=== PATIENT | male | born 1945 | race Caucasian/White ===

== ENCOUNTER 2022-06-22 22:44 | Emergency (ER) | payer OTHER, MEDICARE, SELFPAY ==
[2022-06-22 22:55] VITALS: BP 143/87; PULSE 93; RESP 18; TEMP 36.6; O2SAT 94; BMI 26.0
--- NOTE | 2022-06-22 23:07 | ED.SOB ---
HPI - SOB/Dyspnea General Chief Complaint: Shortness of Breath/Dyspnea Stated Complaint: Trouble Breathing, Ill Time Seen by Provider: 06/22/22 23:01 Source: patient, family and RN notes reviewed Mode of arrival: wheelchair Limitations: no limitations History of Present Illness HPI Narrative: 77-year-old man presenting to the emergency department with complaint of shortness of breath. Apparently this woke him from sleep. Initially says he was feeling fine prior to this but with further recollection has been having intermittent chest pains over the last few days. Can't be specific if this is really occurring at rest or with exertion. He has been fatigued lately is affirmed by his . Doing a lot of this interview he looks to his for answers to these questions. He also when pressed admits to having a little bit of chest pain this evening as well. He has not any fever. No cough or cold symptoms. He admits to just a little bit of nausea as well; this seems to have faded. notes how he was shaking and seemed cold when he came upstairs this evening. No abdominal pain. No diarrhea. No dysuria noted. Denies orthopnea. Was vaccinated for COVID; sounds like boosted as well. Last seen in this department with apparent ACS. This was in August of 2020. [facility] does have a history of triple-vessel bypass and apparently to 2 years ago angiogram confirmed these vessels to be open but there was apparently 1 small vessel that cannot be stented and narrowed enough to be causing recurrent chest pain. Review of records shows a monoclonal gammopathy as well. Inquiry is to reasons for certain medications; he is unsure. We asked about nitroglycerin; he says he threw all away; he thought it might be . Has not taken anything today. [place] that they have lost a little bit due to road construction. Later reveals that he actually did take nitroglycerin earlier this afternoon. This information obtained more from spouse. Then he laid down. Whatever chest discomfort there had been apparently resolved. Related Data Home Medications Medication Instructions Recorded Confirmed alirocumab subcut 06/22/22 aspirin 81 mg tablet,delayed 81 mg PO DAILY 06/22/22 06/22/22 release (Adult Aspirin Regimen) carvedilol 6.25 mg tablet 6.25 mg PO BID 06/22/22 06/22/22 clobetasol 0.05 % topical ointment 1 applic topical DAILY 06/22/22 06/22/22 clopidogrel 75 mg tablet 75 mg PO DAILY 06/22/22 06/22/22 ezetimibe 10 mg tablet 10 mg PO DAILY 06/22/22 06/22/22 isosorbide mononitrate .ROUTE 06/22/22 lisinopril 10 mg tablet 5 mg PO DAILY 06/22/22 06/22/22 omeprazole 20 mg capsule,delayed 20 mg PO BID 06/22/22 06/22/22 release Previous Rx's Medication Instructions Recorded amoxicillin 875 mg-potassium 1 tab PO BID #20 tabs 06/23/22 clavulanate 125 mg tablet Allergies Allergy/AdvReac Type Severity Reaction Status Date / Time No Known Drug Allergies Allergy Verified 06/23/22 16:42 Review of Systems Status of ROS: Reports: 10 or more systems reviewed and unremarkable except as noted in History and below [facility] Medical History Patricio esophagus Bradycardia Coronary atherosclerosis Dementia Hyperlipidemia Hypertension Mitral regurgitation Monoclonal gammopathy PVD (peripheral vascular disease) Social History Smoking Status: Former smoker Do you use any of these nicotine containing products: None How often do you have a drink containing alcohol: 4 or more times a week How many standard drinks containing alcohol do you have on a typical day: 1 or 2 How often do you have six or more drinks on one occasion: Never AUDIT-C Alcohol total score: 4 Non-prescribed substance use: denies use service: Yes Exam Narrative: Exam Narrative: Calm. Pleasant. NAD. Resting comfortably semi recumbent. Initial oxygen saturation 92-93%. And during interview varies between this and 95%. Cranial nerves 2-12 intact. Moving all extremities without difficulty. He is well perfused peripherally. There is no extremity edema. Is maybe mildly hard of hearing but I believe even when he hears my question he looks to spouse for answers who acknowledges that she does not really know what he might be feeling. Initially I hear some congestion in his throat. That seems to clear. Lungs appear to be clear. Equal expansion excursion. Cardiovascular elevated rate regular rhythm I thought maybe I was hearing some split S2- subtle. No JVD. No pain to palpation across the chest. Abdomen is protuberant soft and nontender. Skin is warm and dry Const: Vital Signs, click to edit/add: Vital Signs - 24 hr 06/22/22 22:55 06/22/22 23:27 06/23/22 00:03 Temperature 97.8 F Pulse Rate [Left P ulse Oximeter] 93 Respiratory Rate 18 Blood Pressure [Le ft Upper Arm] 143/87 H 142/71 H 93/63 Pulse Oximetry 94 Oxygen Delivery Me thod Room Air 06/23/22 00:18 06/22/22 23:27 06/23/22 02:00 Temperature Pulse Rate [Left P ulse Oximeter] 84 84 Respiratory Rate 18 Blood Pressure [Le ft Upper Arm] 103/69 110/89 118/64 Pulse Oximetry Oxygen Delivery Me thod Room Air Documenting provider has reviewed patient's vital signs: yes Course Reevaluation(s) Reevaluation #1: Did receive nitroglycerin once. Pressure to 93 systolic. Is not reporting lightheadedness. Symptom free in general. Reevaluation #2: Discussed concerning labs with Mr. Wren particularly elevated bilirubin but especially the D-dimer and CRP. And in the setting of monoclonal gammopathy. He maintains he is symptom-free now and definitely without any pleuritic discomfort. Is no longer short of breath. He then says that he often gets these episodes of what I understand to be shortness of breath; this is not a new thing. Wants to leave. Vital Signs Vital signs: Initial Vital Signs Temperature 97.8 F 06/22/22 22:55 Temperature Source Temporal Artery Scan 06/22/22 22:55 Pulse Rate 93 06/22/22 22:55 Pulse Rhythm 06/22/22 22:55 Respiratory Rate 18 06/22/22 22:55 Blood Pressure 143/87 H 06/22/22 22:55 Blood Pressure Mean 105 06/22/22 22:55 Blood Pressure Position Sitting 06/22/22 22:55 Pulse Oximetry 94 06/22/22 22:55 Oxygen Delivery Method 06/22/22 22:55 Vital Signs Temperature 97.8 F 06/22/22 22:55 Pulse Rate 93 06/22/22 22:55 Respiratory Rate 18 06/22/22 22:55 Blood Pressure 143/87 H 06/22/22 22:55 Pulse Oximetry 94 06/22/22 22:55 Oxygen Delivery Method 06/22/22 22:55 Temperature 97.8 F 06/22/22 22:55 Pulse Rate 84 06/23/22 02:00 Respiratory Rate 18 06/23/22 02:00 Blood Pressure 118/64 06/23/22 02:00 Pulse Oximetry 94 06/22/22 22:55 Oxygen Delivery Method 06/22/22 23:27 MDM - SOB/Dyspnea MDM Narrative Medical decision making narrative: Initial EKG reviewed by me shows normal sinus. I do not see ischemic changes. Looks to have similar axis/orientation to August of 2020. There was maybe some evidence of lateral ischemia at that time but I do not see that present here now. These biphasic T-waves though now are in leads V1 and V2. Rate of 85, again normal sinus Repeat EKG is unchanged. Also reviewed by me I wonder if some of these episodes represent anxiety. Though there is this chilled component that was also described. Elevated bilirubin and CRP. Stable vitals. Blood cultures collected. Medical Records Attestation: I reviewed the patient's medical records. Lab Data Attestation: I reviewed the patient's lab results. Labs: Lab Results 06/22/22 06/22/22 06/22/22 Range/Units 23:35 23:40 23:40 WBC 9.24 (4.50-11.00) K/uL RBC 4.86 (4.30-5.90) m/uL Hgb 15.2 (13.5-17.5) gm/dL Hct 44.5 (37.0-53.0) % MCV 92 (80-100) fL MCH 31 (26-34) pg MCHC 34 (32-36) gm/dL RDW Coeff of Lilibeth 13.3 (11.5-15.5) % Plt Count 129 L (140-440) K/uL Neut % (Auto) 93.9 H (42.0-72.0) % Lymph % (Auto) 3.1 L (20-44) % Meriwether % (Auto) 2.6 (0.0-11.0) % Eos % (Auto) 0.1 (0.0-7.0) % Baso % (Auto) 0.1 (0.0-3.0) % Neut # (Auto) 8.70 H (1.7-7.0) K/uL Lymph # (Auto) 0.30 L (0.90-2.90) K/uL Meriwether # (Auto) 0.20 (0.00-0.90) K/UL Eos # (Auto) 0.01 (0.00-0.50) K/uL Baso # (Auto) 0.01 (0.00-0.30) K/uL Abs Immat Gran (auto) 0.02 (0.00-0.30) K/uL D-Dimer Quant (PE/DVT) 2.32 H (0.00-0.50) ug/ml VBG pH (7.32-7.43) VBG pCO2 (40-50) mmHG VBG pO2 (25-47) mmHG VBG HCO3 (21-28) mmol/L Sodium (135-149) mmol/L Potassium (3.6-5.1) mmol/L Chloride (96-114) mmol/L Carbon Dioxide (20-32) mmol/L BUN (7-30) mg/dL Creatinine (0.5-1.5) mg/dL Estimated Creat Clear Estimated GFR ml/min Glucose (60-115) mg/dL Lactate (0.5-1.9) mmol/L Venous Lactic Acid (Serial Order) Calcium (8.4-10.6) mg/dL Total Bilirubin (0.1-1.5) mg/dL Direct Bilirubin (0.0-0.5) mg/dL AST (12-35) U/L ALT (4-50) U/L Alkaline Phosphatase (40-150) U/L Troponin I (0.01-0.04) ng/mL C-Reactive Protein (0.5-1.0) mg/dL NT-Pro-B Natriuret Pep (0-450) PG/mL Total Protein (6.0-8.3) g/dL Albumin (3.3-5.0) g/dL SARS-CoV-2 (PCR) Negative SARS-CoV-2 (Negative) POC Troponin I (0.01-0.04) ng/ml 06/22/22 06/22/22 06/22/22 Range/Units 23:40 23:40 23:46 WBC (4.50-11.00) K/uL RBC (4.30-5.90) m/uL Hgb (13.5-17.5) gm/dL Hct (37.0-53.0) % MCV (80-100) fL MCH (26-34) pg MCHC (32-36) gm/dL RDW Coeff of Lilibeth (11.5-15.5) % Plt Count (140-440) K/uL Neut % (Auto) (42.0-72.0) % Lymph % (Auto) (20-44) % Meriwether % (Auto) (0.0-11.0) % Eos % (Auto) (0.0-7.0) % Baso % (Auto) (0.0-3.0) % Neut # (Auto) (1.7-7.0) K/uL Lymph # (Auto) (0.90-2.90) K/uL Meriwether # (Auto) (0.00-0.90) K/UL Eos # (Auto) (0.00-0.50) K/uL Baso # (Auto) (0.00-0.30) K/uL Abs Immat Gran (auto) (0.00-0.30) K/uL D-Dimer Quant (PE/DVT) (0.00-0.50) ug/ml VBG pH (7.32-7.43) VBG pCO2 (40-50) mmHG VBG pO2 (25-47) mmHG VBG HCO3 (21-28) mmol/L Sodium 131 L (135-149) mmol/L Potassium 4.0 (3.6-5.1) mmol/L Chloride 100 (96-114) mmol/L Carbon Dioxide 22 (20-32) mmol/L BUN 14 (7-30) mg/dL Creatinine 0.8 (0.5-1.5) mg/dL Estimated Creat Clear 61.86 Estimated GFR 91 ml/min Glucose 155 H (60-115) mg/dL Lactate (0.5-1.9) mmol/L Venous Lactic Acid (Serial Order) Calcium 8.6 (8.4-10.6) mg/dL Total Bilirubin 3.5 H (0.1-1.5) mg/dL Direct Bilirubin 0.2 (0.0-0.5) mg/dL AST 23 (12-35) U/L ALT 16 (4-50) U/L Alkaline Phosphatase 62 (40-150) U/L Troponin I 0.02 (0.01-0.04) ng/mL C-Reactive Protein 6.0 H (0.5-1.0) mg/dL NT-Pro-B Natriuret Pep 483 H (0-450) PG/mL Total Protein 6.6 (6.0-8.3) g/dL Albumin 3.9 (3.3-5.0) g/dL SARS-CoV-2 (PCR) (Negative) POC Troponin I 0.01 (0.01-0.04) ng/ml 06/22/22 06/22/22 06/22/22 Range/Units 23:50 23:50 23:50 WBC (4.50-11.00) K/uL RBC (4.30-5.90) m/uL Hgb (13.5-17.5) gm/dL Hct (37.0-53.0) % MCV (80-100) fL MCH (26-34) pg MCHC (32-36) gm/dL RDW Coeff of Lilibeth (11.5-15.5) % Plt Count (140-440) K/uL Neut % (Auto) (42.0-72.0) % Lymph % (Auto) (20-44) % Meriwether % (Auto) (0.0-11.0) % Eos % (Auto) (0.0-7.0) % Baso % (Auto) (0.0-3.0) % Neut # (Auto) (1.7-7.0) K/uL Lymph # (Auto) (0.90-2.90) K/uL Meriwether # (Auto) (0.00-0.90) K/UL Eos # (Auto) (0.00-0.50) K/uL Baso # (Auto) (0.00-0.30) K/uL Abs Immat Gran (auto) (0.00-0.30) K/uL D-Dimer Quant (PE/DVT) (0.00-0.50) ug/ml VBG pH 7.491 H (7.32-7.43) VBG pCO2 30 L (40-50) mmHG VBG pO2 67.5 H (25-47) mmHG VBG HCO3 23 (21-28) mmol/L Sodium (135-149) mmol/L Potassium (3.6-5.1) mmol/L Chloride (96-114) mmol/L Carbon Dioxide (20-32) mmol/L BUN (7-30) mg/dL Creatinine (0.5-1.5) mg/dL Estimated Creat Clear Estimated GFR ml/min Glucose (60-115) mg/dL Lactate 0.9 (0.5-1.9) mmol/L Venous Lactic Acid (Serial Order) Cancelled Calcium (8.4-10.6) mg/dL Total Bilirubin (0.1-1.5) mg/dL Direct Bilirubin (0.0-0.5) mg/dL AST (12-35) U/L ALT (4-50) U/L Alkaline Phosphatase (40-150) U/L Troponin I (0.01-0.04) ng/mL C-Reactive Protein (0.5-1.0) mg/dL NT-Pro-B Natriuret Pep (0-450) PG/mL Total Protein (6.0-8.3) g/dL Albumin (3.3-5.0) g/dL SARS-CoV-2 (PCR) (Negative) POC Troponin I (0.01-0.04) ng/ml 06/23/22 Range/Units 01:05 WBC (4.50-11.00) K/uL RBC (4.30-5.90) m/uL Hgb (13.5-17.5) gm/dL Hct (37.0-53.0) % MCV (80-100) fL MCH (26-34) pg MCHC (32-36) gm/dL RDW Coeff of Lilibeth (11.5-15.5) % Plt Count (140-440) K/uL Neut % (Auto) (42.0-72.0) % Lymph % (Auto) (20-44) % Meriwether % (Auto) (0.0-11.0) % Eos % (Auto) (0.0-7.0) % Baso % (Auto) (0.0-3.0) % Neut # (Auto) (1.7-7.0) K/uL Lymph # (Auto) (0.90-2.90) K/uL Meriwether # (Auto) (0.00-0.90) K/UL Eos # (Auto) (0.00-0.50) K/uL Baso # (Auto) (0.00-0.30) K/uL Abs Immat Gran (auto) (0.00-0.30) K/uL D-Dimer Quant (PE/DVT) (0.00-0.50) ug/ml VBG pH (7.32-7.43) VBG pCO2 (40-50) mmHG VBG pO2 (25-47) mmHG VBG HCO3 (21-28) mmol/L Sodium (135-149) mmol/L Potassium (3.6-5.1) mmol/L Chloride (96-114) mmol/L Carbon Dioxide (20-32) mmol/L BUN (7-30) mg/dL Creatinine (0.5-1.5) mg/dL Estimated Creat Clear Estimated GFR ml/min Glucose (60-115) mg/dL Lactate (0.5-1.9) mmol/L Venous Lactic Acid (Serial Order) Calcium (8.4-10.6) mg/dL Total Bilirubin (0.1-1.5) mg/dL Direct Bilirubin (0.0-0.5) mg/dL AST (12-35) U/L ALT (4-50) U/L Alkaline Phosphatase (40-150) U/L Troponin I (0.01-0.04) ng/mL C-Reactive Protein (0.5-1.0) mg/dL NT-Pro-B Natriuret Pep (0-450) PG/mL Total Protein (6.0-8.3) g/dL Albumin (3.3-5.0) g/dL SARS-CoV-2 (PCR) (Negative) POC Troponin I 0.02 (0.01-0.04) ng/ml Discharge Plan Discharge Clinical Impression: Dyspnea, Hyponatremia Patient Disposition: Home w/ Parent or Adult Condition: Improved Additional Instructions: Please return for persistent recurrence of symptoms, increasing shortness of breath, chest pain not relieved by 2 doses of your nitroglycerin, return for any associated lightheadedness, weakness. I would check recent labs for comparison to labs from today and repeat these labs in a week or 2. You do have some abnormalities though they might be explained by underlying diagnoses. I understand you do not want further workup today. It does not appear that there has been any damage to your heart at least. Please take copies of your labs with you. Prescriptions: No Action alirocumab subcut carvedilol 6.25 mg tablet 6.25 mg PO BID Rx Instructions: 1/2 tab po daily. must administer with a meal/food clobetasol 0.05 % ointment 1 applic topical DAILY clopidogrel 75 mg tablet 75 mg PO DAILY ezetimibe 10 mg tablet 10 mg PO DAILY isosorbide mononitrate .ROUTE lisinopril 10 mg tablet 5 mg PO DAILY omeprazole 20 mg capsule,delayed release(DR/EC) 20 mg PO BID aspirin [Adult Aspirin Regimen] 81 mg tablet,delayed release (DR/EC) 81 mg PO DAILY amoxicillin-pot clavulanate 875-125 mg tablet 1 tab PO BID Qty: 20 0RF Follow Up/Referrals: Provider,Not a Local [Primary Care Provider] - Stand Alone Forms: Player Xth Info Instructions
[2022-06-22 23:27] VITALS: BP 110/89; BP 142/71; PULSE 84
--- NOTE | 2022-06-22 23:28 | CRLHL7_ITS ---
For Patients: As a result of the Cures Act, medical imaging exams and procedure reports are released immediately into your electronic medical record. You may view this report before your referring provider. If you have questions, please contact your health care provider. INDICATION: Shortness of breath TECHNIQUE: Chest radiograph 2 views COMPARISON: None FINDINGS: Mediastinum: The mediastinum is normal in appearance. The heart silhouette is normal in size and morphology. The patient is status post coronary artery bypass surgery. Lung: Both lungs are unremarkable in appearance. No sign of pleural effusion seen. No pneumothorax is identified. Bone and Soft tissue: Unremarkable for age. IMPRESSION: 1. No acute cardiopulmonary disease is seen. Dictated by: Javid Sawant MD @ 06/23/2022 00:08:27 (Electronically Signed)
[2022-06-22] MEDS: NITROGLYCERIN 0.4 MG TAB.SUBL SUBLINGUAL (23:34)
[2022-06-22 23:52] LABS: HCO3 VBG 23 mmol/L (21-28); PCO2 VBG 30 mmHG (40-50); PO2 VBG 67.5 mmHG (25-47); pH VBG 7.491 (7.32-7.43)
[2022-06-22 23:55] LABS: Basophils Absolute Auto 0.01 K/uL (0.00-0.30); Basophils Percent Auto 0.1 % (0.0-3.0); Eosinophils Absolute Auto 0.01 K/uL (0.00-0.50); Eosinophils Percent Auto 0.1 % (0.0-7.0); Hematocrit 44.5 % (37.0-53.0); Hemoglobin* 15.2 gm/dL (13.5-17.5); Immature Granulocytes Abs Auto 0.02 K/uL (0.00-0.30); Lymphocytes Percent Auto 3.1 % (20-44); Mean Corpuscular HGB Conc 34 gm/dL (32-36); Mean Corpuscular Hemoglobin 31 pg (26-34); Mean Corpuscular Volume 92 fL (80-100); Monocytes Percent Auto 2.6 % (0.0-11.0); Neutrophils Percent Auto 93.9 % (42.0-72.0); Platelet Count* 129 K/uL (140-440); RDW Coefficient of Variation % 13.3 % (11.5-15.5); Red Blood Count 4.86 m/uL (4.30-5.90); White Blood Count* 9.24 K/uL (4.50-11.00)
[2022-06-22 23:55] LABS: Troponin, Point-of-Care* 0.01 ng/ml (0.01-0.04)
[2022-06-23 00:03] VITALS: BP 93/63
[2022-06-23 00:03] LABS: Slide Review Reflex No
--- NOTE | 2022-06-23 00:04 | PC.NURSE ---
Bp decrease after SL NTG. aware.
[2022-06-23 00:09] LABS: Albumin* 3.9 g/dL (3.3-5.0); Chloride* 100 mmol/L (96-114)
[2022-06-23 00:10] LABS: Sodium* 131 mmol/L (135-149)
[2022-06-23 00:10] LABS: Lactate* 0.9 mmol/L (0.5-1.9)
[2022-06-23 00:12] LABS: Alkaline Phosphatase* 62 U/L (40-150); Aspartate Amino Transferase* 23 U/L (12-35); Bilirubin Direct* 0.2 mg/dL (0.0-0.5); Bilirubin Total* 3.5 mg/dL (0.1-1.5); Total Protein* 6.6 g/dL (6.0-8.3)
[2022-06-23 00:14] LABS: D Dimer Quantitative* 2.32 ug/ml (0.00-0.50)
[2022-06-23 00:16] LABS: Blood Urea Nitrogen* 14 mg/dL (7-30); Calcium* 8.6 mg/dL (8.4-10.6); Carbon Dioxide* 22 mmol/L (20-32); Glucose* 155 mg/dL (60-115)
[2022-06-23 00:18] VITALS: BP 103/69
[2022-06-23 00:18] LABS: Creatinine* 0.8 mg/dL (0.5-1.5); Est. Creatinine Clearance* 61.86; Estimated Glomerular Filt Rate 91 ml/min
[2022-06-23 00:21] LABS: NT Pro B Type NatriureticPept* 483 PG/mL (0-450)
[2022-06-23 00:24] LABS: Troponin I* 0.02 ng/mL (0.01-0.04)
[2022-06-23 00:29] LABS: Alanine Aminotransferase* 16 U/L (4-50)
--- OUTSIDE RECORDS SUMMARY | 2022-06-23 00:31 | XMS_ITS | Encounter Summary ---
:1945 Author Organization [facility] Address [address] [place] [id number] Support Name Relationship Address Phone BELA HIDALGO Unavailable [phone] [facility] [place] [address] BELA HIDALGO Unavailable [phone] [facility] [phone] [place] [address] Insurance Providers: All historical and current Section Date Range: From patient's date of to the date document was created.This section includes the names of all active insurance providers for the patient. Insurance Type of Plan Start of End of Group Member Insurance Policy P atient's Provider Coverage Name Policy Policy Number ID Provider's Wahl's Relationship Coverage Coverage Telephone Name to Policy Number Wahl RACHEL MCR MEDICARE MCR Nov 06, [id number] [phone] LUCRETIA CAST,R PATIENT (WNR) ADVANTAGE (WNR) 2019 1 42 [phone] CAITLYN RAMOS MCR MEDICARE MCR Nov 06, [id number] LUCRETIA CASTR PATIENT (WNR) ADVANTAGE (WNR) 2019 1 42 [phone] CAITLYN MEDICARE MEDICARE PART Dec 07, PART A [id number] P ATIENT (WNR) (M) A 2004 [id number] [phone] JENNIFER Kennedy MEDICARE MEDICARE PART Dec 07, PART B [id number] [place] HIDALGO P ATIENT (WNR) (M) B 2004 [id number] [phone] CAITLYN -CARE OF MEDICARE MCR Nov 06, RICT [id number] [phone] JERI RS,R PATIENT [facility] ADVANTAGE (WNR) [id number] STANISLAWPAUL (WNR) Selected Encounter This section includes the information on record at MA for the Encounter. Date/Time Encounter Type Encounter Reason Provider Source Description Oct 14, 2021 08:07 Outpatient AMBULATORY EDILMA CASTILLO AM Encounter EHSAN LEIVA Encounter Template Text not used by MA Plan of Treatment: Future Appointments (+ 6 months) and Future Tests (+/- 45 days) The Plan of Treatment section includes future care activities for the patient from all [place] treatmentfacilities. This section includes future appointments and future orders which are active, pending orscheduled.Future Appointments This section includes appointments that were scheduled to occur 6 months from the date of the Encounter, up to a maximum of 20 appointments. The data comes from all [place] treatment facilities. Appointment Date/Time Appointment Type Appointment Facili ty Name Oct 18, 2021 03:30 PM AMBULATORY - MEDICINE [facility] Oct 19, 2021 09:45 AM AMBULATORY - NONE [facility] Oct 19, 2021 10:00 AM AMBULATORY NONE [facility] Oct 19, 2021 10:45 AM AMBULATORY - MEDICINE [facility] Nov 16, 2021 11:30 AM AMBULATORY - MEDICINE [facility] Nov 18, 2021 05:30 PM AMBULATORY - MEDICINE [facility] Dec 14, 2021 09:00 AM AMBULATORY - PSYCHIATRY [facility] Dec 21, 2021 07:30 AM AMBULATORY - NONE [facility] Dec 23, 2021 11:45 AM AMBULATORY - MEDICINE [facility] Dec 23, 2021 12:00 PM AMBULATORY - MEDICINE [facility] Dec 31, 2021 09:00 AM AMBULATORY - PSYCHIATRY [facility] Lab Results: +/- 30 days of the encounter This section includes the Chemistry and Hematology Lab Results on record with MA for the patient. Radiology Reports and Pathology Reports are provided separately, in subsequent sections.Lab Results This section contains the Chemistry/Hematology Results that were resulted 30 days before or 30 daysafter the date of the Encounter. Date/Time Source Result Type Result - Unit Interpretation Reference Range Comment Nov 02, 2021 05:25 [facility] OCCULT BLOOD FIT X1 Speci men Type: FECES PM SCREEN No comment enter ed. Ordering Provid er: KOSTA WALKER Report Released Date/Time: Oct 23, 2021 07:11 AM Reporting Lab: [facility] [address] [facility] [address] Performing Lab: [facility] [address] [facility] [address] [facility] [address] OCCULT BLOOD (FIT) #1 OF 1 Negative Neg ative Oct 19, 2021 09:36 [facility] LIPID PANEL,FASTING Speci men Type: PLASMA AM No comment enter ed. Ordering Provid er: SANAM QUEVEDO Report Released Date/Time: May 13, 2021 08:38 AM Reporting Lab: [facility] [address] [facility] [address] Performing Lab: [facility] [address] [facility] [address] CHOLESTEROL 101 <199 TRIGLYCERIDE 102 <149 .HDL 46 >40 LDL CALCULATION 35 <99 VLDL CALCULATION 20 <29 NON HDL CHOLESTEROL 55 <129 Oct 19, 2021 [facility] CREATININE(INCLUDES EGFR) Sp ecimen Type: PLASMA 09:36 AM No comment enter ed. Ordering Provid er: KOSTA WALKER Report Released Date/Time: Oct 18, 2021 03:48 PM Reporting Lab: [facility] [address] [facility] [address] Performing Lab: [facility] [address] [facility] [address] CREATININE 0.9 0.7-1.2 ESTIMATED GFR(eGFR) 82 >60 Oct 19, 2021 09:36 AM [facility] CBC Specim en Type: BLOOD No comment enter ed. Ordering Provid er: KOSTA WALKER Report Released Date/Time: Oct 18, 2021 03:48 PM Reporting Lab: [facility] [address] [facility] [address] Performing Lab: [facility] [address] [facility] [address] WBC 6.43 4.0-11.0 RBC 5.32 4.6-6.2 HGB 16.9 13.5-17.9 HCT 48.9 41-54 MCV 91.9 80-100 MCH 31.8 27-33 MCHC 34.6 32.0-37.5 PLT 208 150-400 MPV 10.8 H 7.4-10.4 RDW 13.2 11.5-14.5 Oct 19, 2021 09:36 [facility] ELECTROLYTES/ANION GAP Sp ecimen Type: PLASMA AM No comment enter ed. Ordering Provid er: KOSTA WALKER Report Released Date/Time: Oct 18, 2021 03:48 PM Reporting Lab: [facility] [address] [facility] [address] Performing Lab: [facility] [address] [facility] [address] SODIUM 138 136-145 POTASSIUM 3.9 3.5-5.1 CHLORIDE 103 98-107 CO2 29 22-29 ANION GAP 6 5-15 Oct 19, 2021 09:36 AM [facility] HEMOGLOBIN A1C Specim en Type: BLOOD No comment enter ed. Ordering Provid er: KOSTA WALKER Report Released Date/Time: Oct 18, 2021 03:48 PM Reporting Lab: [facility] [address] [facility] [address] Performing Lab: [facility] [address] [facility] [address] HEMOGLOBIN A1C 5.8 4.0-6.0 Oct 19, 2021 09:36 AM [facility] GLUCOSE Specim en Type: PLASMA No comment enter ed. Ordering Provid er: KOSTA WALKER Report Released Date/Time: Oct 18, 2021 03:48 PM Reporting Lab: [facility] [address] [facility] [address] Performing Lab: [facility] [address] [facility] [address] GLUCOSE 105 H 74-100 Oct 19, 2021 09:36 AM [facility] ALT/SGPT Specim en Type: PLASMA No comment enter ed. Ordering Provid er: KOSTA WALKER Report Released Date/Time: Oct 18, 2021 03:48 PM Reporting Lab: [facility] [address] [facility] [address] Performing Lab: [facility] [address] [facility] [address] ALT/SGPT 15 <55 Oct 19, 2021 09:36 AM [facility] AST/SGOT Specim en Type: PLASMA No comment enter ed. Ordering Provid er: KOSTA WALKER Report Released Date/Time: Oct 18, 2021 03:48 PM Reporting Lab: [facility] [address] [facility] [address] Performing Lab: [facility] [address] [facility] [address] AST/SGOT 17 <34 Oct 19, 2021 09:36 [facility] TSH W/REFLEX TO FREE Spec imen Type: PLASMA AM T4 No comment enter ed. Ordering Provid er: KSOTA WALKER Report Released Date/Time: Oct 18, 2021 03:48 PM Reporting Lab: [facility] [address] [facility] [address] Performing Lab: [facility] [address] [facility] [address] TSH 1.02 0.35-4.94 Oct 19, 2021 [facility] LIPID PANEL,NON-FASTING Spec imen Type: PLASMA 09:36 AM No comment enter ed. Ordering Provid er: OKSTA WALKER Report Released Date/Time: Oct 18, 2021 03:48 PM Reporting Lab: [facility] [address] [facility] [address] Performing Lab: [facility] [address] [facility] [address] CHOLESTEROL 102 <199 .HDL 48 >40 LDL CALCULATION 22 <99 VLDL CALCULATION 32 H <29 NON HDL CHOLESTEROL 54 <129 TRIG(NON FASTING) 160 H <149 Social History: Smoking Status (Most current) and Tobacco Use (All prior to encounter date) This section includes the most current, and the historical, smoking and tobacco-related health factors from the [place] facility where the Encounter took place.Current Smoking Status This section includes the most current smoking, or tobacco-related health factor, from the [place] facility where the Encounter took place. Date/Time Current Smoking Status Comment Facility 2019 01:06 PM VA-TOBACCO QUIT 5 TO < 15 YRS [facility] Tobacco Use History This section includes a history of the smoking, or tobacco- related health factors, that were collected on or before the date of the Encounter. The data comes from the [place] facility where the Encounter took place. Date/Time Smoking Status/Tobacco Use Comment Facil it 2019 01:06 PM VA-TOBACCO QUIT 5 TO < 15 YRS [facility] Aug 09, 2018 01:15 PM VA-TOBACCO FORMER USER [facility] Aug 09, 2018 01:15 PM VA-TOBACCO QUIT 5 TO < 15 YRS [facility] Jun 26, 2018 08:02 PM INPT NO TOBACCO USE IN LAST 30 DAYS [facility] Feb 08, 2017 08:22 AM FORMER TOBACCO USER 7Y OR GREATER [facility] Apr 08, 2016 07:59 AM FORMER TOBACCO USER 7Y OR GREATER [facility] Dec 02, 2014 10:48 AM FORMER TOBACCO USER 7Y OR GREATER [facility] Feb 17, 2014 10:22 AM FORMER TOBACCO USER 7Y OR GREATER [facility] Dec 19, 2012 07:42 AM FORMER TOBACCO USE >1Y <7Y [facility] Jan 02, 2012 09:35 AM FORMER TOBACCO USE >1Y <7Y [facility] Dec 13, 2010 08:57 AM FORMER TOBACCO USE >1Y <7Y [facility] Sep 03, 2009 01:16 PM FORMER TOBACCO USE >1Y <7Y [facility] Sep 25, 2008 11:20 AM CURRENT TOBACCO USER [facility] Advance Directives: All historical and current Section Date Range: From patient's date of to the date document was created. This section includes ALL of a patient's completed or amended [place] Advance and Rescinded Directives. The entries below indicate that a directive exists for the patient, but an actual copy is not included with this document. The data comes from all [place] facilities. Date Advance Directives Provider Source Oct 02, 2017 CLINICAL WARNING EDJAXON Valencia Patricia [facility] Pathology Reports: +/- 30 days of the encounter Pathology Reports For cases when an order for pathology services may have been completed prior to the date of the Encounter, the report list includes the Pathology Reports that were completed up to 30 days before date of the Encounter. For cases when an order for pathology services may have been completed after the date of the Encounter, the report list also includes the Pathology Reports that were completed up to 30days after date of the Encounter. The data comes from all [place] treatment facilities. Date/Time Pathology Report Provider Source Oct 15, 2021 05:11 PM LR SURGICAL PATHOLOGY REPORT: TASHI MÁRQUEZ [facility] LOCAL TITLE: LR SURGICAL PATHOLOGY REPORT STANDARD TITLE: PATHOLOGY REPORT DATE OF NOTE: OCT 15, 2021@17:11:59 ENTRY DATE: OCT 15, 2021@17:11:59 AUTHOR: TASHI MÁRQUEZ EXP COSIGNER: URGENCY: STATUS: COMPLETED $APHDR Reporting Lab: [facility] [CLIA# [id number]] [place] [address] - - - - - - - - - - - - - - - - - - - - - - - - - - - - - - - - - - - - - - - - MEDICAL RECORD SURGICAL PATHOLOGY - - - - - - - - - - - - - - - - - - - - - - - - - - - - - - - - - - - - - - - - PATHOLOGY REPORT Accession No. [id number] [id number] - - - - - - - - - - - - - - - - - - - - - - - - - - - - - - - - - - - - - - - - $TEXT Submitted by: EDILMA ORTIZ Date obtained: Oct - - - - - - - - - - - - - - - - - - - - - - - - - - - - - - - - - - - - - - - - Specimen (Received Oct 14, 2021 15:00): 1. BX.PYLORIC CHANNEL 2. BX.ESOPHAGUS GE JUNCTION - - - - - - - - - - - - - - - - - - - - - - - - - - - - - - - - - - - - - - - - BRIEF CLINICAL HISTORY: 1. R/O H.pylori 2. R/O Patricio's Procedure: Upper GI endoscopy - - - - - - - - - - - - - - - - - - - - - - - - - - - - - - - - - - - - - - - - PREOPERATIVE DIAGNOSIS: - - - - - - - - - - - - - - - - - - - - - - - - - - - - - - - - - - - - - - - - OPERATIVE FINDINGS: - - - - - - - - - - - - - - - - - - - - - - - - - - - - - - - - - - - - - - - - POSTOPERATIVE DIAGNOSIS: Surgeon/physician: EDILMA ORTIZ MD =-=-=-=-=-=-=-=-=-=-=-=-=-=- =-=-=-=-=-=-=-=-=-=-=-=-=-=-=-=-=-=-=-=-=-=-=-=-=-= - - - - - - - - - - - - - - - - - - - - - - - - - - - - - - - - - - - - - - - - PATHOLOGY REPORT Accession No. SP-[place] [id number] - - - - - - - - - - - - - - - - - - - - - - - - - - - - - - - - - - - - - - - - GROSS DESCRIPTION: The requisition form and specimen(s) identifica tion is confirmed. SPEC. 1 is labeled pyloric channel and consists of four escobedo tissue fragments measuring 0.1 - 0.7 cm in greatest di mension. An H.pylori stain is ordered. CE. SPEC. 2 is labeled esophagus - GE junction and consists of four escobedo tissue fragments measuring 0.2 - 0.7 cm in grea test dimension. CE. (D) [facility]/ MICROSCOPIC DESCRIPTION: Microscopic examination is performed. DIAGNOSIS Spec. 1 Pyloric channel, biopsy -- - gastric mucosa with marked inflammation, rosario ed regenerative change, and intestinal metaplasia - H pylori stain: negative Spec. 2 Esophagus, GE junction, biopsy -- - fragments of benign squamocolumnar mucosa - no evidence of intestinal metaplasia, dysplas ia, or malignancy /reuben/ TASHI MÁRQUEZ MD STAFF PATHOLOGIST, PATHOLOGY & LABORATORY MED C Signed Oct 15, 2021@17:11 Performing Laboratory: Surgical Pathology Report Performed By: [facility] [CLIA# [id number]] [place] [address] $FTR - - - - - - - - - - - - - - - - - - - - - - - - - - - - - - - - - - - - - - - - (End of report) TASHI MÁRQUEZ MD [facility] [place] Date Oct 15, 2021 - - - - - - - - - - - - - - - - - - - - - - - - - - - - - - - - - - - - - - - - JENNIFER HIDALGO STANDARD FORM 515 ID:[id number] SEX:M :1945 AGE: 76 LOC: 1153 PCP: Kosta Walker MD /reuben/ TASHI MÁRQUEZ MD STAFF PATHOLOGIST, PATHOLOGY & LABORATORY MED SV C Signed: 10/15/2021 17:11
--- OUTSIDE RECORDS SUMMARY | 2022-06-23 00:31 | XMS_ITS | Encounter Summary ---
:1945 Author Organization [facility] Address [address] [place] [address] Support Name Relationship Address Phone BELA HIDALGO Unavailable [address] [place] [address] BELA HIDALGO Unavailable [address] [place] [address] Insurance Providers: All historical and current Section [...] Wahl RACHEL MCR MEDICARE MCR Nov 06, [id number] [phone] Colten MCNAMARA PATIENT (WNR) ADVANTAGE (WNR) 2019 1 [id number] [phone] [facility] ELMERMarcia MCR MEDICARE MCR Nov 06, [id number] Colten MCNAMARA PATIENT (WNR) ADVANTAGE (WNR) 2019 1 [id number] 0 [place] MEDICARE MEDICARE PART Dec 07, PART A [id number] P ATIENT (WNR) (M) A 2004 CY07 [phone] JENNIFER Kennedy MEDICARE MEDICARE PART Dec 07, PART B [id number] Colten HIDALGO P ATIENT (WNR) (M) B 2004 CY07 [phone] [place] -CARE OF MEDICARE MCR Nov 06, [facility] [id number] [phone] Colten ALEJANDRO PATIENT [facility] ADVANTAGE (WNR) [id number] [place] (WNR) Selected Encounter This section includes the information on record at [place] for the Encounter. Date/Time Encounter Type Encounter Description Reason Provider Source Oct 14, 2021 08:00 Outpatient Encounter GI ENDOSCOPY AM [facility] Encounter Template Text not used by [facility] Plan of Treatment: Future Appointments (+ 6 months) and Future Tests (+/- 45 days) The Plan of Treatment section includes future care activities for the [facility] [place] [facility]. This section includes future appointments and future orders which are active, pending orscheduled.Future Appointments This section includes appointments that were scheduled to occur 6 months from the date of the Encounter, up to a maximum of 20 appointments. The data comes from all [place] treatment facilities. Appointment Date/Time Appointment Type Appointment Facili ty Name Oct 18, 2021 03:30 PM AMBULATORY - MEDICINE [facility] Oct 19, 2021 09:45 AM AMBULATORY - NONE [facility] Oct 19, 2021 10:00 AM AMBULATORY NONE [facility] Oct 19, 2021 10:45 AM AMBULATORY - MEDICINE [facility] Nov 16, 2021 11:30 AM AMBULATORY - MEDICINE [facility] Nov 18, 2021 05:30 PM AMBULATORY - MEDICINE [facility] Dec 14, 2021 09:00 AM AMBULATORY - PSYCHIATRY [facility] Dec 21, 2021 07:30 AM AMBULATORY [facility] Dec 23, 2021 11:45 AM AMBULATORY - MEDICINE [facility] Dec 23, 2021 12:00 PM AMBULATORY - MEDICINE [facility] Dec 31, 2021 09:00 AM AMBULATORY - PSYCHIATRY [facility] Lab Results: +/- 30 days of the encounter This section includes the Chemistry and Hematology Lab Results on record with [place] for the patient. Radiology Reports and Pathology Reports are provided separately, in subsequent sections.Lab Results This section contains the Chemistry/Hematology Results that were resulted 30 days before or 30 daysafter the date of the Encounter. Date/Time Source Result Type Result - Unit Interpretation Reference Range Comment Nov 02, 2021 05:25 [facility] OCCULT BLOOD FIT X1 Speci men Type: FECES PM SCREEN No comment enter ed. Ordering Provid er: KOSTA WALKER Report Released Date/Time: Oct 23, 2021 07:11 AM Reporting Lab: [facility] [address] [facility] [address] [address] Performing [facility]: [facility] [address] OCCULT BLOOD (FIT) #1 OF 1 Negative Neg ative Oct 19, 2021 09:36 [facility] LIPID PANEL,FASTING Speci men Type: PLASMA AM No comment enter ed. Ordering Provid er: SANAM QUEVEDO Report Released Date/Time: May 13, 2021 08:38 AM Reporting Lab: [facility] [address] [facility] [address] Performing Lab: [facility] [address] [facility] [address] CHOLESTEROL 101 <199 TRIGLYCERIDE 102 <149 .HDL 46 >40 LDL CALCULATION 35 <99 VLDL CALCULATION 20 <29 NON HDL CHOLESTEROL 55 <129 Oct 19, 2021 [facility] CREATININE(INCLUDES EGFR) Sp ecimen Type: PLASMA 09:36 AM No comment enter ed. Ordering Provid er: KOSTA WALKER Report Released Date/Time: Oct 18, 2021 03:48 PM Reporting Lab: [facility] [address] [facility] [address] Performing Lab: [facility] [address] [facility] [address] CREATININE 0.9 0.7-1.2 ESTIMATED GFR(eGFR) 82 >60 Oct 19, 2021 09:36 AM [facility] CBC Specim en Type: BLOOD No comment enter ed. Ordering Provid er: KOSTA WALKER Report Released Date/Time: Oct 18, 2021 03:48 PM Reporting Lab: [facility] [address] [facility] [address] Performing Lab: [facility] [address] [facility] [address] WBC 6.43 4.0-11.0 RBC 5.32 4.6-6.2 HGB 16.9 13.5-17.9 HCT 48.9 41-54 MCV 91.9 80-100 MCH 31.8 27-33 MCHC 34.6 32.0-37.5 PLT 208 150-400 MPV 10.8 H 7.4-10.4 RDW 13.2 11.5-14.5 Oct 19, 2021 09:36 AM [facility] GLUCOSE Specim en Type: PLASMA No comment enter ed. Ordering Provid er: KOSTA WALKER Report Released Date/Time: Oct 18, 2021 03:48 PM Reporting Lab: [facility] [address] [facility] [address] Performing Lab: [facility] [address] [facility] [address] GLUCOSE 105 H 74-100 Oct 19, 2021 09:36 [facility] ELECTROLYTES/ANION GAP Sp ecimen Type: PLASMA AM No comment enter ed. Ordering Provid er: KOSTA WALKER Report Released Date/Time: Oct 18, 2021 03:48 PM Reporting Lab: [facility] [address] [facility] [address] Performing Lab: [facility] [address] [facility] [address] SODIUM 138 136-145 POTASSIUM 3.9 3.5-5.1 CHLORIDE 103 98-107 CO2 29 22-29 ANION GAP 6 5-15 Oct 19, 2021 09:36 AM [facility] AST/SGOT Specim en Type: PLASMA No comment enter ed. Ordering Provid er: KOSTA WALKER Report Released Date/Time: Oct 18, 2021 03:48 PM Reporting Lab: [facility] [address] [facility] [address] Performing Lab: [facility] [address] [facility] [address] AST/SGOT 17 <34 Oct 19, 2021 09:36 AM [facility] HEMOGLOBIN A1C Specim en Type: BLOOD No comment enter ed. Ordering Provid er: KOSTA WALKER Report Released Date/Time: Oct 18, 2021 03:48 PM Reporting Lab: [facility] [address] [facility] [address] Performing Lab: [facility] [address] [facility] [address] HEMOGLOBIN A1C 5.8 4.0-6.0 Oct 19, 2021 09:36 AM [facility] ALT/SGPT Specim en Type: PLASMA No comment enter ed. Ordering Provid er: KOSTA WALKER Report Released Date/Time: Oct 18, 2021 03:48 PM Reporting Lab: [facility] [address] [facility] [address] Performing Lab: [facility] [address] [facility] [address] ALT/SGPT 15 <55 Oct 19, 2021 09:36 [facility] TSH W/REFLEX TO FREE Spec imen Type: PLASMA AM T4 No comment enter ed. Ordering Provid er: KOSTA WALKER Report Released Date/Time: Oct 18, 2021 03:48 PM Reporting Lab: [facility] [address] [facility] [address] Performing Lab: [facility] [address] [facility] [address] TSH 1.02 0.35-4.94 Oct 19, 2021 [facility] LIPID PANEL,NON-FASTING Spec imen Type: PLASMA 09:36 AM No comment enter ed. Ordering Provid er: KOSTA WALKER Report Released Date/Time: Oct 18, 2021 03:48 PM Reporting Lab: [facility] [address] [facility] [address] Performing Lab: [facility] [address] [facility] [address] CHOLESTEROL 102 <199 .HDL 48 >40 LDL CALCULATION 22 <99 VLDL CALCULATION 32 H <29 NON HDL CHOLESTEROL 54 <129 TRIG(NON FASTING) 160 H <149 Social History: Smoking Status (Most current) and Tobacco Use (All prior to encounter date) This section includes the most current, and the historical, smoking and tobacco-related health factors from the [place] facility where the Encounter took place.Current Smoking Status This section includes the most current smoking, or tobacco-related health factor, from the [place] facility where the Encounter took place. Date/Time Current Smoking Status Comment Facility 2019 01:06 PM VA-TOBACCO FORMER USER [facility] Tobacco Use History This section includes a history of the smoking, or tobacco- related health factors, that were collected on or before the date of the Encounter. The data comes from the [place] facility where the Encounter took place. Date/Time Smoking Status/Tobacco Use Comment Facil it 2019 01:06 PM VA-TOBACCO QUIT 5 TO < 15 YRS [facility] Aug 09, 2018 01:15 PM VA-TOBACCO FORMER USER [facility] Aug 09, 2018 01:15 PM VA-TOBACCO QUIT 5 TO < 15 YRS [facility] Jun 26, 2018 08:02 PM INPT NO TOBACCO USE IN LAST 30 DAYS [facility] Feb 08, 2017 08:22 AM FORMER TOBACCO USER 7Y OR GREATER [facility] Apr 08, 2016 07:59 AM FORMER TOBACCO USER 7Y OR GREATER [facility] Dec 02, 2014 10:48 AM FORMER TOBACCO USER 7Y OR GREATER [facility] Feb 17, 2014 10:22 AM FORMER TOBACCO USER 7Y OR GREATER [facility] Dec 19, 2012 07:42 AM FORMER TOBACCO USE >1Y <7Y [facility] Jan 02, 2012 09:35 AM FORMER TOBACCO USE >1Y <7Y [facility] Dec 13, 2010 08:57 AM FORMER TOBACCO USE >1Y <7Y [facility] Sep 03, 2009 01:16 PM FORMER TOBACCO USE >1Y <7Y [facility] Sep 25, 2008 11:20 AM CURRENT TOBACCO USER [facility] Advance Directives: All historical and current Section Date Range: From patient's date of to the date document was created. This section includes ALL of a patient's completed or amended [place] Advance and Rescinded Directives. The entries below indicate that a directive exists for the patient, but an actual copy is not included with this document. The data comes from all [place] facilities. Date Advance Directives Provider Source Oct 02, 2017 CLINICAL WARNING JAXON LONG [facility] Pathology Reports: +/- 30 days of the [...] the Encounter. The data comes from all [facility] facilities. Date/Time Pathology Report Provider Source Oct 15, 2021 05:11 PM LR SURGICAL PATHOLOGY REPORT: TASHI MÁRQUEZ [facility] LOCAL TITLE: LR SURGICAL PATHOLOGY REPORT STANDARD TITLE: PATHOLOGY REPORT DATE OF NOTE: OCT 15, 2021@17:11:59 ENTRY DATE: OCT 15, 2021@17:11:59 AUTHOR: TASHI MÁRQUEZ EXP COSIGNER: URGENCY: STATUS: COMPLETED $APHDR Reporting Lab: [facility] [CLIA# [id number]] [place] [address] - - - - - - - [...] - PATHOLOGY REPORT Accession No. [id number] - - - - - - - - - - - - - - - - - - - - - - - - - - - - - - - - - - - - - - - - $TEXT Submitted by: EDILMA DAVIS Date obtained: Oct - - - - [...] - - - POSTOPERATIVE DIAGNOSIS: Surgeon/physician: EDILMA DAVIS MD =-=-=-=-=-=-=-=-=-=-=-=-=-=- =-=-=-=-=-=-=-=-=-=-=-=-=-=-=-=-=-=-=-=-=-=-=-=-=-= - - - - - - - - - - - - - - - - - - - - - - - - - - - - - - - - - - - - - - - - PATHOLOGY REPORT Accession No. [id number] - - - - - - - [...] cm in grea test dimension. CE. (D) [facility] [place]/ MICROSCOPIC DESCRIPTION: Microscopic examination is performed. DIAGNOSIS [...] PATHOLOGIST, PATHOLOGY & LABORATORY MED SV C Signed Oct 15, 2021@17:11 Performing Laboratory: Surgical Pathology Report Performed By: [facility] [CLIA# [id number]] [place] [address] $FTR - - - - - - - - - - - - - - - - - - - - - - - - - - - - - - - - - - - - - - - - (End of report) TASHI MÁRQUEZ MD [facility] [place] Oct 15, 2021 - - - - - - - - - - - - - - - - - - - - - - - - - - - - - - - - - - - - - - - - JENNIFER HIDALGO BRAD STANDARD FORM 515 ID:[id number] SEX:M :1945 AGE: 76 LOC: 1153 PCP: Kosta Walker MD /reuben/ TASHI MÁRQUEZ MD STAFF PATHOLOGIST, PATHOLOGY & LABORATORY MED SV C Signed: 10/15/2021 17:11 Encounter Notes: All associated encounter notes This section contains the clinical notes associated to the Encounter. Date/Time Encounter Note(s) Provider Source Oct 07, 2021 01:56 PM GASTROENTEROLOGY NURSING OUTPATIENT NOTE: LYNDON MARTÍNEZ [facility] LOCAL TITLE: GI CLINIC NURSING NOTE STANDARD TITLE: GASTROENTEROLOGY NURSING OUTPATI ENT NOTE DATE OF NOTE: OCT 07, 2021@13:56 ENTRY DATE: OCT 07, 2021@13:56:42 AUTHOR: LYNDON MARTÍNEZ EXP COSIGNER: URGENCY: STATUS: COMPLETED Patient came into clinic today with questions re garding his Plavix and Lisinopril prior to his EGD on 10/14/21. Recreation Worker s aw order for EGD from GI MD Davis that said Plavix did not need to be held, and that the EGD would not require anesthesia, so Lisinopril does not need to be held either. Patient verbalized an understanding of this, and was told we would be calling him in a few days to review prep questions again and answer any additional questions he may have. /reuben/ LYNDON MARTÍNEZ STAFF NURSE Signed: 10/07/2021 13:59
--- OUTSIDE RECORDS SUMMARY | 2022-06-23 00:31 | XMS_ITS | Continuity of Care Document ---
:1945 Author Organization [facility] Address [address] [address] [place] [address] Phone Care Team Providers Name Role Phone Dev Alicea MD Unavailable Unavailable Allergies, Adverse Reactions, Alerts Substance Reaction Status Criticality No Known allergies Medications Medication Instructions Dosage Effective Dates Status Comment s (start - stop) omeprazole 20 mg Tab, take by Oral route 0.00 - Act fred[place]ick Delayed Release twice daily before a meal amlodipine 10 mg Tab take 1 tablet (10MG) 10 MG - Ac tive by ORAL route every day atenolol 50 mg Tab take 1 tablet (50MG) 50 MG - Acti ve by ORAL route every day Plavix 75 mg Tab take 1 tablet (75MG) 75 MG - Active by ORAL route every day isosorbide mononitrate take 1 tablet (30MG) 30 MG - Active ER 30 mg 24 hr Tab by ORAL route every day in the morning lisinopril 40 mg Tab take 1 tablet (40MG) 40 MG - Ac tive by ORAL route every day Baby Aspirin 81 mg chew 1 tablet (81MG) - Acti ve Chewable Tab by ORAL route every day Crestor 20 mg Tab take 1 tablet (20MG) 20 MG - Activ e by ORAL route every day nitroglycerin 0.[address] 1 tablet 0.4 MG - Active Sublingual Tab (0.4MG) by Sublingual route at the 1st sign of attack; may repeat every 5 min until relief; if pain persists after 3 tablets in 15 min, prompt medical attention is recommended pantoprazole 40 mg Tab, take 1 tablet (40MG) 40 MG - Active Delayed Release by ORAL route 2 times every day Procedures Procedure Date Ugi Endo; W/ablat Les Not Snar Offic/outpt E&m [facility] [id number] Advance Directives Directive Yes / No Effective Date File Name No Information Encounters Encounter Practice Location Reason(s) Diagnoses Date Provider Provide rs Description For Visit Copied on Encounter [facility] [place] No Information Deanne GARCIA [facility], [address] [address], [address] [facility] [place], [place], [place], [address], [id number], [facility] is, [place], tel: [phone] , [place]. tel: [phone] [facility] No Information Deanne GARCIA [facility], [address] [place] [address], [address] [facility] [place], [place], [place], [address], [id number], [facility] is, [place], tel: [phone] , [place]. tel: [phone] [facility] [place] Deanne GARCIA Referring Digestive [facility] EsophagusMiatal Dev. [facility] er: [facility], Endoscopy [facility] [address] [facility] [address] [place] Esophagus[place]atal [place] [address] [facility] [place], [place], [place], [address], [address], [id number], [facility] [place], [place], , [place], tel: [phone] , [place]. tel: tel: [phone] Offic/outpt [facility] dorado's [facility] Deanne GARCIA Refe rring E&m [facility] (chief Esophagus Dev. Provider: [facility], complaint) [address] [facility] [address] [place] Ambar GARCIA [address], [address] J, [address] [facility] (chief [place], [place], [place], complaint) [address], [address], [id number], [facility] [place], [place], , [place], tel:[phone] , [place]. tel:[phone] tel:[phone] Family History Family Member Type Diagnosis Age At Onset First degree family Problem (finding) No history of Cancer, colo n history First degree family Problem (finding) Cholelithasis history First degree family Problem (finding) No history of Crohn's history First degree family Problem (finding) cancer of the esophagus history First degree family Problem (finding) GERD history First degree family Problem (finding) alcoholism history First degree family Problem (finding) celiac disease history First degree family Problem (finding) No history of Ulcerative history Colitis First degree family Problem (finding) No Family history of No history history of Colon Polyps Payers Payer name Insurance type Covered libertarian ID Authorization(s ) [employer] [id number] Social History Type Description Quantity Date Captured Comments Sex Male Smoking Status No Information Chief Complaint And Reason For Visit No Information Reason For Referral Reason For Referral No Information Plan Of Treatment Date Type Action Status No Information History Of Present Illness Encounter Date Complaint History Of Present I llness No Information Functional Status Date Functional Assessment No Information Instructions Date Instruction Additional Informati on No Information Assessments Type Assessment Date No Information Patient Care Teams Name Effective Dates (start - stop) Status M alonzo No Information
--- OUTSIDE RECORDS SUMMARY | 2022-06-23 00:31 | XMS_ITS | Continuity of Care Document ---
:1945 Author Organization [facility] Care Team Providers Name Role Phone [facility] Unavailable Unavailable Problems Combined list of problems from Department of Defense and Veterans Affairs facilities. It does not include entries that were removed or entered in error. 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 Dec 15, 2014 Entered By: SHRUTHI ORTIZ Comment: S/P stents to OM1 and D1 in 2006. Dementia Active Condition [place] [facility] Dual Care Active Condition Sep 25, 2008 [place] [facility]tered [facility] Comment: Dr. Zhao, PCP [facility] Sep 25, 2008 Entered By: SERGIO BENITES Comment: [facility] Elevated PSA [facility] [place] [facility] Hyperlipidemia Active Condition [place] (SNOMED CT [facility] [id number]) Hypertension Active Condition [place] [facility] Lower urinary Active Condition [place] tract symptoms [facility] Migraine Active Condition [place] [facility] Mitral Valve Active Condition Oct 10, 2021 [place] Disorder (SCT Entered By: [facility] [id number]) NEHEMIAH STEIN Comment: -Mild mitral regurgitation per 05/2021 echo. Recommend repeat in 2-3 years, sooner if symptomatic. Monoclonal Active Condition [place] gammopathy [facility] Neoplasm of Active Condition [place] uncertain behavior V A HCS of vertebral column Peripheral Active Condition [place] vascular disease [facility] (SNOMED CT [id number]) Sleep apnea Active Condition Oct 09, 2019 [place] Entered By: [facility] KOSTA WALKER Comment: severe per sleep study done 2019 Tobacco Use Active Condition [place] [facility] Diagnosis: active Diagnosis [place] ICD-10-CM D47.2 [facility] Monoclonal gammopathywith Provider Comments: Monoclonal gammopathy ([facility] [id number]) Diagnosis: active Diagnosis [place] ICD-10-CM F03.90 [facility] Unspecified dementia without behavioral disturbancewith Provider Comments: Dementia (SNOMED CT [id number]) Diagnosis: active Diagnosis [place] ICD-10-CM I25.10 [facility] Athscl heart disease of [place] coronary artery w/o ang pctrswith Provider Comments: Coronary artery disease ([facility] [id number]) Diagnosis: active Diagnosis [place] ICD-10-CM Z13.6 [facility] Encounter for screening for cardiovascular disorderswith Provider Comments: Encounter for Screening for Cardiovascular Disorders Diagnosis: active Diagnosis [place] ICD-10-CM G31.84 [facility] Mild cognitive impairment, so statedwith Provider Comments: Mild Cognitive Impairment, so stated Diagnosis: active Diagnosis [place] ICD-10-CM R21 Rash V A HCS and other nonspecific skin eruptionwith Provider Comments: Rash and other Nonspecific Skin Eruption Diagnosis: active Diagnosis [place] ICD-10-CM L30.0 [facility] Nummular dermatitiswith Provider Comments: Nummular dermatitis Diagnosis: active Diagnosis [place] ICD-10-CM E78.5 [facility] Hyperlipidemia, unspecifiedwith Provider Comments: Hyperlipidemia, unspecified Diagnosis: active Diagnosis [place] ICD-10-CM K22.70 [facility] 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 Provider Comments: Patricio's esophagus ([facility] [id number]) Diagnosis: active Diagnosis [place] ICD-10-CM E78.5 [facility] Hyperlipidemia, unspecifiedwith Provider Comments: Hyperlipidemia ([facility] [id number]) Diagnosis: active Diagnosis [place] ICD-10-CM K22.719 [facility] Patricio's esophagus with dysplasia, unspecifiedwith Provider Comments: Patricio's Esophagus with Dysplasia, unspecified Diagnosis: active Diagnosis [place] ICD-10-CM Z71.89 [facility] Other specified counselingwith Provider Comments: Other specified Counseling Diagnosis: active Diagnosis [place] ICD-10-CM H25.13 [facility] Age-related nuclear cataract, bilateralwith Provider Comments: Age-related nuclear cataract, bilateral Diagnosis: active Diagnosis [place] ICD-10-CM R06.02 [facility] Shortness of breathwith Provider Comments: Shortness of Breath Medications Combined list of outpatient medications from Department of Defense and [facility] Affairs facilities. Medications provided include 1) outpatient medications from the last 15 months, and 2) patient-reported medications. Medication Details Route Status Patient Prescription Prescription Last Ordering Order Source Instructions Expires Number Dispense Provider Date Date ALIROCUMAB INJECT SUBCUT ACTIVE 12/22/2022 [id number] FB-VOT EL, 12/21/ [place] 75MG/ML 75MG ANEOUS 2 2021 [place] INJ,PEN,1ML (1ML) HCS UNDER THE SKIN EVERY 2 WEEKS FOR HYPERLIP IDEMIA AND CORONARY ARTERY DISEASE ALIROCUMAB INJECT SUBCUT DISCONT 12/03/2022 [id number] LE E,MARION L 12/20/ [place] 75MG/ML 75MG ANEOUS INUE 2 2021 [place] INJ,PEN,1ML (1ML) HCS UNDER THE SKIN EVERY 2 WEEKS FOR HYPERLIP IDEMIA AND CORONARY ARTERY DISEASE (CAD) ALIROCUMAB INJECT SUBCUT DISCONT 05/14/2022 [id number] LE E,MARION L 05/30/ [place] 75MG/ML 75MG ANEOUS INUE 1 2020 [place] INJ,PEN,1ML (1ML) HCS UNDER THE SKIN EVERY 2 WEEKS FOR HYPERLIP IDEMIA AND CORONARY ARTERY DISEASE (CAD) ASPIRIN TAKE ONE ORALLY ACTIVE TEAM,CARD [place] 81MG TAB,EC TABLET II 2019 [place] BY MOUTH HCS EVERY MORNING CARVEDILOL TAKE ORALLY ACTIVE 12/22/2022 [id number] FB-VOTE L, 12/21/ [place] 6.25MG TAB ONE-HALF 2 2021 [place] TABLET HCS BY MOUTH TWICE A DAY CARVEDILOL TAKE ORALLY DISCONT 06/23/2022 [id number] ERICS ON,L 07/01/ [place] 6.25MG TAB ONE-HALF INUE 1 2020 [place] TABLET HCS BY MOUTH TWICE A DAY CARVEDILOL TAKE ORALLY DISCONT 07/16/2021 [id number] ERICS ON,L 07/16/ [place] 6.25MG TAB ONE-HALF INUE 1 2019 [place] [facility] TABLET HCS BY MOUTH TWICE A DAY CLOBETASOL APPLY A TOPICA ACTIVE 11/23/2022 [id number] RODDY CSON,L 11/24/ [place] PROPIONATE THIN LLY 2 TONY E 2021 [place] 0.05% LAYER HCS OINT,TOP TWICE A DAY FOR RASH -USE FOR 4 WEEKS, THEN TAKE 1 WEEK OFF -AVOID FACE, GROIN AND ARMPITS -USE LONGER THAN 6 WEEKS MAY CAUSE THINNING OF SKIN CLOPIDOGREL TAKE ONE ORALLY ACTIVE 12/24/2022 [id number] F B-VOTEL, 12/24/ [place] BISULFATE TABLET 2 BIPIN R 2021 [place] 75MG TAB BY MOUTH HCS EVERY MORNING CLOPIDOGREL TAKE ONE ORALLY DISCONT 09/30/2022 [id number] DAVIS,SABA 10/01/ [place] BISULFATE TABLET INUE 1 АЛЕКСАНДР P 2020 [place] 75MG TAB BY MOUTH HCS EVERY DAY TO PREVENT BLOOD CLOTS (APPROVE D FOR LONG-TER M USE) CLOPIDOGREL TAKE ONE ORALLY DISCONT 09/12/2021 [id number] RYAN,SABA 10/03/ [place] BISULFATE TABLET INUE 1 АЛЕКСАНДР P 2019 [place] [facility] 75MG TAB BY MOUTH HCS EVERY DAY TO PREVENT BLOOD CLOTS (APPROVE D FOR LONG-TER M USE) EZETIMIBE TAKE ONE ORALLY ACTIVE 12/22/2022 [id number] FB- VOTEL, 12/21/ [place] 10MG TAB TABLET 2 BIPIN R 2021 [place] A BY MOUTH HCS EVERY DAY EZETIMIBE TAKE ONE ORALLY 12/18/2021 [id number] A LAMEDDIN 01/01/ [place] 10MG TAB TABLET 1 E,HIND 2020 [place] [facility] BY MOUTH HCS EVERY DAY -APPROVE D- ISOSORBIDE TAKE ONE ORALLY ACTIVE 12/22/2022 [id number] FB -VOTEL, 12/21/ [place] MONONITRATE TABLET 2 BIPIN R 2021 TIM S VA 30MG TAB,SA BY MOUTH HCS EVERY MORNING --TAKE WITH A 60MG TABLET FOR A TOTAL DAILY DOSE OF 90MG PER DAY ISOSORBIDE TAKE ONE ORALLY DISCONT 10/08/2022 [id number] S JORGITOL 10/07/ [place] MONONITRATE TABLET INUE 1 AURIE A 2020 [place] 30MG TAB,SA BY MOUTH HCS EVERY MORNING TAKE 30 MG WITH 60 MG TABLET FOR TOTAL OF 90 MG PER DAY ISOSORBIDE TAKE ONE ORALLY ACTIVE 12/22/2022 [id number] FB -VOTEL, 12/21/ [place] MONONITRATE TABLET 2 2021 TIM S [facility] 60MG TAB,SA BY MOUTH HCS ONCE EVERY DAY IN THE MORNING ISOSORBIDE TAKE ONE ORALLY DISCONT 06/23/2022 [id number] DENISE,L 07/01/ [place] MONONITRATE TABLET INUE 1 TONY2020 [place] A 60MG TAB,SA BY MOUTH HCS EVERY DAY FOR THE HEART ISOSORBIDE TAKE ONE ORALLY DISCONT 07/16/2021 [id number] DENISE,L 07/16/ [place] MONONITRATE TABLET INUE 1 TONY2019 [place] A 60MG TAB,SA BY MOUTH HCS EVERY DAY FOR THE HEART LISINOPRIL TAKE ORALLY ACTIVE 12/22/2022 [id number] FB-VOTE L, 12/21/ [place] 10MG TAB ONE-HALF 2 2021 [place] TABLET HCS BY MOUTH EVERY DAY FOR HIGH BLOOD PRESSURE LISINOPRIL TAKE ORALLY 12/10/2021 [id number] ERICS ON,L 12/30/ [place] 10MG TAB ONE-HALF 1 2020 [place] TABLET HCS BY MOUTH EVERY DAY FOR HIGH BLOOD PRESSURE MAGNESIUM TAKE ONE ORALLY ACTIVE 03/08/2023 [id number] ER ICSON,L 03/08/ [place] OXIDE 420MG TABLET 2 2021 [place] A TAB BY MOUTH HCS EVERY DAY FOR HEADACHE PREVENTI ON MAGNESIUM TAKE ONE ORALLY DISCONT 12/10/2021 [id number] E RICSON,L 12/13/ [place] OXIDE 420MG TABLET INUED 1 2020 [place] A TAB BY MOUTH HCS EVERY DAY FOR HEADACHE PREVENTI ON NITROGLYCER DISSOLVE SUBLIN ACTIVE 12/22/2022 [id number] F B-VOTEL, 12/21/ [place] IN 0.4MG ONE GUAL 2 2021 [place] TAB,SUBLING TABLET HCS UAL UNDER THE TONGUE EVERY 5 MINUTES FOR UP TO 3 DOSES IF NEEDED FOR CHEST PAIN NITROGLYCER DISSOLVE SUBLIN DISCONT 09/30/2022 [id number] DENISE,L 10/01/ [place] IN 0.4MG ONE GUAL INUE 1 TONY E 2020 [place] TAB,SUBLING TABLET HCS UAL UNDER THE TONGUE NEEDED FOR CHEST PAIN*MAY REPEAT EVERY 5 MINUTES- NO MORE THAN 3 TOTAL OMEPRAZOLE TAKE TWO ORALLY ACTIVE 12/22/2022 [id number] FB -VOTEL, 12/21/ [place] 20MG CAP,EC CAPSULES 2 BIPIN R 2021 O [place] [facility] BY MOUTH HCS TWICE A DAY ON AN EMPTY STOMACH, AT LEAST 30 MINUTES PRIOR TO A MEAL OMEPRAZOLE TAKE TWO ORALLY DISCONT 09/30/2022 [id number] MARLON,ZHUO 10/01/ [place] 20MG CAP,EC CAPSULES INUE 1 Z 2020 [place] [facility] BY MOUTH HCS TWICE A DAY TO DECREASE STOMACH ACID -TAKE ON AN EMPTY STOMACH, AT LEAST 30 MINUTES BEFORE EATING OMEPRAZOLE TAKE TWO ORALLY DISCONT 03/23/2022 [id number] MARLON,ZHUO 03/22/ [place] 20MG CAP,EC CAPSULES INUE 1 Z 2020 [place] [facility] BY MOUTH [facility]CS TWICE A DAY TO DECREASE STOMACH ACID -TAKE ON AN EMPTY STOMACH, AT LEAST 30 MINUTES BEFORE EATING VANICREAM APPLY TOPICA 05/12/2022 [id number] SORENSO N, 05/12/ [place] THIN LLY 1 HUDSON B 2020 [place] LAYER HCS TOPICALL Y TWICE A DAY FOR DRY SKIN Allergies, Adverse Reactions, Alerts Combined list of allergies from Department of Defense and Veterans Affairs facilities. It does not include entries that were removed or entered in error. Substance Category Reaction Severity Reaction Status Date Comments S ource type Reported LIPITOR Propensity Memory Propensity active [place] to adverse impairment to adverse 3 [place] reactions reactions HCS to drug to drug (finding) (finding) PRAVASTATIN Propensity Memory Propensity active [place] to adverse impairment to adverse 3 [place] reactions reactions HCS to drug to drug (finding) (finding) ROSUVASTATIN Propensity Memory Propensity active [place] to adverse impairment to adverse 2 [place] reactions reactions HCS to drug to drug (finding) (finding) SIMVASTATIN Propensity Memory Propensity active [place] to adverse impairment to adverse 3 [place] reactions reactions HCS to drug to drug (finding) (finding) Immunizations Combined list of available immunizations from the Department of Defense and Veterans Affairs facilities. Immunization Series Date Administered Site Reaction Lot CVX Drug St atus Comments Source Given By Number Code Care Transitions Manager INFLUENZA, complet [place] INJECTABLE, 2020 ed [place] QUADRIVALENT, HCS PRESERVATIVE FREE COVID-19 2 complet [place] (eriQoo), 2020 ed [place] MRNA, LNP-S, H CS PF, 30 MCG/0.3 ML DOSE COVID-19 1 complet [place] (eriQoo), 2020 ed [place] MRNA, LNP-S, H CS PF, 30 MCG/0.3 ML DOSE INFLUENZA, complet [place] INJECTABLE, 2019 ed [place] QUADRIVALENT, HCS PRESERVATIVE FREE INFLUENZA, complet [place] SEASONAL, 2018 ed [place] INJECTABLE, HC S PRESERVATIVE FREE ZOSTER 2 complet [place] RECOMBINANT 2018 ed [place] H[facility] ZOSTER 1 complet [place] RECOMBINANT 2018 ed [place] [facility] INFLUENZA, complet [place] SEASONAL, 2018 ed [place] INJECTABLE, HC S PRESERVATIVE FREE INFLUENZA, complet [place] HIGH DOSE 2016 ed [place] [facility] SEASONAL HCS PNEUMOCOCCAL complet wyet h,M35 [place] CONJUGATE PCV 2016 ed 762, [place] 13 HCS INFLUENZA, complet [place] HIGH DOSE 2014 ed [place] [facility] SEASONAL HCS INFLUENZA, complet [place] UNSPECIFIED 2012 ed [place] [facility] FORMULATION HC S PNEUMOCOCCAL, complet DEBBY CK and [place] UNSPECIFIED 2012 ed CO, [place] FORMULATION [id number], 1 HCS 8AUG14 TDAP complet glaxos[employer] M [place] 2012 ed hkline,74 [place] AP3,08/14 HCS /15 ZOSTER LIVE complet [place] 2011 ed INC, [place] 0364AE, HCS [id number] INFLUENZA, 10/29/ 88 complet [place] UNSPECIFIED 2008 ed [place] [facility] FORMULATION HC S PNEUMOCOCCAL, complet [place] UNSPECIFIED 2005 ed [place] FORMULATION HC S TD(ADULT) complet M [place] UNSPECIFIED 2002 ed [place] FORMULATION HC S Results Combined list of recent chemistry, hematology and other laboratory results from Department of Defense and Veterans Affairs, ranging from 15 months to all on record, depending upon the facility. Order Results Value Reference Date Interpretation Specimen Commen ts Source Name Range CBC & LEUKOCYTES 6.28 4.0 - 11.0 05/26 Specimen T ype: BLOOD [place] DIFF [#/VOLUME] /2021 Comment: Aut omated Differential Performed IS [facility] IN BLOOD Ordering Provi roberto: FERMÍN STAPLES BY Report Released Date/Time: May 14, 2021 01:26 PM AUTOMATED Reporting Lab : [facility] [address] [place] [address] Performing Lab: [facility] [address] [place] [address] CBC & ERYTHROCYT 5.28 4.6 - 6.2 05/26 Specimen Ty pe: BLOOD [place] DIFF ES /2021 Comment: Automa jody Differential Performed IS [facility] [#/VOLUME] Ordering Pro vider: FERMÍN STAPLES IN BLOOD Report Release d Date/Time: May 14, 2021 01:26 PM BY Reporting Lab: [facility] [place] [address] COUNT Performing Lab: [facility] [place] [address] CBC & HEMOGLOBIN 16.6 13.5 - 05/26 Specimen Type : BLOOD [place] DIFF [MASS/VOLU 17.9 /2021 Comment: Aut omated Differential Performed IS [facility] ME] IN Ordering Provid er: FERMÍN STAPLES BLOOD Report Released Date/Time: May 14, 2021 01:26 PM Reporting Lab: [facility] [address] [place] [address] Performing Lab: [facility] [address] [place] [address] CBC & HEMATOCRIT 49.0 41 - 54 05/26 Specimen Type : BLOOD [place] DIFF [VOLUME /2021 Comment: Automa jody Differential Performed IS [facility] FRACTION] Ordering Prov ider: FERMÍN STAPLES OF BLOOD Report Release d Date/Time: May 14, 2021 01:26 PM BY Reporting Lab: [place] [facility] [address] [facility] [place] [address] COUNT Performing Lab: [facility] [address] [place] [address] CBC & MCV 92.8 80 - 100 05/26 Specimen Type: BLOOD [place] DIFF [ENTITIC /2021 Comment: Autom ated Differential Performed IS [facility] VOLUME] BY Ordering Pro vider: FERMÍN STAPLES AUTOMATED Report Releas ed Date/Time: May 14, 2021 01:26 PM COUNT Reporting Lab: [facility] [address] [place] [facility] [place] [address] Performing Lab: [facility] [address] [place] [facility] [place] [address] CBC & MCH 31.4 27 - 33 05/26 Specimen Type: B LOOD [place] DIFF [ENTITIC /2021 Comment: Autom ated Differential Performed IS [facility] MASS] BY Ordering Provi roberto: FERMÍN STAPLES AUTOMATED Report Releas ed Date/Time: May 14, 2021 01:26 PM COUNT Reporting Lab: [facility] [address] [place] [facility] [place] [address] Performing Lab: [facility] [place] [address] CBC & MCHC 33.9 32.0 - 05/26 Specimen Type: B LOOD [place] DIFF [MASS/VOLU 37.5 /2021 Comment: Aut omated Differential Performed IS [facility] ME] BY Ordering Provid er: FERMÍN STAPLES AUTOMATED Report Releas ed Date/Time: May 14, 2021 01:26 PM COUNT Reporting Lab: [facility] [place] [address] Performing Lab: [facility] [address] [place] [facility] [place] [address] CBC & PLATELETS 169 150 - 400 05/26 Specimen Typ e: BLOOD [place] DIFF [#/VOLUME] /2021 Comment: Aut omated Differential Performed IS [facility] IN BLOOD Ordering Provi roberto: FERMÍN STAPLES BY Report Released Date/Time: May 14, 2021 01:26 PM AUTOMATED Reporting Lab : [facility] [address] [place] [facility] [place] [address] Performing Lab: [facility] [address] [place] [facility] [place] [address] CBC & PLATELET 10.5 7.4 - 10.4 05/26 H Specimen Typ e: BLOOD [place] DIFF MEAN /2021 Comment: Automa jody Differential Performed IS [facility] VOLUME Ordering Provid er: FERMÍN STAPLES H [ENTITIC Report Release d Date/Time: May 14, 2021 01:26 PM VOLUME] IN Reporting La b: [facility] [place] [address] AUTOMATED Performing La b: [facility] [address] [place] [address] CBC & NEUTROPHIL 62.5 05/26 Specimen Type : BLOOD [place] DIFF S/100 Comment: Automa jody Differential Performed IS [facility] LEUKOCYTES Ordering Pro vider: SHEEN,FERMÍN H IN BLOOD Report Release d Date/Time: May 14, 2021 01:26 PM BY MANUAL Reporting Lab : [facility] [address] [place] [address] Performing Lab: [facility] [address] [place] [address] CBC & LYMPHOCYTE 23.6 05/26 Specimen Type : BLOOD [place] DIFF S/100 Comment: Automa jody Differential Performed IS [facility] LEUKOCYTES Ordering Pro vider: REBECCA STAPLESILIA H IN BLOOD Report Release d Date/Time: May 14, 2021 01:26 PM BY MANUAL Reporting Lab : [facility] [address] [place] [address] Performing Lab: [facility] [place] [address] CBC & MONOCYTES/ 11.5 05/26 Specimen Type : BLOOD [place] DIFF Comment: Automa jody Differential Performed IS [facility] LEUKOCYTES Ordering Pro vider: SHEENFERMÍN H IN BLOOD Report Release d Date/Time: May 14, 2021 01:26 PM BY Reporting Lab: [facility] AUTOMATED [address] [facility] [address] COUNT Performing Lab: [facility] [place] [address] CBC & EOSINOPHIL 1.6 05/26 Specimen Type : BLOOD [place] DIFF S/100 Comment: Automa jody Differential Performed IS [facility] LEUKOCYTES Ordering Pro vider: MELISSAENFERMÍN H IN BLOOD Report Release d Date/Time: May 14, 2021 01:26 PM BY Reporting Lab: [facility] AUT[facility] [address] [facility] [address] COUNT Performing Lab: [facility] [place] [address] CBC & BASOPHILS/ 0.5 05/26 Specimen Type : BLOOD [place] DIFF 100 /2021 Comment: Automa jody Differential Performed IS [facility] LEUKOCYTES Ordering Pro vider: FERMÍN STAPLES H IN BLOOD Report Release d Date/Time: May 14, 2021 01:26 PM BY MANUAL Reporting Lab : [facility] [address] [place] [address] Performing Lab: [facility] [address] [place] [place] [address] CBC & ERYTHROCYT 14.1 11.5 - 05/26 Specimen Type : BLOOD [place] DIFF E 14.5 /2021 Comment: Automa jody Differential Performed IS [facility] DISTRIBUTI Ordering Pro vider: REBECCA STAPLESILIA H ON WIDTH Report Release d Date/Time: May 14, 2021 01:26 PM [RATIO] BY Reporting La b: [facility] AUT[facility] [address] [facility] [place] [address] COUNT Performing Lab: [facility] [address] [place] [facility] [place] [address] CBC & LYMPHOCYTE 1.48 1.0 - 4.0 05/26 Specimen Ty pe: BLOOD [place] DIFF S /2021 Comment: Automa jody Differential Performed IS [facility] [#/VOLUME] Ordering Pro vider: REBECCA STAPLESILIA H IN BLOOD Report Release d Date/Time: May 14, 2021 01:26 PM BY Reporting Lab: [facility] AUT[facility] [address] [facility] [place] [address] COUNT Performing Lab: [facility] [address] [place] [facility] [place] [address] CBC & MONOCYTES 0.72 0.1 - 1.0 05/26 Specimen Typ e: BLOOD [place] DIFF [#/VOLUME] /2021 Comment: Aut omated Differential Performed IS [facility] IN BLOOD Ordering Provi roberto: REBECCA STAPLESILIA H BY Report Released Date/Time: May 14, 2021 01:26 PM AUTOMATED Reporting Lab : [facility] [address] [place] [facility] [place] [address] Performing Lab: [facility] [address] [place] [facility] [place] [address] CBC & NEUTROPHIL 3.93 2.0 - 7.7 05/26 Specimen Ty pe: BLOOD [place] DIFF S /2021 Comment: Automa jody Differential Performed IS [facility] [#/VOLUME] Ordering Pro vider: FERMÍN STAPLES H IN BLOOD Report Release d Date/Time: May 14, 2021 01:26 PM BY Reporting Lab: [facility] [address] [facility] [address] COUNT Performing Lab: [facility] [address] [place] [address] CBC & EOSINOPHIL 0.10 0 - 0.5 05/26 Specimen Type : BLOOD [place] DIFF S /2021 Comment: Automa jody Differential Performed IS [facility] [#/VOLUME] Ordering Pro vider: FERMÍN STAPLES IN BLOOD Report Release d Date/Time: May 14, 2021 01:26 PM BY Reporting Lab: [facility] AUTOMATED ONE [facility] [address] [facility] [place] [address] COUNT Performing Lab: [facility] [address] [place] [facility] [place] [address] CBC & BASOPHILS 0.03 0 - 0.2 05/26 Specimen Type: BLOOD [place] DIFF [#/VOLUME] /2021 Comment: Aut omated Differential Performed IS [facility] IN BLOOD Ordering Provi roberto: FERMÍN STAPLES BY Report Released Date/Time: May 14, 2021 01:26 PM AUTOMATED Reporting Lab : [facility] [address] [place] [address] Performing Lab: [facility] [place] [address] CBC & IG(META,MY 0.3 05/26 Specimen Type : BLOOD [place] DIFF JENNIFFER,PRO) /2021 Comment: Autom ated Differential Performed IS [facility] Ordering Provid er: FERMÍN STAPLES Report Released Date/Time: May 14, 2021 01:26 PM Reporting Lab: [facility] [place] [address] Performing Lab: [facility] [place] [address] CBC & IMMATURE 0.02 0 - 0.1 05/26 Specimen Type: BLOOD [place] DIFF GRANULOCYT /2021 Comment: Aut omated Differential Performed IS [facility] ES Ordering Provid er: FERMÍN STAPLES [PRESENCE] Report Relea sed Date/Time: May 14, 2021 01:26 PM IN BLOOD Reporting Lab: [facility] [address] [place] [address] AUTOMATED Performing La b: [facility] [address] [place] [phone] COMPREHE CREATININE 0.9 0.7 - 1.2 05/26 Specimen T ype: PLASMA [place] NSIVE [MASS/VOLU /2021 No comment en tered. IS [facility] METABOLI ME] IN Ordering Provi roberto: FERMÍN STAPLES C SERUM OR Report Release d Date/Time: May 14, 2021 01:26 PM PANEL+MG PLASMA Reporting Lab: [facility] [address] [place] [address] Performing Lab: [facility] [address] [place] [address] COMPREHE UREA 12 8 - 26 05/26 Specimen Type: PLASMA [place] NSIVE No comment ente red. [place] [facility] [place] [MASS/VOLU Ordering Pr ovider: FERMÍN STAPLES ME] IN Report Released Date/Time: May 14, 2021 01:26 PM PANEL+MG SERUM OR Reporting Lab : [facility] PLASMA [address] [place] [facility] [address] Performing Lab: [facility] [address] [place] [address] COMPREHE GLUCOSE 100 74 - 100 05/26 Specimen Type: PLASMA [place] NSIVE [MASS/VOLU /2021 No comment en tered. IS [facility] METABOLI ME] IN Ordering Provi roberto: FERMÍN STAPLES H C SERUM OR Report Release d Date/Time: May 14, 2021 01:26 PM PANEL+MG PLASMA Reporting Lab: [facility] [address] [place] [facility] [address] Performing Lab: [facility] [address] [place] [place] [address] COMPREHE SODIUM 141 136 - 145 05/26 Specimen Type : PLASMA [place] NSIVE [MOLES/VOL No comment en tered. IS [facility] METAB[place]I UME] IN Ordering Provi roberto: FERMÍN STAPLES C SERUM OR Report Release d Date/Time: May 14, 2021 01:26 PM PANEL+MG PLASMA Reporting Lab: [facility] [address] [place] [address] Performing Lab: [facility] [address] [place] [facility] [place] [address] COMPREHE POTASSIUM 4.1 3.5 - 5.1 05/26 Specimen Ty pe: PLASMA [place] NSIVE [MOLES/VOL /2021 No comment [place] tered. [place] [facility] [place] UME] IN Ordering Provi roberto: REBECCA STAPLESILIA H C SERUM OR Report Release d Date/Time: May 14, 2021 01:26 PM PANEL+MG PLASMA Reporting Lab: [facility] [address] [place] [address] Performing Lab: [facility] [address] [place] [address] COMPREHE CHLORIDE 106 98 - 107 05/26 Specimen Type : PLASMA [place] NSIVE [MOLES/VOL /2021 No comment en tered. IS [facility] METABOLI UME] IN Ordering Provi roberto: REBECCA STAPLESILIA H C SERUM OR Report Release d Date/Time: May 14, 2021 01:26 PM PANEL+MG PLASMA Reporting Lab: [facility] [address] [place] [facility] [address] Performing Lab: [facility] [address] [place] [address] COMPREHE CARBON 27 22 - 29 05/26 Specimen Type: PLASMA [place] NSIVE , No comment ente red. IS [facility] MET[place]I TOTAL Ordering Provi roberto: FERMÍN STAPLES H C [MOLES/VOL Report Relea sed Date/Time: May 14, 2021 01:26 PM PANEL+MG UME] IN Reporting Lab: [facility] SERUM OR [address] [place] [facility] [address] PLASMA Performing Lab: [facility] [address] [place] [place] [address] COMPREHE CALCIUM 9.5 8.4 - 10.2 05/26 Specimen Typ e: PLASMA [place] NSIVE [MASS/VOLU /2021 No comment en tered. IS [facility] MET[place]I ME] IN Ordering Provi roberto: SHEENREBECCAFERMÍN H C SERUM OR Report Release d Date/Time: May 14, 2021 01:26 PM PANEL+MG PLASMA Reporting Lab: [facility] [address] [place] [address] Performing Lab: [facility] [address] [place] [facility] [address] COMPREHE PROTEIN 6.9 6.0 - 8.3 05/26 Specimen Type : PLASMA [place] NSIVE [MASS/VOLU /2021 No comment en tered. IS [facility] METABOLI ME] IN Ordering Provi roberto: REBECCA STAPLESILIA H C SERUM OR Report Release d Date/Time: May 14, 2021 01:26 PM PANEL+MG PLASMA Reporting Lab: [facility] [address] [place] [place] [address] Performing Lab: [facility] [address] [place] [facility] [address] COMPREHE ALBUMIN 4.2 3.5 - 5.2 05/26 Specimen Type : PLASMA [place] NSIVE [MASS/VOLU /2021 No comment en tered. IS [facility] MET[place]I ME] IN Ordering Provi roberto: FERMÍN STAPLES SERUM OR Report Release d Date/Time: May 14, 2021 01:26 PM PANEL+MG PLASMA Reporting Lab: [facility] [address] [place] [facility] [place] [address] Performing Lab: [facility] [address] [place] [facility] [place] [address] COMPREHE BILIRUBIN. 1.7 0.2 - 1.2 05/26 H Specimen T ype: PLASMA [place] NSIVE TOTAL /2021 No comment enter ed. IS [facility] [place] [MASS/VOLU Ordering Pr ovider: FERMÍN STAPLES ME] IN Report Released Date/Time: May 14, 2021 01:26 PM PANEL+MG SERUM OR Reporting Lab : [facility] PLASMA [address] [place] [facility] [place] [address] Performing Lab: [facility] [address] [place] [facility] [place] [address] COMPREHE MAGNESIUM 2.0 1.6 - 2.6 05/26 Specimen Ty pe: PLASMA [place] NSIVE [MASS/VOLU /2021 No comment en tered. IS [facility] MET[place]I ME] IN Ordering Provi roberto: FERMÍN STAPLES SERUM OR Report Release d Date/Time: May 14, 2021 01:26 PM PANEL+MG PLASMA Reporting Lab: [facility] [address] [place] [facility] [place] [address] Performing Lab: [facility] [address] [place] [facility] [place] [address] COMPREHE ANION GAP 8 5 - 15 05/26 Specimen Type : PLASMA [place] NS[place] IN SERUM /2021 No comment ente red. IS [facility] METABOLI OR PLASMA Ordering Pro vider: FERMÍN STAPLES Report Released Date/Time: May 14, 2021 01:26 PM PANEL+MG Reporting Lab: [facility] [address] [place] [facility] [place] [address] Performing Lab: [facility] [address] [place] [facility] [place] [address] COMPREHE ALKALINE 62 40 - 150 05/26 Specimen Type : PLASMA [place] NSIVE PHOSPHATAS /2021 No comment [place]red. [place] [facility] [place] E Ordering Provi roberto: FERMÍN STAPLES [ENZYMATIC Report Relea sed Date/Time: May 14, 2021 01:26 PM PANEL+MG ACTIVITY/V Reporting L ab: [facility] HCS OLUME] IN [address] [facility] [place] [address] SERUM OR Performing Lab : [facility] PLASMA [address] [place] [facility] [place] [address] COMPREHE ALANINE 16 <55 - 55 05/26 Specimen Type: PLASMA [place] NSIVE AMINOTRANS /2021 No comment [place] tered. [place] [facility] [place] FERASE Ordering Provi roberto: FERMÍN STAPLES [ENZYMATIC Report Relea sed Date/Time: May 14, 2021 01:26 PM PANEL+MG ACTIVITY/V Reporting L ab: [facility] HCS OLUME] IN [address] [facility] [place] [address] SERUM OR Performing Lab : [facility] PLASMA [address] [place] [facility] [place] [address] COMPREHE ASPARTATE 16 <34 - 34 05/26 Specimen Typ e: PLASMA [place] NSIVE AMINOTRANS /2021 No comment [place] tered. [place] [facility] [place] FERASE Ordering Provi roberto: FERMÍN STAPLES [ENZYMATIC Report Relea sed Date/Time: May 14, 2021 01:26 PM PANEL+MG ACTIVITY/V Reporting L ab: [facility] HCS OLUME] IN ONE [facility] [address] [facility] [place] [address] SERUM OR Performing Lab : [facility] PLASMA [address] [facility] [place] [address] COMPREHE GLOMERULAR 89 60 05/26 Specimen Typ e: PLASMA [place] NSIVE FILTRATION No comment [place]red. [place] [facility] [place] RATE/1.73 Ordering Pro vider: FERMÍN STAPLES SQ Report Released Date/Time: May 14, 2021 01:26 PM PANEL+MG M.PREDICTE Reporting L ab: [facility] HCS D [VOLUME [address] [facility] [address] RATE/AREA] Performing L ab: [facility] HCS IN SERUM, [address] [facility] [address] PLASMA OR BLOOD BY CREATININE -BASED FORMULA (CKD-EPI) COMPREHE BILIRUBIN. 0.6 <0.5 - 0.5 05/26 H Specimen Type: PLASMA [place] NS[place] DIRECT /2021 No comment enter ed. [facility] [place] [MASS/VOLU Ordering Pr ovider: FERMÍN STAPLES C ME] IN Report Released Date/Time: May 14, 2021 01:26 PM PANEL+MG SERUM OR Reporting Lab : [facility] PLASMA [place] [address] Performing Lab: [facility] [address] [place] [address] ELP/IMMF PROTEIN 6.7 6.0 - 8.3 05/26 Specimen Type : SERUM [place] IX,SERUM [MASS/VOLU /2021 No comment e ntered. IS [facility] PANEL ME] IN Ordering Provi roberto: FERMÍN STAPLES SERUM OR Report Release d Date/Time: May 14, 2021 01:26 PM PLASMA Reporting Lab: [facility] [address] [place] [facility] [place] [address] Performing Lab: [facility] [place] [address] ELP/IMMF PROTEIN.MO 0.34 05/26 Specimen Typ e: SERUM [place] IX,SERUM NOCLONAL /2021 No comment ent ered. IS [facility] PANEL [MASS/VOLU Ordering Pro vider: FERMÍN STAPLES ME] IN Report Released Date/Time: May 14, 2021 01:26 PM SERUM OR Reporting Lab: [facility] PLASMA BY [address] [facility] [address] ELECTROPHO Performing L ab: [facility] RESIS [facility] [address] [place] [facility] [place] [address] ELP/IMMF IMMUNOFIXA IgG 05/26 Specimen Typ e: SERUM [place] IX,SERUM TION FOR kappa /2021 No comment ent ered. IS [facility] PANEL SERUM OR Ordering Provi roberto: FERMÍN STAPLES PLASMA Report Released Date/Time: May 14, 2021 01:26 PM Reporting Lab: [facility] [address] [place] [facility] [place] [address] Performing Lab: [facility] [address] [place] [facility] [place] [address] ELP/IMMF ALBUMIN 3.93 3.66 - 05/26 Specimen Type: SERUM [place] IX,SERUM [MASS/VOLU 4.78 /2021 No comment e ntered. IS [facility] PANEL ME] IN Ordering Provid er: FERMÍN STAPLES SERUM OR Report Release d Date/Time: May 14, 2021 01:26 PM PLASMA BY Reporting Lab : [facility] HCS ELECTROPHO [address] [facility] [address] RESIS Performing Lab: [facility] [address] [place] [facility] [place] [address] ELP/IMMF ALPHA 1 0.37 0.14 - 05/26 Specimen Type: SERUM [place] IX,SERUM GLOBULIN 0.38 No comment ent ered. [place] [facility] PAN[place] [MASS/VOLU Ordering Pro vider: FERMÍN STAPLES] IN Report Released Date/Time: May 14, 2021 01:26 PM SERUM OR Reporting Lab: [facility] H[facility] PLASMA BY [address] [facility] [address] ELECTROPHO Performing L ab: [facility] RESIS [address] [facility] [address] [place] [facility] [place] [address] ELP/IMMF ALPHA 2 0.77 0.50 - 05/26 Specimen Type: SERUM [place] IX,SERUM GLOBULIN 0.90 No comment ent ered. [place] [facility] PAN[place] [MASS/VOLU Ordering Pro vider: FERMÍN STAPLES] IN Report Released Date/Time: May 14, 2021 01:26 PM SERUM OR Reporting Lab: [facility] PLASMA BY [address] [facility] [address] ELECTROPHO Performing L ab: [facility] RESIS [address] [facility] [address] [place] [facility] [place] [address] ELP/IMMF BETA 1 0.41 0.33 - 05/26 Specimen Type: SERUM [place] IX,SERUM GLOBULIN 0.55 No comment ent ered. [place] [facility] PAN[place] [MASS/VOLU Ordering Pro vider: FERMÍN STAPLES] IN Report Released Date/Time: May 14, 2021 01:26 PM SERUM OR Reporting Lab: [facility] PLASMA BY ONE [facility] [address] ELECTROPHO Performing L ab: [facility] RESIS [address] [facility] [address] [place] [facility] [place] [address] ELP/IMMF BETA 2 0.35 0.20 - 05/26 Specimen Type: SERUM [place] IX,SERUM GLOBULIN 0.52 No comment ent ered. [place] [facility] [place] [MASS/VOLU Ordering Pro vider: FERMÍN STAPLES] IN Report Released Date/Time: May 14, 2021 01:26 PM SERUM OR Reporting Lab: [facility] HCS PLASMA BY ONE [facility] [address] ELECTROPHO Performing L ab: [facility] RESIS [address] [place] [address] ELP/IMMF GAMMA 0.88 0.58 - 05/26 Specimen Type: SERUM [place] IX,SERUM GLOBULIN 1.72 /2021 No comment ent ered. IS [facility] PANEL [MASS/VOLU Ordering Pro vider: FERMÍN STAPLES ME] IN Report Released Date/Time: May 14, 2021 01:26 PM SERUM OR Reporting Lab: [facility] PLASMA BY ONE [address] [facility] [place] [address] ELECTROPHO Performing L ab: [facility] RESIS [facility] [address] [place] [address] ELP/IMMF PROTEIN 6.7 6.0 - 8.3 05/26 Specimen Type : SERUM [place] IX,SERUM [MASS/VOLU /2021 No comment e ntered. IS [facility] PANEL ME] IN Ordering Provid er: FERMÍN STAPLES SERUM OR Report Release d Date/Time: May 14, 2021 01:26 PM PLASMA Reporting Lab: [facility] [place] [address] Performing Lab: [facility] [address] [place] [address] ELP/IMMF IMMUNOELEC MONOCLON 05/26 Specimen Ty pe: SERUM [place] IX,SERUM TROPHORESI AL No comment e ntered. IS [facility] PANEL S FOR Ordering Provid er: FERMÍN STAPLES SERUM OR Report Release d Date/Time: May 14, 2021 01:26 PM PLASMA Reporting Lab: [facility] [place] [address] Performing Lab: [facility] [address] [place] [address] TOTAL IGM 147.7 22.0 - 05/26 Specimen Type: P LASMA [place] IMMUNOGL [MASS/VOLU 293.0 No comment e ntered. IS [facility] OB ME] IN Ordering Provid er: FERMÍN STAPLES (IGA,IGG SERUM OR Report Releas ed Date/Time: May 14, 2021 01:26 PM ,IGM) PLASMA Reporting Lab: [facility] [address] [place] [address] Performing Lab: [facility] [place] [address] TOTAL IGG 877.2 540.0 - 05/26 Specimen Type: P LASLOLLY [place] IMMUNOGL [MASS/VOLU 1822.0 No comment e ntered. IS [facility] OB ME] IN Ordering Provid er: MELISSAREBECCA PICHARDOFERMÍN H (IGA,IGG SERUM OR Report Releas ed Date/Time: May 14, 2021 01:26 PM ,IGM) PLASMA Reporting Lab: [facility] [place] [address] Performing Lab: [facility] [address] [place] [facility] [place] [address] TOTAL IGA 228.7 63.0 - 05/26 Specimen Type: P DORAMA [place] IMMUNOGL [MASS/VOLU 645.0 No comment e ntered. IS [facility] OB ME] IN Ordering Provid er: FERMÍN STAPLES (IGA,IGG SERUM OR Report Releas ed Date/Time: May 14, 2021 01:26 PM ,IGM) PLASMA Reporting Lab: [facility] [place] [address] Performing Lab: [facility] [place] [address] OCCULT HEMOGLOBIN Negative 11/02 Specimen Typ e: FECES [place] BLOOD .GASTRO No comment en tered. IS [facility] FIT X1 ESTINAL.LO Ordering Pro vider: KOSTA WALKER WER Report Released Date/Time: Oct 23, 2021 07:11 AM [PRESENCE] Reporting La b: [facility] IN STOOL [address] [facility] [place] [address] BY Performing Lab: [facility] IMMUNOASSA [address] [facility] [place] [address] Y --1ST SPECIMEN LIPID CHOLESTERO 101 <199 - 199 10/19 Specimen T ype: PLASMA [place] PANEL,FA No comment ente red. IS [facility] STING [MASS/VOLU Ordering Pro vider: SANAM QUEVEDO] IN Report Released Date/Time: May 13, 2021 08:38 AM SERUM OR Reporting Lab: [facility] [place] [address] Performing Lab: [facility] [address] [place] [facility] [place] [address] LIPID TRIGLYCERI 102 <149 - 149 10/19 Specimen T ype: PLASMA [place] PANEL,FA No comment ente red. IS [facility] STING [MASS/VOLU Ordering Pro vider: SANAM QUEVEDO] IN Report Released Date/Time: May 13, 2021 08:38 AM SERUM OR Reporting Lab: [facility] PLASMA [place] [address] Performing Lab: [facility] [place] [address] LIPID CHOLESTERO 46 40 10/19 Specimen Type : PLASMA [place] PANEL,FA L IN HDL /2020 No comment ent ered. [place] [facility] ST[place] [MASS/VOLU Ordering Pro vider: SANAM QUEVEDO] IN Report Released Date/Time: May 13, 2021 08:38 AM SERUM OR Reporting Lab: [facility] PLASMA [address] [place] [facility] [place] [address] Performing Lab: [facility] [address] [place] [facility] [place] [address] LIPID CHOLESTERO 35 <99 - 99 10/19 Specimen Typ e: PLASMA [place] PANEL,FA L IN LDL /2020 No comment ent ered. IS [facility] STING [MASS/VOLU Ordering Pro vider: SANAM QUEVEDO] IN Report Released Date/Time: May 13, 2021 08:38 AM SERUM OR Reporting Lab: [facility] PLASMA BY ONE [employer] [facility] [address] CALCULATIO Performing L ab: [facility] N [address] [place] [facility] [place] [address] LIPID CHOLESTERO 20 <29 - 29 10/19 Specimen Typ e: PLASMA [place] PANEL,FA L IN VLDL /2020 No comment en tered. [place] [facility] ST[place] [MASS/VOLU Ordering Pro vider: SANAM QUEVEDO] IN Report Released Date/Time: May 13, 2021 08:38 AM SERUM OR Reporting Lab: [facility] PLASMA BY [address] [employer] [address] [facility] [place] [address] CALCULATIO Performing L ab: [facility] N [address] [place] [facility] [place] [address] LIPID CHOLESTERO 55 <129 - 129 10/19 Specimen T ype: PLASMA [place] PANEL,FA L NON HDL /2020 No comment en tered. [place] [facility] [place] [MASS/VOLU Ordering Pro vider: SANAM QUEVEDO] IN Report Released Date/Time: May 13, 2021 08:38 AM SERUM OR Reporting Lab: [facility] PLASMA [address] [place] [facility] [address] Performing Lab: [facility] [place] [address] CBC LEUKOCYTES 6.43 4.0 - 11.0 10/19 Specimen T ype: BLOOD [place] [#/VOLUME] /2020 No comment en tered. IS [facility] IN BLOOD Ordering Provi roberto: KOSTA WALKER BY Report Released Date/Time: Oct 18, 2021 03:48 PM AUTOMATED Reporting Lab : [facility] HCS COUNT [place] [address] Performing Lab: [facility] [address] [place] [facility] [address] CBC ERYTHROCYT 5.32 4.6 - 6.2 10/19 Specimen Ty pe: BLOOD [place] ES /2020 No comment enter ed. IS [facility] [#/VOLUME] Ordering Pro vider: KOSTA WALKER IN BLOOD Report Release d Date/Time: Oct 18, 2021 03:48 PM BY Reporting Lab: [facility] AUTOMATED [address] [facility] [address] COUNT Performing Lab: [facility] HCS [address] [place] [facility] [address] CBC HEMOGLOBIN 16.9 13.5 - 10/19 Specimen Type : BLOOD [place] [MASS/VOLU 17.9 /2020 No comment en tered. IS [facility] ME] IN Ordering Provid er: KOSTA WALKER BLOOD Report Released Date/Time: Oct 18, 2021 03:48 PM Reporting Lab: [facility] HCS [address] [place] [facility] [address] Performing Lab: [facility] [address] [place] [facility] [address] CBC HEMATOCRIT 48.9 41 - 54 10/19 Specimen Type : BLOOD [place] [VOLUME /2020 No comment enter ed. IS [facility] FRACTION] Ordering Prov ider: KOSTA WALKER OF BLOOD Report Release d Date/Time: Oct 18, 2021 03:48 PM BY Reporting Lab: [facility] AUTOMATED [facility] [address] [facility] [place] [address] COUNT Performing Lab: [facility] [address] [place] [facility] [address] CBC MCV 91.9 80 - 100 10/19 Specimen Type: BLOOD [place] [ENTITIC /2020 No comment ente red. IS [facility] VOLUME] BY Ordering Pro vider: KOSTA WALKER AUTOMATED Report Releas ed Date/Time: Oct 18, 2021 03:48 PM COUNT Reporting Lab: [facility] HCS [address] [place] [address] Performing Lab: [facility] [address] [place] [address] CBC MCH 31.8 27 - 33 10/19 Specimen Type: B LOOD [place] [ENTITIC /2020 No comment ente red. [place] [facility] MASS] BY Ordering Provi roberto: KOSTA WALKER AUTOMATED Report Releas ed Date/Time: Oct 18, 2021 03:48 PM COUNT Reporting Lab: [facility] H[facility] [address] [place] [address] Performing Lab: [facility] [place] [address] CBC MCHC 34.6 32.0 - 10/19 Specimen Type: B LOOD [place] [MASS/VOLU 37.5 /2020 No comment en tered. IS [facility] ME] BY Ordering Provid er: KOSTA WALKER AUTOMATED Report Releas ed Date/Time: Oct 18, 2021 03:48 PM COUNT Reporting Lab: [facility] [place] [address] Performing Lab: [facility] [place] [address] CBC PLATELETS 208 150 - 400 10/19 Specimen Typ e: BLOOD [place] [#/VOLUME] /2020 No comment en tered. IS [facility] IN BLOOD Ordering Provi roberto: KOSTA WALKER BY Report Released Date/Time: Oct 18, 2021 03:48 PM AUTOMATED Reporting Lab : [facility] COUNT [place] [address] Performing Lab: [facility] [place] [address] CBC PLATELET 10.8 7.4 - 10.4 12/ H Specimen Typ e: BLOOD [place] MEAN /2020 No comment enter ed. IS [facility] VOLUME Ordering Provid er: KOSTA WALKER [ENTITIC Report Release d Date/Time: Oct 18, 2021 03:48 PM VOLUME] IN Reporting La b: [facility] BLOOD BY ONE [address] Patricia [facility] [address] AUTOMATED Performing La b: [facility] COUNT [place] [address] CBC ERYTHROCYT 13.2 11.5 - 10/19 Specimen Type : BLOOD [place] E 14.5 /2021 No comment enter ed. IS [facility] DISTRIBUTI Ordering Pro vider: KOSTA WALKER ON WIDTH Report Release d Date/Time: Oct 18, 2021 03:48 PM [RATIO] BY Reporting La b: [facility] AUTOMATED [address] [facility] [address] COUNT Performing Lab: [facility] [address] [place] [address] CREATINI CREATININE 0.9 0.7 - 1.2 10/19 Specimen T ype: PLASMA [place] NE(INCLU [MASS/VOLU /2020 No comment e ntered. IS [facility] TRINA ME] IN Ordering Provid er: KOSTA WALKER EGFR) SERUM OR Report Release d Date/Time: Oct 18, 2021 03:48 PM PLASMA Reporting Lab: [facility] [place] [address] Performing Lab: [facility] [place] [address] CREATINI GLOMERULAR 82 60 10/19 Specimen Typ e: PLASMA [place] NE(INCLU FILTRATION /2020 No comment e ntered. IS [facility] TRINA RATE/1.73 Ordering Prov ider: KOSTA WALKER EGFR) SQ Report Released Date/Time: Oct 18, 2021 03:48 PM MBANGE Reporting La b: [facility] D [VOLUME ONE [employer] [facility] [address] RATE/AREA] Performing L ab: [facility] IN SERUM, [address] [facility] [address] PLASMA OR BLOOD BY CREATININE -BASED FORMULA (CKD-EPI) ELECTROL SODIUM 138 136 - 145 10/19 Specimen Type : PLASMA [place] YTES/ANI [MOLES/VOL No comment e ntered. IS [facility] ON GAP UME] IN Ordering Provid er: KOSTA WALKER SERUM OR Report Release d Date/Time: Oct 18, 2021 03:48 PM PLASMA Reporting Lab: [facility] [place] [address] Performing Lab: [facility] [address] ELECTROL POTASSIUM 3.9 3.5 - 5.1 10/19 Specimen Ty pe: PLASMA [place] YTES/ANI [MOLES/VOL No comment e ntered. IS [facility] ON GAP UME] IN Ordering Provid er: KOSTA WALKER SERUM OR Report Release d Date/Time: Oct 18, 2021 03:48 PM PLASMA Reporting Lab: [facility] [place] [address] Performing Lab: [facility] [address] [place] [address] ELECTROL CHLORIDE 103 98 - 107 10/19 Specimen Type : PLASMA [place] YTES/ANI [MOLES/VOL /2020 No comment e ntered. IS [facility] ON GAP UME] IN Ordering Provid er: KOSTA WALKER SERUM OR Report Release d Date/Time: Oct 18, 2021 03:48 PM PLASMA Reporting Lab: [facility] [place] [address] Performing Lab: [facility] [place] [address] ELECTROL CARBON 29 22 - 29 10/19 Specimen Type: PL[place]MA [place] YTES/ANI DIOXIDE, /2020 No comment ent ered. IS [facility] ON GAP TOTAL Ordering Provid er: KOSTA WALKER [MOLES/VOL Report Relea sed Date/Time: Oct 18, 2021 03:48 PM UME] IN Reporting Lab: [facility] SERUM OR [facility] Patricia [facility] [address] PLASMA Performing Lab: [facility] [address] [place] [facility] [address] ELECTROL ANION GAP 6 5 - 15 10/19 Specimen Type : PL[place]MA [place] YTES/ANI IN SERUM /2020 No comment ent ered. IS [facility] ON GAP OR PLASMA Ordering Prov ider: KOSTA WALKER Report Released Date/Time: Oct 18, 2021 03:48 PM Reporting Lab: [facility] [address] [place] [facility] [address] Performing Lab: [facility] [address] [place] [facility] [address] GLUCOSE GLUCOSE 105 74 - 100 12/ H Specimen Type: PLASMA [place] [MASS/VOLU /2020 No comment en tered. IS [facility] ME] IN Ordering Provid er: KOSTA WALKER SERUM OR Report Release d Date/Time: Oct 18, 2021 03:48 PM PLASMA Reporting Lab: [facility] [address] [place] [facility] [address] Performing Lab: [facility] [address] [place] [facility] [address] Vital Signs Combined list of inpatient and outpatient Vital Signs from Department of Defense and Veterans Affairs, ranging from 12 months to all on record, depending upon the facility. Vital Sign Value Date Comments Source SYSTOLIC BLOOD PRESSURE 160 12/23/2021 11:42:22 [place] [facility] DIASTOLIC BLOOD PRESSURE 89 12/23/2021 11:42:22 [place] [facility] PULSE OXIMETRY 98% 12/23/2021 11:42:22 [facility] [facility] WEIGHT 170.8 12/23/2021 11:42:22 [facility] BMI 26kg/m2 12/23/2021 11:42:22 [facility] [facility] PAIN 0 12/23/2021 11:42:22 [facility] [facility] TEMPERATURE 97.1 12/23/2021 11:42:22 [facility] [facility] PULSE 61 12/23/2021 11:42:22 [facility] [facility] RESPIRATION 16 12/23/2021 11:42:22 [facility] [facility] SYSTOLIC BLOOD PRESSURE 128 10/19/2021 10:26:08 [facility] DIASTOLIC BLOOD PRESSURE 77 10/19/2021 10:26:08 [facility] PULSE OXIMETRY 97% 10/19/2021 10:26:08 [facility] WEIGHT 168 10/19/2021 10:26:08 [facility] BMI 26kg/m2 10/19/2021 10:26:08 [facility] PAIN 0 10/19/2021 10:26:08 [facility] HEIGHT 68 10/19/2021 10:26:08 [facility] [facility] TEMPERATURE 97.1 10/19/2021 10:26:08 [facility] [facility] PULSE 60 10/19/2021 10:26:08 [facility] [facility] RESPIRATION 16 10/19/2021 10:26:08 [facility] [facility] SYSTOLIC BLOOD PRESSURE 149 10/18/2021 15:18:14 [facility] DIASTOLIC BLOOD PRESSURE 85 10/18/2021 15:18:14 [facility] PULSE OXIMETRY 96% 10/18/2021 15:18:14 [facility] WEIGHT 169 10/18/2021 15:18:14 [facility] BMI 26kg/m2 10/18/2021 15:18:14 [facility] PAIN 0 10/18/2021 15:18:14 [facility] HEIGHT 67.5 10/18/2021 15:18:14 [facility] TEMPERATURE 98.1 10/18/2021 15:18:14 [facility] PULSE 60 10/18/2021 15:18:14 [facility] RESPIRATION 17 10/18/2021 15:18:14 [facility] SYSTOLIC BLOOD PRESSURE 183 10/07/2021 13:42:02 [facility] DIASTOLIC BLOOD PRESSURE 98 10/07/2021 13:42:02 [facility] PULSE OXIMETRY 97% 10/07/2021 13:42:02 [facility] WEIGHT 175.3 10/07/2021 13:42:02 [facility] BMI 27kg/m2 10/07/2021 13:42:02 [facility] [facility] PAIN 0 10/07/2021 13:42:02 [facility] HEIGHT 67.5 10/07/2021 13:42:02 [facility] TEMPERATURE 98 10/07/2021 13:42:02 [facility] [facility] PULSE 60 10/07/2021 13:42:02 [facility] RESPIRATION 16 10/07/2021 13:42:02 [facility] [facility] Encounters Combined list of: 1) Encounters from Department of Veterans Affairs facilities going back up to the last 18 months, not all VA inpatient encounters are included; 2) Encounters from the Department of Defense facilities going back up to 280 months. Location Location Encounter Encounter Reason Attending ADM DC Stat us Disposition Source Details Type Number For [place] [id number] Diagnos BRYANNA, 12/23 [place] DIG [id number] is: MARVIN Esposito [facility] ICD-10- HCS 5-10 CM E78.5 Hyperli pidemia , unspeci fied
with Provide r Comment s: Hyperli pidemia (SCT [id number] 4) Outpatient 01471-6.61 12/26 [place] En[place] [id number] [facility] 85546-9.61 12/31 [place] [id number] /[facility] 72100-1.61 [place],AIL 01/02 [place] Encounter [id number] EE E [place] Outpatient 18787-2.61 01/15 [place] Encounter [id number] /[facility] 96789-9.61 01/16 [place] Encounter [id number] /2020 [facility] 61361-7.61 02/15 [place] Encounter [id number] /2020 [facility] 15765-5.61 03/03 [place] Encounter [id number] /2020 [facility] 62466-1.61 Diagnos EMILLA 04/09 [place] Encounter [id number] is: URIE A [facility] H[facility] CM 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<b r/>with Provide r Comment s: Coronar y artery disease (SCT [id number] 8) Outpatient 76719-5.61 05/11 [place] Encounter [id number] /2020 [facility] TTE 66949-2.61 Diagnos CHANDRASHE 05/11 [place] W/DOPPLER [id number] is: NALDO,Y S /2020 [facility] COMPLETE ICD-10- HCS CM R06.02 Shortne ss of breath< br/>wit h Provide r Comment s: Shortne ss of Breath Outpatient 92264-9.61 05/11 [place] Encounter [id number] /2020 [facility] 55670-7.61 Diagnos SANAM QUEVEDO 05/13 [place] Encounter [id number] is: /2020 [facility] ICD-10- HCS CM E78.5 Hyperli pidemia , unspeci fied
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
with Provide r Comment s: Hyperli pidemia , unspeci fied DERMATOLOG 72415-7.61 Diagnos YANET,MAR 11/16 [place] ICAL [id number] is: C A [facility] PROCEDURE ICD-10- HCS CM R21 Rash and other nonspec ific skin eruptio n
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 Social History Type Response Date Comment Source Tobacco smoking VA-TOBACCO FOR[place] 10[place]18/2021 [place] [facility] status [place]IS History of tobacco VA-TOBACCO QUIT 15 YRS 10/18/2021 [facility] use OR MORE History of tobacco VA-TOBACCO QUIT 5 TO < 2019 [place] [facility] use 15 YRS History of tobacco VA-TOBACCO FORMER USER 08/09/2018 [facility] use History of tobacco INPT NO TOBACCO USE IN 06/26/2018 [facility] use LAST 30 DAYS History of tobacco FORMER TOBACCO USER 7Y 02/08/2017 [facility] use OR GREATER History of tobacco FORMER TOBACCO USER 7Y 04/08/2016 [facility] use OR GREATER History of tobacco FORMER TOBACCO USER 7Y 12/02/2014 [facility] use OR GREATER History of tobacco FORMER TOBACCO USER 7Y 02/17/2014 [facility] use OR GREATER History of tobacco FORMER TOBACCO USE >1Y 12/19/2012 [facility] use <7Y History of tobacco FORMER TOBACCO USE >1Y 01/02/2012 [facility] use <7Y History of tobacco FORMER TOBACCO USE >1Y 12/13/2010 [facility] use <7Y History of tobacco FORMER TOBACCO USE >1Y 09/03/2009 [facility] HCS use <7Y History of tobacco CURRENT TOBACCO USER 09/25/2008 [facility] use Plan of Care List of future care activities from Department of Veterans Affairs facilities. Additional future care activities may be listed in the Assessment and Plan section. Date/Time Care Activity Care Activity Detail Facility 07/28/2022 AMBULATORY - NONE AMBULATORY - NONE [facility] Advance Directives List of completed, amended, or rescinded Advance Directives on record at Department of Veterans Affairs facilities. An actual copy of the Directive is not included. Date Advance Directive Provider Source 10/02/2017 CLINICAL WARNING SCHEMPJAXON Valencia [facility]
--- OUTSIDE RECORDS SUMMARY | 2022-06-23 00:32 | XMS_ITS | Encounter Summary ---
:1945 Author Organization Department [facility] Address [address] [place] [id number] Support Name Relationship Address Phone BELA HIDALGO Unavailable [phone] [facility] [phone] [place] [address] BELA HIDALGO Unavailable [phone] [facility] [place] [address] Insurance Providers: All historical and current Section Date Range: From patient's date of to the date document was created.This section includes the names of all active insurance providers for the patient. Insurance Type of Plan Start of End of Group Member Insurance Policy P atient's Provider Coverage Name Policy Policy Number ID Provider's Wahl's Relationship Coverage Coverage Telephone Name to Policy Number [facility] M[facility] Nov 06, [id number] [phone] Colten MCNAMARA PATIENT (WNR) ADVANTAGE (WNR) 2019 1 42 [phone] [place] HUMANA MCR MEDICARE MCR Nov 06, [id number] Colten MCNAMARA PATIENT (WNR) ADVANTAGE (WNR) 2019 1 42 0 [place] MEDICARE MEDICARE PART Dec 07, PART A [id number] P ATIENT (WNR) (M) A 2004 [id number] [phone] JENNIFER Kennedy MEDICARE MEDICARE PART Dec 07, PART B [id number] Colten HIDALGO P ATIENT (WNR) (M) B 2004 [id number] [phone] STANISLAWPAUL -CARE OF MEDICARE MCR Nov 06, RICT [id number] [phone] JERI MORENOR PATIENT [facility] ADVANTAGE (WNR) [id number] CAITLYN (WNR) Selected Encounter This section includes the information on record at HI for the Encounter. Date/Time Encounter Type Encounter Description Reason Provider Source Nov 29, 2021 06:28 Outpatient Encounter TELEPHONE/MEDICINE AM IHE Encounter Template Text not used by HI Plan of Treatment: Future Appointments (+ 6 months) and Future Tests (+/- 45 days) The Plan of Treatment section includes future care activities for the patient [facility] This section includes future appointments and future orders which are active, pending orscheduled.Future Appointments This section includes appointments that were scheduled to occur 6 months from the date of the Encounter, up to a maximum of 20 appointments. The data comes from all [place] treatment facilities. Appointment Date/Time Appointment Type Appointment Facili ty Name Dec 14, 2021 09:00 AM AMBULATORY - PSYCHIATRY [facility] Dec 21, 2021 07:30 AM AMBULATORY - NONE [facility] Dec 23, 2021 11:45 AM AMBULATORY - MEDICINE [facility] Dec 23, 2021 12:00 PM AMBULATORY - MEDICINE [facility] Dec 31, 2021 09:00 AM AMBULATORY - PSYCHIATRY [facility] May 26, 2022 08:00 AM [facility] Lab Results: +/- 30 days of the encounter This section includes the Chemistry and Hematology Lab Results on record with HI for the patient. Radiology Reports and Pathology Reports are provided separately, in subsequent sections.Lab Results This section contains the Chemistry/Hematology Results that were resulted 30 days before or 30 daysafter the date of the Encounter. Date/Time Source Result Type Result - Unit Interpretation Reference Range Comment Nov 02, 2021 05:25 [facility] OCCULT BLOOD FIT X1 Speci men Type: FECES PM SCREEN No comment enter ed. Ordering Provid er: KOSTA WALKER Report Released Date/Time: Oct 23, 2021 07:11 AM Reporting Lab: [facility] [id number] Performing Lab: [facility] [id number] OCCULT BLOOD (FIT) #1 OF 1 Negative Neg ative Social History: Smoking Status (Most current) and Tobacco Use (All prior to encounter date) This section includes the most current, and the historical, smoking and tobacco-related health factors from the HI facility where the Encounter took place.Current Smoking Status This section includes the most current smoking, or tobacco-related health factor, from the HI facility where the Encounter took place. Date/Time Current Smoking Status Comment Facility Oct 18, 2021 03:30 PM VA-TOBACCO FORMER USER [facility] Tobacco Use History This section includes a history of the smoking, or tobacco- related health factors, that were collected on or before the date of the Encounter. The data comes from the HI facility where the Encounter took place. Date/Time Smoking Status/Tobacco Use Comment Facil ity Oct 18, 2021 03:30 PM VA-TOBACCO QUIT 15 YRS OR MORE [facility] 2019 01:06 PM VA-TOBACCO FORMER USER [facility] 2019 01:06 PM VA-TOBACCO QUIT 5 TO < 15 YRS [facility] Aug 09, 2018 01:15 PM VA-TOBACCO FORMER USER [facility] Aug 09, 2018 01:15 PM VA-TOBACCO QUIT 5 TO < 15 YRS [facility] Jun 26, 2018 08:02 PM INPT NO TOBACCO USE IN LAST 30 DAYS [facility] Feb 08, 2017 08:22 AM FORMER TOBACCO USER 7Y OR GREATER [facility] Apr 08, 2016 07:59 AM FORMER TOBACCO USER 7Y OR GREATER [facility] Dec 02, 2014 10:48 AM FORMER TOBACCO USER 7Y OR GREATER [facility] Feb 17, 2014 10:22 AM FORMER TOBACCO USER 7Y OR GREATER [facility] Dec 19, 2012 07:42 AM FORMER TOBACCO USE >1Y <7Y [facility] Jan 02, 2012 09:35 AM FORMER TOBACCO USE >1Y <7Y [facility] Dec 13, 2010 08:57 AM FORMER TOBACCO USE >1Y <7Y [facility] Sep 03, 2009 01:16 PM FORMER TOBACCO USE >1Y <7Y [facility] Sep 25, 2008 11:20 AM CURRENT [facility]ACCO [facility] Advance Directives: All historical and current Section Date Range: From patient's date of to the date document was created. This section includes ALL of a patient's completed or amended [place] Advance and Rescinded Directives. The entries below indicate that a directive exists for the patient, but an actual copy is not included with this document. The data comes from all [facility]. Date Advance Directives Provider Source Oct 02, 2017 CLINICAL WARNING JAXON LONG [facility] Encounter Notes: All associated encounter notes This section contains the clinical notes associated to the Encounter. Date/Time Encounter Note(s) Provider Source Nov 29, 2021 06:28 AM PRIMARY CARE NOTE: ISAIAH WHITT [facility] LOCAL TITLE: PC REFERRAL TEAM NOTE STANDARD TITLE: PRIMARY CARE NOTE DATE OF NOTE: NOV 29, 2021@06:28 ENTRY DATE: NOV 29, 2021@06:29:03 AUTHOR: ISAIAH WHITT COSIGNER: URGENCY: STATUS: COMPLETED Drive time from home address to nearest [place] clini c: 50 mins per LUIS FEL[place] [facility] to [facility] Patient advised on the following: _x_ Authorization will 365 days after the first initial appointment with the community provider. _x_ ONCE HAS BEEN SEEN BY [facility] PROVIDER FOR 1st VISIT, 1st VISIT OFFICE NOTES HAVE BEEN RECEIVED BY [facility] STAFF AN D [facility] PC CONSULT HAS BEEN PLACED INTO A COMPLETED STATUS WILL THE THEN BE REMOVED FROM THE HI PCP PACT PANEL-THE IS THE HI PCP'S RESPO NSIBILITY UNTIL THESE STEPS ARE COMPLETED _x_ Patient will stay assigned to their [facility] Provider, if established. _x_ Medications will be written by the [facility] primary care provider and faxed to the HI pharmacy at [phone]. _x_ Anticoagulants will be managed by the [facility] provider. If currently enrolled with the HI anti-coagulation clinic you will be unenrolled. It will be the responsibility of the [facility] provider to check your labs and dose you accordingly. _x_ It is strongly advised that a few weeks prio r to the one year expiration patient contacts or visits their [facility] provider and requests that they fax a renewal request to the Community Care Department at the fax number listed on the authorization paperwork that is provided to the and the community provider. _x_ MOST IMPORTANTLY, ALL additional car e requested by community provider MUST be reviewed by the [place]. Advised [place] to wait f or letters of authorization before scheduling or attending appointments in [facility]. Also discussed DME requests must be reviewed/authorized by HI p rior to ordering or receiving the equipment. _x_ Provided patient with CC RN case supervisor richard ortega phone number. Encouraged patient to contact the case briefer f or any questions related to non-VA care especially if there care to other specialist have been recommended and you are unclear if services have been pre-au thorized. _x_Reviewed the Hospital Notification process an jade provided [place] with phone number to call within 72 hours of presenting to an OSH, . [facility] care team members will be added to this not e: __ Dr. Alas _x_ Dr. Walker _ramón_ Mabel Paul, RN [phone] in the Community manager product marketing Alerting CITC MD and CITC RN as FYI for case management, tracking purposes and need of future alert to [facility] [place] for PA CT removal once records are received and consult is completed. Alerting PACT PCP and PACT RN as FYI. Alerting PACT MSA for discontinuation of all future RTC's and recalls for this . /reuben/ ISAIAH WHITT MSA Stapling Machine Operator-Referral Coordination Team Signed: 11/29/2021 15:19 Receipt Acknowledged By: * AWAITING SIGNATURE * MABLE PAUL * AWAITING SIGNATURE * RAJ FERGUSON * AWAITING SIGNATURE * KOSTA WALKER * AWAITING SIGNATURE * DEAN FAJARDO
--- OUTSIDE RECORDS SUMMARY | 2022-06-23 00:32 | XMS_ITS | Encounter Summary ---
:1945 Author Organization [facility] Address [address] [place] [id number] Support Name Relationship Address Phone BELA HIDALGO Unavailable [id number] [facility] [phone] [place] [address] BELA HIDALGO Unavailable [address] [facility] [place] [address] Insurance Providers: All historical and current Section [...] Wahl RACHEL MCR MEDICARE MCR Nov 06, [id number] [phone] LUCRETIA CAST,R PATIENT (WNR) ADVANTAGE (WNR) 2019 1 42 8 CAITLYN RAMOS MCR MEDICARE MCR Nov 06, [id number] LUCRETIA CASTR PATIENT (WNR) ADVANTAGE (WNR) 2019 1 42 0 CAITLYN MEDICARE MEDICARE PART Dec 07, PART A [id number] P ATIENT (WNR) (M) A 2004 [id number] [phone] JENNIFER Kennedy MEDICARE MEDICARE PART Dec 07, PART B [id number] Colten HIDALGO P ATIENT (WNR) (M) B 2004 [id number] [phone] CAITLYN -CARE OF MEDICARE MCR Nov 06, RICT [id number] [phone] JERI MORENOR PATIENT [facility] ADVANTAGE (WNR) 2016 [id number] ICHPAUL (WNR) Selected Encounter This section includes the information on record at [place] for the Encounter. 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 Date/Time Primary/Secondary Diagnosis Name Provider Source Diagnosis Nov 17, 2021 PRIMARY DAMASO Mcmillan 09:37 AM dermatitis L HCS Plan of Treatment: Future Appointments (+ 6 months) and Future Tests (+/- 45 days) The Plan of Treatment section includes future care activities for the patient from all [place] treatmentfacilities. This section includes future appointments and future orders which are active, pending orscheduled.Future Appointments This section includes appointments that were scheduled to occur 6 months from the date of the Encounter, up to a maximum of 20 appointments. The data comes from all [place] treatment facilities. Appointment Date/Time Appointment Type Appointment Facili ty Name Nov 18, 2021 05:30 PM AMBULATORY - MEDICINE [facility] Dec 14, 2021 09:00 AM AMBULATORY - PSYCHIATRY [facility] Dec 21, 2021 07:30 AM AMBULATORY - [facility] Dec 23, 2021 11:45 AM AMBULATORY - [facility] Dec 23, 2021 12:00 PM AMBULATORY - MEDICINE [facility] Dec 31, 2021 09:00 AM AMBULATORY [facility] Lab Results: +/- 30 days of the encounter This section includes the Chemistry and Hematology Lab Results on record with [place] for the patient. Radiology Reports and Pathology Reports are provided separately, in subsequent sections.Lab Results This section contains the Chemistry/Hematology Results that were resulted 30 days before or 30 daysafter the date of the Encounter. Date/Time Source Result Type Result - Unit Interpretation Reference Range Comment Nov 02, 2021 05:25 [facility] OCCULT BLOOD FIT X1 Speci men Type: FECES PM SCREEN No comment enter ed. Ordering Provid er: KOSTA WALKER Report Released Date/Time: Oct 23, 2021 07:11 AM Reporting Lab: [facility] [address] [facility] [address] Performing Lab: [facility] [address] [facility] [address] [facility] [address] OCCULT BLOOD (FIT) #1 OF 1 Negative Neg ative Oct 19, 2021 09:36 [facility] LIPID PANEL,FASTING Speci men Type: PLASMA AM No comment enter ed. Ordering Provid er: SANAM QUEVEDO Report Released Date/Time: May 13, 2021 08:38 AM Reporting Lab: [facility] [address] [facility] [address] Performing Lab: [facility] [address] [facility] [address] CHOLESTEROL 101 <199 TRIGLYCERIDE 102 <149 .HDL 46 >40 LDL CALCULATION 35 <99 VLDL CALCULATION 20 <29 NON HDL CHOLESTEROL 55 <129 Oct 19, 2021 [facility] CREATININE(INCLUDES EGFR) Sp ecimen Type: PLASMA 09:36 AM No comment enter ed. Ordering Provid er: KOSTA WALKER Report Released Date/Time: Oct 18, 2021 03:48 PM Reporting Lab: [facility] [address] [facility] [address] Performing Lab: [facility] [address] [facility] [address] CREATININE 0.9 0.7-1.2 ESTIMATED GFR(eGFR) 82 >60 Oct 19, 2021 09:36 AM [facility] CBC Specim en Type: BLOOD No comment enter ed. Ordering Provid er: KOSTA WALKER Report Released Date/Time: Oct 18, 2021 03:48 PM Reporting Lab: [facility] [address] [facility] [address] Performing Lab: [facility] [address] [facility] [address] WBC 6.43 4.0-11.0 RBC 5.32 4.6-6.2 HGB 16.9 13.5-17.9 HCT 48.9 41-54 MCV 91.9 80-100 MCH 31.8 27-33 MCHC 34.6 32.0-37.5 PLT 208 150-400 MPV 10.8 H 7.4-10.4 RDW 13.2 11.5-14.5 Oct 19, 2021 09:36 AM [facility] GLUCOSE Specim en Type: PLASMA No comment enter ed. Ordering Provid er: KOSTA WALKER Report Released Date/Time: Oct 18, 2021 03:48 PM Reporting Lab: [facility] [address] [facility] [address] Performing Lab: [facility] [address] [facility] [address] GLUCOSE 105 H 74-100 Oct 19, 2021 09:36 AM [facility] HEMOGLOBIN A1C Specim en Type: BLOOD No comment enter ed. Ordering Provid er: KOSTA WALKER Report Released Date/Time: Oct 18, 2021 03:48 PM Reporting Lab: [facility] [address] [facility] [address] Performing Lab: [facility] [address] [facility] [address] HEMOGLOBIN A1C 5.8 4.0-6.0 Oct 19, 2021 09:36 [facility] ELECTROLYTES/ANION GAP Sp ecimen Type: PLASMA AM No comment enter ed. Ordering Provid er: KOSTA WALKER Report Released Date/Time: Oct 18, 2021 03:48 PM Reporting Lab: [facility] [address] [facility] [address] Performing Lab: [facility] [address] [facility] [address] SODIUM 138 136-145 POTASSIUM 3.9 3.5-5.1 CHLORIDE 103 98-107 CO2 29 22-29 ANION GAP 6 5-15 Oct 19, 2021 09:36 AM [facility] ALT/SGPT Specim en Type: PLASMA No comment enter ed. Ordering Provid er: KOSTA WALKER Report Released Date/Time: Oct 18, 2021 03:48 PM Reporting Lab: [facility] [address] [facility] [address] Performing Lab: [facility] [address] [facility] [address] ALT/SGPT 15 <55 Oct 19, 2021 09:36 AM [facility] AST/SGOT Specim en Type: PLASMA No comment enter ed. Ordering Provid er: KOSTA WALKER Report Released Date/Time: Oct 18, 2021 03:48 PM Reporting Lab: [facility] [address] [facility] [address] Performing Lab: [facility] [address] [facility] [address] AST/SGOT 17 <34 Oct 19, 2021 09:36 [facility] TSH W/REFLEX TO FREE Spec imen Type: PLASMA AM T4 No comment enter ed. Ordering Provid er: KOSTA WALKER Report Released Date/Time: Oct 18, 2021 03:48 PM Reporting Lab: [facility] [address] [facility] [address] Performing Lab: [facility] [address] [facility] [address] TSH 1.02 0.35-4.94 Oct 19, 2021 [facility] LIPID PANEL,NON-FASTING Spec imen Type: PLASMA 09:36 AM No comment enter ed. Ordering Provid er: KOSTA WALKER Report Released Date/Time: Oct 18, 2021 03:48 PM Reporting Lab: [facility] [address] [facility] [address] Performing Lab: [facility] [address] [facility] [id number] CHOLESTEROL 102 <199 .HDL 48 >40 LDL CALCULATION 22 <99 VLDL CALCULATION 32 H <29 NON HDL CHOLESTEROL 54 <129 TRIG(NON FASTING) 160 H <149 Social History: Smoking Status (Most current) and Tobacco Use (All prior to encounter date) This section includes the most current, and the historical, smoking and tobacco-related health factors from the [place] facility where the Encounter took place.Current Smoking Status This section includes the most current smoking, or tobacco-related health factor, from the [place] facility where the Encounter took place. Date/Time Current Smoking Status Comment Facility Oct 18, 2021 03:30 PM VA-TOBACCO FORMER USER [facility] Tobacco Use History This section includes a history of the smoking, or tobacco- related health factors, that were collected on or before the date of the Encounter. The data comes from the [place] facility where the Encounter took place. Date/Time Smoking Status/Tobacco Use Comment [facility] it Oct 18, 2021 03:30 PM VA-TOBACCO QUIT 15 YRS OR MORE [facility] 2019 01:06 PM VA-TOBACCO FORMER USER [facility] 2019 01:06 PM VA-TOBACCO QUIT 5 TO < 15 YRS [facility] Aug 09, 2018 01:15 PM VA-TOBACCO FORMER USER [facility] Aug 09, 2018 01:15 PM VA-TOBACCO QUIT 5 TO < 15 YRS [facility] Jun 26, 2018 08:02 PM INPT NO TOBACCO USE IN LAST 30 DAYS [facility] Feb 08, 2017 08:22 AM FORMER TOBACCO USER 7Y OR GREATER [facility] Apr 08, 2016 07:59 AM FORMER TOBACCO USER 7Y OR GREATER [facility] Dec 02, 2014 10:48 AM FORMER TOBACCO USER 7Y OR GREATER [facility] Feb 17, 2014 10:22 AM FORMER TOBACCO USER 7Y OR GREATER [facility] Dec 19, 2012 07:42 AM FORMER TOBACCO USE >1Y <7Y [facility] Jan 02, 2012 09:35 AM FORMER TOBACCO USE >1Y <7Y [facility] Dec 13, 2010 08:57 AM FORMER TOBACCO USE >1Y <7Y [facility] Sep 03, 2009 01:16 PM FORMER TOBACCO USE >1Y <7Y [facility] Sep 25, 2008 11:20 AM CURRENT TOBACCO USER [facility] Advance Directives: All historical and current Section Date Range: From patient's date of to the date document was created. This section includes ALL of a patient's completed or amended [place] Advance and Rescinded Directives. The entries below indicate that a directive exists for the patient, but an actual copy is not included with this document. The data comes from all [place] facilities. Date Advance Directives Provider Source Oct 02, 2017 CLINICAL WARNING JAXON LONG [facility] Encounter Notes: All associated encounter notes This section contains the clinical notes associated to the Encounter. Date/Time Encounter Note(s) Provider Source Nov 17, 2021 09:34 AM TELEIMAGING REPORT: DAMASO VICK [facility] LOCAL TITLE: TELEDERMATOLOGY IMAGING REPORT CON [facility] STANDARD TITLE: TELEIMAGING REPORT DATE OF NOTE: NOV 17, 2021@09:34 ENTRY DATE: NOV 17, 2021@09:34:55 AUTHOR: DAMASO VICK EXP COSIGNER: URGENCY: STATUS: COMPLETED TELEDERMATOLOGY IMAGING REPORT CONSULT Has ADDENDA HISTORY: Chief Complaint: raised red rash right leg x se veral months HISTORY: Prior skin history: None reported Have you had a skin cancer before? None Reported Patient reports no family history of melanoma. Taking new med/supplements: None reported Immunosuppression history: None reported Other significant history: None reported PROBLEM A LOCATION(S): Lower Extremity - right lower leg DURATION: over 3 months ago SYMPTOMS: Itch, Other:flaking CHANGES: Color - not as red as it has been TREATMENT: Yes Details: various ointments - not helping BIOPSY: No OVERALL CONSULT/IMAGE QUALITY: Fully satisfactory EXAM: large, pink-red, scaly plaque on the L lower le g IMPRESSION BASED ON IMAGES AND INFORMATION REVIE WED: PROBLEM A: Diagnosis: Eczematous dermatitis RECOMMENDATIONS FOR REFERRING PROVIDER: PROBLEM A: Medication: clobetasol 0.05% oint BID x 4 weeks on, 1 week off COntinue Vanicream to the legs daily as already prescribed. RECOMMENDED FOLLOW-UP: Follow up not required. Please re-consult for a n in person visit if the lesion has not responded after 8 weeks of treatm ent. Cumulative time of review and management: 5 minutes or more /reuben/ DAMASO VICK MD CHIEF DERMATOLOGY Signed: 11/17/2021 09:37 11/17/2021 ADDENDUM STATUS: COMPLETED Order placed for phone visit to review Derm shai mmendations with pt/. /reuben/ KOSTA WALKER MD STAFF PHYSICIAN Signed: 11/17/2021 09:48
--- OUTSIDE RECORDS SUMMARY | 2022-06-23 00:32 | XMS_ITS | Encounter Summary ---
:1945 Author Organization [facility] Address [address] [place] [address] Support Name Relationship Address Phone BELA HIDALGO Unavailable [address] [place] [address] BELA HIDALGO Unavailable [address] [place] [address] Insurance Providers: All historical and current Section Date Range: From patient's date of to the date document was created.This section includes the names of all active insurance providers for the patient. Insurance Type of Plan Start of End of Group Member Insurance Policy P atient's Provider Coverage Name Policy Policy Number ID Provider's Wahl's Relationship Coverage Coverage Telephone Name to Policy Number [facility] Nov 06, [id number] [phone] Colten MCNAMARA PATIENT (WNR) ADVANTAGE (WNR) 2019 1 42 8 CAITLYN HUMANA MCR MEDICARE MCR Nov 06, [id number] LUCRETIA CASTR PATIENT (WNR) ADVANTAGE (WNR) 2019 1 42 0 CAITLYN MEDICARE MEDICARE PART Dec 07, PART A [id number] P ATIENT (WNR) (M) A 2004 [id number] [phone] JENNIFER Kennedy MEDICARE MEDICARE PART Dec 07, PART B [id number] Colten HIDALGO P ATIENT (WNR) (M) B 2004 [id number] [phone] STANISLAWPAUL -CARE OF MEDICARE MCR Nov 06, RICT [id number] [phone] JERI MORENOR PATIENT [facility] ADVANTAGE (WNR) [id number] ICHARD (WNR) Selected Encounter This section includes the information on record at [place] for the Encounter. Date/Time Encounter Type Encounter Reason Provider Source Description Nov 18, 2021 Outpatient TELEPHONE PRIMARY ICD-10-CM R21 KOSTA WALKER 05:30 PM Encounter CARE Rash and other E nonspecific skin eruption with Provider Comments: Rash and other Nonspecific Skin Eruption IHE Encounter Template Text not used by [place] Assessments - Encounter Diagnoses This section includes the primary and secondary diagnoses documented for the Encounter. Date/Time Primary/Secondary Diagnosis Name Provider Source Diagnosis Nov 18, 2021 PRIMARY Rash and other KOSTA WALKER [facility] 05:30 PM nonspecific skin E HCS eruption Plan of Treatment: Future Appointments (+ 6 months) and Future Tests (+/- 45 days) The Plan of Treatment section includes future care activities for the patient [facility] [place] [facility] This section includes future appointments and future orders which are active, pending orscheduled.Future Appointments This section includes appointments that were scheduled to occur 6 months from the date of the Encounter, up to a maximum of 20 appointments. The data comes from all [place] treatment facilities. Appointment Date/Time Appointment Type Appointment Facili ty Name Dec 14, 2021 09:00 AM AMBULATORY - PSYCHIATRY [facility] Dec 21, 2021 07:30 AM AMBULATORY - NONE [facility] Dec 23, 2021 11:45 AM AMBULATORY - MEDICINE [facility] Dec 23, 2021 12:00 PM AMBULATORY - MEDICINE [facility] Dec 31, 2021 09:00 AM AMBULATORY - PSYCHIATRY [facility] Lab Results: +/- 30 days of the encounter This section includes the Chemistry and Hematology Lab Results on record with [place] for the patient. Radiology Reports and Pathology Reports are provided separately, in subsequent sections.Lab Results This section contains the Chemistry/Hematology Results that were resulted 30 days before or 30 daysafter the date of the Encounter. Date/Time Source Result Type Result - Unit Interpretation Reference Range Comment Nov 02, 2021 05:25 [facility] OCCULT BLOOD FIT X1 Speci men Type: FECES PM SCREEN No comment enter ed. Ordering Provid er: KOSTA WALKER Report Released Date/Time: Oct 23, 2021 07:11 AM Reporting Lab: [facility] [address] Performing Lab: [facility] [address] OCCULT BLOOD (FIT) #1 OF 1 Negative Neg ative Social History: Smoking Status (Most current) and Tobacco Use (All prior to encounter date) This section includes the most current, and the historical, smoking and tobacco-related health factors from the [place] facility where the Encounter took place.Current Smoking Status This section includes the most current smoking, or tobacco-related health factor, from the [place] facility where the Encounter took place. Date/Time Current Smoking Status Comment Facility Oct 18, 2021 03:30 PM VA-TOBACCO FORMER USER [facility] Tobacco Use History This section includes a history of the smoking, or tobacco- related health factors, that were collected on or before the date of the Encounter. The data comes from the [facility] where the Encounter took place. Date/Time Smoking Status/Tobacco Use Comment [facility] it Oct 18, 2021 03:30 PM VA-TOBACCO QUIT 15 YRS OR MORE [facility] 2019 01:06 PM VA-TOBACCO FORMER USER [facility] 2019 01:06 PM VA-TOBACCO QUIT 5 TO < 15 YRS [facility] Aug 09, 2018 01:15 PM VA-TOBACCO FORMER USER [facility] Aug 09, 2018 01:15 PM VA-TOBACCO QUIT 5 TO < 15 YRS [facility] Jun 26, 2018 08:02 PM INPT NO TOBACCO USE IN LAST 30 DAYS [facility] Feb 08, 2017 08:22 AM FORMER TOBACCO USER 7Y OR GREATER [facility] Apr 08, 2016 07:59 AM FORMER TOBACCO USER 7Y OR GREATER [facility] Dec 02, 2014 10:48 AM FORMER TOBACCO USER 7Y OR GREATER [facility] Feb 17, 2014 10:22 AM FORMER TOBACCO USER 7Y OR GREATER [facility] Dec 19, 2012 07:42 AM FORMER TOBACCO USE >1Y <7Y [facility] Jan 02, 2012 09:35 AM FORMER TOBACCO USE >1Y <7Y [facility] Dec 13, 2010 08:57 AM FORMER TOBACCO USE >1Y <7Y [facility] Sep 03, 2009 01:16 PM FORMER TOBACCO USE >1Y <7Y [facility] Sep 25, 2008 11:20 AM CURRENT TOBACCO USER [facility] Advance Directives: All historical and current Section Date Range: From patient's date of to the date document was created. This section includes ALL of a patient's completed or amended [place] Advance and Rescinded Directives. The entries below indicate that a directive exists for the patient, but an actual copy is not included with this document. The data comes from all [facility]. Date Advance Directives Provider Source Oct 02, 2017 CLINICAL WARNING JAXON LONG [facility] Encounter Notes: All associated encounter notes This section contains the clinical notes associated to the Encounter. Date/Time Encounter Note(s) Provider Source Nov 18, 2021 05:10 PM PACT NOTE: KOSTA WALKER [facility] LOCAL TITLE: MEDICINE CLINIC PROVIDER TELEPHONE NOTE STANDARD TITLE: PACT NOTE DATE OF NOTE: NOV 18, 2021@17:10 ENTRY DATE: NOV 18, 2021@17:10:52 AUTHOR: KOSTA WALKER EXP COSIGNER: URGENCY: STATUS: COMPLETED History: Called and spoke to pt/ regarding Derm recom mendations. They are in agreement with plan and will call if no response in 8 weeks. Pt also reports that he would like to transition to having his [facility] care through [facility]. Does meet drive time, and it is becoming too difficult to drive up to [facility] for primary care. PCP will place consult. Understands that he will then be disenrolled from [facility], once he completes his first visit with community provider and records are received back b y [facility]. Also says he is set up for COVID booster locally. Objective: Assessment/Plan: as above. Diagnoses discussed: rash, encounter for immunization. Education/Counseling: Time spent unit controller: 5-10 minutes /reuben/ KOSTA WALKER MD STAFF PHYSICIAN Signed: 11/22/2021 12:34
--- OUTSIDE RECORDS SUMMARY | 2022-06-23 00:32 | XMS_ITS | Encounter Summary ---
:1945 Author Organization [facility] Address [address] [place] [id number] Support Name Relationship Address Phone BELA HIDALGO Unavailable [id number] [place] [address] BELA HIDALGO Unavailable [id number] [place] [address] Insurance Providers: All historical and current Section [...] Wahl RACHEL MCR MEDICARE MCR Nov 06, [id number] [phone] LUCRETIA CAST,R PATIENT (WNR) ADVANTAGE (WNR) 2019 1 42 0 CAITLYN RAMOS MCR MEDICARE MCR Nov 06, [id number] [phone] LUCRETIA CASTR PATIENT (WNR) ADVANTAGE (WNR) 2019 1 42 8 CAITLYN MEDICARE MEDICARE PART Dec 07, PART A [id number] P ATIENT (WNR) (M) A 2004 CY07 [phone] JENNIFER Kennedy MEDICARE MEDICARE PART Dec 07, PART B [id number] [place] HIDALGO P ATIENT (WNR) (M) B 2004 CY07 [phone] CAITLYN -CARE OF MEDICARE MCR Nov 06, RICT [id number] [phone] JERI RSR PATIENT [facility] ADVANTAGE (WNR) [id number] ICHARD (WNR) Selected Encounter This section includes the information on record at [place] for the Encounter. Date/Time Encounter Type Encounter Reason Provider Source Description Oct 18, 2021 OFFICE O/P EST PRIMARY ICD-10-CM KOSTA WALKER 03:30 PM MOD 30-39 MIN CARE/MEDICINE I25.10 Athscl E heart disease of [place] coronary artery w/o ang pctrs with Provider Comments: Coronary artery disease ([facility] [id number]) IHE Encounter Template Text not used by [place] Assessments - Encounter Diagnoses This section includes the primary and secondary diagnoses documented for the Encounter. Date/Time Primary/Secondary Diagnosis Name Provider Source Diagnosis Oct 23, 2021 PRIMARY [facility] AM disease of [place] E HCS coronary artery w/o ang pctrs Oct 23, 2021 SECONDARY Patricio's [facility] 07:02 AM esophagus without E HCS dysplasia Oct 23, 2021 SECONDARY Elevated prostate [facility] 07:[facility] AM specific antigen E HCS [PSA] Oct 23, 2021 SECONDARY Encounter for [facility] 07:02 AM immunization N A HCS Oct 23, 2021 SECONDARY Essential [facility] AM (primary) E HCS hypertension Oct 23, 2021 SECONDARY Hyperlipidemia, [facility] 07:02 AM unspecified E HCS Oct 23, 2021 SECONDARY Monoclonal [facility] 07:02 AM gammopathy E HCS Oct 23, 2021 SECONDARY Peripheral [facility] 07:02 AM vascular disease, E HCS unspecified Oct 23, 2021 SECONDARY [facility] Plan of Treatment: Future Appointments (+ 6 months) and Future Tests (+/- 45 days) The Plan of Treatment section includes future care activities for the patient from all [place] [facility]. This section includes future appointments and future orders which are active, pending orscheduled.Future Appointments This section includes appointments that were scheduled to occur 6 months from the date of the Encounter, up to a maximum of 20 appointments. The data comes from all [place] treatment facilities. Appointment Date/Time Appointment Type Appointment Facili ty Name Oct 19, 2021 09:45 AM AMBULATORY - NONE [facility] Oct 19, 2021 10:00 AM AMBULATORY - NONE [facility] Oct 19, 2021 10:45 AM AMBULATORY - MEDICINE [facility] Nov 16, 2021 11:30 AM AMBULATORY - MEDICINE [facility] Nov 18, 2021 05:30 PM AMBULATORY - MEDICINE [facility] Dec 14, 2021 09:00 AM AMBULATORY - PSYCHIATRY [facility] Dec 21, 2021 07:30 AM AMBULATORY - NONE [facility] Dec 23, 2021 11:45 AM AMBULATORY - MEDICINE [facility] Dec 23, 2021 12:00 PM AMBULATORY - MEDICINE [facility] Dec 31, 2021 09:00 AM AMBULATORY - PSYCHIATRY [facility] Lab Results: +/- 30 days of the encounter This section includes the Chemistry and Hematology Lab Results on record with [place] for the patient. Radiology Reports and Pathology Reports are provided separately, in subsequent sections.Lab Results This section contains the Chemistry/Hematology Results that were resulted 30 days before or 30 daysafter the date of the Encounter. Date/Time Source Result Type Result - Unit Interpretation Reference Range Comment Nov 02, 2021 05:25 [facility] OCCULT BLOOD FIT X1 Speci men Type: FECES PM SCREEN No comment enter ed. Ordering Provid er: KOSTA WALKER Report Released Date/Time: Oct 23, 2021 07:11 AM Reporting Lab: [facility] [address] [facility] [address] Performing Lab: [facility] [address] OCCULT BLOOD (FIT) #1 OF 1 Negative Neg ative Oct 19, 2021 09:36 [facility] LIPID PANEL,FASTING Speci men Type: PLASMA AM No comment enter ed. Ordering Provid er: SANAM QUEVEDO Report Released Date/Time: May 13, 2021 08:38 AM Reporting Lab: [facility] [address] [facility] [address] Performing Lab: [facility] [address] [facility] [address] CHOLESTEROL 101 <199 TRIGLYCERIDE 102 <149 .HDL 46 >40 LDL CALCULATION 35 <99 VLDL CALCULATION 20 <29 NON HDL CHOLESTEROL 55 <129 Oct 19, 2021 [facility] CREATININE(INCLUDES EGFR) Sp ecimen Type: PLASMA 09:36 AM No comment enter ed. Ordering Provid er: KOSTA WALKER Report Released Date/Time: Oct 18, 2021 03:48 PM Reporting Lab: [facility] [address] [facility] [address] Performing Lab: [facility] [address] [facility] [address] CREATININE 0.9 0.7-1.2 ESTIMATED GFR(eGFR) 82 >60 Oct 19, 2021 09:36 AM [facility] CBC Specim en Type: BLOOD No comment enter ed. Ordering Provid er: KOSTA WALKER Report Released Date/Time: Oct 18, 2021 03:48 PM Reporting Lab: [facility] [address] [facility] [address] Performing Lab: [facility] [address] [facility] [address] WBC 6.43 4.0-11.0 RBC 5.32 4.6-6.2 HGB 16.9 13.5-17.9 HCT 48.9 41-54 MCV 91.9 80-100 MCH 31.8 27-33 MCHC 34.6 32.0-37.5 PLT 208 150-400 MPV 10.8 H 7.4-10.4 RDW 13.2 11.5-14.5 Oct 19, 2021 09:36 AM [facility] GLUCOSE Specim en Type: PLASMA No comment enter ed. Ordering Provid er: KOSTA WALKER Report Released Date/Time: Oct 18, 2021 03:48 PM Reporting Lab: [facility] [address] [facility] [address] Performing Lab: [facility] [address] [facility] [address] GLUCOSE 105 H 74-100 Oct 19, 2021 09:36 AM [facility] HEMOGLOBIN A1C Specim en Type: BLOOD No comment enter ed. Ordering Provid er: KOSTA WALKER Report Released Date/Time: Oct 18, 2021 03:48 PM Reporting Lab: [facility] [address] [facility] [address] Performing Lab: [facility] [address] [facility] [address] HEMOGLOBIN A1C 5.8 4.0-6.0 Oct 19, 2021 09:36 [facility] ELECTROLYTES/ANION GAP Sp ecimen Type: PLASMA AM No comment enter ed. Ordering Provid er: KOSTA WALKER Report Released Date/Time: Oct 18, 2021 03:48 PM Reporting Lab: [facility] [address] [facility] [address] Performing Lab: [facility] [address] [facility] [address] SODIUM 138 136-145 POTASSIUM 3.9 3.5-5.1 CHLORIDE 103 98-107 CO2 29 22-29 ANION GAP 6 5-15 Oct 19, 2021 09:36 AM [facility] AST/SGOT Specim en Type: PLASMA No comment enter ed. Ordering Provid er: KOSTA WALKER Report Released Date/Time: Oct 18, 2021 03:48 PM Reporting Lab: [facility] [address] [facility] [address] Performing Lab: [facility] [address] [facility] [address] AST/SGOT 17 <34 Oct 19, 2021 09:36 AM [facility] ALT/SGPT Specim en Type: PLASMA No comment enter ed. Ordering Provid er: KOSTA WALKER Report Released Date/Time: Oct 18, 2021 03:48 PM Reporting Lab: [facility] [address] [facility] [address] Performing Lab: [facility] [address] [facility] [address] ALT/SGPT 15 <55 Oct 19, 2021 09:36 [facility] TSH W/REFLEX TO FREE Spec imen Type: PLASMA AM T4 No comment enter ed. Ordering Provid er: KOSTA WALKER Report Released Date/Time: Oct 18, 2021 03:48 PM Reporting Lab: [facility] [address] [facility] [address] Performing Lab: [facility] [address] [facility] [address] TSH 1.02 0.35-4.94 Oct 19, 2021 [facility] LIPID PANEL,NON-FASTING Spec imen Type: PLASMA 09:36 AM No comment enter ed. Ordering Provid er: KOSTA WALKER Report Released Date/Time: Oct 18, 2021 03:48 PM Reporting Lab: [facility] [address] [facility] [address] Performing Lab: [facility] [address] [facility] [address] CHOLESTEROL 102 <199 .HDL 48 >40 LDL CALCULATION 22 <99 VLDL CALCULATION 32 H <29 NON HDL CHOLESTEROL 54 <129 TRIG(NON FASTING) 160 H <149 Vital Signs: All taken on the encounter date This section contains inpatient and outpatient Vital Signs collected on the date of the Encounter. Date/Time Temperature Pulse Blood Respiratory SP02 Pain Height Weight Harshal dy Source Pressure Rate Mass Index Oct 18 151/84 [place] 2020 03:25 /min mm[Hg] [facility] Oct 18 98.1 F 60 149/85 17 /min 96 % 0 67.5 in 169 lb 26 [place] 2020 03:18 /min mm[Hg] [facility] Immunizations: All administered on the encounter date This section contains immunizations associated to the Encounter. Immunization Series Date Issued Reaction Comments INFLUENZA, INJECTABLE, QUADRIVALENT, Oct 18, 2021 PRESERVATIVE FREE Social History: Smoking Status (Most current) and Tobacco Use (All prior to encounter date) This section includes the most current, and the historical, smoking and tobacco-related health factors from the [place] facility where the Encounter took place.Current Smoking Status This section includes the most current smoking, or tobacco-related health factor, from the [place] facility where the Encounter took place. Date/Time Current Smoking Status Comment Facility Oct 18, 2021 03:30 PM VA-TOBACCO FORMER USER [facility] Tobacco Use History This section includes a history of the smoking, or tobacco- related health factors, that were collected on or before the date of the Encounter. The data comes from the [place] facility where the Encounter took place. Date/Time Smoking Status/Tobacco Use Comment [facility] Oct 18, 2021 03:30 PM VA-TOBACCO QUIT 15 YRS OR MORE [facility] 2019 01:06 PM VA-TOBACCO FORMER USER [facility] 2019 01:06 PM VA-TOBACCO QUIT 5 TO < 15 YRS [facility] Aug 09, 2018 01:15 PM VA-TOBACCO FORMER USER [facility] Aug 09, 2018 01:15 PM VA-TOBACCO QUIT 5 TO < 15 YRS [facility] Jun 26, 2018 08:02 PM INPT NO TOBACCO USE IN LAST 30 DAYS [facility] Feb 08, 2017 08:22 AM FORMER TOBACCO USER 7Y OR GREATER [facility] Apr 08, 2016 07:59 AM FORMER TOBACCO USER 7Y OR GREATER [facility] Dec 02, 2014 10:48 AM FORMER TOBACCO USER 7Y OR GREATER [facility] Feb 17, 2014 10:22 AM FORMER TOBACCO USER 7Y OR GREATER [facility] Dec 19, 2012 07:42 AM FORMER TOBACCO USE >1Y <7Y [facility] Jan 02, 2012 09:35 AM FORMER TOBACCO USE >1Y <7Y [facility] Dec 13, 2010 08:57 AM FORMER TOBACCO USE >1Y <7Y [facility] Sep 03, 2009 01:16 PM FORMER TOBACCO USE >1Y <7Y [facility] Sep 25, 2008 11:20 AM CURRENT TOBACCO USER [facility] Advance Directives: All historical and current Section Date Range: From patient's date of to the date document was created. This section includes ALL of a patient's completed or amended [place] Advance and Rescinded Directives. The entries below indicate that a directive exists for the patient, but an actual copy is not included with this document. The data comes from all [place] facilities. Date Advance Directives Provider Source Oct 02, 2017 CLINICAL WARNING EDAnnieJAXON Gomez [facility] Pathology Reports: +/- 30 days of the [...] the Encounter. The data comes from all [place] treatment facilities. Date/Time Pathology Report Provider Source Oct 15, 2021 05:11 PM LR SURGICAL PATHOLOGY REPORT: TASHI MÁRQUEZ [facility] LOCAL TITLE: LR SURGICAL PATHOLOGY REPORT STANDARD TITLE: PATHOLOGY REPORT DATE OF NOTE: OCT 15, 2021@17:11:59 ENTRY DATE: OCT 15, 2021@17:11:59 AUTHOR: TASHI MÁRQUEZ EXP COSIGNER: URGENCY: STATUS: COMPLETED $APHDR Reporting Lab: [facility] [CLIA# [id number]] [place] [address] - - - - - - - [...] - PATHOLOGY REPORT Accession No. [id number] - - - - - - - [...] - PATHOLOGY REPORT Accession No. [id number] - - - - - - - [...] cm in grea test dimension. CE. (D[facility]/ MICROSCOPIC DESCRIPTION: Microscopic examination is performed. DIAGNOSIS [...] Performing Laboratory: Surgical Pathology Report Performed By: [facility] [CLIA# [id number]] [place] [address] $FTR - - - - - - - - - - - - - - - - - - - - - - - - - - - - - - - - - - - - - - - - (End of report) TASHI MÁRQUEZ MD [facility] Date Oct 15, 2021 - - - - - - - - - - - - - - - - - - - - - - - - - - - - - - - - - - - - - - - - JENNIFER HIDALGO STANDARD FORM 515 ID:[id number] SEX:M :1945 AGE: 76 LOC: 1153 PCP: Kosta Walker MD /reuben/ TASHI MÁRQUEZ MD STAFF PATHOLOGIST, PATHOLOGY & LABORATORY MED SV C Signed: 10/15/2021 17:11 Encounter Notes: All associated encounter notes This section contains the clinical notes associated to the Encounter. Date/Time Encounter Note(s) Provider Source Nov 03, 2021 01:55 LETTERS: KOSTA WALKER [facility] LOCAL TITLE: FOLLOW UP RESULTS LETTER STANDARD TITLE: LETTERS DATE OF NOTE: NOV 03, 2021@13:55 ENTRY DATE: NOV 03, 2021@13:55:06 AUTHOR: KOSTA WALKER EXP COSIGNER: URGENCY: STATUS: [place] [address] Oct JENNIFER HIDALGO [address] [facility] [id number] Dear : I am writing to inform you of the results of the tests you had done at the [facility]. The tests below were performed and are satisfactory unless otherwise noted. - Stool Hemmoccult Cards (No blood in stool) Comments: this is good news. Thanks for completi ng this test. If you have any further questions or problems, geo knapp contact our nursing staff or me at the following number: . Sincerely, KOSTA WALKER MD STAFF PHYSICIAN Oct 18, 2021 03:59 INTERNAL MEDICINE NOTE: KOSTA WALKER [facility] PM LOCAL TITLE: MEDICINE CLINIC NOTE STANDARD TITLE: INTERNAL MEDICINE NOTE DATE OF NOTE: OCT 18, 2021@15:59 ENTRY DATE: OCT 18, 2021@15:59:05 AUTHOR: KOSTA WALKER EXP COSIGNER: URGENCY: STATUS: COMPLETED MEDICINE CLINIC NOTE Has ADDENDA (x)Nurse's notes reviewed from today. JENNIFER HIDALGO is a 76 year old MALE with the following Chief complaint: Follow up for probs listed below. HPI/ROS:Pt is a 76 y/o male here with to f/ u probs listed below. Pt has known CAD, no sx. Has peripheral vascular diseas e, denies claudication sx. Lipids, on Alirocumab and Ezetimibe thro ugh Metabolic. Has Patricio's esophagus with most recent EGD done 10/2021. BP high here but under good control at home, brings in list of home readings. Has not gotten booster of COVID vaccine yet, detailed discussion about this. Had Neuropsych ev al 2017 and would like to return, concurs. [facility] and assist in setting up repeat Neuropsych eval. reports that pt is very fo rgetful about many day to day issues. Uses his CPAP consistently. Has had a rash right leg x several months; it is pruritic, agrees to Telederm consult. Mild mitral regurgitation on echo done 05/2021 as outlined below. Follows w ith Heme/Onc for MGUS. Appropriate for FIT testing, most recently d one and negative 02/2020. Will order repeat for mail out. Has h/o elevated PSA wi th negative biopsy 2018, no further testing planned due to age; pt/ in agree ment. AAA screening negative 2017. No other concerns this visit. Active problems - Computerized Problem List is t he source for the followin. Coronary artery disease - S/P CABG x 3 n 2001. - S/P stents to OM1 and D1 in 2006. 2. Peripheral vascular disease ([place] [address] [id number]) 3. Hyperlipidemia (SNOMED CT 57491194) 4. Tobacco Use 5. Patricio's esophagus (SNOMED CT 492111154) 6. Dual Care - Dr. Zhao, PCP [facility] Cardiology 7. Hypertension 8. Lower urinary tract symptoms 9. Migraine 10. Elevated PSA 11. 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 Sleep apnea - severe per sleep study done 2018 14. Mitral Valve Disorder ([facility] [id number]) - -Mild mitral regurgitation per 05/2021 echo. R ecommend repeat in 2-3 years, sooner if symptomatic. Tobacco: () Pt smokes or uses tobacco products and was c ounseled to d/c. The patient was offered medication to assist wi th smoking cessation. The patient was also [facility] () Pt is not using tobacco products now but has used them in the past year. (Pt counseled to remain abstinent.) (x) Pt hasn't used tobacco products for a year or more. () Pt has never used tobacco products. Allergies: ROSUVASTATIN (Jul 15, 2012) PRAVASTATIN (Feb 07, 2013) LIPITOR (March 07, 2013) SIMVASTATIN (Jun 16, 2013) Active and Recently Outpatient Medicatio ns (including Supplies): Active Outpatient Medications Status 1) ALIROCUMAB 75MG/ML INJ 1ML PEN INJECT 75MG (1 ML) ACTIVE UNDER THE SKIN EVERY 2 WEEKS FOR HYPERLIPIDEMIA AND CORONARY ARTERY DISEASE (CAD) 2) CARVEDILOL 6.25MG TAB TAKE ONE-HALF TABLET BY MOUTH ACTIVE TWICE A DAY 3) CLOPIDOGREL BISULFATE 75MG TAB TAKE ONE TABLE T BY ACTIVE MOUTH EVERY DAY TO PREVENT BLOOD CLOTS (APPROVE D FOR LONG-TERM USE) 4) EZETIMIBE 10MG TAB TAKE ONE TABLET BY MOUTH E DAY ACTIVE -APPROVED- 5) ISOSORBIDE MONONITRATE 30MG SA TAB TAKE ONE T ABLET BY ACTIVE MOUTH EVERY MORNING TAKE 30 MG WITH 60 MG TABLE T FOR TOTAL OF 90 MG PER DAY 6) ISOSORBIDE MONONITRATE 60MG SA TAB TAKE ONE T ABLET BY ACTIVE MOUTH EVERY DAY FOR THE HEART 7) LISINOPRIL 10MG TAB TAKE ONE-HALF TABLET BY M OUTH ACTIVE EVERY DAY FOR HIGH BLOOD PRESSURE 8) MAGNESIUM OXIDE 420MG TAB TAKE ONE TABLET BY MOUTH ACTIVE EVERY DAY FOR HEADACHE PREVENTION 9) NITROGLYCERIN 0.4MG SL TAB DISSOLVE ONE TABLE T UNDER ACTIVE THE TONGUE NEEDED FOR CHEST PAIN*MAY REPEAT EVERY 5 MINUTES-NO MORE THAN 3 TOTAL 10) OMEPRAZOLE 20MG EC CAP TAKE TWO CAPSULES BY MOUTH ACTIVE TWICE A DAY TO DECREASE STOMACH ACID -TAKE ON A N EMPTY STOMACH, AT LEAST 30 MINUTES BEFORE EATIN G 11) VANICREAM TOP CREAM APPLY THIN LAYER TOPICAL LY TWICE ACTIVE A DAY FOR DRY SKIN Inactive Outpatient Medications Status 1) ALIROCUMAB 75MG/ML INJ 1ML PEN INJECT 75MG (1 ML) DISCONTINUED UNDER THE SKIN EVERY 2 WEEKS FOR HYPERLIPIDEMIA AND CORONARY ARTERY DISEASE (CAD) 2) CARVEDILOL 6.25MG TAB TAKE ONE-HALF TABLET BY MOUTH DISCONTINUED TWICE A DAY 3) CLOPIDOGREL BISULFATE 75MG TAB TAKE ONE TABLE T BY DISCONTINUED MOUTH EVERY DAY TO PREVENT BLOOD CLOTS (APPROVE D FOR LONG-TERM USE) 4) ISOSORBIDE MONONITRATE 60MG SA TAB TAKE ONE T ABLET BY DISCONTINUED MOUTH EVERY DAY FOR THE HEART 5) NITROGLYCERIN 0.4MG SL TAB DISSOLVE ONE TABLE T UNDER DISCONTINUED THE TONGUE NEEDED FOR CHEST PAIN*MAY REPEAT EVERY 5 MINUTES-NO MORE THAN 3 TOTAL 6) OMEPRAZOLE 20MG EC CAP TAKE TWO CAPSULES BY M OUTH DISCONTINUED TWICE A DAY TO DECREASE STOMACH ACID -TAKE ON A N EMPTY STOMACH, AT LEAST 30 MINUTES BEFORE EATIN G Active Non-VA Medications Status 1) Non-VA ASPIRIN 81MG EC TAB 81MG MOUTH EVERY M ORNING ACTIVE 18 Total Medications MEDICATION RECONCILIATION Outpatient At this visit I have reviewed the medication li st, and discussed relevant medications with the patient/surrogate . An updated patient medication list was given to the participant(s). No Change Education on NEW Medication: I have reviewed the medication list for possible drug:drug interactions or contraindications marguerite or to ordering NEW medications during this visit. Patient instructed. I noted new medication on p atient's copy of the medication list. Patient sent to Pharmacist for education on new medication. Patient indicated readiness to learn and has been instructed on action, dose, frequency and side effects of the new medication and I noted new medication on pa icipant's copy of the medication list. Patient unable to participate in learning/instr uction. Family/Social History: , here with , was stationed in the [employer] in [place], still working at [employer] EXAM: VS: Temp: 98.1 F [36.7 C] (10/18/2021 15:18) BP: 151/84 (10/18/2021 15:25) repeat same, no s x Pulse:61 (10/18/2021 15:25) Resp: 17 (10/18/2021 15:18) BMI: 26.1 Pain: 0 (10/18/2021 15:18) Weight: WEIGHTS IN LAST 6 MONTHS: 169 (OCT 18, 2021@15:18:14) 175.3 (OCT 07, 2021@13:42:02) General Appearance: pleasant masked elderly mal e, no distress Mental Status: no deficits noted this visit Neck: no bruits or nodes, nl thyroid HEENT: masked, TMs normal Cardiac: rrr w/o audible murmur this visit, no r,g JVP: nl Lungs: clear Abdomen: normal bowel sounds, soft, nontender w /o masses or HSM Extremities: Edema (x)None ()1+ ()2+ ()3+ ()4+ Pulses ()MANAGER OF RADIOLOGY (x)1+ ()2+ ()3+ ()4+ Skin: 3 inch diameter erythematous raised plaqu e, sharply demarcated Gait: steady Data/Labs: Collection DT Specimen Test Name Result Units Ref Range 08/14/2020 15:05 BLOOD HEMOGLOBIN A1C 5.9 % 4.0 - 6.0 Lipids: CHOLESTEROL 172 (12/18/20) HDL 65 (12/18/20) LDL CALCULATION 87 (12/18/20) MEASURED LDL____ TRIGLYCERIDE 98 (12/18/20) SMA-7: SODIUM 137 (05/11/21) POTASSIUM 4.4 (05/11/21) CHLORIDE 107 (05/11/21) CO2 26 (05/11/21) UREA NITROGEN 13 (05/11/21) CREATININE 0.9 (05/11/21) GLUCOSE 114 H (05/11/21) CBC: WBC 5.99 (05/11/21) HGB 15.4 (05/11/21) HCT 46.2 (05/11/21) MCV 94.5 (05/11/21) PLT 157 (05/11/21) LFTs: SGOT 12 (05/11/21) SGPT 10 (05/11/21) TSH ____ No data available PSA 4.69 H SERUM (08/14/20 15:05) 4.74 H SERUM (04/10/19 13:53) 4.07 H PLASMA (01/02/19 14:06) 4.69 H PLASMA (08/09/18 14:39) 16.00 H PLASMA (10/11/17 13:49) 4.05 H PLASMA (02/08/17 06:45) Assessment and Plan: 1. CAD: meds as above, no sx. 2. PVD: no claudication sx 3. Lipids: follows with Metabolic, currently on Alirocumab and Zetia, LDL slightly above goal. 4. Rash: Telederm consult. 5. Memory concerns: as above, will ask [facility] to contact, do f/u testing if indicated, and arrange for f/u with Neuropsych p er pt/ request. 6. RHM: needs COVID booster, will plan to do locally, will order FIT testing for mail out, AAA screen negative 2016, no further P SA checks planned due to age. 7. Pulmonary nodule: f/u completed 11/2018. 8. Sleep apnea: uses CPAP consistently. 9. HTN: well controlled at home on current regim en. 10. Patricio's: as above, most recent EGD done 2020. 11. MGUS: follows with Heme/Onc. (x) Patient/Caregiver indicates readiness to dany rn, verbalizes understanding, agreement and satisfaction with the treatment pl an. Patient/Caregiver doesn't have any further questions today. () [place]/Caregiver indicates readiness to lear n and has been instructed on action, dose, frequency, and side effects of the medication. /Caregiver verbalizes understanding. /ambar WALKER MD STAFF PHYSICIAN Signed: 10/23/2021 07:02 Receipt Acknowledged By: * AWAITING SIGNATURE * JOSÉ LUIS SANCHES * AWAITING SIGNATURE * DEAN CYR 10/25/2021 07:23 /ambar Davalos PhD, [facility] Psychologist [phone] 10/23/2021 ADDENDUM STATUS: COMPLETED Lab results reviewed in detail with pt/ at t shanita of visit. /ambar WALKER MD STAFF PHYSICIAN Signed: 10/23/2021 07:06 10/25/2021 ADDENDUM STATUS: COMPLETED [facility] provider placed consult for repeat neurops ychological evaluation. /ambar Davalos PhD, LP [facility] Psychologist [phone] Signed: 10/25/2021 07:25 Oct 18, 2021 03:20 INTERNAL MEDICINE OUTPATIENT NOTE: CAYLA BONILLA [facility] LOCAL TITLE: MEDICINE CLINIC NURSING NOTE STANDARD TITLE: INTERNAL MEDICINE OUTPATIENT NOT E DATE OF NOTE: OCT 18, 2021@15:20 ENTRY DATE: OCT 18, 2021@15:20:26 AUTHOR: YASEMIN BONILLA COSIGNER: URGENCY: STATUS: COMPLETED TYPE OF VISIT: Appointment Check In Type of appointment: In-person appointment REASON FOR VISIT: Scheduled Dr appointment check in ALLERGIES: ROSUVASTATIN (Jul 15, 2012) PRAVASTATIN (Feb 07, 2013) LIPITOR (March 07, 2013) SIMVASTATIN (Jun 16, 2013) VITAL SIGNS: Blood Pressure: 149/85 (10/18/2021 15:18) reche cked 151/84 Pulse: 60 (10/18/2021 15:18) Respiration: 17 (10/18/2021 15:18) Temperature: 98.1 F [36.7 C] (10/18/2021 15:18) Weight: 169 lb [76.8 kg] (10/18/2021 15:18) Height: 67.5 in [171.5 cm] (10/18/2021 15:18) BMI: 26.1 O2 Sat: 96 (10/18/2021:18) Pain: 0 (10/18/2021:) PAIN SCREEN: Patient is not having significant pain that the y wish to discuss with their provider today. MEDICATION Over the Counter/Herbal Medications: The patient states that they take some outside medications and/or herbals. LABS SMA-7: SODIUM 137 (05/11/21) POTASSIUM 4.4 (05/11/21) CHLORIDE 107 (05/11/21) CO2 26 (05/11/21) UREA NITROGEN 13 (05/11/21) CREATININE 0.9 (05/11/21) GLUCOSE 114 H (05/11/21) CREATININE 0.9 (05/11/21) CBC Panel: HCT: 46.6 (09/12/20) 46.2 (05/11/21) HGB: 15.6 (09/12/20) 15.4 (05/11/21) MCH: 31.0 (09/12/20) 31.5 (05/11/21) MCHC: 33.5 (09/12/20) 33.3 (05/11/21) MCV: 92.5 (09/12/20) 94.5 (05/11/21) MPV: 11.0 (09/12/20) 10.1 (05/11/21) PLT: 175 (09/12/20) 157 (05/11/21) RBC: 5.04 (09/12/20) 4.89 (05/11/21) RDW: 13.4 (09/12/20) 13.5 (05/11/21) WBC: 7.30 (09/12/20) 5.99 (05/11/21) Lipids: CHOLESTEROL 172 (12/18/20) HDL 65 (12/18/20) LDL CALCULATION 87 (12/18/20) LDL Measured: TRIGLYCERIDE 98 (12/18/20) LFTs: SGOT 12 (05/11/21) SGPT 10 (05/11/21) BILIRUBIN, TOTAL 1.5 H (05/11/21) ALK PHOSPHATASE 53 (05/11/21) [facility] Alcohol Use Screen (AUDIT-C): Alcohol Screen: SCREEN FOR ALCOHOL (AUDIT-C) An alcohol screening test (AUDIT-C) was negativ e (score=2). 1. How often did you have a drink containing al cohol in the past year? Two to four times a month 2. How many drinks containing alcohol did you h ave on a typical day when you were drinking in the past year? One or two drinks 3. How often did you have six or more drinks on one occasion in the past year? Never Nursing Annual Screening: Fall History Screen During the past 12 months, have you had any fal ls? Patient does not report any falls in the past 1 2 months. MEDICATIONS: Patient is on one of the following medication c lasses: Antihypertensives, Antidepressants, Antipsychot ics, Diuretics, or Controlled substance medication used for pain. FALL RISK ADVICE: Fall Risk Advice provided. Handout entitled Fa ll Prevention At Home reviewed and given to patient and/or significan t other. Alcohol Use Screen Alcohol Screen: SCREEN FOR ALCOHOL (AUDIT-C) An alcohol screening test (AUDIT-C) was negativ e (score=2). 1. How often did you have a drink containing al cohol in the past year? Two to four times a month 2. How many drinks containing alcohol did you h ave on a typical day when you were drinking in the past year? One or two drinks 3. How often did you have six or more drinks on one occasion in the past year? Never Script Talk Screen Are you able to read your prescription bottles with your glasses, magnifiers or other aids? Yes or patient not taking any prescriptions. Skin Screen Patient reports any current pressure ulcers, a history of pressure ulcers, or a wound from a certified court/medical interpreter or Patient is bed-confined or a wheelchair-user or Patient requires assistance to transfer/change position No, Skin Screen is Negative Home Abuse/Violence Screen Is your home free of abuse and violence? Yes Outpatient Nutrition Screen Body Mass Index (BMI)= 26.1 [place]: Collection DT Specimen Test Name Result Units R ef Range 08/14/2020 15:05 BLOOD HEMOGLOBIN A1C 5.9 % 4.0 - 6.0 [place] Hgb A1C: No data available [place] Hgb A1C: No data available Point of Care Hgb A1C: POC HGB A1C____ Is patient's BMI less than 18.5? No Does patient have swallowing, coughing, or chew ing problems affecting oral intake? No Has patient experienced unplanned weight loss o r gain greater than 10 pounds over the last 2 months? No Is patient's Hgb A1C (Glycosylated Hemoglobin) greater than 9.5? Information not available Is patient receiving Total Parenteral Nutrition (TPN) or Tube Feedings? No Patient Health Education Screen BARRIERS/SPECIAL NEEDS: No barriers identified PREFERRED STYLE OF LEARNING: No preference stated Client Assistive Service (EFREN) Screen Does the patient require assistance with outpat ient visit? No Tobacco Use Screening: The patient is a former tobacco user. The patient quit fifteen or more years ago. Influenza Immunization: The patient was given the influenza VIS which l ists the benefits and side effects of the vaccine and which reviews the ri sks of not receiving the flu vaccine. The VIS was reviewed with the patient and they were given an opportunity to ask questions. The patient was p rovided education on how to decrease the risk of influenza infection inc luding social distancing and use of good hand hygiene. The patient denied an y prior severe reaction to the flu vaccine or its components. The patient gave verbal consent to receive the vaccine. The seasonal influenza vaccine VIS given to the patient: VIS version date Jun. The patient received seasonal influenza vaccine today - Influenza, Quadrivalent preservative free (Afluria) 0.5 ml IM today in Left Deltoid. Model Set Artist: Vanderdroid. Lot # and Expiration Date: Lot#:[id number], EXP :05/05/2022 /reuben/ YASEMIN BONILLA LPN STAFF NURSE Signed: 10/18/2021 15:27
--- OUTSIDE RECORDS SUMMARY | 2022-06-23 00:32 | XMS_ITS | Encounter Summary ---
:1945 Author Organization [facility] Address [address] [place] [id number] Support Name Relationship Address Phone BELA HIDALGO Unavailable [phone] [facility] [phone] [place] [address] BELA HIDALGO Unavailable [phone] [facility] [place] [address] Insurance Providers: All historical and current Section [...] Wahl RACHEL MCR MEDICARE MCR Nov 06, [id number] [phone] LUCRETIA CAST,R PATIENT (WNR) ADVANTAGE (WNR) 2019 1 [id number] [phone] [facility] MCR Nov 06, [id number] LUCRETIA CASTR PATIENT (WNR) ADVANTAGE (WNR) 2019 1 42 0 [place] MEDICARE MEDICARE PART Dec 07, PART A [id number] P ATIENT (WNR) (M) A 2004 [id number] [phone] JENNIFER Kennedy MEDICARE MEDICARE PART Dec 07, PART B [id number] [place] HIDALGO P ATIENT (WNR) (M) B 2004 CY07 [phone] CA[place]N -CARE OF MEDICARE MCR Nov 06, RICT [id number] [phone] JERI MORENO,R PATIENT [facility] ADVANTAGE (WNR) [id number] I[place] (WNR) Selected Encounter This section includes the information on record at [place] for the Encounter. Date/Time Encounter Type Encounter Reason Provider Source Description Nov 16, 2021 DERMATOLOGICAL DERMATOLOGY ICD-10-CM R21 GIAN HOLT 11:30 AM PROCEDURE Rash and other nonspecific skin eruption with Provider Comments: Rash and other Nonspecific Skin Eruption IHE Encounter Template Text not used by [place] Assessments - Encounter Diagnoses This section includes the primary and secondary diagnoses documented for the Encounter. Date/Time Primary/Secondary Diagnosis Name Provider Source Diagnosis Nov 16, 2021 PRIMARY Rash and other GIAN HOLT [facility] 03:33 PM nonspecific skin HCS eruption Plan of Treatment: Future Appointments (+ 6 months) and Future Tests (+/- 45 days) The Plan of Treatment section includes future care activities for the patient from all [place] treatmentfacilities. This section includes future appointments and future orders which are active, pending orscheduled.Future Appointments This section includes appointments that were scheduled to occur 6 months from the date of the Encounter, up to a maximum of 20 appointments. The data comes from all [place] treatment facilities. Appointment Date/Time Appointment Type Appointment Facili ty Name Nov 18, 2021 05:30 PM AMBULATORY - MEDICINE [facility] Dec 14, 2021 09:00 AM AMBULATORY - PSYCHIATRY [facility] Dec 21, 2021 07:30 AM AMBULATORY - NONE [facility] Dec 23, 2021 11:45 AM AMBULATORY - MEDICINE [facility] Dec 23, 2021 12:00 PM AMBULATORY - MEDICINE [facility] Dec 31, 2021 09:00 AM AMBULATORY - PSYCHIATRY [facility] Lab Results: +/- 30 days of the encounter This section includes the Chemistry and Hematology Lab Results on record with [place] for the patient. Radiology Reports and Pathology Reports are provided separately, in subsequent sections.Lab Results This section contains the Chemistry/Hematology Results that were resulted 30 days before or 30 daysafter the date of the Encounter. Date/Time Source Result Type Result - Unit Interpretation Reference Range Comment Nov 02, 2021 05:25 [facility] OCCULT BLOOD FIT X1 Speci men Type: FECES PM SCREEN No comment enter ed. Ordering Provid er: KOSTA WALKER Report Released Date/Time: Oct 23, 2021 07:11 AM Reporting Lab: [facility] [address] [facility] [address] Performing Lab: [facility] [address] [facility] [address] [facility] [address] OCCULT BLOOD (FIT) #1 OF 1 Negative Neg ative Oct 19, 2021 09:36 [facility] LIPID PANEL,FASTING Speci men Type: PLASMA AM No comment enter ed. Ordering Provid er: SANAM QUEVEDO Report Released Date/Time: May 13, 2021 08:38 AM Reporting Lab: [facility] [address] [facility] [address] Performing Lab: [facility] [address] [facility] [address] CHOLESTEROL 101 <199 TRIGLYCERIDE 102 <149 .HDL 46 >40 LDL CALCULATION 35 <99 VLDL CALCULATION 20 <29 NON HDL CHOLESTEROL 55 <129 Oct 19, 2021 [facility] CREATININE(INCLUDES EGFR) Sp ecimen Type: PLASMA 09:36 AM No comment enter ed. Ordering Provid er: KOSTA WALKER Report Released Date/Time: Oct 18, 2021 03:48 PM Reporting Lab: [facility] [address] [facility] [address] Performing Lab: [facility] [address] [facility] [address] CREATININE 0.9 0.7-1.2 ESTIMATED GFR(eGFR) 82 >60 Oct 19, 2021 09:36 AM [facility] CBC Specim en Type: BLOOD No comment enter ed. Ordering Provid er: KOSTA WALKER Report Released Date/Time: Oct 18, 2021 03:48 PM Reporting Lab: [facility] [address] [facility] [address] Performing Lab: [facility] [address] [facility] [address] WBC 6.43 4.0-11.0 RBC 5.32 4.6-6.2 HGB 16.9 13.5-17.9 HCT 48.9 41-54 MCV 91.9 80-100 MCH 31.8 27-33 MCHC 34.6 32.0-37.5 PLT 208 150-400 MPV 10.8 H 7.4-10.4 RDW 13.2 11.5-14.5 Oct 19, 2021 09:36 AM [facility] GLUCOSE Specim en Type: PLASMA No comment enter ed. Ordering Provid er: KOSTA WALKER Report Released Date/Time: Oct 18, 2021 03:48 PM Reporting Lab: [facility] [address] [facility] [address] Performing Lab: [facility] [address] [facility] [address] GLUCOSE 105 H 74-100 Oct 19, 2021 09:36 AM [facility] HEMOGLOBIN A1C Specim en Type: BLOOD No comment enter ed. Ordering Provid er: KOSTA WALKER Report Released Date/Time: Oct 18, 2021 03:48 PM Reporting Lab: [facility] [address] [facility] [address] Performing Lab: [facility] [address] [facility] [address] HEMOGLOBIN A1C 5.8 4.0-6.0 Oct 19, 2021 09:36 [facility] ELECTROLYTES/ANION GAP Sp ecimen Type: PLASMA AM No comment enter ed. Ordering Provid er: KOSTA WALKER Report Released Date/Time: Oct 18, 2021 03:48 PM Reporting Lab: [facility] [address] [facility] [address] Performing Lab: [facility] [address] [facility] [address] SODIUM 138 136-145 POTASSIUM 3.9 3.5-5.1 CHLORIDE 103 98-107 CO2 29 22-29 ANION GAP 6 5-15 Oct 19, 2021 09:36 AM [facility] AST/SGOT Specim en Type: PLASMA No comment enter ed. Ordering Provid er: KOSTA WALKER Report Released Date/Time: Oct 18, 2021 03:48 PM Reporting Lab: [facility] [address] [facility] [address] Performing Lab: [facility] [address] [facility] [address] AST/SGOT 17 <34 Oct 19, 2021 09:36 AM [facility] ALT/SGPT Specim en Type: PLASMA No comment enter ed. Ordering Provid er: KOSTA WALKER Report Released Date/Time: Oct 18, 2021 03:48 PM Reporting Lab: [facility] [address] [facility] [address] Performing Lab: [facility] [address] [facility] [address] ALT/SGPT 15 <55 Oct 19, 2021 09:36 [facility] TSH W/REFLEX TO FREE Spec imen Type: PLASMA AM T4 No comment enter ed. Ordering Provid er: KOSTA WALKER Report Released Date/Time: Oct 18, 2021 03:48 PM Reporting Lab: [facility] [address] [facility] [address] Performing Lab: [facility] [address] [facility] [address] TSH 1.02 0.35-4.94 Oct 19, 2021 [facility] LIPID PANEL,NON-FASTING Spec imen Type: PLASMA 09:36 AM No comment enter ed. Ordering Provid er: KOSTA WALKER Report Released Date/Time: Oct 18, 2021 03:48 PM Reporting Lab: [facility] [address] [facility] [address] Performing Lab: [facility] [address] [facility] [address] CHOLESTEROL 102 <199 .HDL 48 >40 LDL CALCULATION 22 <99 VLDL CALCULATION 32 H <29 NON HDL CHOLESTEROL 54 <129 TRIG(NON FASTING) 160 H <149 Social History: Smoking Status (Most current) and Tobacco Use (All prior to encounter date) This section includes the most current, and the historical, smoking and tobacco-related health factors from the [place] facility where the Encounter took place.Current Smoking Status This section includes the most current smoking, or tobacco-related health factor, from the [place] facility where the Encounter took place. Date/Time Current Smoking Status Comment Facility Oct 18, 2021 03:30 PM VA-TOBACCO FORMER USER [facility] Tobacco Use History This section includes a history of the smoking, or tobacco- related health factors, that were collected on or before the date of the Encounter. The data comes from the [place] facility where the Encounter took place. Date/Time Smoking Status/Tobacco Use Comment [facility] it Oct 18, 2021 03:30 PM VA-TOBACCO QUIT 15 YRS OR MORE [facility] 2019 01:06 PM VA-TOBACCO FORMER USER [facility] 2019 01:06 PM VA-TOBACCO QUIT 5 TO < 15 YRS [facility] Aug 09, 2018 01:15 PM VA-TOBACCO FORMER USER [facility] Aug 09, 2018 01:15 PM VA-TOBACCO QUIT 5 TO < 15 YRS [facility] Jun 26, 2018 08:02 PM INPT NO TOBACCO USE IN LAST 30 DAYS [facility] Feb 08, 2017 08:22 AM FORMER TOBACCO USER 7Y OR GREATER [facility] Apr 08, 2016 07:59 AM FORMER TOBACCO USER 7Y OR GREATER [facility] Dec 02, 2014 10:48 AM FORMER TOBACCO USER 7Y OR GREATER [facility] Feb 17, 2014 10:22 AM FORMER TOBACCO USER 7Y OR GREATER [facility] Dec 19, 2012 07:42 AM FORMER TOBACCO USE >1Y <7Y [facility] Jan 02, 2012 09:35 AM FORMER TOBACCO USE >1Y <7Y [facility] Dec 13, 2010 08:57 AM FORMER TOBACCO USE >1Y <7Y [facility] Sep 03, 2009 01:16 PM FORMER TOBACCO USE >1Y <7Y [facility] Sep 25, 2008 11:20 AM CURRENT TOBACCO USER [facility] Advance Directives: All historical and current Section Date Range: From patient's date of to the date document was created. This section includes ALL of a patient's completed or amended [place] Advance and Rescinded Directives. The entries below indicate that a directive exists for the patient, but an actual copy is not included with this document. The data comes from all [place] facilities. Date Advance Directives Provider Source Oct 02, 2017 CLINICAL WARNING [place] Encounter Notes: All associated encounter notes This section contains the clinical notes associated to the Encounter. Date/Time Encounter Note(s) Provider Source Nov 16, 2021 03:31 PM TELEIMAGING NOTE: GIAN HOLT [facility] LOCAL TITLE: TELEDERMATOLOGY IMAGING REQUEST CO NSULT STANDARD TITLE: TELEIMAGING NOTE DATE OF NOTE: NOV 16, 2021@15:31 ENTRY DATE: NOV 16, 2021@15:31:24 AUTHOR: GIAN HOLT EXP COSIGNER: URGENCY: STATUS: COMPLETED Teledermatology Consult Request The patient was educated regarding the Telederm atology process at this encounter. Patient DOES consent to have images taken, view ed, and interpreted using the Teledermatology process. This consult addresses: A new condition Images: The images were acquired in clinic through [facility] TeleDermatology Image acquisition. HISTORY: Prior skin history: None reported Have you had a skin cancer before? None Reported Patient reports no family history of melanoma. Taking new med/supplements: None reported Immunosuppression history: None reported Other significant history: None reported Chief Complaint: raised red rash right leg x se veral months PROBLEM A LOCATION(S): Lower Extremity - right lower leg DURATION: over 3 months ago SYMPTOMS: Itch, Other:flaking CHANGES: Color - not as red as it has been TREATMENT: Yes Details: various ointments - not helping BIOPSY: No Plaster Tender's comments: /reuben/ Rose Ramos TCT Nice [facility]/Telehealth Plaster Tender Signed: 11/16/2021 15:33
--- OUTSIDE RECORDS SUMMARY | 2022-06-23 00:32 | XMS_ITS | Encounter Summary ---
:1945 Author Organization [facility] Address [address] [place] [address] Support Name Relationship Address Phone BELA HIDALGO Unavailable [id number] [facility] [place] [address] BELA HIDALGO Unavailable [id number] [facility] [place] [address] Insurance Providers: All historical and current Section Date Range: From patient's date of to the date document was created.This section includes the names of all active insurance providers for the patient. Insurance Type of Plan Start of End of Group Member Insurance Policy P atient's Provider Coverage Name Policy Policy Number ID Provider's Wahl's Relationship Coverage Coverage Telephone Name to Policy Number Wahl [facility] MEDIC[facility] MCR Nov 06, [id number] [phone] Colten MCNAMARA PATIENT (WNR) ADVANTAGE (WNR) 2019 1 42 8 CAITLYN HUMANA MCR MEDICARE MCR Nov 06, [id number] [phone] Colten MCNAMARA PATIENT (WNR) ADVANTAGE (WNR) 2019 1 42 0 CAITLYN MEDICARE MEDICARE PART Dec 07, PART A [id number] P ATIENT (WNR) (M) A 2004 [id number] [phone] JENNIFER Kennedy MEDICARE MEDICARE PART Dec 07, PART B [id number] Colten HIDALGO P ATIENT (WNR) (M) B 2004 [id number] [phone] CAITLYN -CARE OF MEDICARE MCR Nov 06, RICT [id number] [phone] Colten ALEJANDRO PATIENT [facility] ADVANTAGE (WNR) [id number] CAITLYN (WNR) Selected Encounter This section includes the information on record at AL for the Encounter. Date/Time Encounter Type Encounter Description Reason Provider Source Nov 29, 2021 08:03 Outpatient Encounter PSYCHOLOGICAL TESTING AM IHE Encounter Template Text not used by AL Plan of Treatment: Future Appointments (+ 6 months) and Future Tests (+/- 45 days) The Plan of Treatment section includes future care activities for the patient [facility] This section includes future appointments and future orders which are active, pending orscheduled.Future Appointments This section includes appointments that were scheduled to occur 6 months from the date of the Encounter, up to a maximum of 20 appointments. The data comes from all AL treatment facilities. Appointment Date/Time Appointment Type Appointment Facili ty Name Dec 14, 2021 09:00 AM AMBULATORY - PSYCHIATRY [facility] Dec 21, 2021 07:30 AM AMBULATORY - NONE [facility] Dec 23, 2021 11:45 AM [facility]BULATORY - MEDICINE [facility] Dec 23, 2021 12:00 PM AMBULATORY - MEDICINE [facility] Dec 31, 2021 09:00 AM AMBULATORY - PSYCHIATRY [facility] May 26, 2022 08:[address] [facility] Lab Results: +/- 30 days of the encounter This section includes the Chemistry and Hematology Lab Results on record with AL for the patient. Radiology Reports and Pathology Reports are provided separately, in subsequent sections.Lab Results This section contains the Chemistry/Hematology Results that were resulted 30 days before or 30 daysafter the date of the Encounter. Date/Time Source Result Type Result - Unit Interpretation Reference Range Comment Nov 02, 2021 05:25 [facility] OCCULT BLOOD FIT X1 Speci men Type: FECES PM SCREEN No comment enter ed. Ordering Provid er: KOSTA WALKER Report Released Date/Time: Oct 23, 2021 07:11 AM Reporting Lab: [facility] [address] Performing Lab: [facility] [address] OCCULT BLOOD (FIT) #1 OF 1 Negative Neg ative Social History: Smoking Status (Most current) and Tobacco Use (All prior to encounter date) This section includes the most current, and the historical, smoking and tobacco-related health factors from the AL facility where the Encounter took place.Current Smoking Status This section includes the most current smoking, or tobacco-related health factor, from the AL facility where the Encounter took place. Date/Time Current Smoking Status Comment Facility Oct 18, 2021 03:30 PM VA-TOBACCO FORMER USER [facility] Tobacco Use History This section includes a history of the smoking, or tobacco- related health factors, that were collected on or before the date of the Encounter. The data comes from the AL facility where the Encounter took place. Date/Time Smoking Status/Tobacco Use Comment Facil ity Oct 18, 2021 03:30 PM VA-TOBACCO QUIT 15 YRS OR MORE [facility] 2019 01:06 PM VA-TOBACCO FORMER USER [facility] 2019 01:06 PM VA-TOBACCO QUIT 5 TO < 15 YRS [facility] Aug 09, 2018 01:15 PM VA-TOBACCO FORMER USER [facility] Aug 09, 2018 01:15 PM VA-TOBACCO QUIT 5 TO < 15 YRS [facility] Jun 26, 2018 08:02 PM INPT NO TOBACCO USE IN LAST 30 DAYS [facility] Feb 08, 2017 08:22 AM FORMER TOBACCO USER 7Y OR GREATER [facility] Apr 08, 2016 07:59 AM FORMER TOBACCO USER 7Y OR GREATER [facility] Dec 02, 2014 10:48 AM FORMER TOBACCO USER 7Y OR GREATER [facility] Feb 17, 2014 10:22 AM FORMER TOBACCO USER 7Y OR GREATER [facility] Dec 19, 2012 07:42 AM FORMER TOBACCO USE >1Y <7Y [facility] Jan 02, 2012 09:35 AM FORMER TOBACCO USE >1Y <7Y [facility] Dec 13, 2010 08:57 AM FORMER TOBACCO USE >1Y <7Y [facility] Sep 03, 2009 01:16 PM FORMER TOBACCO USE >1Y <7Y [facility] Sep 25, 2008 11:20 AM CURRENT TOBACCO USER [facility] Advance Directives: All historical and current Section Date Range: From patient's date of to the date document was created. This section includes ALL of a patient's completed or amended AL Advance and Rescinded Directives. The entries below indicate that a directive exists for the patient, but an actual copy is not included with this document. The data comes from all [facility]. Date Advance Directives Provider Source Oct 02, 2017 CLINICAL WARNING J[place]ON LONG [facility] Encounter Notes: All associated encounter notes This section contains the clinical notes associated to the Encounter. Date/Time Encounter Note(s) Provider Source Nov 29, 2021 08:03 AM NO SHOW NOTE: LUCY TEJEDA [facility] LOCAL TITLE: NO SHOW/CANCELLATION CLINIC NOTE STANDARD TITLE: NO SHOW NOTE DATE OF NOTE: NOV 29, 2021@08:03 ENTRY DATE: NOV 29, 2021@08:03:58 AUTHOR: LUCY TEJEDA EXP COSIGNER: URGENCY: STATUS: COMPLETED [place] not seen for scheduled appointment due t o: cancelled- called and cancelled todays appt due to road conditions. [place] will be contacted by [facility] to reschedule Appointment Rescheduled: No Please review patient chart and medications for renewal needs (if appropriate). /reuben/ LUCY TEJEDA medical staff credentialing coordinator Signed: 11/29/2021 08:05 Receipt Acknowledged By: 11/29/2021 08:09 /reuben/ RAYO MOREAU PhD., A [facility] Staff Neuropsychologist
--- OUTSIDE RECORDS SUMMARY | 2022-06-23 00:33 | XMS_ITS | Encounter Summary ---
:1945 Author Organization [facility] Address [address] [place] [address] Support Name Relationship Address Phone BELA HIDALGO Unavailable [phone] [place] [address] BELA HIDALGO Unavailable [address] [place] [address] Insurance Providers: All historical and current Section Date Range: From patient's date of to the date document was created.This section includes the names of all active insurance providers for the patient. Insurance Type of Plan Start of End of Group Member Insurance Policy P atient's Provider Coverage Name Policy Policy Number ID Provider's Wahl's Relationship Coverage Coverage Telephone Name to Policy Number [facility] MED[facility] MCR Nov 06, [id number] [phone] LUCRETIA CASTR PATIENT (WNR) ADVANTAGE (WNR) 2019 1 42 8 CAITLYN HUMANA MCR MEDICARE MCR Nov 06, [id number] LUCRETIA CASTR PATIENT (WNR) ADVANTAGE (WNR) 2019 1 42 0 CAITLYN MEDICARE MEDICARE PART Dec 07, PART A [id number] P ATIENT (WNR) (M) A 2004 [id number] [phone] JENNIFER Kennedy MEDICARE MEDICARE PART Dec 07, PART B [id number] Colten HIDALGO P ATIENT (WNR) (M) B 2004 [id number] [phone] STANISLAWPAUL -CARE OF MEDICARE MCR Nov 06, RICT [id number] [phone] JERI RS,R PATIENT [facility] ADVANTAGE (WNR) [id number] ICHARD (WNR) Selected Encounter This section includes the information on record at NE for the Encounter. Date/Time Encounter Type Encounter Description Reason Provider Source Oct 14, 2021 08:41 Outpatient Encounter EVENT (HISTORICAL) AM IHE Encounter Template Text not used by NE Plan of Treatment: Future Appointments (+ 6 months) and Future Tests (+/- 45 days) The Plan of Treatment section includes future care activities for the patient from all NE treatmentfacilities. This section includes future appointments and future orders which are active, pending orscheduled.Future Appointments This section includes appointments that were scheduled to occur 6 months from the date of the Encounter, up to a maximum of 20 appointments. The data comes from all [place] treatment facilities. Appointment Date/Time Appointment Type Appointment Facili ty Name Oct 18, 2021 03:30 PM AMBULATORY - MEDICINE [facility] Oct 19, 2021 09:45 AM AMBULATORY - NONE [facility] Oct 19, 2021 10:00 AM AMBULATORY NONE [facility] Oct 19, 2021 10:45 AM AMBULATORY - MEDICINE [facility] Nov 16, 2021 11:30 AM AMBULATORY - MEDICINE [facility] Nov 18, 2021 05:30 PM AMBULATORY - MEDICINE [facility] Dec 14, 2021 09:00 AM AMBULATORY - PSYCHIATRY [facility] Dec 21, 2021 07:30 AM AMBULATORY - NONE [facility] Dec 23, 2021 11:45 AM AMBULATORY - MEDICINE [facility] Dec 23, 2021 12:00 PM AMBULATORY - MEDICINE [facility] Dec 31, 2021 09:00 AM AMBULATORY - PSYCHIATRY [facility] Lab Results: +/- 30 days of the encounter This section includes the Chemistry and Hematology Lab Results on record with NE for the patient. Radiology Reports and Pathology Reports are provided separately, in subsequent sections.Lab Results This section contains the Chemistry/Hematology Results that were resulted 30 days before or 30 daysafter the date of the Encounter. Date/Time Source Result Type Result - Unit Interpretation Reference Range Comment Nov 02, 2021 05:25 [facility] OCCULT BLOOD FIT X1 Speci men Type: FECES PM SCREEN No comment enter ed. Ordering Provid er: KOSTA WALKER Report Released Date/Time: Oct 23, 2021 07:11 AM Reporting Lab: [facility] [address] [place] [facility] [address] Performing Lab: [facility]NOTE 2[facility] [address] [facility] [address] OCCULT BLOOD (FIT) #1 OF 1 Negative Neg ative Oct 19, 2021 09:36 [facility] LIPID PANEL,FASTING Speci men Type: PLASMA AM No comment enter ed. Ordering Provid er: SANAM QUEVEDO Report Released Date/Time: May 13, 2021 08:38 AM Reporting Lab: [facility] [address] [facility] [address] Performing Lab: [facility] [address] [facility] [address] CHOLESTEROL 101 <199 TRIGLYCERIDE 102 <149 .HDL 46 >40 LDL CALCULATION 35 <99 VLDL CALCULATION 20 <29 NON HDL CHOLESTEROL 55 <129 Oct 19, 2021 09:36 AM [facility] CBC Specim en Type: BLOOD No comment enter ed. Ordering Provid er: KOSTA WALKER Report Released Date/Time: Oct 18, 2021 03:48 PM Reporting Lab: [facility] [address] [facility] [address] Performing Lab: [facility] [address] [facility] [address] WBC 6.43 4.0-11.0 RBC 5.32 4.6-6.2 HGB 16.9 13.5-17.9 HCT 48.9 41-54 MCV 91.9 80-100 MCH 31.8 27-33 MCHC 34.6 32.0-37.5 PLT 208 150-400 MPV 10.8 H 7.4-10.4 RDW 13.2 11.5-14.5 Oct 19, 2021 09:36 [facility] ELECTROLYTES/ANION GAP Sp ecimen Type: PLASMA AM No comment enter ed. Ordering Provid er: KOSTA WALKER Report Released Date/Time: Oct 18, 2021 03:48 PM Reporting Lab: [facility] [address] [facility] [address] Performing Lab: [facility] [address] [facility] [address] SODIUM 138 136-145 POTASSIUM 3.9 3.5-5.1 CHLORIDE 103 98-107 CO2 29 22-29 ANION GAP 6 5-15 Oct 19, 2021 [facility] CREATININE(INCLUDES EGFR) Sp ecimen Type: PLASMA 09:36 AM No comment enter ed. Ordering Provid er: KOSTA WALKER Report Released Date/Time: Oct 18, 2021 03:48 PM Reporting Lab: [facility] [address] [facility] [address] Performing Lab: [facility] [address] [facility] [address] CREATININE 0.9 0.7-1.2 ESTIMATED GFR(eGFR) 82 >60 Oct 19, 2021 09:36 AM [facility] GLUCOSE Specim en Type: PLASMA No comment enter ed. Ordering Provid er: KOSTA WALKER Report Released Date/Time: Oct 18, 2021 03:48 PM Reporting Lab: [facility] [address] [facility] [address] Performing Lab: [facility] [address] [facility] [address] GLUCOSE 105 H 74-100 Oct 19, 2021 09:36 AM [facility] HEMOGLOBIN A1C Specim en Type: BLOOD No comment enter ed. Ordering Provid er: KOSTA WALKER Report Released Date/Time: Oct 18, 2021 03:48 PM Reporting Lab: [facility] [address] [facility] [address] Performing Lab: [facility] [address] [facility] [address] HEMOGLOBIN A1C 5.8 4.0-6.0 Oct 19, 2021 09:36 AM [facility] AST/SGOT Specim en Type: PLASMA No comment enter ed. Ordering Provid er: KOSTA WALKER Report Released Date/Time: Oct 18, 2021 03:48 PM Reporting Lab: [facility] [address] [facility] [address] Performing Lab: [facility] [address] [facility] [address] AST/SGOT 17 <34 Oct 19, 2021 09:36 [facility] TSH W/REFLEX TO FREE Spec imen Type: PLASMA AM T4 No comment enter ed. Ordering Provid er: KOSTA WALKER Report Released Date/Time: Oct 18, 2021 03:48 PM Reporting Lab: [facility] [address] [facility] [address] Performing Lab: [facility] [address] [facility] [address] TSH 1.02 0.35-4.94 Oct 19, 2021 09:36 AM [facility] ALT/SGPT Specim en Type: PLASMA No comment enter ed. Ordering Provid er: KOSTA WALKER Report Released Date/Time: Oct 18, 2021 03:48 PM Reporting Lab: [facility] [address] [facility] [address] Performing Lab: [facility] [address] [facility] [address] ALT/SGPT 15 <55 Oct 19, 2021 [facility] LIPID PANEL,NON-FASTING Spec imen Type: PLASMA 09:36 AM No comment enter ed. Ordering Provid er: KOSTA WALKER Report Released Date/Time: Oct 18, 2021 03:48 PM Reporting Lab: [facility] [address] [place] [facility] [address] Performing Lab: [facility] [address] [facility] [address] CHOLESTEROL 102 <199 .HDL 48 >40 LDL CALCULATION 22 <99 VLDL CALCULATION 32 H <29 NON HDL CHOLESTEROL 54 <129 TRIG(NON FASTING) 160 H <149 Social History: Smoking Status (Most current) and Tobacco Use (All prior to encounter date) This section includes the most current, and the historical, smoking and tobacco-related health factors from the NE facility where the Encounter took place.Current Smoking Status This section includes the most current smoking, or tobacco-related health factor, from the NE facility where the Encounter took place. Date/Time Current Smoking Status Comment Facility 2019 01:06 PM VA-TOBACCO QUIT 5 TO < 15 YRS [facility] Tobacco Use History This section includes a history of the smoking, or tobacco- related health factors, that were collected on or before the date of the Encounter. The data comes from the NE facility where the Encounter took place. Date/Time Smoking Status/Tobacco Use Comment Facil it 2019 01:06 PM VA-TOBACCO QUIT 5 TO < 15 YRS [facility] Aug 09, 2018 01:15 PM VA-TOBACCO FORMER USER [facility] Aug 09, 2018 01:15 PM VA-TOBACCO QUIT 5 TO < 15 YRS [facility] Jun 26, 2018 08:02 PM INPT NO TOBACCO USE IN LAST 30 DAYS [facility] Feb 08, 2017 08:22 AM FORMER TOBACCO USER 7Y OR GREATER [facility] Apr 08, 2016 07:59 AM FORMER TOBACCO USER 7Y OR GREATER [facility] Dec 02, 2014 10:48 AM FORMER TOBACCO USER 7Y OR GREATER [facility] Feb 17, 2014 10:22 AM FORMER TOBACCO USER 7Y OR GREATER [facility] Dec 19, 2012 07:42 AM FORMER TOBACCO USE >1Y <7Y [facility] Jan 02, 2012 09:35 AM FORMER TOBACCO USE >1Y <7Y [facility] Dec 13, 2010 08:57 AM FORMER TOBACCO USE >1Y <7Y [facility] Sep 03, 2009 01:16 PM FORMER TOBACCO USE >1Y <7Y [facility] Sep 25, 2008 11:20 AM CURRENT TOBACCO USER [facility] Advance Directives: All historical and current Section Date Range: From patient's date of to the date document was created. This section includes ALL of a patient's completed or amended NE Advance and Rescinded Directives. The entries below indicate that a directive exists for the patient, but an actual copy is not included with this document. The data comes from all NE facilities. Date Advance Directives Provider Source Oct 02, 2017 CLINICAL WARNING EDJAXON Valencia Patricia [facility] Pathology Reports: +/- 30 days of the [...] the Encounter. The data comes from all [place] treatment facilities. Date/Time Pathology Report Provider Source Oct 15, 2021 05:11 PM LR SURGICAL PATHOLOGY REPORT: TASHI MÁRQUEZ [facility] LOCAL TITLE: LR SURGICAL PATHOLOGY REPORT STANDARD TITLE: PATHOLOGY REPORT DATE OF NOTE: OCT 15, 2021@17:11:59 ENTRY DATE: OCT 15, 2021@17:11:59 AUTHOR: TASHI MÁRQUEZ EXP COSIGNER: URGENCY: STATUS: COMPLETED $APHDR Reporting Lab: [facility] [CLIA# [id number]] [place] [address] - - - - - - - [...] - PATHOLOGY REPORT Accession No. [id number] - - - - - - - [...] - - - POSTOPERATIVE DIAGNOSIS: Surgeon/physician: EDILMA ORITZ MD =-=-=-=-=-=-=-=-=-=-=-=-=-=- =-=-=-=-=-=-=-=-=-=-=-=-=-=-=-=-=-=-=-=-=-=-=-=-=-= - - - - - - - - - - - - - - - - - - - - - - - - - - - - - - - - - - - - - - - - PATHOLOGY REPORT Accession No. [id number] - - - - - - - [...] cm in grea test dimension. CE. (D) [facility] [place] MICROSCOPIC DESCRIPTION: Microscopic examination is performed. DIAGNOSIS [...] Performing Laboratory: Surgical Pathology Report Performed By: [facility] [CLIA# [id number]] [place] [address] $FTR - - - - - - - - - - - - - - - - - - - - - - - - - - - - - - - - - - - - - - - - (End of report) TASHI M[place]RQUEZ [place] [facility] [place] Oct 15, 2021 - - - - - - - - - - - - - - - - - - - - - - - - - - - - - - - - - - - - - - - - JENNIFER HIDALGO STANDARD FORM 515 ID:[id number] SEX:M :1945 AGE: 76 LOC: 1153 PCP: Kosta Walker MD /reuben/ TASHI MÁRQUEZ MD STAFF PATHOLOGIST, PATHOLOGY & LABORATORY MED SV C Signed: 10/15/2021 17:11
--- OUTSIDE RECORDS SUMMARY | 2022-06-23 00:33 | XMS_ITS | Encounter Summary ---
:1945 Author Organization [facility] Address [address] [place] [id number] Support Name Relationship Address Phone BELA HIDALGO Unavailable [phone] [facility] [place] [address] BELA HIDALGO Unavailable [phone] [facility] [place] [address] Insurance Providers: All historical and current Section Date Range: From patient's date of to the date document was created.This section includes the names of all active insurance providers for the patient. Insurance Type of Plan Start of End of Group Member Insurance Policy P atient's Provider Coverage Name Policy Policy Number ID Provider's Wahl's Relationship Coverage Coverage Telephone Name to Policy Number Wahl HUMANA MCR MEDICARE MCR Nov 06, [id number] [phone] Colten MCNAMARA PATIENT (WNR) ADVANTAGE (WNR) 2019 1 42 8 CAITLYN HUMANA MCR MEDICARE MCR Nov 06, [id number] [phone] Colten MCNAMARA PATIENT (WNR) ADVANTAGE (WNR) 2019 1 42 0 ICHARD MEDICARE MEDICARE PART Dec 07, PART B [id number] Colten HIDALGO P ATIENT (WNR) (M) B 2004 [id number] [phone] [employer]CHARD MEDICARE MEDICARE PART Dec 07, PART A [id number] P ATIENT (WNR) (M) A 2004 [id number] [phone] JENNIFER Kennedy U-CARE OF MEDICARE MCR Nov 06, RICT [id number] [phone] JERI MORENOR PATIENT [facility] ADVANTAGE (WNR) [id number] ICHARD (WNR) Selected Encounter This section includes the information on record at [place] for the Encounter. Date/Time Encounter Type Encounter Description Reason Provider Source Oct 14, 2021 09:36 Outpatient Encounter EVENT (HISTORICAL) AM IHE Encounter Template Text not used by [place] Plan of Treatment: Future Appointments (+ 6 months) and Future Tests (+/- 45 days) The Plan of Treatment section includes future care activities for the patient from all [place] treatmentfacilities. This section includes future appointments and future orders which are active, pending orscheduled.Future Appointments This section includes appointments that were scheduled to occur 6 months from the date of the Encounter, up to a maximum of 20 appointments. The data comes from all [place] treatment facilities. Appointment Date/Time Appointment Type Appointment Facili ty Name Oct 18, 2021 03:30 PM AMBULATORY - MEDICINE [facility] Oct 19, 2021 09:45 AM AMBULATORY - NONE [facility] Oct 19, 2021 10:00 AM AMBULATORY NONE [facility] Oct 19, 2021 10:45 AM AMBULATORY - MEDICINE [facility] Nov 16, 2021 11:30 AM AMBULATORY - MEDICINE [facility] Nov 18, 2021 05:30 PM AMBULATORY - MEDICINE [facility] Dec 14, 2021 09:00 AM AMBULATORY - PSYCHIATRY [facility] Dec 21, 2021 07:30 AM AMBULATORY - NONE [facility] Dec 23, 2021 11:45 AM AMBULATORY - MEDICINE [facility] Dec 23, 2021 12:00 PM AMBULATORY - MEDICINE [facility] Dec 31, 2021 09:00 AM AMBULATORY - PSYCHIATRY [facility] Lab Results: +/- 30 days of the encounter This section includes the Chemistry and Hematology Lab Results on record with [place] for the patient. Radiology Reports and Pathology Reports are provided separately, in subsequent sections.Lab Results This section contains the Chemistry/Hematology Results that were resulted 30 days before or 30 daysafter the date of the Encounter. Date/Time Source Result Type Result - Unit Interpretation Reference Range Comment Nov 02, 2021 05:25 [facility] OCCULT BLOOD FIT X1 Speci men Type: FECES PM SCREEN No comment enter ed. Ordering Provid er: KOSTA WALKER Report Released Date/Time: Oct 23, 2021 07:11 AM Reporting Lab: [facility] [address] [place] [facility] [address] Performing Lab: [facility] [address] [facility] [address] [place] [facility] [address] OCCULT BLOOD (FIT) #1 OF 1 Negative Neg ative Oct 19, 2021 09:36 [facility] LIPID PANEL,FASTING Speci men Type: PLASMA AM No comment enter ed. Ordering Provid er: SANAM QUEVEDO Report Released Date/Time: May 13, 2021 08:38 AM Reporting Lab: [facility] [address] [facility] [address] Performing Lab: [facility] [address] [facility] [address] CHOLESTEROL 101 <199 TRIGLYCERIDE 102 <149 .HDL 46 >40 LDL CALCULATION 35 <99 VLDL CALCULATION 20 <29 NON HDL CHOLESTEROL 55 <129 Oct 19, 2021 [facility] CREATININE(INCLUDES EGFR) Sp ecimen Type: PLASMA 09:36 AM No comment enter ed. Ordering Provid er: KOSTA WALKER Report Released Date/Time: Oct 18, 2021 03:48 PM Reporting Lab: [facility] [address] [facility] [address] Performing Lab: [facility] [address] [facility] [address] CREATININE 0.9 0.7-1.2 ESTIMATED GFR(eGFR) 82 >60 Oct 19, 2021 09:36 AM [facility] CBC Specim en Type: BLOOD No comment enter ed. Ordering Provid er: KOSTA WALKER Report Released Date/Time: Oct 18, 2021 03:48 PM Reporting Lab: [facility] [address] [facility] [address] Performing Lab: [facility] [address] [facility] [address] WBC 6.43 4.0-11.0 RBC 5.32 4.6-6.2 HGB 16.9 13.5-17.9 HCT 48.9 41-54 MCV 91.9 80-100 MCH 31.8 27-33 MCHC 34.6 32.0-37.5 PLT 208 150-400 MPV 10.8 H 7.4-10.4 RDW 13.2 11.5-14.5 Oct 19, 2021 09:36 AM [facility] GLUCOSE Specim en Type: PLASMA No comment enter ed. Ordering Provid er: KOSTA WALKER Report Released Date/Time: Oct 18, 2021 03:48 PM Reporting Lab: [facility] [address] [facility] [address] Performing Lab: [facility] [address] [facility] [address] GLUCOSE 105 H 74-100 Oct 19, 2021 09:36 [facility] ELECTROLYTES/ANION GAP Sp ecimen Type: PLASMA AM No comment enter ed. Ordering Provid er: KOSTA WALKER Report Released Date/Time: Oct 18, 2021 03:48 PM Reporting Lab: [facility] [address] [facility] [address] Performing Lab: [facility] [address] [facility] [address] SODIUM 138 136-145 POTASSIUM 3.9 3.5-5.1 CHLORIDE 103 98-107 CO2 29 22-29 ANION GAP 6 5-15 Oct 19, 2021 09:36 AM [facility] HEMOGLOBIN A1C Specim en Type: BLOOD No comment enter ed. Ordering Provid er: KOSTA WALKER Report Released Date/Time: Oct 18, 2021 03:48 PM Reporting Lab: [facility] [address] [facility] [address] Performing Lab: [facility] [address] [facility] [address] HEMOGLOBIN A1C 5.8 4.0-6.0 Oct 19, 2021 09:36 AM [facility] AST/SGOT Specim en Type: PLASMA No comment enter ed. Ordering Provid er: KOSTA WALKER Report Released Date/Time: Oct 18, 2021 03:48 PM Reporting Lab: [facility] [address] [facility] [address] Performing Lab: [facility] [address] [facility] [address] AST/SGOT 17 <34 Oct 19, 2021 09:36 AM [facility] ALT/SGPT Specim en Type: PLASMA No comment enter ed. Ordering Provid er: KOSTA WALKER Report Released Date/Time: Oct 18, 2021 03:48 PM Reporting Lab: [facility] [address] [facility] [address] Performing Lab: [facility] [address] [facility] [address] ALT/SGPT 15 <55 Oct 19, 2021 09:36 [facility] TSH W/REFLEX TO FREE Spec imen Type: PLASMA AM T4 No comment enter ed. Ordering Provid er: KOSTA WALKER Report Released Date/Time: Oct 18, 2021 03:48 PM Reporting Lab: [facility] [address] [facility] [address] Performing Lab: [facility] [address] [facility] [address] TSH 1.02 0.35-4.94 Oct 19, 2021 [facility] LIPID PANEL,NON-FASTING Spec imen Type: PLASMA 09:36 AM No comment enter ed. Ordering Provid er: KOSTA WALKER Report Released Date/Time: Oct 18, 2021 03:48 PM Reporting Lab: [facility] [address] [place] [facility] [address] Performing Lab: [facility] [address] [facility] [address] CHOLESTEROL 102 <199 .HDL 48 >40 LDL CALCULATION 22 <99 VLDL CALCULATION 32 H <29 NON HDL CHOLESTEROL 54 <129 TRIG(NON FASTING) 160 H <149 Social History: Smoking Status (Most current) and Tobacco Use (All prior to encounter date) This section includes the most current, and the historical, smoking and tobacco-related health factors from the [place] facility where the Encounter took place.Current Smoking Status This section includes the most current smoking, or tobacco-related health factor, from the [place] facility where the Encounter took place. Date/Time Current Smoking Status Comment Facility 2019 01:06 PM VA-TOBACCO QUIT 5 TO < 15 YRS [facility] Tobacco Use History This section includes a history of the smoking, or tobacco- related health factors, that were collected on or before the date of the Encounter. The data comes from the [place] facility where the Encounter took place. Date/Time Smoking Status/Tobacco Use Comment Facil it 2019 01:06 PM VA-TOBACCO QUIT 5 TO < 15 YRS [facility] Aug 09, 2018 01:15 PM VA-TOBACCO FORMER USER [facility] Aug 09, 2018 01:15 PM VA-TOBACCO QUIT 5 TO < 15 YRS [facility] Jun 26, 2018 08:02 PM INPT NO TOBACCO USE IN LAST 30 DAYS [facility] Feb 08, 2017 08:22 AM FORMER TOBACCO USER 7Y OR GREATER [facility] Apr 08, 2016 07:59 AM FORMER TOBACCO USER 7Y OR GREATER [facility] Dec 02, 2014 10:48 AM FORMER TOBACCO USER 7Y OR GREATER [facility] Feb 17, 2014 10:22 AM FORMER TOBACCO USER 7Y OR GREATER [facility] Dec 19, 2012 07:42 AM FORMER TOBACCO USE >1Y <7Y [facility] Jan 02, 2012 09:35 AM FORMER TOBACCO USE >1Y <7Y [facility] Dec 13, 2010 08:57 AM FORMER TOBACCO USE >1Y <7Y [facility] Sep 03, 2009 01:16 PM FORMER TOBACCO USE >1Y <7Y [facility] Sep 25, 2008 11:20 AM CURRENT TOBACCO USER [facility] Advance Directives: All historical and current Section Date Range: From patient's date of to the date document was created. This section includes ALL of a patient's completed or amended [place] Advance and Rescinded Directives. The entries below indicate that a directive exists for the patient, but an actual copy is not included with this document. The data comes from all [place] facilities. Date Advance Directives Provider Source Oct 02, 2017 CLINICAL WARNING DEJAXON Valencia Patricai [facility] Pathology Reports: +/- 30 days [...] the Encounter. The data comes from all [place] treatment facilities. Date/Time Pathology Report Provider Source Oct 15, 2021 05:11 PM LR SURGICAL PATHOLOGY REPORT: TASHI MÁRQUEZ [facility] LOCAL TITLE: LR SURGICAL PATHOLOGY REPORT STANDARD TITLE: PATHOLOGY REPORT DATE OF NOTE: OCT 15, 2021@17:11:59 ENTRY DATE: OCT 15, 2021@17:11:59 AUTHOR: TASHI MÁRQUEZ EXP COSIGNER: URGENCY: STATUS: COMPLETED $APHDR Reporting Lab: [facility] [CLIA# [id number]] [place] [address] - - - - - - - [...] - PATHOLOGY REPORT Accession No. [id number] - - - - - - - [...] - PATHOLOGY REPORT Accession No. [id number] - - - - - - - [...] cm in grea test dimension. CE. (D) [facility] MICROSCOPIC DESCRIPTION: Microscopic examination is performed. DIAGNOSIS [...] Performing Laboratory: Surgical Pathology Report Performed By: [facility] [CLIA# [id number]] [place] [address] $FTR - - - - - - - - - - - - - - - - - - - - - - - - - - - - - - - - - - - - - - - - (End of report) TASHI MÁRQUEZ MD [facility] Date Oct 15, 2021 - - - - - - - - - - - - - - - - - - - - - - - - - - - - - - - - - - - - - - - - JENNIFER HIDALGO STANDARD FORM 515 ID:[id number] SEX:M :1945 AGE: 76 LOC: 1153 PCP: Kosta Walker MD /reuben/ TASHI MÁRQUEZ MD STAFF PATHOLOGIST, PATHOLOGY & LABORATORY MED SV C Signed: 10/15/2021 17:11 Encounter Notes: All associated encounter notes This section contains the clinical notes associated to the Encounter. Date/Time Encounter Note(s) Provider Source Oct 14, 2021 09:28 ANESTHESIOLOGY OPERATIVE NOTE: EDILMA CASTILLO [facility] LOCAL TITLE: [facility] ANESTHESIA RECORD STANDARD TITLE: ANESTHESIOLOGY OPERATIVE NOTE DATE OF NOTE: OCT 14, 2021@09:28 ENTRY DATE: OCT 14, 2021@09:36:31 AUTHOR: EDILMA CASTILLO EXP COSIGNER: URGENCY: STATUS: COMPLETED See [facility] for Full Anesthesia Record /reuben/ EDILMA CASTILLO MD ANESTHESIOLOGIST Signed: 10/14/2021 09:36
--- OUTSIDE RECORDS SUMMARY | 2022-06-23 00:33 | XMS_ITS | Encounter Summary ---
:1945 Author Organization [facility] Address [address] [place] [id number] Support Name Relationship Address Phone BELA HIDALGO Unavailable [id number] [address] [facility] [place] [address] BELA HIDALGO Unavailable [id number] [address] [facility] [place] [address] Insurance Providers: All historical and current Section Date Range: From patient's date of to the date document was created.This section includes the names of all active insurance providers for the patient. Insurance Type of Plan Start of End of Group Member Insurance Policy P atient's Provider Coverage Name Policy Policy Number ID Provider's Wahl's Relationship Coverage Coverage Telephone Name to Policy Number [facility] MCR Nov 06, [id number] [phone] LUCRETIA CASTR PATIENT (WNR) ADVANTAGE (WNR) 2019 1 42 8 [place]IT[place]N [facility] MCR Nov 06, [id number] [phone] LUCRETIA CASTR PATIENT (WNR) ADVANTAGE (WNR) 2019 1 42 0 [place] MEDICARE MEDICARE PART Dec 07, PART A [id number] P ATIENT (WNR) (M) A 2004 [id number] [phone] JENNIFER Kennedy MEDICARE MEDICARE PART Dec 07, PART B [id number] [place] HIDALGO P ATIENT (WNR) (M) B 2004 [id number] [phone] CAILTYN -CARE OF MEDICARE MCR Nov 06, RICT [id number] [phone] [place] ALEJANDRO PATIENT [facility] ADVANTAGE (WNR) [id number] ICHARD (WNR) Selected Encounter This section includes the information on record at [place] for the Encounter. Date/Time Encounter Type Encounter Reason Provider Source Description Oct 14, 2021 OFFICE O/P EST ANESTHESIA ICD-10-CM E78.5 EDILMA CASTILLO 08:33 AM HI 40-54 MIN PRE/POST-OP Hyperlipidemia, EHSAN CONSULT unspecified with Provider Comments: Hyperlipidemia ([facility] [id number]) IHE Encounter Template Text not used by [place] Assessments - Encounter Diagnoses This section includes the primary and secondary diagnoses documented for the Encounter. 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 This section includes future appointments and future orders which are active, pending orscheduled.Future Appointments This section includes appointments that were scheduled to occur 6 months from the date of the Encounter, up to a maximum of 20 appointments. The data comes from all [place] treatment facilities. Appointment Date/Time Appointment Type Appointment Facili ty Name Oct 18, 2021 03:30 PM AMBULATORY - MEDICINE [facility] Oct 19, 2021 09:45 AM AMBULATORY - NONE [facility] Oct 19, 2021 10:00 AM AMBULATORY - NONE [facility] Oct 19, 2021 10:45 AM AMBULATORY - MEDICINE [facility] Nov 16, 2021 11:30 AM AMBULATORY - MEDICINE [facility] Nov 18, 2021 05:30 PM AMBULATORY - MEDICINE [facility] Dec 14, 2021 09:00 AM AMBULATORY - PSYCHIATRY [facility] Dec 21, 2021 07:30 AM AMBULATORY - NONE [facility] Dec 23, 2021 11:45 AM AMBULATORY - MEDICINE [facility] Dec 23, 2021 12:00 PM AMBULATORY - MEDICINE [facility] Dec 31, 2021 09:00 AM AMBULATORY - PSYCHIATRY [facility] Lab Results: +/- 30 days of the encounter This section includes the Chemistry and Hematology Lab Results on record with [place] for the patient. Radiology Reports and Pathology Reports are provided separately, in subsequent sections.Lab Results This section contains the Chemistry/Hematology Results that were resulted 30 days before or 30 daysafter the date of the Encounter. Date/Time Source Result Type Result - Unit Interpretation Reference Range Comment Nov 02, 2021 05:25 [facility] OCCULT BLOOD FIT X1 Speci men Type: FECES PM SCREEN No comment enter ed. Ordering Provid er: KOSTA WALKER Report Released Date/Time: Oct 23, 2021 07:11 AM Reporting Lab: [facility] [address] [facility] [address] Performing Lab: [facility] [address] OCCULT BLOOD (FIT) #1 OF 1 Negative Neg ative Oct 19, 2021 09:36 [facility] LIPID PANEL,FASTING Speci men Type: PLASMA AM No comment enter ed. Ordering Provid er: SANAM QUEVEDO Report Released Date/Time: May 13, 2021 08:38 AM Reporting Lab: [facility] [address] Performing Lab: [facility] [address] CHOLESTEROL 101 <199 TRIGLYCERIDE 102 <149 .HDL 46 >40 LDL CALCULATION 35 <99 VLDL CALCULATION 20 <29 NON HDL CHOLESTEROL 55 <129 Oct 19, 2021 [facility] CREATININE(INCLUDES EGFR) Sp ecimen Type: PLASMA 09:36 AM No comment enter ed. Ordering Provid er: KOSTA WALKER Report Released Date/Time: Oct 18, 2021 03:48 PM Reporting Lab: [facility] [address] Performing Lab: [facility] [address] CREATININE 0.9 0.7-1.2 ESTIMATED GFR(eGFR) 82 >60 Oct 19, 2021 09:36 AM [facility] CBC Specim en Type: BLOOD No comment enter ed. Ordering Provid er: KOSTA WALKER Report Released Date/Time: Oct 18, 2021 03:48 PM Reporting Lab: [facility] [address] Performing Lab: [facility] [address] WBC 6.43 4.0-11.0 RBC 5.32 4.6-6.2 HGB 16.9 13.5-17.9 HCT 48.9 41-54 MCV 91.9 80-100 MCH 31.8 27-33 MCHC 34.6 32.0-37.5 PLT 208 150-400 MPV 10.8 H 7.4-10.4 RDW 13.2 11.5-14.5 Oct 19, 2021 09:36 AM [facility] GLUCOSE Specim en Type: PLASMA No comment enter ed. Ordering Provid er: KOSTA WALKER Report Released Date/Time: Oct 18, 2021 03:48 PM Reporting Lab: [facility] [address] [facility] [address] Performing Lab: [facility] [address] [facility] [address] GLUCOSE 105 H 74-100 Oct 19, 2021 09:36 [facility] ELECTROLYTES/ANION GAP Sp ecimen Type: PLASMA AM No comment enter ed. Ordering Provid er: KOSTA WALKER Report Released Date/Time: Oct 18, 2021 03:48 PM Reporting Lab: [facility] [address] [facility] [address] Performing Lab: [facility] [address] [facility] [address] SODIUM 138 136-145 POTASSIUM 3.9 3.5-5.1 CHLORIDE 103 98-107 CO2 29 22-29 ANION GAP 6 5-15 Oct 19, 2021 09:36 AM [facility] HEMOGLOBIN A1C Specim en Type: BLOOD No comment enter ed. Ordering Provid er: KOSTA WALKER Report Released Date/Time: Oct 18, 2021 03:48 PM Reporting Lab: [facility] [address] [facility] [address] Performing Lab: [facility] [address] [facility] [address] HEMOGLOBIN A1C 5.8 4.0-6.0 Oct 19, 2021 09:36 AM [facility] AST/SGOT Specim en Type: PLASMA No comment enter ed. Ordering Provid er: KOSTA WALKER Report Released Date/Time: Oct 18, 2021 03:48 PM Reporting Lab: [facility] [address] [facility] [address] Performing Lab: [facility] [address] [facility] [address] AST/SGOT 17 <34 Oct 19, 2021 09:36 AM [facility] ALT/SGPT Specim en Type: PLASMA No comment enter ed. Ordering Provid er: KOSTA WALKER Report Released Date/Time: Oct 18, 2021 03:48 PM Reporting Lab: [facility] [address] [facility] [address] Performing Lab: [facility] [address] [place] [facility] [address] ALT/SGPT 15 <55 Oct 19, 2021 09:36 [facility] TSH W/REFLEX TO FREE Spec imen Type: PLASMA AM T4 No comment enter ed. Ordering Provid er: KOSTA WALKER Report Released Date/Time: Oct 18, 2021 03:48 PM Reporting Lab: [facility] [address] [place] [facility] [address] Performing Lab: [facility] [address] [facility] [address] TSH 1.02 0.35-4.94 Oct 19, 2021 [facility] LIPID PANEL,NON-FASTING Spec imen Type: PLASMA 09:36 AM No comment enter ed. Ordering Provid er: KOSTA WALKER Report Released Date/Time: Oct 18, 2021 03:48 PM Reporting Lab: [facility] [address] [place] [facility] [address] Performing Lab: [facility] [address] [facility] [address] CHOLESTEROL 102 <199 .HDL 48 >40 LDL CALCULATION 22 <99 VLDL CALCULATION 32 H <29 NON HDL CHOLESTEROL 54 <129 TRIG(NON FASTING) 160 H <149 Social History: Smoking Status (Most current) and Tobacco Use (All prior to encounter date) This section includes the most current, and the historical, smoking and tobacco-related health factors from the [place] facility where the Encounter took place.Current Smoking Status This section includes the most current smoking, or tobacco-related health factor, from the [place] facility where the Encounter took place. Date/Time Current Smoking Status Comment Facility 2019 01:06 PM VA-TOBACCO QUIT 5 TO < 15 YRS [facility] Tobacco Use History This section includes a history of the smoking, or tobacco- related health factors, that were collected on or before the date of the Encounter. The data comes from the [place] facility where the Encounter took place. Date/Time Smoking Status/Tobacco Use Comment Reggie smith 2019 01:06 PM VA-TOBACCO QUIT 5 TO < 15 YRS [facility] Aug 09, 2018 01:15 PM VA-TOBACCO FORMER USER [facility] Aug 09, 2018 01:15 PM VA-TOBACCO QUIT 5 TO < 15 YRS [facility] Jun 26, 2018 08:02 PM INPT NO TOBACCO USE IN LAST 30 DAYS [facility] Feb 08, 2017 08:22 AM FORMER TOBACCO USER 7Y OR GREATER [facility] Apr 08, 2016 07:59 AM FORMER TOBACCO USER 7Y OR GREATER [facility] Dec 02, 2014 10:48 AM FORMER TOBACCO USER 7Y OR GREATER [facility] Feb 17, 2014 10:22 AM FORMER TOBACCO USER 7Y OR GREATER [facility] Dec 19, 2012 07:42 AM FORMER TOBACCO USE >1Y <7Y [facility] Jan 02, 2012 09:35 AM FORMER TOBACCO USE >1Y <7Y [facility] Dec 13, 2010 08:57 AM FORMER TOBACCO USE >1Y <7Y [facility] Sep 03, 2009 01:16 PM FORMER TOBACCO USE >1Y <7Y [facility] Sep 25, 2008 11:20 AM CURRENT TOBACCO USER [facility] Advance Directives: All historical and current Section Date Range: From patient's date of to the date document was created. This section includes ALL of a patient's completed or amended [place] Advance and Rescinded Directives. The entries below indicate that a directive exists for the patient, but an actual copy is not included with this document. The data comes from all [facility]. Date Advance Directives Provider Source Oct 02, 2017 CLINICAL WARNING NARCISOMegJAXON Valencia Patricia [facility] Pathology Reports: +/- 30 days of [...] the Encounter. The data comes from all [place] treatment facilities. Date/Time Pathology Report Provider Source Oct 15, 2021 05:11 PM LR SURGICAL PATHOLOGY REPORT: TASHI MÁRQUEZ [facility] LOCAL TITLE: LR SURGICAL PATHOLOGY REPORT STANDARD TITLE: PATHOLOGY REPORT DATE OF NOTE: OCT 15, 2021@17:11:59 ENTRY DATE: OCT 15, 2021@17:11:59 AUTHOR: TASHI MÁRQUEZ EXP COSIGNER: URGENCY: STATUS: COMPLETED $APHDR Reporting Lab: [facility] [CLIA# [id number]] [address] [place] [address] - - - - - - - [...] - PATHOLOGY REPORT Accession No. [id number] - - - - - - - [...] - PATHOLOGY REPORT Accession No. [id number] - - - - - - - [...] in grea test dimension. CE. (D) [facility] [place]/ MICROSCOPIC DESCRIPTION: Microscopic examination [...] Performing Laboratory: Surgical Pathology Report Performed By: [facility] [CLIA# [id number]] [place] [address] $FTR - - - - - - - - - - - - - - - - - - - - - - - - - - - - - - - - - - - - - - - - (End of report) TASHI MÁRQUEZ MD [facility] [place] Date Oct 15, 2021 - - - - - - - - - - - - - - - - - - - - - - - - - - - - - - - - - - - - - - - - JENNIFER HIDALGO STANDARD FORM 515 ID:[id number] SEX:M :1945 AGE: 76 LOC: 1153 PCP: Kosta Walker MD /reuben/ TASHI MÁRQUEZ MD STAFF PATHOLOGIST, PATHOLOGY & LABORATORY MED SV C Signed: 10/15/2021 17:11 Encounter Notes: All associated encounter notes This section contains the clinical notes associated to the Encounter. Date/Time Encounter Note(s) Provider Source Oct 14, 2021 09:36 ANESTHESIOLOGY NOTE: EDILMA CASTILLO [facility] LOCAL TITLE: ANESTHESIA POST-ANESTHESIA EVALUAT ION STANDARD TITLE: ANESTHESIOLOGY NOTE DATE OF NOTE: OCT 14, 2021@09:36 ENTRY DATE: OCT 14, 2021@09:36:57 AUTHOR: EDILMA CASTILLO EXP COSIGNER: URGENCY: STATUS: COMPLETED POST-ANESTHESIA EVALUATION PACU PATIENT MET DISCHARGE CRITERIA -- Zak score of > or = 8 ANESTHESIA TYPE -- Monitored anesthesia care VITAL SIGNS -- Vital signs stable NORMAL PHYSIOLOGIC SYSTEMS ASSESSMENT -- Neuro/Mental Health: appropriate mentation or p reoperative baseline Airway/Respiratory: normal respiratory status Cardiovascular: appropriate blood pressure, hea rt rate and rhythm Pain: comfortable, well controlled Postop nausea/vomiting: none STATUS AT SIGNOUT -- stable DISPOSITION -- [place] /reuben/ EDILMA CASTILLO MD ANESTHESIOLOGIST Signed: 10/14/2021 09:37 Oct 14, 2021 08:33 ANESTHESIOLOGY NOTE: EDILMA CASTILLO [facility] LOCAL TITLE: ANESTHESIA PRE-INDUCTION NOTE STANDARD TITLE: ANESTHESIOLOGY NOTE DATE OF NOTE: OCT 14, 2021@08:33 ENTRY DATE: OCT 14, 2021@08:33:29 AUTHOR: EDILMA CASTILLO EXP COSIGNER: URGENCY: STATUS: COMPLETED ANESTHESIA PREINDUCTION NOTE Patient identified by name and either date of b irth or full social security. -- Scheduled procedure: ^@^ -- PREOPERATIVE ASSESSMENT -- ASA status: III Patient's preoperative assessment reviewed----- -- There are no significant changes, new condition s, or additions from the patient's anesthesia preoperative assessment No personal or family history of anesthesia com plications NPO status --- Met ASA guidelines (>2 hrs clear liquids, >6 hr s light meal, >8 hrs heavy meal) Gastroesophogeal Reflux Disease: No Functional Capacity in Measure of Exercise Mi aldrich before surgery (METS): 4-10 Obstructive sleep apnea: No ----SOCIAL HISTORY Tobacco: No Alcohol:4/week Substance use: No Naltrexone: No Buprenorphine: No Medications taken today: omeprazole Physical Exam -- HT: 67.5 in [171.5 cm] (10/07/2021 13:42) WT: 175.3 lb [79.7 kg] (10/07/2021 13:42) BMI: 27.1 Vital signs stable Airway Exam: Mallampati Class: II Mouth opening: full Neck: full range of motion Thyromental distance: >6cm Dentition: normal Cardiac System: Cardiovascular exam normal: regular rhythm and rate, no murmur Respiratory: Clear to auscultation, normal respiratory rate and effort Mental/Neuro exam: Alert, oriented, calm, cooperative Anesthetic technique -- Monitored anesthesia care Monitors/Equipment: Standard montitors--------- -- Informed consent discussion of anesthesia plan The anesthetic plan has been discussed with the patient and/or responsible apprenticeship representative. The patient/apprenticeship representative has been encouraged to ask questions and any concerns have been addressed. The risks, benefits, side effects, and alternative options of the plan we re discussed. The patient/apprenticeship representative endorses understanding o f the information disclosed. The patient/apprenticeship representative voluntarily elects t o move forward with the anesthetic plan. Planned destination -- Phase I PACU risk fo mace, storke, ga conversion, sore throat oral dental damage all discussed maintained on DAPT. didnt take lisinopril. BP 19 5/100 this AM. known WC htn. home BPs been stable. denies [employer] at present /reuben/ EDILMA CASTILLO MD ANESTHESIOLOGIST Signed: 10/14/2021 08:35
--- OUTSIDE RECORDS SUMMARY | 2022-06-23 00:33 | XMS_ITS | Encounter Summary ---
:1945 Author Organization [facility] Address [address] [place] [id number] Support Name Relationship Address Phone BELA HIDALGO Unavailable [id number] [facility] [phone] [place] [address] BELA HIDALGO Unavailable [id number] [facility] [phone] [place] [address] Insurance Providers: All historical and current Section [...] Wahl HUMANA MCR MEDICARE MCR Nov 06, [id number] [phone] Colten MCNAMARA PATIENT (WNR) ADVANTAGE (WNR) 2019 1 42 [phone] [facility] Nov 06, [id number] [phone] LUCRETIA CASTR PATIENT (WNR) ADVANTAGE (WNR) 2019 1 42 0 [employer] MEDICARE MEDICARE PART Dec 07, PART B [id number] Colten HIDALGO P ATIENT (WNR) (M) B 2004 [id number] [phone] [employer] MEDICARE MEDICARE PART Dec 07, PART A [id number] P ATIENT (WNR) (M) A 2004 [id number] [phone] JENNIFER Kennedy U-CARE OF MEDICARE MCR Nov 06, RICT [id number] [phone] JERI MORENOR PATIENT [facility] ADVANTAGE (WNR) [id number] [facility] Selected Encounter This section includes the information on record at [place] for the Encounter. Date/Time Encounter Type Encounter Reason Provider Source Description Oct 19, 2021 OFFICE O/P EST ENDOCRINOLOGY ICD-10-CM E78.5 MADIE BARGER DH 10:45 AM LOW 20-29 MIN Hyperlipidemia, URA unspecified with Provider Comments: Hyperlipidemia, unspecified IHE Encounter Template Text not used by [place] Assessments - Encounter Diagnoses This section includes the primary and secondary diagnoses documented for the Encounter. Date/Time Primary/Secondary Diagnosis Name Provider Source Diagnosis Oct 19, 2021 PRIMARY Hyper[facility] [place] 11:20 AM unspecified RA [facility] Plan of Treatment: Future Appointments (+ 6 months) and Future Tests (+/- 45 days) The Plan of Treatment section includes future care activities for the patient from all [place] treatmentfacilities. This section includes future appointments and future orders which are active, pending orscheduled.Future Appointments This section includes appointments that were scheduled to occur 6 months from the date of the Encounter, up to a maximum of 20 appointments. The data comes from all [place] treatment facilities. Appointment Date/Time Appointment Type Appointment Facili ty Name Nov 16, 2021 11:30 AM AMBULATORY - MEDICINE [facility] Nov 18, 2021 05:30 PM AMBULATORY - MEDICINE [facility] Dec 14, 2021 09:00 AM AMBULATORY - PSYCHIATRY [facility] Dec 21, 2021 07:30 AM AMBULATORY - NONE [facility] Dec 23, 2021 11:45 AM AMBULATORY - MEDICINE [facility] Dec 23, 2021 12:00 PM AMBULATORY - MEDICINE [facility] Dec 31, 2021 09:00 AM AMBULATORY PSYCHIATRY [facility] Lab Results: +/- 30 days of the encounter This section includes the Chemistry and Hematology Lab Results on record with [place] for the patient. Radiology Reports and Pathology Reports are provided separately, in subsequent sections.Lab Results This section contains the Chemistry/Hematology Results that were resulted 30 days before or 30 daysafter the date of the Encounter. Date/Time Source Result Type Result - Unit Interpretation Reference Range Comment Nov 02, 2021 05:25 [facility] OCCULT BLOOD FIT X1 Speci men Type: FECES PM SCREEN No comment enter ed. Ordering Provid er: KOSTA WALKER Report Released Date/Time: Oct 23, 2021 07:11 AM Reporting Lab: [facility] [address] Performing Lab: [facility] I [place] [facility] [address] OCCULT BLOOD (FIT) #1 OF 1 Negative Neg ative Oct 19, 2021 09:36 [facility] LIPID PANEL,FASTING Speci men Type: PLASMA AM No comment enter ed. Ordering Provid er: SANAM QUEVEDO Report Released Date/Time: May 13, 2021 08:38 AM Reporting Lab: [facility] [address] [facility] [address] Performing Lab: [facility] [address] [facility] [address] CHOLESTEROL 101 <199 TRIGLYCERIDE 102 <149 .HDL 46 >40 LDL CALCULATION 35 <99 VLDL CALCULATION 20 <29 NON HDL CHOLESTEROL 55 <129 Oct 19, 2021 [facility] CREATININE(INCLUDES EGFR) Sp ecimen Type: PLASMA 09:36 AM No comment enter ed. Ordering Provid er: KOSTA WALKER Report Released Date/Time: Oct 18, 2021 03:48 PM Reporting Lab: [facility] [address] [facility] [address] Performing Lab: [facility] [address] [facility] [address] CREATININE 0.9 0.7-1.2 ESTIMATED GFR(eGFR) 82 >60 Oct 19, 2021 09:36 AM [facility] CBC Specim en Type: BLOOD No comment enter ed. Ordering Provid er: KOSTA WALKER Report Released Date/Time: Oct 18, 2021 03:48 PM Reporting Lab: [facility] [address] [facility] [address] Performing Lab: [facility] [address] [facility] [address] WBC 6.43 4.0-11.0 RBC 5.32 4.6-6.2 HGB 16.9 13.5-17.9 HCT 48.9 41-54 MCV 91.9 80-100 MCH 31.8 27-33 MCHC 34.6 32.0-37.5 PLT 208 150-400 MPV 10.8 H 7.4-10.4 RDW 13.2 11.5-14.5 Oct 19, 2021 09:36 AM [facility] GLUCOSE Specim en Type: PLASMA No comment enter ed. Ordering Provid er: KOSTA WALKER Report Released Date/Time: Oct 18, 2021 03:48 PM Reporting Lab: [facility] [address] [facility] [address] Performing Lab: [place] [address] [facility] [address] GLUCOSE 105 H 74-100 Oct 19, 2021 09:36 [facility] ELECTROLYTES/ANION GAP Sp ecimen Type: PLASMA AM No comment enter ed. Ordering Provid er: KOSTA WALKER Report Released Date/Time: Oct 18, 2021 03:48 PM Reporting Lab: [facility] [address] [facility] [address] Performing Lab: [facility] [address] [facility] [address] SODIUM 138 136-145 POTASSIUM 3.9 3.5-5.1 CHLORIDE 103 98-107 CO2 29 22-29 ANION GAP 6 5-15 Oct 19, 2021 09:36 AM [facility] AST/SGOT Specim en Type: PLASMA No comment enter ed. Ordering Provid er: KOSTA WALKER Report Released Date/Time: Oct 18, 2021 03:48 PM Reporting Lab: [facility] [address] [facility] [address] Performing Lab: [facility] [address] [facility] [address] AST/SGOT 17 <34 Oct 19, 2021 09:36 AM [facility] HEMOGLOBIN A1C Specim en Type: BLOOD No comment enter ed. Ordering Provid er: KOSTA WALKER Report Released Date/Time: Oct 18, 2021 03:48 PM Reporting Lab: [facility] [address] [facility] [address] Performing Lab: [facility] [address] [facility] [address] HEMOGLOBIN A1C 5.8 4.0-6.0 Oct 19, 2021 09:36 AM [facility] ALT/SGPT Specim en Type: PLASMA No comment enter ed. Ordering Provid er: KOSTA WALKER Report Released Date/Time: Oct 18, 2021 03:48 PM Reporting Lab: [facility] [address] [facility] [address] Performing Lab: [facility] [address] [facility] [address] ALT/SGPT 15 <55 Oct 19, 2021 09:36 [facility] TSH W/REFLEX TO FREE Spec imen Type: PLASMA AM T4 No comment enter ed. Ordering Provid er: KOSTA WALKER Report Released Date/Time: Oct 18, 2021 03:48 PM Reporting Lab: [facility] [address] [place] [facility] [address] Performing Lab: [facility] [address] [facility] [address] TSH 1.02 0.35-4.94 Oct 19, 2021 [facility] LIPID PANEL,NON-FASTING Spec imen Type: PLASMA 09:36 AM No comment enter ed. Ordering Provid er: KOSTA WALKER Report Released Date/Time: Oct 18, 2021 03:48 PM Reporting Lab: [facility] [address] [facility] [address] Performing Lab: [facility] [address] [facility] [address] CHOLESTEROL 102 <199 .HDL 48 >40 LDL [...] dy Source Pressure Rate Mass Index Oct 19 97.1 F 60 128/77 16 /min 97 % 0 68 in 168 lb 26 [place] 2020 10:26 /min mm[Hg] IS [facility] Social History: Smoking Status (Most current) and Tobacco Use (All prior to encounter date) This section includes the most current, and the historical, smoking and tobacco-related health factors from the [place] facility where the Encounter took place.Current Smoking Status This section includes the most current smoking, or tobacco-related health factor, from the [place] facility where the Encounter took place. Date/Time Current Smoking Status Comment Facility Oct 18, 2021 03:30 PM VA-TOBACCO FORMER USER [facility] Tobacco Use History This section includes a history of the smoking, or tobacco- related health factors, that were collected on or before the date of the Encounter. The data comes from the [place] facility where the Encounter took place. Date/Time Smoking Status/Tobacco Use Comment Reggie smith Oct 18, 2021 03:30 PM VA-TOBACCO QUIT 15 YRS OR MORE [facility] 2019 01:06 PM VA-TOBACCO FORMER USER [facility] 2019 01:06 PM VA-TOBACCO QUIT 5 TO < 15 YRS [facility] Aug 09, 2018 01:15 PM VA-TOBACCO FORMER USER [facility] Aug 09, 2018 01:15 PM VA-TOBACCO QUIT 5 TO < 15 YRS [facility] Jun 26, 2018 08:02 PM INPT NO TOBACCO USE IN LAST 30 DAYS [facility] Feb 08, 2017 08:22 AM FORMER TOBACCO USER 7Y OR GREATER [facility] Apr 08, 2016 07:59 AM FORMER TOBACCO USER 7Y OR GREATER [facility] Dec 02, 2014 10:48 AM FORMER TOBACCO USER 7Y OR GREATER [facility] Feb 17, 2014 10:22 AM FORMER TOBACCO USER 7Y OR GREATER [facility] Dec 19, 2012 07:42 AM FORMER TOBACCO USE >1Y <7Y [facility] Jan 02, 2012 09:35 AM FORMER TOBACCO USE >1Y <7Y [facility] Dec 13, 2010 08:57 AM FORMER TOBACCO USE >1Y <7Y [facility] Sep 03, 2009 01:16 PM FORMER TOBACCO USE >1Y <7Y [facility] Sep 25, 2008 11:20 AM CURRENT TOBACCO USER [facility] Advance Directives: All historical and current Section Date Range: From patient's date of to the date document was created. This section includes ALL of a patient's completed or amended [place] Advance and Rescinded Directives. The entries below indicate that a directive exists for the patient, but an actual copy is not included with this document. The data comes from all [place] facilities. Date Advance Directives Provider Source Oct 02, 2017 CLINICAL WARNING [facility] Pathology Reports: +/- 30 [...] the Encounter. The data comes from all [place] treatment facilities. Date/Time Pathology Report Provider Source Oct 15, 2021 05:11 PM LR SURGICAL PATHOLOGY REPORT: TASHI MÁRQUEZ [facility] LOCAL TITLE: LR SURGICAL PATHOLOGY REPORT STANDARD TITLE: PATHOLOGY REPORT DATE OF NOTE: OCT 15, 2021@17:11:59 ENTRY DATE: OCT 15, 2021@17:11:59 AUTHOR: TASHI MÁRQUEZ EXP COSIGNER: URGENCY: STATUS: COMPLETED $APHDR Reporting Lab: [facility] [CLIA# [id number]] [place] [address] - - - - - - - [...] - PATHOLOGY REPORT Accession No. [id number] - - - - - - - [...] - PATHOLOGY REPORT Accession No. [id number] - - - - - - - [...] in grea test dimension. CE. (D) [facility]/ MICROSCOPIC DESCRIPTION: Microscopic examination is performed. DIAGNOSIS [...] Performing Laboratory: Surgical Pathology Report Performed By: [facility] [CLIA# [id number]] [place] [address] $FTR - - - - - - - - - - - - - - - - - - - - - - - - - - - - - - - - - - - - - - - - (End of report) TASHI MÁRQUEZ MD [facility] Date Oct 15, 2021 - - - - - - - - - - - - - - - - - - - - - - - - - - - - - - - - - - - - - - - - JENNIFER HIDALGO STANDARD FORM 515 ID:[id number] SEX:M :1945 AGE: 76 LOC: 1153 PCP: Kosta Walker MD /reuben/ TASHI MÁRQUEZ MD STAFF PATHOLOGIST, PATHOLOGY & LABORATORY MED [place] Signed: 10/15/2021 17:11 Encounter Notes: All associated encounter notes This section contains the clinical notes associated to the Encounter. Date/Time Encounter Note(s) Provider Source Oct 19, 2021 11:06 AM ENDOCRINOLOGY ATTENDING NOTE: TEE BARGER [facility] LOCAL TITLE: METABOLIC CLINIC NOTE STANDARD TITLE: ENDOCRINOLOGY ATTENDING NOTE DATE OF NOTE: OCT 19, 2021@11:06 ENTRY DATE: OCT 19, 2021@11:06:09 AUTHOR: APRYL BARGER EXP COSIGNER: URGENCY: STATUS: COMPLETED Endocrine/Metabolic Clinic Note Chief Complaint: 75 year old MALE referred for f ollow-up evaluation of hyperlipidemia and statin intolerance. History of Present Illness: is a 75 yo M with h/o CAD s/p CABGx3 in 2001 in [place], multiple PCIs, PAD, HTN, HLD, Patricio's esophagus and BERNARDA . HPI Background per previous consult note written on 01/16/2020 Patient has h/o CAD and had been treated with s tatin. He has h/o statin intoleranc e which described as memory impairment. The patient reported that his memory seemed to be declining faster while on statin. He coudln't recall other symptoms related to statin besides the m loretta but he was feeling bad on it. he said since stopping it he believes his memory wolff s not been declining anymore. last lipid 08/2019 LDL 96. h e has normal TSH, no DM, non smoker. drinks alcohol occasional ( multiple days a week- 6 beers per week). he is very active at work and at home. Per CPRS, he was started on Rosuvastatin ~2958-5576 then switched to Pravastatin in 07/2012-02/2013 and switche d to simvastatin in 03/2019 and switched to Ezetimibe in 02/2014 and continues until now with 5 mg brendon y. His most recent episode of heart attack was in that he had NSTEMI and admitted at the [place]. he recently followed with ca zbigniew who recommended PCK9 to lower his LDL to below<70 gi talib his significantly elevated ASCVD score of 17 and significant heart hx. Interval: [place] feels well, No issues, tolerating well. LDL down to 35 from 87 last year. 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 Past Medical History: Active problems - Computerized Problem List is t he source for the followin. Coronary artery disease - S/P CABG x 3 n 2001. - S/P stents to OM1 and D1 in 2006. 2. Peripheral vascular disease (SNOMED [place] [address]68 7002) 3. Hyperlipidemia (SNOMED CT 62169702) 4. Tobacco Use 5. Patricio's esophagus (SNOMED CT 352902335) 6. Dual Care - Dr. Zhao, PCP [facility] Cardiology 7. Hypertension 8. Lower urinary tract symptoms 9. Migraine 10. Elevated PSA 11. 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 Sleep apnea - severe per sleep study done 2018 14. Mitral Valve Disorder ([facility] [id number]) - -Mild mitral regurgitation per 05/2021 echo. R ecommend repeat in 2-3 years, sooner if symptomatic. Allergies: ROSUVASTATIN (Jul 15, 2012) PRAVASTATIN (Feb 07, 2013) LIPITOR (March 07, 2013) SIMVASTATIN (Jun 16, 2013) Active Outpatient Medications (including Supplie s): ALIROCUMAB 75MG/ML INJ 1ML PEN INJECT 75MG (1ML) UNDER THE ACTIVE SKIN EVERY 2 WEEKS FOR HYPERLIPIDEMIA AND CORON DAMIAN ARTERY DISEASE (CAD) CARVEDILOL 6.25MG TAB TAKE ONE-HALF TABLET BY MO UTH TWICE ACTIVE A DAY CLOPIDOGREL BISULFATE 75MG TAB TAKE ONE TABLET B Y MOUTH ACTIVE EVERY DAY TO PREVENT BLOOD CLOTS (APPROVED FOR LONG-TERM USE) EZETIMIBE 10MG TAB TAKE ONE TABLET BY MOUTH EVER Y DAY ACTIVE -APPROVED- ISOSORBIDE MONONITRATE 30MG SA TAB TAKE ONE TABL ET BY ACTIVE MOUTH EVERY MORNING TAKE 30 MG WITH 60 MG TABLE T FOR TOTAL OF 90 MG PER DAY ISOSORBIDE MONONITRATE 60MG SA TAB TAKE ONE TABL ET BY ACTIVE MOUTH EVERY DAY FOR THE HEART LISINOPRIL 10MG TAB TAKE ONE-HALF TABLET BY MOUT H EVERY ACTIVE DAY FOR HIGH BLOOD PRESSURE MAGNESIUM OXIDE 420MG TAB TAKE ONE TABLET BY MARLY TH EVERY ACTIVE DAY FOR HEADACHE PREVENTION NITROGLYCERIN 0.4MG SL TAB DISSOLVE ONE TABLET U NDER THE ACTIVE TONGUE NEEDED FOR CHEST PAIN*MAY REPEAT EVER Y 5 MINUTES-NO MORE THAN 3 TOTAL OMEPRAZOLE 20MG EC CAP TAKE TWO CAPSULES BY MOUT H TWICE A ACTIVE DAY TO DECREASE STOMACH ACID -TAKE ON AN EMPTY STOMACH, AT LEAST 30 MINUTES BEFORE EATING VANICREAM TOP CREAM APPLY THIN LAYER TOPICALLY T WICE A DAY ACTIVE FOR DRY SKIN Non-VA ASPIRIN 81MG EC TAB 81MG MOUTH EVERY MORN ING ACTIVE MEDICATION RECONCILIATION Outpatient At this visit I have reviewed the medication lis t, and discussed relevant medications with the patient/surrogate. An updated patient medication list was given to the participant(s). Education on NEW Medication: I have reviewed the medication list for possible drug:drug interactions or contraindications prior to ordering NEW medic ations during this visit. Patient indicated readiness to learn and has been instruct ed on action, dose, frequency and side effects of the new medication and I noted new medication on partici pant's copy of the medication list. Review of Systems: All 12 systems were reviewed and negative except as mentioned in HPI. Physical Exam: Vital Signs Temp: 97.1 F [36.2 C] (10/19/2021 10:26) B/P: 128/77 (10/19/2021 10:26) Pulse: 60 (10/19/2021 10:26) Ht: 68 in [172.7 cm] (10/19/2021 10:26) Wt: 168 lb [76.4 kg] (10/19/2021 10:26) Pain: 0 (10/19/2021 10:26) BMI: 25.6 General: awake, alert,no distress HEENT: EOMI, no icterus, no pallor Chest/Lungs: nonlabored breathing Extremities: no edema, no tremor of outstretched hand Neurological: awake, alert,moves arms and legs Labs and Imaging: CHOLESTEROL: 101 TRIGLYCERIDE: 102 HDL: 46 LDL CHOL: 35 VLDL CHOL: 20 NON HDL CHOLESTEROL: 55 Assessment and Plan: 75 yo M with h/o CAD s/p CAB Gx3 in 2001 in [place], multiple PCIs, PAD, HTN, HLD, Patricio's esophagus, BERNARDA who referred to endocrine clinic for HLD management in setting of possible statin i ntolerance, suboptimal LDL treatment and significant cardiac history. #HLD #Statin intolerance #H/o CAD Unable to tolerate rosuvasta tin, pravastatin,, Atorvastatin, simvastatin due to memory impairment. Started on Alirocumab on 08/28/2020 Tolerated it well. He is also on Ezetimibe 10mg daily. Tolerating i t well Given extensive cardiac hist ory, his LDL Goal is <70, as he is at high risk for recurrent CAD Last LDL was 35 in 10/2021 Plan: - Refill Alirocumab 75mg q2 weeks - Cont Ezetemibe 10 mg daily - Check lipid panel prior to next visit in 1yr Rtc in 1 year Patient was discussed and examined with attendin chandan White, who agrees with the assessment and plan. /reuben/ apryl barger md Endocrinology fellow Signed: 10/19/2021 11:20 Receipt Acknowledged By: * AWAITING SIGNATURE * DANIELA WHITE Oct 19, 2021 10:30 AM INTERNAL MEDICINE OUTPATIENT NOTE: ROBER CHRIS [facility] LOCAL TITLE: MEDICINE CLINIC NURSING NOTE STANDARD TITLE: INTERNAL MEDICINE OUTPATIENT NOT E DATE OF NOTE: OCT 19, 2021@10:30 ENTRY DATE: OCT 19, 2021@10:30:33 AUTHOR: KHOA CHRIS EXP COSIGNER: URGENCY: STATUS: COMPLETED TYPE OF VISIT: Appointment Check In Type of appointment: In-person appointment REASON FOR VISIT: Scheduled visit for hyperlipi demia ALLERGIES: ROSUVASTATIN (Jul 15, 2012) PRAVASTATIN (Feb 07, 2013) LIPITOR (March 07, 2013) SIMVASTATIN (Jun 16, 2013) VITAL SIGNS: Blood Pressure: 128/77 (10/19/2021 10:26) Pulse: 60 (10/19/2021 10:26) Respiration: 16 (10/19/2021 10:26) Temperature: 97.1 F [36.2 C] (10/19/2021 10:26) Weight: 168 lb. [76.4 kg] (10/19/2021 10:26) Height: 68 in [172.7 cm] (10/19/2021 10:26) BMI: 25.6 O2 Sat: 97 (10/19/2021 10:26) Pain: 0 (10/19/2021 10:26) PAIN SCREEN: Patient is not having significant pain that the y wish to discuss with their provider today. MEDICATION Over the Counter/Herbal Medications: The patient states that they take some outside medications and/or herbals. Diabetes/Metabolic Clinic Finger Stick Blood Glucose Not diabetic /reuben/ KHOA W CHRIS, DIRECTOR OF INFORMATICS LICENSED PRACTICAL NURSE Signed: 10/19/2021 10:33
--- OUTSIDE RECORDS SUMMARY | 2022-06-23 00:33 | XMS_ITS | Encounter Summary ---
:1945 Author Organization [facility] Address [address] [place] [id number] Support Name Relationship Address Phone BELA WREN Unavailable [phone] [facility]LY [facility] [phone] [place] [address] BELA WRNE Unavailable [phone] FOR[facility]LY [facility], [facility] [address] Insurance Providers: All historical and current Section Date Range: From patient's date of to the date document was created.This section includes the names of all active insurance providers for the patient. Insurance Type of Plan Start of End of Group Member Insurance Policy P atient's Provider Coverage Name Policy Policy Number ID Provider's Wahl's Relationship Coverage Coverage Telephone Name to Policy Number [facility] MCR Nov 06, [id number] [phone] Colten MCNAMARA PATIENT (WNR) ADVANTAGE (WNR) 2019 1 42 8 CAITLYN HUMANA MCR MEDICARE MCR Nov 06, [id number] Colten MCNAMARA PATIENT (WNR) ADVANTAGE (WNR) 2019 1 42 0 ICHARD MEDICARE MEDICARE PART Dec 07, PART B [id number] Colten WREN P ATIENT (WNR) (M) B 2004 [id number] [phone] [employer] MEDICARE MEDICARE PART Dec 07, PART A [id number] P ATIENT (WNR) (M) A 2004 [id number] [phone] JENNIFER Kennedy U-CARE OF MEDICARE MCR Nov 06, [facility] [id number] [phone] Colten ALEJANDRO PATIENT [facility] ADVANTAGE (WNR) [id number] ICHPAUL (WNR) Selected Encounter This section includes the information on record at [place] for the Encounter. Date/Time Encounter Type Encounter Reason Provider Source Description Oct 14, 2021 ESOPHAGOSCOPY GI ENDOSCOPY ICD-10-CM EDILMA ORTIZ 08:00 AM FLEXIBLE BRUSH K22.719 J Patricio's esophagus with dysplasia, unspecified with Provider Comments: Patricio's Esophagus with Dysplasia, unspecified IHE Encounter Template Text not used by [facility] Assessments - Encounter Diagnoses This section includes the primary and secondary diagnoses documented for the Encounter. Date/Time Primary/Secondary Diagnosis Name Provider Source Diagnosis Dec 08, 2021 PRIMARY Patricio's [facility]A WILLIAM [facility] 03:43 PM esophagus with D HCS dysplasia, unspecified Plan of Treatment: Future Appointments (+ 6 months) and Future Tests (+/- 45 days) The Plan of Treatment section includes future care activities for the patient from all [place] [facility]. This section includes future appointments and future orders which are active, pending orscheduled.Future Appointments This section includes appointments that were scheduled to occur 6 months from the date of the Encounter, up to a maximum of 20 appointments. The data comes from all [place] treatment facilities. Appointment Date/Time Appointment Type Appointment Facili ty Name Oct 18, 2021 03:30 PM AMBULATORY - MEDICINE [facility] Oct 19, 2021 09:45 AM AMBULATORY - NONE [facility] Oct 19, 2021 10:00 AM AMBULATORY [facility] Oct 19, 2021 10:45 AM AMBULATORY - MEDICINE [facility] Nov 16, 2021 11:30 AM AMBULATORY - MEDICINE [facility] Nov 18, 2021 05:30 PM AMBULATORY MEDICINE [facility] Dec 14, 2021 09:00 AM AMBULATORY - PSYCHIATRY [facility] Dec 21, 2021 07:30 AM AMBULATORY - [facility] Dec 23, 2021 11:45 AM AMBULATORY - MEDICINE [facility] Dec 23, 2021 12:00 PM AMBULATORY - MEDICINE [facility] Dec 31, 2021 09:00 AM AMBULATORY - PSYCHIATRY [facility] Lab Results: +/- 30 days of the encounter This section includes the Chemistry and Hematology Lab Results on record with [place] for the patient. Radiology Reports and Pathology [...] Oct 23, 2021 07:11 AM Reporting Lab: [facility] [address] [facility] [address] Performing Lab: [facility] [address] OCCULT BLOOD (FIT) #1 OF 1 Negative Neg ative Oct 19, 2021 09:36 [facility] LIPID PANEL,FASTING Speci men Type: PLASMA AM No comment enter ed. Ordering Provid er: SANAM QUEVEDO Report Released Date/Time: May 13, 2021 08:38 AM Reporting Lab: [facility] [address] [facility] [address] Performing Lab: [facility] [facility] [address] CHOLESTEROL 101 <199 TRIGLYCERIDE 102 <149 .HDL 46 >40 LDL CALCULATION 35 <99 VLDL CALCULATION 20 <29 NON HDL CHOLESTEROL 55 <129 Oct 19, 2021 [facility] CREATININE(INCLUDES EGFR) Sp ecimen Type: PLASMA 09:36 AM No comment enter ed. Ordering Provid er: KOSTA WALKER Report Released Date/Time: Oct 18, 2021 03:48 PM Reporting Lab: [facility] [address] [facility] [address] Performing Lab: [facility] [address] CREATININE 0.9 0.7-1.2 ESTIMATED GFR(eGFR) 82 >60 Oct 19, 2021 09:36 AM [facility] CBC Specim en Type: BLOOD No comment enter ed. Ordering Provid er: KOSTA WALKER Report Released Date/Time: Oct 18, 2021 03:48 PM Reporting Lab: [facility] [address] [facility] [address] Performing Lab: [facility] [address] [facility] [address] WBC 6.43 4.0-11.0 RBC 5.32 4.6-6.2 HGB 16.9 13.5-17.9 HCT 48.9 41-54 MCV 91.9 80-100 MCH 31.8 27-33 MCHC 34.6 32.0-37.5 PLT 208 150-400 MPV 10.8 H 7.4-10.4 RDW 13.2 11.5-14.5 Oct 19, 2021 09:36 [facility] ELECTROLYTES/ANION GAP Sp ecimen Type: PLASMA AM No comment enter ed. Ordering Provid er: KOSTA WALKER Report Released Date/Time: Oct 18, 2021 03:48 PM Reporting Lab: [facility] [address] [facility] [address] Performing Lab: [facility] [address] [facility] [address] SODIUM 138 136-145 POTASSIUM 3.9 3.5-5.1 CHLORIDE 103 98-107 CO2 29 22-29 ANION GAP 6 5-15 Oct 19, 2021 09:36 AM [facility] HEMOGLOBIN A1C Specim en Type: BLOOD No comment enter ed. Ordering Provid er: KOSTA WALKER Report Released Date/Time: Oct 18, 2021 03:48 PM Reporting Lab: [facility] [address] [facility] [address] Performing Lab: [facility] [address] HEMOGLOBIN A1C 5.8 4.0-6.0 Oct 19, 2021 09:36 AM [facility] GLUCOSE Specim en Type: PLASMA No comment enter ed. Ordering Provid er: KOSTA WALKER Report Released Date/Time: Oct 18, 2021 03:48 PM Reporting Lab: [facility] [address] [facility] [address] Performing Lab: [facility] [address] [facility] [address] GLUCOSE 105 H 74-100 Oct 19, 2021 09:36 AM [facility] AST/SGOT Specim en Type: PLASMA No comment enter ed. Ordering Provid er: KOSTA WALKER Report Released Date/Time: Oct 18, 2021 03:48 PM Reporting Lab: [facility] [address] [facility] [address] Performing Lab: [facility] [address] [facility] [address] AST/SGOT 17 <34 Oct 19, 2021 09:36 [facility] TSH W/REFLEX TO FREE Spec imen Type: PLASMA AM T4 No comment enter ed. Ordering Provid er: KOSTA WALKER Report Released Date/Time: Oct 18, 2021 03:48 PM Reporting Lab: [facility] [address] [facility] [address] Performing Lab: [facility] [address] [facility] [address] TSH 1.02 0.35-4.94 Oct 19, 2021 09:36 AM [facility] ALT/SGPT Specim en Type: PLASMA No comment enter ed. Ordering Provid er: KOSTA WALKER Report Released Date/Time: Oct 18, 2021 03:48 PM Reporting Lab: [facility] [address] [facility] [address] Performing Lab: [facility] [address] [facility] [address] ALT/SGPT 15 <55 Oct 19, 2021 [facility] LIPID PANEL,NON-FASTING Spec imen Type: PLASMA 09:36 AM No comment enter ed. Ordering Provid er: KOSTA WALKER Report Released Date/Time: Oct 18, 2021 03:48 PM Reporting Lab: [facility] [address] [facility] [address] Performing Lab: [facility] [address] [facility] [address] CHOLESTEROL 102 <199 .HDL 48 >40 LDL CALCULATION 22 <99 VLDL CALCULATION 32 H <29 NON HDL CHOLESTEROL 54 <129 TRIG(NON FASTING) 160 H <149 Social History: Smoking Status (Most current) and Tobacco Use (All prior to encounter date) This section includes the most current, and the historical, smoking and tobacco-related health factors from the [place] facility where the Encounter took place.Current Smoking Status This section includes the most current smoking, or tobacco-related health factor, from the [place] facility where the Encounter took place. Date/Time Current Smoking Status Comment Facility 2019 01:06 PM IA-TOBACCO QUIT 5 TO < 15 YRS [facility] Tobacco Use History This section includes a history of the smoking, or tobacco- related health factors, that were collected on or before the date of the Encounter. The data comes from the [place] facility where the Encounter took place. Date/Time Smoking Status/Tobacco Use Comment [facility] 2019 01:06 PM VA-TOBACCO QUIT 5 TO < 15 YRS [facility] Aug 09, 2018 01:15 PM VA-TOBACCO FORMER USER [facility] Aug 09, 2018 01:15 PM IA-TOBACCO QUIT 5 TO < 15 YRS [facility] [...] 2008 11:20 AM CUR[facility] Advance Directives: All historical and current Section Date Range: From patient's date of to the date document was created. This section includes ALL of a patient's completed or amended [place] Advance and Rescinded Directives. The entries below indicate that a directive exists for the patient, but an actual copy is not included with this document. The data comes from all [place] facilities. Date Advance Directives Provider Source Oct 02, 2017 CLINICAL WARNING JAXON LONG [facility] Pathology Reports: +/- 30 days of [...] the Encounter. The data comes from all [place] treatment facilities. Date/Time Pathology Report Provider Source Oct 15, 2021 05:11 PM LR SURGICAL PATHOLOGY REPORT: TASHI MÁRQUEZ [facility] LOCAL TITLE: LR SURGICAL PATHOLOGY REPORT STANDARD TITLE: PATHOLOGY REPORT DATE OF NOTE: OCT 15, 2021@17:11:59 ENTRY DATE: OCT 15, 2021@17:11:59 AUTHOR: TASHI MÁRQUEZ EXP COSIGNER: URGENCY: STATUS: COMPLETED $APHDR Reporting Lab: [facility] [CLIA# [id number]] [place] [address] - - - - - - - [...] - PATHOLOGY REPORT Accession No. [id number] - - - - - - - [...] - PATHOLOGY REPORT Accession No. [id number] - - - - - - - [...] cm in grea test dimension. CE. (D) [place]/ MICROSCOPIC DESCRIPTION: Microscopic examination is performed. DIAGNOSIS [...] Performing Laboratory: Surgical Pathology Report Performed By: [facility] [CLIA# [id number]] [place] [address] $FTR - - - - - - - - - - - - - - - - - - - - - - - - - - - - - - - - - - - - - - - - (End of report) TASHI MÁRQUEZ MD [facility] Date Oct 15, 2021 - - - - - - - - - - - - - - - - - - - - - - - - - - - - - - - - - - - - - - - - JENNIFER WREN STANDARD FORM 515 ID:[id number] SEX:M :1945 AGE: 76 LOC: 1153 PCP: Kosta Walker MD /reuben/ TASHI MÁRQUEZ MD STAFF PATHOLOGIST, PATHOLOGY & LABORATORY MED SV C Signed: 10/15/2021 17:11 Encounter Notes: All associated encounter notes This section contains the clinical notes associated to the Encounter. Date/Time Encounter Note(s) Provider Source Oct 19, 2021 08:40 AM LETTERS: EDILMA ORTIZTASIAI S [facility] LOCAL TITLE: FOLLOW UP RESULTS LETTER STANDARD TITLE: LETTERS DATE OF NOTE: OCT 19, 2021@08:40 ENTRY DATE: OCT 19, 2021@08:40:45 AUTHOR: EDILMA ORTIZ EXP COSIGNER: URGENCY: STATUS: COMPLETED [facility] [address] [place] [address] Oct JENNIFER WREN [address] [facility] [address] Dear [place]ilton: I am writing to inform you of the test results p erformed Oct for the following: Endoscopy Results of microscopic examination: DIAGNOSIS Spec. 1 Pyloric channel, biopsy -- - gastric mucosa with marked inflammation, rosario ed regenerative change, and intestinal metaplasia - H pylori stain: negative Spec. 2 Esophagus, GE junction, biopsy -- - fragments of benign squamocolumnar mucosa - no evidence of intestinal metaplasia, dysplas ia, or malignancy Explanation of pathology results: Great news! No Patricio's left. I would like to s ee you again for repeat endoscopy in 6 months. I will also continue to f ollow the area in the stomach that I biopsied last time. This area is not conc erning but we should keep an eye on this chronic inflammatory change. As for the omeprazole please continue to take at least 1 pill per day or whatever it takes to control reflux symptoms. If you want to see the full pathology report, asad dutta may do this by logging on the [employer] website at [email or web address].[place].gov. Please note: Results can take up to 14 days to b e viewable for pathology reports. If you have not already done so, I recommend you visit this web site to set up your account. You will then be able to review this result and all future res ults. If you have any questions, the GI department can be called between the hours of 7:30 a.m. and 3:30 p.m., Mo - Monday. The GI department can be reached at [phone] or toll free at [phone]. Sincerely, Edilma Ortiz MD [facility] Water Pollution Specialist Oct 14, 2021 08:32 AM GASTROENTEROLOGY PROCEDURE NOTE: LUIS A ORTIZ [facility] LOCAL TITLE: GI PROCEDURE STANDARD TITLE: GASTROENTEROLOGY PROCEDURE NOTE DATE OF NOTE: OCT 14, 2021@08:32 ENTRY DATE: OCT 14, 2021@08:32:11 AUTHOR: EDILMA ORTIZ EXP COSIGNER: URGENCY: STATUS: COMPLETED Gastroenterology Pre-procedure Assessment: Procedure planned: Endoscopy Pre-Op Diagnosis or Indication for Procedure: Patricio's esophagus Mr. Wren is a 76 y/o [place] ran with history of CAD s/p PCI last fall which has delayed his Patricio's treatm ent now presents for RFA treatment for long segment Patricio's (9cm) with LGD. RF A 360 x 1 and Ultra x 2. Last procedure 11/2019 with C0M2 tx with RFA 90 12 J/m2. The patient is otherwise in his usual state of health today. He is still taking his plavix and this is ok for this RFA today. No chest pain, SOB, RASHEED, LE. Problem list Active problems - Computerized Problem List is the source for the followin. Coronary artery disease - S/P CABG x 3 n 2001. - S/P stents to OM1 and D1 in 2006. 2. Peripheral vascular disease (SN[place]ED [place] [address] 7006) 3. Hyperlipidemia (SNOMED CT 45696967) 4. Tobacco Use 5. Patricio's esophagus (SNOMED CT 676710222) 6. Dual Care - Dr. Zhao, PCP [facility] Cardiology 7. Hypertension 8. Lower urinary tract symptoms 9. Migraine 10. Elevated PSA 11. 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 Sleep apnea - severe per sleep study done 2018 14. Mitral Valve Disorder ([facility] [id number]) - -Mild mitral regurgitation per 05/2021 echo. R ecommend repeat in 2-3 years, sooner if symptomatic. Active Outpatient Medications (including Supplie s): Active Outpatient Medications Status 1) ALIROCUMAB 75MG/ML [...] TAB TAKE ONE TABLET BY MOUTH E VERY DAY ACTIVE -APPROVED- 5) ISOSORBIDE MONONITRATE 30MG [...] TWICE ACTIVE A DAY FOR DRY SKIN Active Non-VA Medications Status 1) Non-VA ASPIRIN 81MG EC TAB 81MG MOUTH EVERY M ORNING ACTIVE 12 Total Medications Allergies: ROSUVASTATIN (Jul 15, 2012) PRAVASTATIN (Feb 07, 2013) LIPITOR (March 07, 2013) SIMVASTATIN (Jun 16, 2013) Mallampati Score: 2: (Visibility of hard and sof t palate, upper portion of tonsils and uvula) Airway: Within normal limits Exam: Heart and lungs within normal limits Lab PT____ INR____ HCT: 46.6 (09/12/20) 46.2 (05/11/21) HGB: 15.6 (09/12/20) 15.4 (05/11/21) MCH: 31.0 (09/12/20) 31.5 (05/11/21) MCHC: 33.5 (09/12/20) 33.3 (05/11/21) MCV: 92.5 (09/12/20) 94.5 (05/11/21) MPV: 11.0 (09/12/20) 10.1 (05/11/21) PLT: 175 (09/12/20) 157 (05/11/21) RBC: 5.04 (09/12/20) 4.89 (05/11/21) RDW: 13.4 (09/12/20) 13.5 (05/11/21) WBC: 7.30 (09/12/20) 5.99 (05/11/21) Other Lab tests: [place] [employer] (ASA) Cla ssification: II Sedation Plan: Monitored Anesthesia care The patient is low risk for low risk procedure. I have reviewed the patient's pre-procedure bas gina level of consciousness, current vital signs, time and nature of last or al intake, and any previous adverse experiences with sedation as documented in the [facility]ation [facility] note. The procedure report can be viewed in the Repor ts tab-->procedures or in [facility]. I will be conducting or supervising the procedu re, although a different provider obtained consent. Patient informed and agrees to proceed. /reuben/ Edilma Ortiz MD [facility] Water Pollution Specialist Signed: 10/14/2021 08:41
--- OUTSIDE RECORDS SUMMARY | 2022-06-23 00:33 | XMS_ITS | Encounter Summary ---
:1945 Author Organization [facility] Address [address] [place] [address] Support Name Relationship Address Phone BELA HIDALGO Unavailable [id number] [facility] [place] [address] BELA HIDALGO Unavailable [phone] [facility] [place] [address] Insurance Providers: All historical and current Section [...] Wahl HUMANA MCR MEDICARE MCR Nov 06, [id number] [phone] LUCRETIA CAST,R PATIENT (WNR) ADVANTAGE (WNR) 2019 1 [id number] 8 CAITLYN HUMANA MCR MEDICARE MCR Nov 06, [id number] LUCRETIA CASTR PATIENT (WNR) ADVANTAGE (WNR) 2019 1 42 0 CAITLYN MEDICARE MEDICARE PART Dec 07, PART A [id number] P ATIENT (WNR) (M) A 2004 [id number] [phone] JENNIFER Kennedy MEDICARE MEDICARE PART Dec 07, PART B [id number] Colten HIDALGO P ATIENT (WNR) (M) B 2004 CY07 [phone] STANISLAWPAUL -CARE OF MEDICARE MCR Nov 06, [id number] [phone] JERI RS,R PATIENT [facility] ADVANTAGE (WNR) [id number] ICHARD (WNR) Selected Encounter This section includes the information on record at [place] for the Encounter. Date/Time Encounter Type Encounter Reason Provider Source Description Oct 15, 2021 05:11 Outpatient EVENT (HISTORICAL) CIOC,LUISITO A M PM Encounter IHE Encounter Template Text not used by [place] Plan of Treatment: Future Appointments (+ 6 months) and Future Tests (+/- 45 days) The Plan of Treatment section includes future care activities for the patient [facility] This section includes future appointments and future orders which are active, pending orscheduled.Future Appointments This section includes appointments that were scheduled to occur 6 months from the date of the Encounter, up to a maximum of 20 appointments. The data comes from all [place] treatment facilities. Appointment Date/Time Appointment Type Appointment Facili ty Name Oct 18, 2021 03:30 PM AMBULATORY - MEDICINE [facility] Oct 19, 2021 09:45 AM AMBULATORY - NONE [facility] Oct 19, 2021 10:00 AM AMBULATORY NONE [facility] Oct 19, 2021 10:45 AM AMBULATORY - MEDICINE [facility] Nov 16, 2021 11:30 AM AMBULATORY - MEDICINE [facility] Nov 18, 2021 05:30 PM AMBULATORY - MEDICINE [facility] Dec 14, 2021 09:00 AM AMBULATORY - PSYCHIATRY [facility] Dec 21, 2021 07:30 AM AMBULATORY - [facility] Dec 23, 2021 11:45 AM AMBULATORY - MEDICINE [facility] Dec 23, 2021 12:00 PM AMBULATORY - MEDICINE [facility] Dec 31, 2021 09:00 AM AMBULATORY PSYCHIATRY [facility] Lab Results: +/- 30 days of the encounter This section includes the Chemistry and Hematology Lab Results on record with [place] for the patient. Radiology Reports and Pathology Reports are provided separately, in subsequent sections.Lab Results This section contains the Chemistry/Hematology Results that were resulted 30 days before or 30 daysafter the date of the Encounter. Date/Time Source Result Type Result - Unit Interpretation Reference Range Comment Nov 02, 2021 05:25 [facility] OCCULT BLOOD FIT X1 Speci men Type: FECES PM SCREEN No comment enter ed. Ordering Provid er: KOSTA WALKER Report Released Date/Time: Oct 23, 2021 07:11 AM Reporting Lab: [facility] [address] [facility] [address] Performing Lab: [facility] [address] OCCULT BLOOD (FIT) #1 OF 1 Negative Neg ative Oct 19, 2021 09:36 [facility] LIPID PANEL,FASTING Speci men Type: PLASMA AM No comment enter ed. Ordering Provid er: SANAM QUEVEDO Report Released Date/Time: May 13, 2021 08:38 AM Reporting Lab: [facility] [address] [address] Performing Lab: [facility] [address] [facility] [address] CHOLESTEROL 101 <199 TRIGLYCERIDE 102 <149 .HDL 46 >40 LDL CALCULATION 35 <99 VLDL CALCULATION 20 <29 NON HDL CHOLESTEROL 55 <129 Oct 19, 2021 [facility] CREATININE(INCLUDES EGFR) Sp ecimen Type: PLASMA 09:36 AM No comment enter ed. Ordering Provid er: KOSTA WALKER Report Released Date/Time: Oct 18, 2021 03:48 PM Reporting Lab: [facility] [address] Performing Lab: [facility] [address] CREATININE 0.9 0.7-1.2 ESTIMATED GFR(eGFR) 82 >60 Oct 19, 2021 09:36 AM [facility] CBC Specim en Type: BLOOD No comment enter ed. Ordering Provid er: KOSTA WALKER Report Released Date/Time: Oct 18, 2021 03:48 PM Reporting Lab: [facility] [address] [facility] [address] Performing Lab: [facility] [address] [facility] [address] WBC 6.43 4.0-11.0 RBC 5.32 4.6-6.2 HGB 16.9 13.5-17.9 HCT 48.9 41-54 MCV 91.9 80-100 MCH 31.8 27-33 MCHC 34.6 32.0-37.5 PLT 208 150-400 MPV 10.8 H 7.4-10.4 RDW 13.2 11.5-14.5 Oct 19, 2021 09:36 [facility] ELECTROLYTES/ANION GAP Sp ecimen Type: PLASMA AM No comment enter ed. Ordering Provid er: KOSTA WALKER Report Released Date/Time: Oct 18, 2021 03:48 PM Reporting Lab: [facility] [address] [facility] [address] Performing Lab: [facility] [address] SODIUM 138 136-145 POTASSIUM 3.9 3.5-5.1 CHLORIDE 103 98-107 CO2 29 22-29 ANION GAP 6 5-15 Oct 19, 2021 09:36 AM [facility] HEMOGLOBIN A1C Specim en Type: BLOOD No comment enter ed. Ordering Provid er: KOSTA WALKER Report Released Date/Time: Oct 18, 2021 03:48 PM Reporting Lab: [facility] [address] [facility] [address] Performing Lab: [facility] [address] [facility] [address] HEMOGLOBIN A1C 5.8 4.0-6.0 Oct 19, 2021 09:36 AM [facility] GLUCOSE Specim en Type: PLASMA No comment enter ed. Ordering Provid er: KOSTA WALKER Report Released Date/Time: Oct 18, 2021 03:48 PM Reporting Lab: [facility] [address] [facility] [address] Performing Lab: [facility] [address] [facility] [address] GLUCOSE 105 H 74-100 Oct 19, 2021 09:36 AM [facility] AST/SGOT Specim en Type: PLASMA No comment enter ed. Ordering Provid er: KOSTA WALKER Report Released Date/Time: Oct 18, 2021 03:48 PM Reporting Lab: [facility] [address] [facility] [address] Performing Lab: [facility] [address] [facility] [address] AST/SGOT 17 <34 Oct 19, 2021 09:36 [facility] TSH W/REFLEX TO FREE Spec imen Type: PLASMA AM T4 No comment enter ed. Ordering Provid er: KOSTA WALKER Report Released Date/Time: Oct 18, 2021 03:48 PM Reporting Lab: [facility] [address] [facility] [address] Performing Lab: [facility] [address] [facility] [address] TSH 1.02 0.35-4.94 Oct 19, 2021 09:36 AM [facility] ALT/SGPT Specim en Type: PLASMA No comment enter ed. Ordering Provid er: KOSTA WALKER Report Released Date/Time: Oct 18, 2021 03:48 PM Reporting Lab: [facility] [address] [facility] [address] Performing Lab: [facility] [address] [facility] [address] ALT/SGPT 15 <55 Oct 19, 2021 [facility] LIPID PANEL,NON-FASTING Spec imen Type: PLASMA 09:36 AM No comment enter ed. Ordering Provid er: KOSTA WALKER Report Released Date/Time: Oct 18, 2021 03:48 PM Reporting Lab: [facility] [address] [facility] [address] Performing Lab: [facility] [address] [facility] [address] CHOLESTEROL 102 <199 .HDL 48 >40 LDL CALCULATION 22 <99 VLDL CALCULATION 32 H <29 NON HDL CHOLESTEROL 54 <129 TRIG(NON FASTING) 160 H <149 Social History: Smoking Status (Most current) and Tobacco Use (All prior to encounter date) This section includes the most current, and the historical, smoking and tobacco-related health factors from the [place] facility where the Encounter took place.Current Smoking Status This section includes the most current smoking, or tobacco-related health factor, from the [place] facility where the Encounter took place. Date/Time Current Smoking Status Comment Facility 2019 01:06 PM VA-TOBACCO QUIT 5 TO < 15 YRS [facility] Tobacco Use History This section includes a history of the smoking, or tobacco- related health factors, that were collected on or before the date of the Encounter. The data comes from the [place] facility where the Encounter took place. Date/Time Smoking Status/Tobacco Use Comment [facility] it 2019 01:06 PM VA-TOBACCO QUIT 5 TO < 15 YRS [facility] Aug 09, 2018 01:15 PM VA-TOBACCO FORMER USER [facility] Aug 09, 2018 01:15 PM VA-TOBACCO QUIT 5 TO < 15 YRS [facility] Jun 26, 2018 08:02 PM INPT NO TOBACCO USE IN LAST 30 DAYS [facility] Feb 08, 2017 08:22 AM FORMER TOBACCO USER 7Y OR GREATER [facility] Apr 08, 2016 07:59 AM FORMER TOBACCO USER 7Y OR GREATER [facility] Dec 02, 2014 10:48 AM FORMER TOBACCO USER 7Y OR GREATER [facility] Feb 17, 2014 10:22 AM FORMER TOBACCO USER 7Y OR GREATER [facility] Dec 19, 2012 07:42 AM FORMER TOBACCO USE >1Y <7Y [facility] Jan 02, 2012 09:35 AM FORMER TOBACCO USE >1Y <7Y [facility] Dec 13, 2010 08:57 AM FORMER TOBACCO USE >1Y <7Y [facility] Sep 03, 2009 01:16 PM FORMER TOBACCO USE >1Y <7Y [facility] Sep 25, 2008 11:20 AM CURRENT TOBACCO USER [facility] Advance Directives: All historical and current Section Date Range: From patient's date of to the date document was created. This section includes ALL of a patient's completed or amended [place] Advance and Rescinded Directives. The entries below indicate that a directive exists for the patient, but an actual copy is not included with this document. The data comes from all [place] facilities. Date Advance Directives Provider Source Oct 02, 2017 CLINICAL WARNING NARCISOMegJAXON Valencia Patricia [facility] Pathology Reports: +/- 30 days of [...] the Encounter. The data comes from all [place] treatment facilities. Date/Time Pathology Report Provider Source Oct 15, 2021 05:11 PM LR SURGICAL PATHOLOGY REPORT: TASHI MÁRQUEZ [facility] LOCAL TITLE: LR SURGICAL PATHOLOGY REPORT STANDARD TITLE: PATHOLOGY REPORT DATE OF NOTE: OCT 15, 2021@17:11:59 ENTRY DATE: OCT 15, 2021@17:11:59 AUTHOR: TASHI MÁRQUEZ EXP COSIGNER: URGENCY: STATUS: COMPLETED $APHDR Reporting Lab: [facility] [IA# [id number]] [place] [address] - - - - - - - [...] - - - PATHOLOGY REPORT Accession No. [id number] - - - - - - - [...] - PATHOLOGY REPORT Accession No. [id number] - - - - - - - [...] cm in grea test dimension. CE. (D) [facility]/ MICROSCOPIC DESCRIPTION: Microscopic examination is performed. DIAGNOSIS [...] Performing Laboratory: Surgical Pathology Report Performed By: [facility] [CLIA# [id number]] [place] [address] $FTR - - - - - - - - - - - - - - - - - - - - - - - - - - - - - - - - - - - - - - - - (End of report) TASHI MÁRQUEZ MD [facility] Date Oct 15, 2021 - - - - - - - - - - - - - - - - - - - - - - - - - - - - - - - - - - - - - - - - JENNIFER HIDALGO STANDARD FORM 515 ID:[id number] SEX:M :1945 AGE: 76 LOC: 1153 PCP: Kosta Walker MD /reuben/ TASHI MÁRQUEZ MD STAFF PATHOLOGIST, PATHOLOGY & LABORATORY MED C Signed: 10/15/2021 17:11 Encounter Notes: All associated encounter notes This section contains the clinical notes associated to the Encounter. Date/Time Encounter Note(s) Provider Source Oct 15, 2021 05:11 PM PATHOLOGY REPORT: TASHI MÁRQUEZ [facility] LOCAL TITLE: LR SURGICAL PATHOLOGY REPORT STANDARD TITLE: PATHOLOGY REPORT DATE OF NOTE: OCT 15, 2021@17:11:59 ENTRY DATE: OCT 15, 2021@17:11:59 AUTHOR: TASHI MÁRQUEZ EXP COSIGNER: URGENCY: STATUS: COMPLETED $APHDR Reporting Lab: [facility] [CLIA# [id number]] [place] [address] - - - - - - - [...] - PATHOLOGY REPORT Accession No. [id number] - - - - - - - [...] - PATHOLOGY REPORT Accession No. [id number] - - - - - - - [...] cm in grea test dimension. CE. (D) [facility]/ MICROSCOPIC DESCRIPTION: Microscopic examination is performed. DIAGNOSIS [...] Performing Laboratory: Surgical Pathology Report Performed By: [facility] [CLIA# [id number]] [place] [address] $FTR - - - - - - - - - - - - - - - - - - - - - - - - - - - - - - - - - - - - - - - - (End of report) TASHI MÁRQUEZ MD [facility] Date Oct 15, 2021 - - - - - - - - - - - - - - - - - - - - - - - - - - - - - - - - - - - - - - - - JENNIFER HIDALGO STANDARD FORM 515 ID:[id number] SEX:M :1945 AGE: 76 LOC: 1153 PCP: Kosta Walker MD /reuben/ TASHI MÁRQUEZ MD STAFF PATHOLOGIST, PATHOLOGY & LABORATORY MED C Signed: 10/15/2021 17:11
--- OUTSIDE RECORDS SUMMARY | 2022-06-23 00:34 | XMS_ITS | Encounter Summary ---
:1945 Author Organization [facility] Address [address] [place] [id number] Support Name Relationship Address Phone BELA HIDALGO Unavailable [id number] [facility] [place] [address] BELA HIDALGO Unavailable [id number] [facility] [place] [address] Insurance Providers: All historical and current Section [...] Wahl RACHEL MCR MEDICARE MCR Nov 06, [id number] [phone] LUCRETIA CASTR PATIENT (WNR) ADVANTAGE (WNR) 2019 1 [id number] 0 CAITLYN RAMOS MCR MEDICARE MCR Nov 06, [id number] [phone] LUCRETIA CASTR PATIENT (WNR) ADVANTAGE (WNR) 2019 1 42 8 CAITLYN MEDICARE MEDICARE PART Dec 07, PART A [id number] P ATIENT (WNR) (M) A 2004 CY07 [phone] JENNIFER Kennedy MEDICARE MEDICARE PART Dec 07, PART B [id number] [place] HIDALGO ATIENT (WNR) (M) B 2004 CY07 [phone] CAITLYN -CARE OF MEDICARE MCR Nov 06, RICT [id number] [phone] JERI MORENOR PATIENT [facility] ADVANTAGE (WNR) [id number] CAITLYN (WNR) Selected Encounter This section includes the information on record at [place] for the Encounter. Date/Time Encounter Type Encounter Description Reason Provider Source Oct 13, 2021 03:19 Outpatient Encounter ENDOCRINOLOGY PM IHE Encounter Template Text not used by [place] Plan of Treatment: Future Appointments (+ 6 months) and Future Tests (+/- 45 days) The Plan of Treatment section includes future care activities for the [facility] [place] [facility] This section includes future appointments and future orders which are active, pending orscheduled.Future Appointments This section includes appointments that were scheduled to occur 6 months from the date of the Encounter, up to a maximum of 20 appointments. The data comes from all [place] treatment facilities. Appointment Date/Time Appointment Type Appointment Facili ty Name Oct 14, 2021 08:00 AM [facility]ULATORY [facility] Oct 18, 2021 03:30 PM [facility]ULATORY - [facility] Oct 19, 2021 09:45 AM AMBULATORY - NONE [facility] Oct 19, 2021 10:00 AM AMBULATORY NONE [facility] Oct 19, 2021 10:45 AM AMBULATORY - [facility] Nov 16, 2021 11:30 AM AMBULATORY - [facility] Nov 18, 2021 05:30 PM AMBULATORY - [facility] Dec 14, 2021 09:00 AM AMBULATORY - PSYCHIATRY [facility] Dec 21, 2021 07:30 AM AMBULATORY - NONE [facility] Dec 23, 2021 11:45 AM AMBULATORY - [facility] Dec 23, 2021 12:00 PM AMBULATORY - [facility] Dec 31, 2021 09:00 AM AMBULATORY - PSYCHIATRY [facility] Lab Results: +/- 30 days of the encounter This section includes the Chemistry and Hematology Lab Results on record with [place] for the patient. Radiology Reports and Pathology Reports are provided separately, in subsequent sections.Lab Results This section contains the Chemistry/Hematology Results that were resulted 30 days before or 30 daysafter the date of the Encounter. Date/Time Source Result Type Result - Unit Interpretation Reference Range Comment Nov 02, 2021 05:25 [facility] OCCULT BLOOD FIT X1 Speci men Type: FECES PM SCREEN No comment enter ed. Ordering Provid er: KOSTA WALKER Report Released Date/Time: Oct 23, 2021 07:11 AM Reporting Lab: [facility] [address] [facility] [address] Performing Lab: [facility] [address] [facility] [address] OCCULT BLOOD (FIT) #1 OF 1 Negative Neg ative Oct 19, 2021 09:36 [facility] LIPID PANEL,FASTING Speci men Type: PLASMA AM No comment enter ed. Ordering Provid er: SANAM QUEVEDO Report Released Date/Time: May 13, 2021 08:38 AM Reporting Lab: [facility] [address] [facility] [address] Performing Lab: [facility] [address] [facility] [address] CHOLESTEROL 101 <199 TRIGLYCERIDE 102 <149 .HDL 46 >40 LDL CALCULATION 35 <99 VLDL CALCULATION 20 <29 NON HDL CHOLESTEROL 55 <129 Oct 19, 2021 [facility] CREATININE(INCLUDES EGFR) Sp ecimen Type: PLASMA 09:36 AM No comment enter ed. Ordering Provid er: KOSTA WALKER Report Released Date/Time: Oct 18, 2021 03:48 PM Reporting Lab: [facility] [address] [facility] [address] Performing Lab: [facility] [address] [facility] [address] CREATININE 0.9 0.7-1.2 ESTIMATED GFR(eGFR) 82 >60 Oct 19, 2021 09:36 AM [facility] CBC Specim en Type: BLOOD No comment enter ed. Ordering Provid er: KOSTA WALKER Report Released Date/Time: Oct 18, 2021 03:48 PM Reporting Lab: [facility] [address] [facility] [address] Performing Lab: [facility] [address] [facility] [address] WBC 6.43 4.0-11.0 RBC 5.32 4.6-6.2 HGB 16.9 13.5-17.9 HCT 48.9 41-54 MCV 91.9 80-100 MCH 31.8 27-33 MCHC 34.6 32.0-37.5 PLT 208 150-400 MPV 10.8 H 7.4-10.4 RDW 13.2 11.5-14.5 Oct 19, 2021 09:36 AM [facility] GLUCOSE Specim en Type: PLASMA No comment enter ed. Ordering Provid er: KOSTA WALKER Report Released Date/Time: Oct 18, 2021 03:48 PM Reporting Lab: [facility] [address] [facility] [address] Performing Lab: [facility] [address] [facility] [address] GLUCOSE 105 H 74-100 Oct 19, 2021 09:36 AM [facility] HEMOGLOBIN A1C Specim en Type: BLOOD No comment enter ed. Ordering Provid er: KOSTA WALKER Report Released Date/Time: Oct 18, 2021 03:48 PM Reporting Lab: [facility] [address] [facility] [address] Performing Lab: [facility] [address] [facility] [address] HEMOGLOBIN A1C 5.8 4.0-6.0 Oct 19, 2021 09:36 [facility] ELECTROLYTES/ANION GAP Sp ecimen Type: PLASMA AM No comment enter ed. Ordering Provid er: KOSTA WALKER Report Released Date/Time: Oct 18, 2021 03:48 PM Reporting Lab: [facility] [address] [facility] [address] Performing Lab: [facility] [address] [facility] [address] SODIUM 138 136-145 POTASSIUM 3.9 3.5-5.1 CHLORIDE 103 98-107 CO2 29 22-29 ANION GAP 6 5-15 Oct 19, 2021 09:36 AM [facility] ALT/SGPT Specim en Type: PLASMA No comment enter ed. Ordering Provid er: KOSTA WALKER Report Released Date/Time: Oct 18, 2021 03:48 PM Reporting Lab: [facility] [address] [facility] [address] Performing Lab: [facility] [address] [facility] [address] ALT/SGPT 15 <55 Oct 19, 2021 09:36 AM [facility] AST/SGOT Specim en Type: PLASMA No comment enter ed. Ordering Provid er: KOSTA WALKER Report Released Date/Time: Oct 18, 2021 03:48 PM Reporting Lab: [facility] [address] [facility] [address] Performing Lab: [facility] [address] [facility] [address] AST/SGOT 17 <34 Oct 19, 2021 09:36 [facility] TSH W/REFLEX TO FREE Spec imen Type: PLASMA AM T4 No comment enter ed. Ordering Provid er: KOSTA WALKER Report Released Date/Time: Oct 18, 2021 03:48 PM Reporting Lab: [facility] [address] [facility] [address] Performing Lab: [facility] [address] [facility] [address] TSH 1.02 0.35-4.94 Oct 19, 2021 [facility] LIPID PANEL,NON-FASTING Spec imen Type: PLASMA 09:36 AM No comment enter ed. Ordering Provid er: KOSTA WALKER Report Released Date/Time: Oct 18, 2021 03:48 PM Reporting Lab: [facility] [address] [facility] [address] Performing Lab: [facility] [address] [facility] [address] CHOLESTEROL 102 <199 .HDL 48 >40 LDL CALCULATION 22 <99 VLDL CALCULATION 32 H <29 NON HDL CHOLESTEROL 54 <129 TRIG(NON FASTING) 160 H <149 Social History: Smoking Status (Most current) and Tobacco Use (All prior to encounter date) This section includes the most current, and the historical, smoking and tobacco-related health factors from the [place] facility where the Encounter took place.Current Smoking Status This section includes the most current smoking, or tobacco-related health factor, from the [place] facility where the Encounter took place. Date/Time Current Smoking Status Comment Facility 2019 01:06 PM VA-TOBACCO FORMER USER [facility] Tobacco Use History This section includes a history of the smoking, or tobacco- related health factors, that were collected on or before the date of the Encounter. The data comes from the [place] facility where the Encounter took place. Date/Time Smoking Status/Tobacco Use Comment [facility] it 2019 01:06 PM VA-TOBACCO QUIT 5 TO < 15 YRS [facility] Aug 09, 2018 01:15 PM VA-TOBACCO FORMER USER [facility] Aug 09, 2018 01:15 PM VA-TOBACCO QUIT 5 TO < 15 YRS [facility] Jun 26, 2018 08:02 PM INPT NO TOBACCO USE IN LAST 30 DAYS [facility] Feb 08, 2017 08:22 AM FORMER TOBACCO USER 7Y OR GREATER [facility] Apr 08, 2016 07:59 AM FORMER TOBACCO USER 7Y OR GREATER [facility] Dec 02, 2014 10:48 AM FORMER TOBACCO USER 7Y OR GREATER [facility] Feb 17, 2014 10:22 AM FORMER TOBACCO USER 7Y OR GREATER [facility] Dec 19, 2012 07:42 AM FORMER TOBACCO USE >1Y <7Y [facility] Jan 02, 2012 09:35 AM FORMER TOBACCO USE >1Y <7Y [facility] Dec 13, 2010 08:57 AM FORMER TOBACCO USE >1Y <7Y [facility] Sep 03, 2009 01:16 PM FORMER TOBACCO USE >1Y <7Y [facility] Sep 25, 2008 11:20 AM CURRENT TOBACCO USER [facility] Advance Directives: All historical and current Section Date Range: From patient's date of to the date document was created. This section includes ALL of a patient's completed or amended [place] Advance and Rescinded Directives. The entries below indicate that a directive exists for the patient, but an actual copy is not included with this document. The data comes from all [place] facilities. Date Advance Directives Provider Source Oct 02, 2017 CLINICAL WARNING EDJAXON Valencia Patricia [facility] Pathology Reports: +/- 30 days of [...] the Encounter. The data comes from all [facility] facilities. Date/Time Pathology Report Provider Source Oct 15, 2021 05:11 PM LR SURGICAL PATHOLOGY REPORT: TASHI MÁRQUEZ [facility] LOCAL TITLE: LR SURGICAL PATHOLOGY REPORT STANDARD TITLE: PATHOLOGY REPORT DATE OF NOTE: OCT 15, 2021@17:11:59 ENTRY DATE: OCT 15, 2021@17:11:59 AUTHOR: TASHI MÁRQUEZ EXP COSIGNER: URGENCY: STATUS: COMPLETED $APHDR Reporting Lab: [facility] [IA# [id number]] [address] [place] [address] - - - - - - - [...] - PATHOLOGY REPORT Accession No. [id number] - - - - - - - [...] - PATHOLOGY REPORT Accession No. [id number] - - - - - - - [...] cm in grea test dimension. CE. (D) [facility] MICROSCOPIC DESCRIPTION: Microscopic examination is performed. DIAGNOSIS [...] Performing Laboratory: Surgical Pathology Report Performed By: [facility] [CLIA# [id number]] [place] [address] $FTR - - - - - - [...] - - JENNIFER HIDALGO STANDARD FORM 515 ID:[id number] SEX:M :1945 AGE: 76 LOC: 1153 PCP: Kosta Walker MD /reuben/ TASHI MÁRQUEZ MD STAFF PATHOLOGIST, PATHOLOGY & LABORATORY MED SV C Signed: 10/15/2021 17:11 Encounter Notes: All associated encounter notes This section contains the clinical notes associated to the Encounter. Date/Time Encounter Note(s) Provider Source Oct 13, 2021 03:19 PM REPORT OF CONTACT: DARNELL HERNANDEZ [facility] LOCAL TITLE: APPOINTMENT SCHEDULING NOTE STANDARD TITLE: REPORT OF CONTACT DATE OF NOTE: OCT 13, 2021@15:19 ENTRY DATE: OCT 13, 2021@15:19:59 AUTHOR: DARNELL HERNANDEZ EXP COSIGNER: URGENCY: STATUS: COMPLETED Recall (PtCSch) contact efforts No response to scheduling efforts Contact: Automated letter sent to Veterans addr narciso on file on: Sep Contact: Called at phone: Oct Left message on voice mail. Phone number left for to call back: [phone] If [facility] calls back, schedule appointment for : Activity: 05/13/2021 11:08 New Order entered by SANAM QUEVEDO (FELLOW) Order Text: Return to [facility] PHONE KAREN on or around ( Oct 10, 2021 ) for a total of 1 appointment(s) Prerequisites: Labs (*FASTING) LIPID PANEL,FASTING PLASMA SP ONCE #[id number] m jun Mckeon or Dr. Quevedo per patient request /reuben/ DARNELL INFANTE Signed: 10/13/2021 15:21
--- OUTSIDE RECORDS SUMMARY | 2022-06-23 00:34 | XMS_ITS | Encounter Summary ---
:1945 Author Organization [facility] Address [address] [place] [address] Support Name Relationship Address Phone BELA HIDALGO Unavailable [address] [place] [address] BELA HIDALGO Unavailable [address] [place] [address] Insurance Providers: All historical and current Section [...] Wahl RACHEL MCR MEDICARE MCR Nov 06, [id number] LUCRETIA CASTR PATIENT (WNR) ADVANTAGE (WNR) 2019 1 42 0 CAITLYN RAMOS MCR MEDICARE MCR Nov 06, [id number] [phone] LUCRETIA CASTR PATIENT (WNR) ADVANTAGE (WNR) 2019 1 42 8 CAITLYN MEDICARE MEDICARE PART Dec 07, PART A [id number] P ATIENT (WNR) (M) A 2004 [id number] [phone] JENNIFER Kennedy MEDICARE MEDICARE PART Dec 07, PART B [id number] [place]ten HIDALGO P ATIENT (WNR) (M) B 2004 [id number] [phone] CAITLYN -CARE OF MEDICARE MCR Nov 06, RICT [id number] [phone] JERI MORENOR PATIENT [facility] ADVANTAGE (WNR) 2016 [id number] STANISLAWPAUL (WNR) Selected Encounter This section includes the information on record at [place] for the Encounter. Date/Time Encounter Type Encounter Description Reason Provider Source Oct 13, 2021 10:54 Outpatient Encounter GI ENDOSCOPY AM IHE Encounter Template Text not used by [facility] Plan of Treatment: Future Appointments (+ 6 months) and Future Tests (+/- 45 days) The Plan of Treatment section includes future care activities for the patient from all [place] [facility]. This section includes future appointments [...] 14, 2021 08:00 AM AMBULATORY - MEDICINE [facility] Oct 18, 2021 03:30 PM AMBULATORY - MEDICINE [facility] Oct 19, 2021 09:45 AM AMBULATORY - NONE [facility] Oct 19, 2021 10:00 AM AMBULATORY NONE [facility] Oct 19, 2021 10:45 AM AMBULATORY - MEDICINE [facility] Nov 16, 2021 11:30 AM AMBULATORY - MED[facility]INE [facility] Nov 18, 2021 05:30 PM AMBULATORY - MEDICINE [facility] Dec 14, 2021 09:00 AM AMBULATORY - PSYCHIATRY [facility] Dec 21, 2021 07:30 AM AMBULATORY - NONE [facility] Dec 23, 2021 11:45 AM AMBULATORY - MEDICINE [facility] Dec 23, 2021 12:00 PM AMBULATORY - MEDICINE [facility] Dec 31, 2021 09:00 AM AMBULATORY - PSYCHIATRY [facility] Lab Results: +/- 30 days of the [...] Reference Range Comment Nov 02, 2021 05:25 [facility] OCCULT BLOOD FIT X1 Speci men Type: FECES PM SCREEN No comment enter ed. Ordering Provid er: KOSTA WALKER Report Released Date/Time: Oct 23, 2021 07:11 AM Reporting Lab: [facility] [place] [facility] [address] Performing Lab: [facility] [address] [facility] [address] OCCULT BLOOD (FIT) #1 OF 1 Negative Neg ative Oct 19, 2021 09:36 [facility] LIPID PANEL,FASTING Speci men Type: PLASMA AM No comment enter ed. Ordering Provid er: SANAM QUEVEDO Report Released Date/Time: May 13, 2021 08:38 AM Reporting Lab: [facility] [address] [facility] [address] Performing Lab: [facility] [address] CHOLESTEROL 101 <199 TRIGLYCERIDE 102 <149 .HDL 46 >40 LDL CALCULATION 35 <99 VLDL CALCULATION 20 <29 NON HDL CHOLESTEROL 55 <129 Oct 19, 2021 [facility] CREATININE(INCLUDES EGFR) Sp ecimen Type: PLASMA 09:36 AM No comment enter ed. Ordering Provid er: KOSTA WALKER Report Released Date/Time: Oct 18, 2021 03:48 PM Reporting Lab: [facility] [address] Performing Lab: [facility] [address] CREATININE 0.9 0.7-1.2 ESTIMATED GFR(eGFR) 82 >60 Oct 19, 2021 09:36 AM [facility] CBC Specim en Type: BLOOD No comment enter ed. Ordering Provid er: KOSTA WALKER Report Released Date/Time: Oct 18, 2021 03:48 PM Reporting Lab: [facility] [address] [facility] [address] Performing Lab: [facility] [address] WBC 6.43 4.0-11.0 RBC 5.32 4.6-6.2 HGB 16.9 13.5-17.9 HCT 48.9 41-54 MCV 91.9 80-100 MCH 31.8 27-33 MCHC 34.6 32.0-37.5 PLT 208 150-400 MPV 10.8 H 7.4-10.4 RDW 13.2 11.5-14.5 Oct 19, 2021 09:36 [facility] ELECTROLYTES/ANION GAP Sp ecimen Type: PLASMA AM No comment enter ed. Ordering Provid er: KOSTA WALKER Report Released Date/Time: Oct 18, 2021 03:48 PM Reporting Lab: [facility] [address] [facility] [address] Performing Lab: [facility] [address] SODIUM 138 136-145 POTASSIUM 3.9 3.5-5.1 CHLORIDE 103 98-107 CO2 29 22-29 ANION GAP 6 5-15 Oct 19, 2021 09:36 AM [facility] GLUCOSE Specim en Type: PLASMA No comment enter ed. Ordering Provid er: KOSTA WALKER Report Released Date/Time: Oct 18, 2021 03:48 PM Reporting Lab: [facility] [address] [facility] [address] Performing Lab: [facility] [address] [facility] [address] GLUCOSE 105 H 74-100 Oct 19, 2021 09:36 AM [facility] HEMOGLOBIN A1C Specim en Type: BLOOD No comment enter ed. Ordering Provid er: KOSTA WALKER Report Released Date/Time: Oct 18, 2021 03:48 PM Reporting Lab: [facility] [address] [facility] [address] Performing Lab: [facility] [address] [facility] [address] HEMOGLOBIN A1C 5.8 4.0-6.0 Oct 19, 2021 09:36 AM [facility] AST/SGOT Specim en Type: PLASMA No comment enter ed. Ordering Provid er: KOSTA WALKER Report Released Date/Time: Oct 18, 2021 03:48 PM Reporting Lab: [facility] [address] [facility] [address] Performing Lab: [facility] [address] [facility] [address] AST/SGOT 17 <34 Oct 19, 2021 09:36 AM [facility] ALT/SGPT Specim en Type: PLASMA No comment enter ed. Ordering Provid er: KOSTA WALKER Report Released Date/Time: Oct 18, 2021 03:48 PM Reporting Lab: [facility] [address] [facility] [address] Performing Lab: [facility] [address] [facility] [address] ALT/SGPT 15 <55 Oct 19, 2021 09:36 [facility] TSH W/REFLEX TO FREE Spec imen Type: PLASMA AM T4 No comment enter ed. Ordering Provid er: KOSTA WALKER Report Released Date/Time: Oct 18, 2021 03:48 PM Reporting Lab: [facility] [address] [facility] [address] Performing Lab: [facility] [address] [facility] [address] TSH 1.02 0.35-4.94 Oct 19, 2021 [facility] LIPID PANEL,NON-FASTING Spec imen Type: PLASMA 09:36 AM No comment enter ed. Ordering Provid er: KOSTA WALKER Report Released Date/Time: Oct 18, 2021 03:48 PM Reporting Lab: [facility] [address] [place] [facility] [address] Performing Lab: [facility] [address] [place] [facility] [address] CHOLESTEROL 102 <199 .HDL 48 >40 LDL [...] VA-TOBACCO QUIT 5 TO < 15 YRS [facility] Tobacco Use History This section includes a history of the smoking, or tobacco- related health factors, that were collected on or before the date of the Encounter. The data comes from the [place] facility where the Encounter took place. Date/Time Smoking Status/Tobacco Use Comment [facility] 2019 01:06 PM VA-TOBACCO QUIT 5 TO < 15 YRS [facility] Aug 09, 2018 01:15 PM VA-TOBACCO FORMER USER [facility] Aug 09, 2018 01:15 PM VA-TOBACCO QUIT 5 TO < 15 YRS [facility] Jun 26, 2018 08:02 PM INPT NO TOBACCO USE IN LAST 30 DAYS [facility] Feb 08, 2017 08:22 AM FORMER TOBACCO USER 7Y OR GREATER [facility] Apr 08, 2016 07:59 AM FORMER TOBACCO USER 7Y OR GREATER [facility] Dec 02, 2014 10:48 AM FORMER TOBACCO USER 7Y OR GREATER [facility] Feb 17, 2014 10:22 AM FORMER TOBACCO USER 7Y OR GREATER [facility] Dec 19, 2012 07:42 AM FORMER TOBACCO USE >1Y <7Y [facility] Jan 02, 2012 09:35 AM FORMER TOBACCO USE >1Y <7Y [facility] Dec 13, 2010 08:57 AM FORMER TOBACCO USE >1Y <7Y [facility] Sep 03, 2009 01:16 PM FORMER TOBACCO USE >1Y <7Y [facility] Sep 25, 2008 11:20 AM CURRENT TOBACCO USER LYNETTE ELLIS [facility] Advance Directives: All historical [...] Source Oct 02, 2017 CLINICAL WARNING EDAnnieJAXON [facility] Pathology Reports: +/- 30 days of the [...] the Encounter. The data comes from all [facility] facilities. Date/Time Pathology Report Provider Source Oct 15, 2021 05:11 PM LR SURGICAL PATHOLOGY REPORT: TASHI MÁRQUEZ [facility] LOCAL TITLE: LR SURGICAL PATHOLOGY REPORT STANDARD TITLE: PATHOLOGY REPORT DATE OF NOTE: OCT 15, 2021@17:11:59 ENTRY DATE: OCT 15, 2021@17:11:59 AUTHOR: TASHI MÁRQUEZ EXP COSIGNER: URGENCY: STATUS: COMPLETED $APHDR Reporting Lab: [facility] [CLIA# [id number]] [address] [employer] [place] [address] - - - - - - - [...] - PATHOLOGY REPORT Accession No. [id number] - - - - - - - [...] - PATHOLOGY REPORT Accession No. [id number] - - - - - - - [...] cm in grea test dimension. CE. (D) [facility]/ MICROSCOPIC DESCRIPTION: Microscopic examination is performed. DIAGNOSIS [...] Performing Laboratory: Surgical Pathology Report Performed By: [facility] [CLIA# [id number]] [place] [address] $FTR - - - - - - - - - - - - - - - - - - - - - - - - - - - - - - - - - - - - - - - - (End of report) TASHI MÁRQUEZ MD [facility] [place] Date Oct 15, 2021 - - - - - - - - - - - - - - - - - - - - - - - - - - - - - - - - - - - - - - - - JENNIFER HIDALGO STANDARD FORM 515 ID:[id number] SEX:M :1945 AGE: 76 LOC: 1153 PCP: Kosta Walker MD /reuben/ TASHI MÁRQUEZ MD STAFF PATHOLOGIST, PATHOLOGY & LABORATORY MED SV C Signed: 10/15/2021 17:11
--- OUTSIDE RECORDS SUMMARY | 2022-06-23 00:34 | XMS_ITS | Encounter Summary ---
:1945 Author Organization [facility] Address [address] [place] [address] Support Name Relationship Address Phone BELA HIDALGO Unavailable [address] [facility] [phone] [place] [address] BELA HIDALGO Unavailable [phone] [facility] [place] [address] Insurance Providers: All historical and current Section [...] Wahl HUMANA MCR MEDICARE MCR Nov 06, [id number] [phone] LUCRETIA CASTR PATIENT (WNR) ADVANTAGE (WNR) 2019 1 42 8 CAITLYN HUMANA MCR MEDICARE MCR Nov 06, [id number] LUCRETIA CASTR PATIENT (WNR) ADVANTAGE (WNR) 2019 1 42 0 CAITLYN MEDICARE MEDICARE PART Dec 07, PART A [id number] P ATIENT (WNR) (M) A 2004 [id number] [phone] JENNIFER Kennedy MEDICARE MEDICARE PART Dec 07, PART B [id number] [place] HIDALGO P ATIENT (WNR) (M) B 2004 CY07 [phone] STANISLAWPAUL -CARE OF MEDICARE MCR Nov 06, RICT [id number] [phone] JERI RS,R PATIENT [facility] ADVANTAGE (WNR) 2016 [id number] ICHARD (WNR) Selected Encounter This section includes the information on record at [place] for the Encounter. Date/Time Encounter Type Encounter Description Reason Provider Source Oct 14, 2021 12:00 Outpatient Encounter EVENT (HISTORICAL) AM IHE Encounter Template Text not used by [place] Plan of Treatment: Future Appointments (+ 6 months) and Future Tests (+/- 45 days) The Plan of Treatment section includes future care activities for the patient from all [place] treatmentfacilities. This section includes future appointments and future orders which are active, pending orscheduled.Future Appointments This section includes appointments that were scheduled to occur 6 months from the date of the Encounter, up to a maximum of 20 appointments. The data comes from all [place] treatment facilities. Appointment Date/Time Appointment Type Appointment Facili ty Name Oct 18, 2021 03:30 PM AMBULATORY - MEDICINE [facility] Oct 19, 2021 09:45 AM AMBULATORY - NONE [facility] Oct 19, 2021 10:00 AM AMBULATORY NONE [facility] Oct 19, 2021 10:45 AM AMBULATORY - MEDICINE [facility] Nov 16, 2021 11:30 AM AMBULATORY - MEDICINE [facility] Nov 18, 2021 05:30 PM AMBULATORY - MEDICINE [facility] Dec 14, 2021 09:00 AM AMBULATORY - PSYCHIATRY [facility] Dec 21, 2021 07:30 AM AMBULATORY - NONE [facility] Dec 23, 2021 11:45 AM AMBULATORY - MEDICINE [facility] Dec 23, 2021 12:00 PM AMBULATORY - MEDICINE [facility] Dec 31, 2021 09:00 AM AMBULATORY - PSYCHIATRY [facility] Lab Results: +/- 30 days of the encounter This section includes the Chemistry and Hematology Lab Results on record with [place] for the patient. Radiology Reports and Pathology Reports are provided separately, in subsequent sections.Lab Results This section contains the Chemistry/Hematology Results that were resulted 30 days before or 30 daysafter the date of the Encounter. Date/Time Source Result Type Result - Unit Interpretation Reference Range Comment Nov 02, 2021 05:25 [facility] OCCULT BLOOD FIT X1 Speci men Type: FECES PM SCREEN No comment enter ed. Ordering Provid er: KOSTA WALKER Report Released Date/Time: Oct 23, 2021 07:11 AM Reporting Lab: [facility] [address] [place] [facility] [address] Performing Lab: [facility] [address] [facility] [address] [facility] [address] OCCULT BLOOD (FIT) #1 OF 1 Negative Neg ative Oct 19, 2021 09:36 [facility] LIPID PANEL,FASTING Speci men Type: PLASMA AM No comment enter ed. Ordering Provid er: SANAM QUEVEDO Report Released Date/Time: May 13, 2021 08:38 AM Reporting Lab: [facility] [address] [facility] [address] Performing Lab: [facility] [address] [facility] [address] CHOLESTEROL 101 <199 TRIGLYCERIDE 102 <149 .HDL 46 >40 LDL CALCULATION 35 <99 VLDL CALCULATION 20 <29 NON HDL CHOLESTEROL 55 <129 Oct 19, 2021 [facility] CREATININE(INCLUDES EGFR) Sp ecimen Type: PLASMA 09:36 AM No comment enter ed. Ordering Provid er: KOSTA WALKER Report Released Date/Time: Oct 18, 2021 03:48 PM Reporting Lab: [facility] [address] [facility] [address] Performing Lab: [facility] [address] [facility] [address] CREATININE 0.9 0.7-1.2 ESTIMATED GFR(eGFR) 82 >60 Oct 19, 2021 09:36 AM [facility] CBC Specim en Type: BLOOD No comment enter ed. Ordering Provid er: KOSTA WALKER Report Released Date/Time: Oct 18, 2021 03:48 PM Reporting Lab: [facility] [address] [facility] [address] Performing Lab: [facility] [address] [facility] [address] WBC 6.43 4.0-11.0 RBC 5.32 4.6-6.2 HGB 16.9 13.5-17.9 HCT 48.9 41-54 MCV 91.9 80-100 MCH 31.8 27-33 MCHC 34.6 32.0-37.5 PLT 208 150-400 MPV 10.8 H 7.4-10.4 RDW 13.2 11.5-14.5 Oct 19, 2021 09:36 AM [facility] HEMOGLOBIN A1C Specim en Type: BLOOD No comment enter ed. Ordering Provid er: KOSTA WALKER Report Released Date/Time: Oct 18, 2021 03:48 PM Reporting Lab: [facility] [address] [facility] [address] Performing Lab: [facility] [address] [facility] [address] HEMOGLOBIN A1C 5.8 4.0-6.0 Oct 19, 2021 09:36 [facility] ELECTROLYTES/ANION GAP Sp ecimen Type: PLASMA AM No comment enter ed. Ordering Provid er: KOSTA WALKER Report Released Date/Time: Oct 18, 2021 03:48 PM Reporting Lab: [facility] [address] [facility] [address] Performing Lab: [facility] [address] [facility] [address] SODIUM 138 136-145 POTASSIUM 3.9 3.5-5.1 CHLORIDE 103 98-107 CO2 29 22-29 ANION GAP 6 5-15 Oct 19, 2021 09:36 AM [facility] GLUCOSE Specim en Type: PLASMA No comment enter ed. Ordering Provid er: KOSTA WALKER Report Released Date/Time: Oct 18, 2021 03:48 PM Reporting Lab: [facility] [address] [facility] [address] Performing Lab: [facility] [address] [facility] [address] GLUCOSE 105 H 74-100 Oct 19, 2021 09:36 AM [facility] AST/SGOT Specim en Type: PLASMA No comment enter ed. Ordering Provid er: KOSTA WALKER Report Released Date/Time: Oct 18, 2021 03:48 PM Reporting Lab: [facility] [address] [facility] [address] Performing Lab: [facility] [address] [facility] [address] AST/SGOT 17 <34 Oct 19, 2021 09:36 AM [facility] ALT/SGPT Specim en Type: PLASMA No comment enter ed. Ordering Provid er: KOSTA WALKER Report Released Date/Time: Oct 18, 2021 03:48 PM Reporting Lab: [facility] [address] [facility] [address] Performing Lab: [facility] [address] [facility] [address] ALT/SGPT 15 <55 Oct 19, 2021 09:36 [facility] TSH W/REFLEX TO FREE Spec imen Type: PLASMA AM T4 No comment enter ed. Ordering Provid er: KOSTA WALKER Report Released Date/Time: Oct 18, 2021 03:48 PM Reporting Lab: [facility] [address] [facility] [address] Performing Lab: [facility] [address] [facility] [address] TSH 1.02 0.35-4.94 Oct 19, 2021 [facility] LIPID PANEL,NON-FASTING Spec imen Type: PLASMA 09:36 AM No comment enter ed. Ordering Provid er: KOSTA WALKER Report Released Date/Time: Oct 18, 2021 03:48 PM Reporting Lab: [facility] [address] [place] [facility] [address] Performing Lab: [facility] [address] [facility] [address] CHOLESTEROL 102 <199 .HDL 48 >40 LDL CALCULATION 22 <99 VLDL CALCULATION 32 H <29 NON HDL CHOLESTEROL 54 <129 TRIG(NON FASTING) 160 H <149 Social History: Smoking Status (Most current) and Tobacco Use (All prior to encounter date) This section includes the most current, and the historical, smoking and tobacco-related health factors from the [place] facility where the Encounter took place.Current Smoking Status This section includes the most current smoking, or tobacco-related health factor, from the [place] facility where the Encounter took place. Date/Time Current Smoking Status Comment Facility 2019 01:06 PM VA-TOBACCO QUIT 5 TO < 15 YRS [facility] Tobacco Use History This section includes a history of the smoking, or tobacco- related health factors, that were collected on or before the date of the Encounter. The data comes from the [place] facility where the Encounter took place. Date/Time Smoking Status/Tobacco Use Comment Facil it 2019 01:06 PM VA-TOBACCO QUIT 5 TO < 15 YRS [facility] Aug 09, 2018 01:15 PM VA-TOBACCO FORMER USER [facility] Aug 09, 2018 01:15 PM VA-TOBACCO QUIT 5 TO < 15 YRS [facility] Jun 26, 2018 08:02 PM INPT NO TOBACCO USE IN LAST 30 DAYS [facility] Feb 08, 2017 08:22 AM FORMER TOBACCO USER 7Y OR GREATER [facility] Apr 08, 2016 07:59 AM FORMER TOBACCO USER 7Y OR GREATER [facility] Dec 02, 2014 10:48 AM FORMER TOBACCO USER 7Y OR GREATER [facility] Feb 17, 2014 10:22 AM FORMER TOBACCO USER 7Y OR GREATER [facility] Dec 19, 2012 07:42 AM FORMER TOBACCO USE >1Y <7Y [facility] Jan 02, 2012 09:35 AM FORMER TOBACCO USE >1Y <7Y [facility] Dec 13, 2010 08:57 AM FORMER TOBACCO USE >1Y <7Y [facility] Sep 03, 2009 01:16 PM FORMER TOBACCO USE >1Y <7Y [facility] Sep 25, 2008 11:20 AM CURRENT TOBACCO USER LYNETTE ELLIS [facility] Advance Directives: All historical and current Section Date Range: From patient's date of to the date document was created. This section includes ALL of a patient's completed or amended [place] Advance and Rescinded Directives. The entries below indicate that a directive exists for the patient, but an actual copy is not included with this document. The data comes from all [place] facilities. Date Advance Directives Provider Source Oct 02, 2017 CLINICAL WARNING EDJAXON Valencia Patricia [facility] Pathology Reports: +/- 30 days of the [...] the Encounter. The data comes from all [place] treatment facilities. Date/Time Pathology Report Provider Source Oct 15, 2021 05:11 PM LR SURGICAL PATHOLOGY REPORT: TASHI MÁRQUEZ [facility] LOCAL TITLE: LR SURGICAL PATHOLOGY REPORT STANDARD TITLE: PATHOLOGY REPORT DATE OF NOTE: OCT 15, 2021@17:11:59 ENTRY DATE: OCT 15, 2021@17:11:59 AUTHOR: TASHI MÁRQUEZ EXP COSIGNER: URGENCY: STATUS: COMPLETED $APHDR Reporting Lab: [facility] [CLIA# [id number]] [place] [address] - - - - - - - [...] - PATHOLOGY REPORT Accession No. [id number] - - - - - - - [...] - PATHOLOGY REPORT Accession No. [id number] - - - - - - - [...] cm in grea test dimension. CE. (D) [facility]/ MICROSCOPIC DESCRIPTION: Microscopic examination is performed. [...] Performing Laboratory: Surgical Pathology Report Performed By: [facility] [CLIA# [id number]] [place] [address] $FTR - - - - - - - - - - - - - - - - - - - - - - - - - - - - - - - - - - - - - - - - (End of report) TASHI MÁRQUEZ MD [facility] [place] Date Oct 15, 2021 - - - - - - - - - - - - - - - - - - - - - - - - - - - - - - - - - - - - - - - - JENNIFER HIDALGO STANDARD FORM 515 ID:[id number] SEX:M :1945 AGE: 76 LOC: 1153 PCP: Kosta Walker MD /reuben/ TASHI MÁRQUEZ MD STAFF PATHOLOGIST, PATHOLOGY & LABORATORY MED SV C Signed: 10/15/2021 17:11
--- OUTSIDE RECORDS SUMMARY | 2022-06-23 00:34 | XMS_ITS ---
NON-OR ANESTHESIA PROCEDURES [facility] Encounter Summary Created on:October 14, 2021 Patient:JENNIFER HIDALGO Sex:Male :1945 [address] Organization Department [facility] Address [address] [place] [id number] Support Name Relationship Address Phone BELA HIDALGO Unavailable [address] [place] [address] BELA HIDALGO Unavailable [address] [facility] [phone] [place] [address] Insurance Providers: All historical and current Section [...] [facility]ENTER[facility] M[facility] MEDICARE MCR Nov 06, [id number] [phone] Colten MCNAMARA PATIENT (WNR) ADVANTAGE (WNR) 2019 1 42 8 CAITLYN HUMANA MCR MEDICARE MCR Nov 06, [id number] [phone] Colten MCNAMARA PATIENT (WNR) ADVANTAGE (WNR) 2019 1 42 0 CAITLYN MEDICARE MEDICARE PART Dec 07, PART A [id number] P ATIENT (WNR) (M) A 2004 [id number] [phone] JENNIFER Kennedy MEDICARE MEDICARE PART Dec 07, PART B [id number] Colten HIDALGO P ATIENT (WNR) (M) B 2004 [id number] [phone] STANISLAWPAUL -CARE OF MEDICARE MCR Nov 06, RICT [id number] [phone] Colten ALEJANDRO PATIENT [facility] ADVANTAGE (WNR) [id number] ICHARD (WNR) Selected Encounter This section includes the information on record at [place] for the Encounter. Date/Time Encounter Type Encounter Reason Provider Source Description Oct 14, 2021 ANES UPR GI NDSC NON-OR ANESTHESIA ICD-10-CM K22.70 HERMELINDO TENORIO 10:18 AM PX NOS PROCEDURES Patricio's esophagus without dysplasia with Provider Comments: Patricio's esophagus (SCT [id number]) IHE Encounter Template Text not used by [place] Assessments - Encounter Diagnoses This section includes the primary and secondary diagnoses documented for the Encounter. Date/Time Primary/Secondary Diagnosis Name Provider Source Diagnosis Oct 14, 2021 PRIMARY Patricio's HERMELINDO HOFF [facility] 10:20 AM esophagus without dysplasia Plan of Treatment: Future Appointments (+ 6 months) and Future Tests (+/- 45 days) The Plan of Treatment section includes future care activities for the patient [facility] [place] [facility] This section includes future appointments and future orders which are active, pending orscheduled.Future Appointments This section includes appointments that were scheduled to occur 6 months from the date of the Encounter, up to a maximum of 20 appointments. The data comes from all [place] treatment facilities. Appointment Date/Time Appointment Type Appointment Facili ty Name Oct 18, 2021 03:30 PM AMBULATORY - MEDICINE [facility] Oct 19, 2021 09:45 AM AMBULATORY - NONE [facility] Oct 19, 2021 10:00 AM AMBULATORY [facility] Oct 19, 2021 10:45 AM AMBULATORY - MEDICINE [facility] Nov 16, 2021 11:30 AM AMBULATORY - MEDICINE [facility] Nov 18, 2021 05:30 PM AMBULATORY MEDICINE [facility] Dec 14, 2021 09:00 AM AMBULATORY - PSYCHIATRY [facility] Dec 21, 2021 07:30 AM AMBULATORY [facility] Dec 23, 2021 11:45 AM AMBULATORY - MEDICINE [facility] Dec 23, 2021 12:00 PM AMBULATORY - MEDICINE [facility] Dec 31, 2021 09:00 AM AMBULATORY - PSYCHIATRY [facility] Lab Results: +/- 30 days of the encounter This section includes the Chemistry and Hematology Lab Results on record with [place] for the patient. Radiology Reports and Pathology [...] Lab: [facility] [address] [facility] [address] Performing Lab: [facility] [address] [facility] [address] OCCULT BLOOD (FIT) #1 OF 1 Negative Neg ative Oct 19, 2021 09:36 [facility] LIPID PANEL,FASTING Speci men Type: PLASMA AM No comment enter ed. Ordering Provid er: SANAM QUEVEDO Report Released Date/Time: May 13, 2021 08:38 AM Reporting Lab: [facility] [address] [facility] [address] Performing Lab: [facility] [address] [facility] [address] CHOLESTEROL 101 <199 TRIGLYCERIDE 102 <149 .HDL 46 >40 LDL CALCULATION 35 <99 VLDL CALCULATION 20 <29 NON HDL CHOLESTEROL 55 <129 Oct 19, 2021 [facility] CREATININE(INCLUDES EGFR) Sp ecimen Type: PLASMA 09:36 AM No comment enter ed. Ordering Provid er: KOSTA WALKER Report Released Date/Time: Oct 18, 2021 03:48 PM Reporting Lab: [facility] [address] [facility] [address] Performing Lab: [facility] [address] [facility] [address] CREATININE 0.9 0.7-1.2 ESTIMATED GFR(eGFR) 82 >60 Oct 19, 2021 09:36 AM [facility] CBC Specim en Type: BLOOD No comment enter ed. Ordering Provid er: KOSTA WALKER Report Released Date/Time: Oct 18, 2021 03:48 PM Reporting Lab: [facility] [address] [facility] [address] Performing Lab: [facility] [address] [facility] [address] WBC 6.43 4.0-11.0 RBC 5.32 4.6-6.2 HGB [...] Lab: [facility] [address] [facility] [address] Performing Lab: [facility] [address] [facility] [address] GLUCOSE 105 H 74-100 Oct 19, 2021 09:36 AM [facility] HEMOGLOBIN A1C Specim en Type: BLOOD No comment enter ed. Ordering Provid er: KOSTA WALKER Report Released Date/Time: Oct 18, 2021 03:48 PM Reporting Lab: [facility] [address] [facility] [address] Performing Lab: [facility] [address] [facility] [address] HEMOGLOBIN A1C 5.8 4.0-6.0 Oct 19, 2021 09:36 [facility] ELECTROLYTES/ANION GAP Sp ecimen Type: PLASMA AM No comment enter ed. Ordering Provid er: KOSTA WALKER Report Released Date/Time: Oct 18, 2021 03:48 PM Reporting Lab: [facility] [address] [facility] [address] Performing Lab: [facility] [address] [facility] [address] SODIUM 138 136-145 POTASSIUM 3.9 3.5-5.1 CHLORIDE 103 98-107 CO2 29 22-29 ANION GAP 6 5-15 Oct 19, 2021 09:36 AM [facility] AST/SGOT Specim en Type: PLASMA No comment enter ed. Ordering Provid er: KOSTA WALKER Report Released Date/Time: Oct 18, 2021 03:48 PM Reporting Lab: [facility] [address] [facility] [address] Performing Lab: [facility] [address] [facility] [address] AST/SGOT 17 <34 Oct 19, 2021 09:36 AM [facility] ALT/SGPT Specim en Type: PLASMA No comment enter ed. Ordering Provid er: KOSTA WALKER Report Released Date/Time: Oct 18, 2021 03:48 PM Reporting Lab: [facility] [address] [facility] [address] Performing Lab: [facility] [address] [facility] [address] ALT/SGPT 15 <55 Oct 19, 2021 09:36 [facility] TSH W/REFLEX TO FREE Spec imen Type: PLASMA AM T4 No comment enter ed. Ordering Provid er: KOSTA WALKER Report Released Date/Time: Oct 18, 2021 03:48 PM Reporting Lab: [facility] [address] [facility] [address] Performing Lab: [facility] [address] [facility] [address] TSH 1.02 0.35-4.94 Oct 19, 2021 [facility] LIPID PANEL,NON-FASTING Spec imen Type: PLASMA 09:36 AM No comment enter ed. Ordering Provid er: KOSTA WALKER Report Released Date/Time: Oct 18, 2021 03:48 PM Reporting Lab: [facility] [address] [facility] [address] Performing Lab: [facility] [address] [facility] [address] CHOLESTEROL 102 <199 .HDL 48 >40 LDL CALCULATION 22 <99 VLDL CALCULATION 32 H <29 NON HDL CHOLESTEROL 54 <129 TRIG(NON FASTING) 160 H <149 Social History: Smoking Status (Most current) and Tobacco Use (All prior to encounter date) This section includes the most current, and the historical, smoking and tobacco-related health factors from the [place] facility where the Encounter took place.Current Smoking Status This section includes the most current smoking, or tobacco-related health factor, from the [place] facility where the Encounter took place. Date/Time Current Smoking Status Comment Facility 2019 01:06 PM SD-TOBACCO QUIT 5 TO < 15 YRS [facility] Tobacco Use History This section includes a history of the smoking, or tobacco- related health factors, that were collected on or before the date of the Encounter. The data comes from the [place] facility where the Encounter took place. Date/Time Smoking Status/Tobacco Use Comment [facility] 2019 01:06 PM VA-TOBACCO QUIT 5 TO < 15 YRS [facility] Aug 09, 2018 01:15 PM VA-TOBACCO FORMER USER [facility] Aug 09, 2018 01:15 PM SD-TOBACCO QUIT 5 TO < 15 YRS [facility] [...] 11:20 AM CURRENT TOBACCO USER [facility] Advance Directives: All historical and current Section Date Range: From patient's date of to the date document was created. This section includes ALL of a patient's completed or amended [place] Advance and Rescinded Directives. The entries below indicate that a directive exists for the patient, but an actual copy is not included with this document. The data comes from all [place] facilities. Date Advance Directives Provider Source Oct 02, 2017 CLINICAL WARNING [place]ON LONG [facility] Pathology Reports: +/- 30 [...] the Encounter. The data comes from all [place] treatment facilities. Date/Time Pathology Report Provider Source Oct 15, 2021 05:11 PM LR SURGICAL PATHOLOGY REPORT: TASHI MÁRQUEZ [facility] LOCAL TITLE: LR SURGICAL PATHOLOGY REPORT STANDARD TITLE: PATHOLOGY REPORT DATE OF NOTE: OCT 15, 2021@17:11:59 ENTRY DATE: OCT 15, 2021@17:11:59 AUTHOR: TASHI MÁRQUEZ EXP COSIGNER: URGENCY: STATUS: COMPLETED $APHDR Reporting Lab: [facility] [CLIA# [id number]] [place] [address] - - - - - - - [...] - PATHOLOGY REPORT Accession No. [id number] - - - - - - - [...] - PATHOLOGY REPORT Accession No. [id number] - - - - - - - [...] in grea test dimension. CE[facility] MICROSCOPIC DESCRIPTION: Microscopic examination is performed. DIAGNOSIS [...] Report Performed By: [facility] [CLIA# [id number]] [place] [address] $FTR - - - - - - - - - - - - - - - - - - - - - - - - - - - - - - - - - - - - - - - - (End of report) TASHI MÁRQUEZ MD [facility] Date Oct 15, 2021 - - - - - - - - - - - - - - - - - - - - - - - - - - - - - - - - - - - - - - - - JENNIFER HIDALGO STANDARD FORM 515 ID:[id number] SEX:M :1945 AGE: 76 LOC: 1153 PCP: Kosta Walker MD /reuben/ TASHI MÁRQUEZ MD STAFF PATHOLOGIST, PATHOLOGY & LABORATORY MED SV C Signed: 10/15/2021 17:11 Encounter Notes: All associated encounter notes This section contains the clinical notes associated to the Encounter. Date/Time Encounter Note(s) Provider Source Oct 14, 2021 10:18 AM ANESTHESIOLOGY NOTE: HERMELINDO HOFF [facility] TITLE: ANESTHESIA NON OR PROCEDURE NOTE STANDARD TITLE: ANESTHESIOLOGY NOTE DATE OF NOTE: OCT 14, 2021@10:18 ENTRY DATE: OCT 14, 2021@10:18:15 AUTHOR: HERMELINDO HOFF COSIGNER: URGENCY: STATUS: COMPLETED Prinicipal Procedure: Anesthesia for EGD, RFA Location of Procedure: GI Suite Date: October 14, 2021 Anesthesia start time: 845 Procedure start time: 900 Procedure end time: 917 Anesthesia end time: 927 Principal donor services technician: Deion Anesthesiologist: Jin Student: No Anesthesia technique: Monitored Anesthesia Care /reuben/ HERMELINDO HOFF CRNA CERTIFIED REGISTERED NURSE STOCK ASSOCIATE Signed: 10/14/2021 10:20
--- OUTSIDE RECORDS SUMMARY | 2022-06-23 00:35 | XMS_ITS | Encounter Summary ---
:1945 Author Organization [facility] Address [address] [place] [address] Support Name Relationship Address Phone BELA HIDALGO Unavailable [address] [facility] [phone] [place] [address] BELA HIDALGO Unavailable [address] [facility] [address] Insurance Providers: All historical and current Section [...] Telephone Name to Policy Number [facility] MCR Nov 06, [id number] [phone] LUCRETIA CASTR PATIENT (WNR) ADVANTAGE (WNR) 2019 1 42 8 CAITLYN [facility] MEDIC[facility] MCR Nov 06, [id number] [phone] LUCRETIA CASTR PATIENT (WNR) ADVANTAGE (WNR) 2019 1 42 0 CAITLYN MEDICARE MEDICARE PART Dec 07, PART A [id number] P ATIENT (WNR) (M) A 2004 [id number] [phone] JENNIFER Kennedy MEDICARE MEDICARE PART Dec 07, PART B [id number] Colten HIDALGO P ATIENT (WNR) (M) B 2004 [phone] CAITLYN -CARE OF MEDICARE MCR Nov 06, RICT [id number] [phone] JERI RSR PATIENT [facility] ADVANTAGE (WNR) [id number] ICHARD (WNR) Selected Encounter This section includes the information on record at [place] for the Encounter. Date/Time Encounter Type Encounter Reason Provider Source Description Sep 17, 2021 OFFICE O/P EST OPTOMETRY ICD-10-CM SALVATORE SANCHEZ 07:20 AM MOD 30-39 MIN H25.13 S Age-related nuclear cataract, bilateral with Provider Comments: Age-related nuclear cataract, bilateral IHE Encounter Template Text not used by [facility] Assessments - Encounter Diagnoses This section includes the primary and secondary diagnoses documented for the Encounter. 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 This section includes future appointments and future orders which are active, pending orscheduled.Future Appointments This section includes appointments that were scheduled to occur 6 months from the date of the Encounter, up to a maximum of 20 appointments. The data comes from all [place] treatment facilities. Appointment Date/Time Appointment Type Appointment Facili ty Name Oct 07, 2021 02:00 PM AMBULATORY - MEDICINE [facility] Oct 14, 2021 08:00 AM AMBULATORY - MEDICINE [facility] Oct 18, 2021 03:30 PM AMBULATORY - MEDICINE [facility] Oct 19, 2021 09:45 AM AMBULATORY - NONE [facility] Oct 19, 2021 10:00 AM AMBULATORY - NONE [facility] Oct 19, 2021 10:45 AM AMBULATORY - MEDICINE [facility] Nov 16, 2021 11:30 AM AMBULATORY - MEDICINE [facility] Nov 18, 2021 05:30 PM AMBULATORY - MEDICINE [facility] Dec 14, 2021 09:00 AM AMBULATORY - PSYCHIATRY [facility] Dec 21, 2021 07:30 AM AMBULATORY - NONE [facility] Dec 23, 2021 11:45 AM AMBULATORY - MEDICINE [facility] Dec 23, 2021 12:00 PM AMBULATORY - MEDICINE [facility] Dec 31, 2021 09:00 AM AMBULATORY - PSYCHIATRY [facility] Social History: Smoking Status (Most current) and Tobacco Use (All prior to encounter date) This section includes the most current, and the historical, smoking and tobacco-related health factors from the [place] facility where the Encounter took place.Current Smoking Status This section includes the most current smoking, or tobacco-related health factor, from the [place] facility where the Encounter took place. Date/Time Current Smoking Status Comment Facility 2019 01:06 PM VA-TOBACCO FORMER USER [facility] Tobacco Use History This section includes a history of the smoking, or tobacco- related health factors, that were collected on or before the date of the Encounter. The data comes from the [place] facility where the Encounter took place. Date/Time Smoking Status/Tobacco Use Comment Facil it 2019 01:06 PM VA-TOBACCO QUIT 5 TO < [address] [facility] Aug 09, 2018 01:15 PM VA-TOBACCO FORMER USER MIN [facility] Aug 09, 2018 01:15 PM VA-TOBACCO QUIT 5 TO < [address] [facility] Jun 26, 2018 08:02 PM INPT NO TOBACCO USE IN LAST [address] [facility] Feb 08, 2017 08:22 AM FORMER TOBACCO USER 7Y OR GREATER [facility] Apr 08, 2016 07:59 AM FORMER TOBACCO USER 7Y OR GRE[facility] Dec 02, 2014 10:48 AM FORMER TOBACCO USER 7Y OR GREATER [facility] Feb 17, 2014 10:22 AM FORMER TOBACCO USER 7Y OR GRE[address] [facility] Dec 19, 2012 07:42 AM FORMER TOBACCO USE >1Y <7Y [facility] Jan 02, 2012 09:35 AM FORMER TOBACCO USE >1Y <7Y [facility] Dec 13, 2010 08:57 AM FORMER TOBACCO USE >1Y <7Y [facility] Sep 03, 2009 01:16 PM FORMER TOBACCO USE >1Y <7Y [facility] Sep 25, 2008 11:20 AM CURRENT TOBACCO USER [facility] Advance Directives: All historical and current Section Date Range: From patient's date of to the date document was created. This section includes ALL of a patient's completed or amended [place] Advance and Rescinded Directives. The entries below indicate that a directive exists for the patient, but an actual copy is not included with this document. The data comes from all [facility]. Date Advance Directives Provider Source Oct 02, [address] [facility] Pathology Reports: +/- 30 days [...] the Encounter. The data comes from all [place] treatment facilities. Date/Time Pathology Report Provider Source Oct 15, 2021 05:11 PM LR SURGICAL PATHOLOGY REPORT: TASHI MÁRQUEZ [facility] LOCAL TITLE: LR SURGICAL PATHOLOGY REPORT STANDARD TITLE: PATHOLOGY REPORT DATE OF NOTE: OCT 15, 2021@17:11:59 ENTRY DATE: OCT 15, 2021@17:11:59 AUTHOR: TASHI MÁRQUEZ EXP COSIGNER: URGENCY: STATUS: COMPLETED $APHDR Reporting Lab: [facility] [CLIA# [id number]] [place] [address] - - - - - - - [...] - PATHOLOGY REPORT Accession No. [id number] - - - - - - - [...] - PATHOLOGY REPORT Accession No. [id number] - - - - - - - [...] cm in grea test dimension. CE. [facility] MICROSCOPIC DESCRIPTION: Microscopic examination [...] Performing Laboratory: Surgical Pathology Report Performed By: [facility] [CLIA# [id number]] [place] [address] $FTR - - - - - - - - - - - - - - - - - - - - - - - - - - - - - - - - - - - - - - - - (End of report) TASHI MÁRQUEZ MD [facility] Date Oct 15, 2021 - - - - - - - - - - - - - - - - - - - - - - - - - - - - - - - - - - - - - - - - JENNIFER HIDALGO STANDARD FORM 515 ID:[id number] SEX:M :1945 AGE: 76 LOC: 1153 PCP: Ruba Be MD /reuben/ TASHI MÁRQUEZ MD STAFF PATHOLOGIST, PATHOLOGY & LABORATORY MED C Signed: 10/15/2021 17:11 Encounter Notes: All associated encounter notes This section contains the clinical notes associated to the Encounter. Date/Time Encounter Note(s) Provider Source Sep 17, 2021 07:23 AM HAND I CUTTER NOTE: LOLLY JOSHI [facility] LOCAL TITLE: HAND I CUTTER NOTE STANDARD TITLE: HAND I CUTTER NOTE DATE OF NOTE: SEP 17, 2021@07:23 ENTRY DATE: SEP 17, 2021@07:23:30 AUTHOR: ALISSA JOSHI EXP COSIGNER: URGENCY: STATUS: COMPLETED Eye Start Exam Patient: JENNIFER HIDALGO Sex: MALE Birthdate: [birth year] Chief complaint: Patient presents for a comprhensive eye exam. Mahesh jacobson feels that his vision has gotten foggy, especially in the last several wee ks. He has been noticing a FBS in the temporal corner of the OD that comes and goes. He denies any flashes of light or changes to his floaters. History of Present Illness: Location: Intensity: Duration: Active problems - Computerized Problem List is t he source for the followin. Coronary artery disease - S/P CABG x 3 n 2001. - S/P stents to OM1 and D1 in 2006. 2. Peripheral vascular disease (SN[place] [id number]) 3. Hyperlipidemia (SNOMED CT [id number]) 4. Tobacco Use 5. Patricio's esophagus (SNOMED CT [id number]) 6. Dual Care - Dr. Zhao, PCP [facility] Cardiology 7. Hypertension 8. Lower urinary tract symptoms 9. Migraine 10. Elevated PSA 11. 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 Sleep apnea - severe per sleep study done 2018 Surgeries: DEC 05, 2019 Proc: EGD/rfa JUL 11, 2019 Proc: EGD/RFA APR 18, 2019 Proc: EGD/RFA/MAC JAN 10, 2019 Proc: EGD, Halo 360 SEP 05, 2018 Proc: EGD, Halo 360 Full Exam Eye Medications Patient denies eye medication use. Allergies: ROSUVASTATIN (Jul 15, 2012) PRAVASTATIN (Feb 07, 2013) LIPITOR (March 07, 2013) SIMVASTATIN (Jun 16, 2013) No new Allergies. Past Medical History: Hypertension High cholesterol Past eye history: Cataracts : Past eye surgeries: Denies all Social History: Alcohol use - Yes Tobacco use - No Last refraction: Vision: OD:CC(with glasses) OD: 20/50 Pinhole: 20/25 Near: 20/ Vision: OS: 0S: 20/30 Pinhole: 20/20-2 Near: 20/ Current glasses: OD:+0.50 sphX Prism: OS:+0.25 +0.38I573 Prism: Add: +2.75 Confrontational Payton: Full to finger counting: Right: Yes Left: Yes Extra Ocular Movement: Normal Pupils: Right: Round Left: Round Size: Right: 4 Left: 4 React to light: Right: Yes Left: Afferent pupil defect: Right:No Grade: Left: No Grade: Note: Intra-ocular pressure (IOP): OD: 13 OS: 9 iCare Dilation: mydriacyl 1% and neosynephrine OU Sep@07:37 /reuben/ ALISSA Hamilton [facility] OPHTHALMOLOGY [place] [employer] LIBRARY CLERK Signed: 09/17/2021 07:37 Sep 17, 2021 07:00 AM OPTOMETRY NOTE: CIRILO ROSE [facility] LOCAL TITLE: OPTOMETRY CLINIC NOTE STANDARD TITLE: OPTOMETRY NOTE DATE OF NOTE: SEP 17, 2021@07:00 ENTRY DATE: SEP 17, 2021@07:00:19 AUTHOR: CIRILO ROSE EXP COSIGNER: URGENCY: STATUS: COMPLETED Reviewed and agree with tech notes, add: 76 year old WHITE MALE CC: Reports vision has gotten foggy in the last several weeks. Has a FBS in outer corner of OD that comes and goes. Does not use ATs. PMHx: CAD, HLD, HTN, migraine, sleep apnea Mental Status: alert and orientation to time and place Mood, affect: Appropriate Entering VAcc OD: 20/50 OS: 20/30 Manifest Refraction/Final Spectacle Prescription : OD:-0.75+0.44y087 VA:20/25 OS:plano+0.95e372 VA:20/25 Add:+2.75 SLEx (OU unless otherwise noted): Adnexa/Orbit: clear Lids/Lashes: inspissation, dermatochalasis Conjunctiva: White and quiet, (-)FB Cornea: Clear, no staining Anterior Chamber: Deep and quiet Iris: No tears, no NVI Lens: 2+ NSC, 2+ cortical vacuoles --- Intra-ocular pressure (IOP): OD: 13 OS: 9 iCare Dilation: mydriacyl 1% and neosynephrine OU --- Fundus Exam (OU unless otherwise noted): ONH: 0.45 OD, 0.5 OS Rim tissue well perfused OU, distinct margins, n o pallor Macula: flat/dry, few drusen inf OD Vessels: Normal caliber, no heme, no NVE Vitreous: Syneresis Periphery: Flat and intact with no holes or tear s 360' Assessment/Plan 1. Nuclear sclerosis OU -mildly visually significant. Monitor. 2. Presbyopia OU -Released copy of final SRx to patient. 3. Dry eye syndrome OU -recommend ATs BID OU, monitor 4. Macular drusen OD -pt is current non-smoker, educated on healthy diet and UV protection -monitor Recommend RTC 1 year or sooner with changes I have discussed this patient with my kumar pervising practitioner Dr. Sanchez, and Dr. Sanchez agrees with my findings, assessment a nd plan. /reuben/ CIRILO ROSE OPTOMETRY RESIDENT Signed: 09/17/2021 08:06 Receipt Acknowledged By: * AWAITING SIGNATURE * SALVATORE SANCHEZ
--- OUTSIDE RECORDS SUMMARY | 2022-06-23 00:35 | XMS_ITS | Encounter Summary ---
:1945 Author Organization [facility] Address [address] [place] [id number] Support Name Relationship Address Phone BELA WREN Unavailable [id number] [facility] [phone] [place] [address] BELA WREN Unavailable [id number] [facility] [phone] [place] [address] Insurance Providers: All historical and current Section [...] Wahl HUMANA MCR MEDICARE MCR Nov 06, [id number] [phone] Colten MCNAMARA PATIENT (WNR) ADVANTAGE (WNR) 2019 1 42 8 CAITLYN HUMANA MCR MEDICARE MCR Nov 06, [id number] [phone] LUCRETIA CASTR PATIENT (WNR) ADVANTAGE (WNR) 2019 1 42 0 [place] MEDICARE MEDICARE PART Dec 07, PART B [id number] Colten WREN P ATIENT (WNR) (M) B 2004 CY07 [phone] [employer] MEDICARE MEDICARE PART Dec 07, PART A [id number] P ATIENT (WNR) (M) A 2004 CY07 [phone] RAY Kennedy U-CARE OF MEDICARE MCR Nov 06, RICT [id number] [phone] [facility] ADVANTAGE (WNR) [id number] [facility] (WNR) Selected Encounter This section includes the information on record at [place] for the Encounter. Date/Time Encounter Type Encounter Reason Provider Source Description Oct 07, 2021 OFFICE O/P EST CARDIOLOGY ICD-10-CM NEHEMIAH STEIN 02:00 PM MOD 30-39 MIN I25.10 Athscl A heart disease of saxman coronary artery w/o ang pctrs with Provider Comments: Coronary artery disease ([facility] [id number]) IHE Encounter Template Text not used by [place] Assessments - Encounter Diagnoses This section includes the primary and secondary diagnoses documented for the Encounter. Date/Time Primary/Secondary Diagnosis Name Provider Source Diagnosis Oct 10, 2021 PRIMARY Athscl heart NARGIS STEIN [facility] 02:46 PM disease of saxman [facility] coronary artery w/o ang pctrs Oct 10, 2021 SECONDARY [facility] esophagus without [facility] dysplasia Oct 10, 2021 SECONDARY Essential [facility]ICHI,[facility] 02:46 PM (primary) [facility] hypertension Oct 10, 2021 SECONDARY Hyperlipidemia, [facility] 02[facility]46 PM unspecified [facility] Oct 10, 2021 SECONDARY Migraine, unsp, [facility] 02:46 PM not intractable, [facility] without status migrainosus Oct 10, 2021 SECONDARY 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 This section includes future appointments and future orders which are active, pending orscheduled.Future Appointments This section includes appointments that were scheduled to occur 6 months from the date of the Encounter, up to a maximum of 20 appointments. The data comes from all [place] treatment facilities. Appointment Date/Time Appointment Type Appointment Facili ty Name Oct 14, 2021 08:00 AM AMBULATORY - MEDICINE [facility] Oct 18, 2021 03:30 PM AMBULATORY - MEDICINE [facility] Oct 19, 2021 09:45 AM AMBULATORY - NONE [facility] Oct 19, 2021 10:00 AM AMBULATORY - NONE [facility] Oct 19, 2021 10:45 AM AMBULATORY - MEDICINE [facility] Nov 16, 2021 11:30 AM AMBULATORY - MEDICINE [facility] Nov 18, 2021 05:30 PM AMBULATORY - MEDICINE [facility] Dec 14, 2021 09:00 AM AMBULATORY - PSYCHIATRY [facility] Dec 21, 2021 07:30 AM AMBULATORY - NONE [facility] Dec 23, 2021 11:45 AM AMBULATORY - MEDICINE [facility] Dec 23, 2021 12:00 PM AMBULATORY - MEDICINE [facility] Dec 31, 2021 09:00 AM AMBULATORY - PSYCHIATRY [facility] Lab Results: +/- 30 days of the encounter This section includes the Chemistry and Hematology Lab Results on record with [place] for the patient. Radiology Reports and Pathology Reports are provided separately, in subsequent sections.Lab Results This section contains the Chemistry/Hematology Results that were resulted 30 days before or 30 daysafter the date of the Encounter. Date/Time Source Result Type Result - Unit Interpretation Reference Range Comment Nov 02, 2021 05:25 [facility] OCCULT BLOOD FIT X1 Speci men Type: FECES PM SCREEN No comment enter ed. Ordering Provid er: KOSTA WALKER Report Released Date/Time: Oct 23, 2021 07:11 AM Reporting Lab: [facility] [address] Performing Lab: [facility] [address] OCCULT BLOOD (FIT) #1 OF 1 Negative Neg ative Oct 19, 2021 09:36 [facility] LIPID PANEL,FASTING Speci men Type: PLASMA AM No comment enter ed. Ordering Provid er: SANAM QUEVEDO Report Released Date/Time: May 13, 2021 08:38 AM Reporting Lab: [facility] [address] [facility] [address] Performing Lab: [facility] [address] CHOLESTEROL 101 <199 TRIGLYCERIDE 102 <149 .HDL 46 >40 LDL CALCULATION 35 <99 VLDL CALCULATION 20 <29 NON HDL CHOLESTEROL 55 <129 Oct 19, 2021 [facility] CREATININE(INCLUDES EGFR) Sp ecimen Type: PLASMA 09:36 AM No comment enter ed. Ordering Provid er: KOSTA WALKER Report Released Date/Time: Oct 18, 2021 03:48 PM Reporting Lab: [facility] [address] Performing Lab: [facility] [address] CREATININE 0.9 0.7-1.2 ESTIMATED GFR(eGFR) 82 >60 Oct 19, 2021 09:36 AM [facility] CBC Specim en Type: BLOOD No comment enter ed. Ordering Provid er: KOSTA WALKER Report Released Date/Time: Oct 18, 2021 03:48 PM Reporting Lab: [facility] [address] [facility] [address] Performing Lab: [facility] [address] [facility] [address] WBC 6.43 4.0-11.0 RBC 5.32 4.6-6.2 HGB 16.9 13.5-17.9 HCT 48.9 41-54 MCV 91.9 80-100 MCH 31.8 27-33 MCHC 34.6 32.0-37.5 PLT 208 150-400 MPV 10.8 H 7.4-10.4 RDW 13.2 11.5-14.5 Oct 19, 2021 09:36 [facility] ELECTROLYTES/ANION GAP Sp ecimen Type: PLASMA AM No comment enter ed. Ordering Provid er: KOSTA WALKER Report Released Date/Time: Oct 18, 2021 03:48 PM Reporting Lab: [facility] [address] [facility] [address] Performing Lab: [facility] [address] [facility] [address] SODIUM 138 136-145 POTASSIUM 3.9 3.5-5.1 CHLORIDE 103 98-107 CO2 29 22-29 ANION GAP 6 5-15 Oct 19, 2021 09:36 AM [facility] GLUCOSE Specim en Type: PLASMA No comment enter ed. Ordering Provid er: KOSTA WALKER Report Released Date/Time: Oct 18, 2021 03:48 PM Reporting Lab: [facility] [address] [facility] [address] Performing Lab: [facility] [address] [facility] [address] GLUCOSE 105 H 74-100 Oct 19, 2021 09:36 AM [facility] HEMOGLOBIN A1C Specim en Type: BLOOD No comment enter ed. Ordering Provid er: KOSTA WALKER Report Released Date/Time: Oct 18, 2021 03:48 PM Reporting Lab: [facility] [address] [facility] [address] Performing Lab: [facility] [address] [facility] [address] HEMOGLOBIN A1C 5.8 4.0-6.0 Oct 19, 2021 09:36 AM [facility] AST/SGOT Specim en Type: PLASMA No comment enter ed. Ordering Provid er: KOSTA WALKER Report Released Date/Time: Oct 18, 2021 03:48 PM Reporting Lab: [facility] [address] [facility] [address] Performing Lab: [facility] [address] [facility] [address] AST/SGOT 17 <34 Oct 19, 2021 09:36 AM [facility] ALT/SGPT Specim en Type: PLASMA No comment enter ed. Ordering Provid er: KOSTA WALKER Report Released Date/Time: Oct 18, 2021 03:48 PM Reporting Lab: [facility] [address] [facility] [address] Performing Lab: [facility] [address] [facility] [address] ALT/SGPT 15 <55 Oct 19, 2021 09:36 [facility] TSH W/REFLEX TO FREE Spec imen Type: PLASMA AM T4 No comment enter ed. Ordering Provid er: KOSTA WALKER Report Released Date/Time: Oct 18, 2021 03:48 PM Reporting Lab: [facility] [address] [facility] [address] Performing Lab: [facility] [address] [facility] [address] TSH 1.02 0.35-4.94 Oct 19, 2021 [facility] LIPID PANEL,NON-FASTING Spec imen Type: PLASMA 09:36 AM No comment enter ed. Ordering Provid er: KOSTA WALKER Report Released Date/Time: Oct 18, 2021 03:48 PM Reporting Lab: [facility] [address] [facility] [address] Performing Lab: [facility] [address] [facility] [address] CHOLESTEROL 102 <199 .HDL 48 >40 LDL [...] dy Source Pressure Rate Mass Index Oct 07 167/100 [place] 2020 01:47 mm[Hg] OLIS IN PM HCS Oct 07 F 60 183/98 16 /min 97 % 0 67.5 in 175.3 27 [place] 2020 01:42 /min mm[Hg] lb OLIS [facility] Social History: Smoking Status (Most current) and Tobacco Use (All prior to encounter date) This section includes the most current, and the historical, smoking and tobacco-related health factors from the [place] facility where the Encounter took place.Current Smoking Status This section includes the most current smoking, or tobacco-related health factor, from the [place] facility where the Encounter took place. Date/Time Current Smoking Status Comment Facility 2019 01:06 PM VA-TOBACCO QUIT 5 TO < 15 YRS [facility] Tobacco Use History This section includes a history of the smoking, or tobacco- related health factors, that were collected on or before the date of the Encounter. The data comes from the [place] facility where the Encounter took place. Date/Time Smoking Status/Tobacco Use Comment Facil it 2019 01:06 PM VA-TOBACCO QUIT 5 TO < 15 YRS [facility] Aug 09, 2018 01:15 PM VA-TOBACCO FORMER USER [facility] Aug 09, 2018 01:15 PM IN-TOBACCO QUIT 5 TO < 15 YRS [facility] Jun 26, 2018 08:02 PM INPT NO TOBACCO USE IN LAST 30 DAYS [facility] Feb 08, 2017 08:22 AM FORMER TOBACCO USER 7Y OR GREATER [facility] Apr 08, 2016 07:59 AM FORMER TOBACCO USER 7Y OR GREATER [facility] Dec 02, 2014 10:48 AM FORMER TOBACCO USER 7Y OR GREATER [facility] Feb 17, 2014 10:22 AM FORMER TOBACCO USER 7Y OR GREATER [facility] Dec 19, 2012 07:42 AM FORMER TOBACCO USE >1Y <7Y [facility] Jan 02, 2012 09:35 AM FORMER TOBACCO USE >1Y <7Y [facility] Dec 13, 2010 08:57 AM FORMER TOBACCO USE >1Y <7Y [facility] Sep 03, 2009 01:16 PM FORMER TOBACCO USE >1Y <7Y [facility] Sep 25, 2008 11:20 AM CURRENT TOBACCO USER [facility] Advance Directives: All historical and current Section Date Range: From patient's date of to the date document was created. This section includes ALL of a patient's completed or amended [place] Advance and Rescinded Directives. The entries below indicate that a directive exists for the patient, but an actual copy is not included with this document. The data comes from all [place] facilities. Date Advance Directives Provider Source Oct 02, 2017 CLINICAL WARNING EDJAXON Valencia Patricia [facility] Pathology Reports: +/- 30 days of [...] the Encounter. The data comes from all [place] treatment facilities. Date/Time Pathology Report Provider Source Oct 15, 2021 05:11 PM LR SURGICAL PATHOLOGY REPORT: TASHI MÁRQUEZ [facility] LOCAL TITLE: LR SURGICAL PATHOLOGY REPORT STANDARD TITLE: PATHOLOGY REPORT DATE OF NOTE: OCT 15, 2021@17:11:59 ENTRY DATE: OCT 15, 2021@17:11:59 AUTHOR: TASHI MÁRQUEZ EXP COSIGNER: URGENCY: STATUS: COMPLETED $APHDR Reporting Lab: [facility] [CLIA# [id number]] [email or web address] [address] - - - - - - - [...] - PATHOLOGY REPORT Accession No. [id number] - - - - - - - [...] - PATHOLOGY REPORT Accession No. [id number] - - - - - - - [...] cm in grea test dimension. CE. (D) [facility]/ MICROSCOPIC DESCRIPTION: Microscopic examination is performed. DIAGNOSIS [...] Performing Laboratory: Surgical Pathology Report Performed By: [facility] [CLIA# [id number]] [place] [address] $FTR - - - - - - - - - - - - - - - - - - - - - - - - - - - - - - - - - - - - - - - - (End of report) TASHI MÁRQUEZ MD [facility] Date Oct 15, 2021 - - - - - - - - - - - - - - - - - - - - - - - - - - - - - - - - - - - - - - - - RAY WREN STANDARD FORM 515 ID:[id number] SEX:M :1945 AGE: 76 LOC: 1153 PCP: Kosta Walker MD /reuben/ TASHI MÁRQUEZ MD STAFF PATHOLOGIST, PATHOLOGY & LABORATORY MED C Signed: 10/15/2021 17:11 Encounter Notes: All associated encounter notes This section contains the clinical notes associated to the Encounter. Date/Time Encounter Note(s) Provider Source Oct 07, 2021 01:44 PM INTERNAL MEDICINE OUTPATIENT NOTE: MARTHA GRULLON [facility] LOCAL TITLE: MEDICINE CLINIC NURSING NOTE STANDARD TITLE: INTERNAL MEDICINE OUTPATIENT NOT E DATE OF NOTE: OCT 07, 2021@13:44 ENTRY DATE: OCT 07, 2021@13:44:44 AUTHOR: EDGAR GRULLON EXP COSIGNER: URGENCY: STATUS: COMPLETED TYPE OF VISIT: Appointment Check In Type of appointment: In-person appointment REASON FOR VISIT: Scheduled Visit ALLERGIES: ROSUVASTATIN (Jul 15, 2012) PRAVASTATIN (Feb 07, 2013) LIPITOR (March 07, 2013) SIMVASTATIN (Jun 16, 2013) VITAL SIGNS: Blood Pressure: 183/98 (10/07/2021 13:42) BP re check 167/100 Asymptomatic denies chest pain, SOB, dizziness Pulse: 60 (10/07/2021 13:42) Respiration: 16 (10/07/2021 13:42) Temperature: 98 F [36.7 C] (10/07/2021 13:42) Weight: 175.3 lb [79.7 kg] (10/07/2021 13:42) Height: 67.5 in [171.5 cm] (10/07/2021 13:42) BMI: 27.1 O2 Sat: 97 (10/07/2021 13:42) Pain: 0 (10/07/2021 13:42) PAIN SCREEN: Patient is not having significant pain that the y wish to discuss with their provider today. MEDICATION Over the Counter/Herbal Medications: The patient states that they take some outside medications and/or herbals. /reuben/ EDGAR GRULLON LPN, LPN Signed: 10/07/2021 13:47 Oct 07, 2021 11:02 AM CARDIOLOGY OUTPATIENT NOTE: NEHEMIAH STEIN [facility] LOCAL TITLE: CARDIAC INTERVENTIONAL CLINIC NOTE STANDARD TITLE: CARDIOLOGY OUTPATIENT NOTE DATE OF NOTE: OCT 07, 2021@11:02 ENTRY DATE: OCT 07, 2021@11:02:06 AUTHOR: NEHEMIAH STEIN EXP COSIGNER: URGENCY: STATUS: COMPLETED History of Presenting Illness (HPI): Ray Wren is a 76 year-old gentleman with a history of hypertension, hyperlipidemia with statin i ntolerance on PCSK9 inhibitor, tobacco use, Issa's esophagus, sleep apnea, MGUS, mild to moderate m itral regurgitation per 2018 echo, and coronary artery di sease. He underwent CABG x 3 in 2001, PCI with stent to OM1 and D1 in 2006, and NSTEMI 06/2018. Mendoza ry angiography 06/27/2018 revealed 80% LM, occluded mid LAD with patent LI MA graft. Occluded LCx with patent Y graft to OM1 and OM2. Mild diffuse dise ase of very ectatic RCA; 90 % ostial stenosis of small (less than 2 mm ) RPL 2 branch. No obvious culprit for NSTEMI identified, no suitab le targets for PCI. Medical management recommended. He experienced progressive D OE fall 2019 and exertional chest pain with left arm radiation, relieved with up to 3 SL nitr o. He spoke with his PCP, who referred him to the [place] ED. EC G reportedly showed T wave inversion in the lateral leads with troponin 0.78. Due to known c oronary anatomy and his preference for [facility] follow up, he was discharged home with silvio liz in ASA and instructed to avoid strenuous activity. He was seen in [facility] card iology consultation 09/11/2020 and underwent coronary angio graphy 09/11/2020, which revealed severe 95% stenosis of proximal SVG to OM portion of Y SVG to OM1 an d OM2. The portion of the SVG between the proximal lesion and the ostium had d iffuse disease of 60-70% severity, therefore the entire ostial and proxim al portion of the SVG was stented with 3.5 mm Synergy drug eluting stent. As he had previously tolerated car supervisor dual antiplatelet therapy, ongoing shimon g term DAPT recommended. Post procedure course was complicated by development of hematoma, improved with manual pressure. Ultrasound of the area was performed 09/12 and was negative for pseudoaneurysm or fistula. He had minima l discomfort by discharge. He was also significantly hypertensive f ollowing PCI with SBP up to 180s requiring a single dose of PRN hydralazine. He reported sissy e SBP 110-120s and not going above 130 at home. Close PCP follow up for blood pressure recommended and he was discharged to home 09/12/2020. He was contacted b y his PCP on 09/21/2020, reported blood pressure ~116/70, hematoma resolv ing. He was seen in Interventional Cardiology follow up 10/16/2020 a nd reported significant improvement in his symptoms post PCI. He noted m ild SOB if walking a long distance, but had not experienced chest pain. He matoma had entirely resolved. He was last seen in Interventional Cardiology fo llow up via phone visit 04/09/2021. Since his PCI, he had experienced incr eased fatigue. In October 2020, RASHEED and anginal symptoms had resolved. As he was more active, 3-4 times per week he would experience sudden onset of mid sternal chest discomfort when walking across parking lot into [employer], where he works part-time. He was able to continue walking and ches t discomfort would resolve within 15-20 minutes, but when he would take sublingual nitro, dis comfort resolved within a few minutes. Chest discomfort was associated with SOB, denied radiation. He would rarely experience a second episode in a day. Home blood pressures were 97-116/60-68 with SBP average 100s, pulse 51-62. Echo was obtained 05/11/2021, LV function was normal, EF 55-60^. Mild concentric left ventricu lar hypertrophy, Grade I diastolic dysfunction, and m ild pulmonary hypertension was noted with estimated PASP 47 mmHg. Compared with prior echo 06/27/2018 , mild interval increase in PASP noted. Mild mitral regurgitation wa s present. Symptoms were reviewed with Dr. Monge. SVG extensively stented, RPL2 segm ent off of RCA significantly diseased and not amenable to PCI, which could be source of angina. Dr. Monge recommended discontinuation of carvedilol, initiation of metoprolol tartrate 25 mg bid, and addition of ranolazine 500 mg bid. W hen contacted with recommendations, he reported improvement in his symptoms, and ongoing quick resolution with sublingual nitro, therefore pref erred to continue current medications. He presents today for Interventiona l Cardiology follow up. He continues to use sublingual nitro a few times per week for exertional midsternal chest tightness, which is occasionally associated with SOB 1-2 times per month. Angina has been stable, although incr eased since SD. He is still able to cut and split wood with occasional SOB, but does it slower to prevent symptoms as well as decreased stamina. Rare dizz iness when walking up stairs, denies palpitations, edema. Home BP today 128/80 with pulse 61. Review of Systems (ROS) as per HPI and otherwise negative with the following exceptions: TOGIAK, has hearing aids. Uses CPAP regularly. GERD managed with chronic PPI due to history of Patricio's. Nocturia 3-4 x per nigh t. Back discomfort. Memory issues, has difficulty somet imes recalling names. Pruritic right ankle lesion x 2 months with scaling patch, improving. Bruises easily. Allergies: ROSUVASTATIN (Jul 15, 2012) PRAVASTATIN (Feb 07, 2013) LIPITOR (March 07, 2013) SIMVASTATIN (Jun 16, 2013) Pertinent Past Medical History - Computerized Pr oblem list is source for: Active problems - Computerized Problem List is t he source for the followin. Coronary artery disease - S/P CABG x 3 n 2001. - S/P stents to OM1 and D1 in 2006. 2. Peripheral vascular disease 3. Hyperlipidemia 4. Tobacco Use 5. Patricio's esophagus 6. Dual Care - Dr. Zhao, PCP [facility] Cardiology 7. Hypertension 8. Lower urinary tract symptoms 9. Migraine 10. Elevated PSA 11. 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 Sleep apnea - severe per sleep study done 2018 Relevant Active Medications: Active and Recently Outpatient Medicatio ns (including [...] VERY DAY ACTIVE -APPROVED- 5) ISOSORBIDE MONONITRATE 60MG SA TAB TAKE ONE T ABLET BY ACTIVE MOUTH EVERY DAY FOR THE HEART 6) LISINOPRIL 10MG TAB TAKE ONE-HALF TABLET BY M OUTH ACTIVE EVERY DAY FOR HIGH BLOOD PRESSURE 7) MAGNESIUM OXIDE 420MG TAB TAKE ONE TABLET BY MOUTH ACTIVE EVERY DAY FOR HEADACHE PREVENTION 8) NITROGLYCERIN 0.4MG SL TAB DISSOLVE ONE TABLE T UNDER ACTIVE THE TONGUE NEEDED FOR CHEST PAIN*MAY REPEAT EVERY 5 MINUTES-NO MORE THAN 3 TOTAL 9) OMEPRAZOLE 20MG EC CAP TAKE TWO CAPSULES BY M OUTH ACTIVE TWICE A DAY TO DECREASE STOMACH ACID -TAKE ON A N EMPTY STOMACH, AT LEAST 30 MINUTES BEFORE EATIN G 10) VANICREAM TOP CREAM APPLY THIN LAYER TOPICAL [...] TAB 81MG MOUTH EVERY M ORNING ACTIVE 17 Total Medications Risk Factors: Gender, age, hypertension, hyperlipidemia, tobac co use Family History: Father age 58 of complications related to E MOY abuse Mother age 86, no cardiac issues One brother has pacemaker Social History: Marital status: Children: 2, alive and well Occupation: [employer] Tobacco use: Quit smoking 14 years ago ETOH use: 1-2 beers per day Illicit drug use: Denies Pulse: 60 (10/07/2021 13:42) Respiration: 16 (10/07/2021 13:42) Temperature: 98 F [36.7 C] (10/07/2021 13:42) Weight: 175.3 lb [79.7 kg] (10/07/2021 13:42) Height: 67.5 in [171.5 cm] (10/07/2021 13:42) BMI: 27.1 O2 Sat: 97 (10/07/2021 13:42) Pain: 0 (10/07/2021 13:42) Physical Exam: General: Pleasant, no acute distress HEENT: Facial features symmetrical. Sclera ashish cteric Cardiac: RRR. S1, S2. No murmur/rub. Lungs: Clear to auscultation. Respirations nonl abored. Abdomen: Soft, nontender. Bowel sounds active. Extremities: No edema. Neuro: Nonfocal. Derm: Right medial ankle area with circumscribe d area of mild erythema, no plaquing noted. Psychiatric: Mood and affect are appropriate Most Recent Lab Results: LAB RESULTS TODAY - NONE FOUND BMP/Electrolytes: CREATININE 0.9 (05/11/21) UREA NITROGEN 13 (05/11/21) SODIUM 137 (05/11/21) CHLORIDE 107 (05/11/21) POTASSIUM 4.4 (05/11/21) CO2 26 (05/11/21) GLUCOSE 114 H (05/11/21) CREATININE 0.9 PLASMA (05/11/21 08:47) Collection DT Spec WBC HGB HCT PLT MCV NEUT LYMP HS 05/11/2021 08:47 BLOOD 5.99 15.4 46.2 157 94.5 7 4.1 14.9 Lipid Profile: CHOLESTEROL 172 (12/18/20) HDL 65 (12/18/20) LDL CALCULATION 87 (12/18/20) MEASURED LDL____ TRIGLYCERIDE 98 (12/18/20) LFTs: ALK PHOSPHATASE 53 (05/11/21) SGPT 10 (05/11/21) SGOT 12 (05/11/21) TSH 2.16 (08/14/20) HEMOGLOBIN A1C 5.9 (08/14/20) INR 0.9 PLASMA (09/11/20 07:09) TROPONIN - NONE FOUND DIAGNOSTICS EKG 09/12/2020: Sinus bradycardia, rate 50. Nonsp ecific ST abnormality. Echocardiogram 05/11/2021: Interpretation Summary A complete two-dimensional transthoracic echocar diogram ([id number]) was performed without contrast. The left ventricular systolic function is normal . The visually estimated ejection fraction is 55-60%. Mild concentric lef t ventricular hypertrophy. Grade I diastolic dysfunction, (abnormal relaxat ion pattern). The right ventricular systolic function is justin l. The right ventricle is normal size. There is moderate aortic sclerosis without steno sis. There is mild pulmonary hypertension. Estimated PASP is 47 mmHg. The inferior vena cava is normal in size, and co llapses normally with respiration. There is no pericardial effusion. There's a prior study on 06/27/2018, mild interv al increase in PASP noted. Mitral Valve The mitral valve is normal in structure and func tion. There is mild mitral valve regurgitation Echocardiogram 06/27/2018: Summary: 1. Left ventricular ejection fraction, by visual estimation, is 55%. 2. Mild concentric left ventricular hypertrophy. 3. LV diastolic function is indeterminate. 4. Mild to moderate aortic valve sclerosis/calci fication without any evidence of aortic stenosis. 5. Mild to moderate mitral valve regurgitation. 6. Moderate thickening of the anterior and poste rior mitral valve leaflets. 7. The estimated systolic pulmonary artery press ure is 23.3 mmHg above right atrial pressure. 8. The inferior vena cava was mildly dilated. 9. Compared to prior echo in 07/19, there has bee n no significant change. 10. Echo interpreted with cardiovascular medicin e fellow, Dr. Cassandra Montalvo. CHEST 1 VIEW 06/26/18: Sternotomy. Surgical clips mediastinum. Calcific ation aorta. Coronary stent. Heart size and pulmonary vascularity within normal limits. No pulmonary infiltrates o r pleural effusions. Nuclear Stress Imaging: 12/28/2012 CARDIOVASCULAR STRESS TEST 1. No ischemia demonstrated. 2. Left ventricular ejection fraction is 55%. No focal wall motion abnormality. CORONARY ANGIOGRAPHY 06/27/2018: [place] Vessels Dominance: Right dominant Stenoses Details Segment Stenosis Length Characteristics and Comm ents Left Main 80% Calcified, Diffusely Diseased Distal LAD (overall) 100% Occluded after small D1 CIRCUMFLEX (overall) 100% Occluded proximally. Small mid LCX fills by Bridging and L to L collaterals. Proximal RCA 40% Calcified, Diffusely Diseased RCA large and ectatic. Mid RCA Calcified, Diffusely Diseased Ectatic Distal RCA 40% Calcified, Diffusely Diseased Ectatic Right PDA Luminal irregularities Right PAV Segment 30% Calcified Right PL Segment 1 Luminal irregularities Small Right PL Segment 2 90% Ostial Small, less than 2 mm. note: Stenosis = highest % stenosis within segm ent BYPASS GRAFT ANGIOGRAPHY Graft Stenosis Length Insertion Segment Pravin dukes 1. SVG 2nd Obtuse Marginal Body Y SVG to small OM 1 and medium sized OM 2. 30 % prox and mid stenosis. 2. Pedicle MARTIN Mid LAD Normal Small caliber mid and distal LAD. note: Stenosis = highest % stenosis within segm ent CORONARY ANGIOGRAPHY 09/11/2020: Procedure Status: Elective outpatient procedure Attending: Jody DOZIER Assisting: DEEP ALMEIDA; SURESH MENDEZ Indications: Stable Angina or equivalent Diagnostic Procedures: Coronary Angiography, Bypass Graft Angiography ACCESS Primary Arterial: Right Femoral, 6F sheath, Man ual closure CATHETERS Right coronary artery: Other, 6 fr, AR-[employer] Left coronary artery: JL 4, 6 fr Bypass graft angiography: Other (Graft), 6 fr, AR-MOD Aorta: 188/ 93, mean 139 [place] Vessels Summary: Other - see comments Dominance: Right dominant Stenoses Details Segment Stenosis Length Characteristics and Comm ents Left Main 80% diffusely diseased LAD (overall) Proximal LAD 100% occluded after small D1 CIRCUMFLEX (overall) 100% occluded proximally. small- mid LCX fills by L to L collaterals RCA (overall) Proximal RCA 40% calcified, diffusely diseased, large and ectatic Mid RCA diffusely diseased, calcified Distal RCA 40% calcified, diffusely diseased, ectatic Right PDA luminal irregularities Right PAV Segment 30% calcified Right PL Segment [address] Segment 2 90% ostial note: Stenosis = highest % stenosis within segm ent BYPASS GRAFT ANGIOGRAPHY Graft Stenosis Length Insertion Segment Charact eristics 1. SVG 2nd Obtuse Marginal Body proximal 95%, mid 40% 2. Pedicle MARTIN not visualized note: Stenosis = highest % stenosis within segm ent FINAL DIAGNOSIS 1. Severe stenosis (95%) of proximal SVG graft t o OM 2. Mild diffuse disease of ectatic RCA 3. Occluded LAD and LCX RECOMMENDATIONS After discussion with patient, , and Dr Reid, plan is to proceed with PCI of SVG lesion. INTERVENTIONS Attending: SALONI MONGE Assisting: SURESH MENDEZ; DEEP ALMEIDA Primary Indication: Unstable Angina Referred by Dr. Kelsey for coronary interventio n. Patient has history of accelerating angina for the last 2-3 months. He also gives history of troponin elevation at an outside hospital. Anton nary angiography today revealed 99% stenosis in the proximal portion o f the Y saphenous vein graft to the first and second obtuse marginal branche s. Angiography in 2018 had revealed a patent MARTIN graft to the LAD and onl y mild disease in the saphenous vein graft to the obtuse marginal bra nches. The RCA is known to be ectatic with diffuse distal disease. Patient wolff s a history of CABG in 2001. He also has severe hyperlipidemia and is curren tly on a PC SK 9 inhibitor. PCI Lesion #1: SVG Graft to 2nd Obtuse Marginal Guide Catheter: AL 1 ST Lesion Location: Aortic/Ostial Lesion Length: 24 mm Characteristics: Tortuosity, Diffusely Diseased Risk Assessment: High Pre-Procedure Stenosis: 99%; STEVE Flow: 3 - Com plete flow Post-Procedure Stenosis: 0%; STEVE Flow: 3 - Com plete flow # Method/Treatment Device/Description 1. PCI Embolic Protection Spider, 5 mm 2. PCI Balloon Emerge 2.5mm x 15mm peak inflation: 10 terrence 3. PCI Stent - TRINA Raymond Synergy, 3.5mm x 28mm peak inflation: 22 terrence Ostial and proximal portion of SVG. Deployed at 18 bars. Ostial portion flared stent balloon to 22 parts PCI Angiogram revealed 99% stenosis in the proximal portion of the SVG. This is a Y SVG to the OM1 and OM 2. The portion o f the SVG' between the proximal lesion and the ostium' had diffuse disease of 60-70% se verity. Hence, the entire ostial and proximal portion of the SVG was stent ed. A 5 mm spider filter was deployed distal ly, for embolic protection. The ostial and proximal portion of the SVG was stented with a 3.5 mm Synergy TRINA. The ostial portion of this stent was flared, using the stent balloon inflated to 22 bars. Mild and transient slow flow was noted aft er stent deployment; this improved quickly with intra graft nicardipine. IN-LAB MEDICATIONS Aspirin 324 mg. Patient was already on long-ter m Plavix. Additional 300 mg Plavix load was given. Angiomax was giv en in REPLACE 2 dosing. Multiple doses of intra-arterial and intracoronary nicardipine were given Ammann both for prophylaxis and for treatment of transient no r eflow. FINAL RESULTS Successful stenting of high-grade stenos is in the ostial and proximal portions of the Y saphenous vein teresita t to the first and second obtuse marginal branches. A drug-eluting stent was deployed. Distal protec tion was used. Continued long-term Plavix. Patient has severe a nd diffuse coronary artery disease. He appears to have tolerated long-term dual antiplatelet therapy quite well. As long as bleeding risk remains l ow, it would be reasonable to continue this patient on long-term Plavix ASA life-long Aggressive risk factor modification Assessment/Plan: Ray Wren is a 76 year-old gentleman with a history of hypertension, hyperlipidemia with statin i ntolerance on PCSK9 inhibitor, tobacco use, Issa's esophagus, sleep apnea, MGUS , and coronary artery disease. He underwent CABG x 3 in 2001, PCI with stent to OM1 and D1 in 2006, a nd NSTEMI 06/2018. Coronary angiography 06/27/2018 reveal ed 80% LM, occluded mid LAD with patent MARTIN graft. Occluded LCx with patent Y graft to OM1 and OM2. Mild diffuse disease of very ectatic RCA; 90 % ostial stenosis of small (less than 2 mm) RPL 2 branch. No obvious culprit for NSTEMI identified, no suitab le targets for PCI. Medical management recommended. Coronary angiography was again performed 11/11/2019 for progressive RASHEED and exertional chest padmini n with left arm radiation. Angiography revealed severe 95% stenosis of proximal SVG to OM portion of Y SVG to OM1 and OM2. The portion of the SVG between the proximal lesion and the ostium' had diffuse disease of 60-70% severity, therefore th e entire ostial and proximal portion of the SVG was stented with 3.5 x 28 mm Synergy drug eluting stent. As he had previously tolerated car supervisor dual antip latelet therapy, ongoing car supervisor DAPT recommended. Previously, change from carvedilol to metoprolol tartrate and addition of ranolazine recommended for anginal symptoms, whi ch he declined as anginal symptoms responded quickly to sublingual nitro and he did not want to make too many changes to his medication regimen. He continues to use sublingual nitro a few times per week to reliev e exertional anginal symptoms, which are stable. As he is currently tolerating I mdur without migraine symptoms, we discussed further titration of Imdur, which he is willing to do. E cho 05/11/2021 showed normal LV function, grade 1 diastolic dysfunction, mild pu lmonary hypertension, normal IVC, and mild mitral regurgitation. He is euvole karen on exam today, home vital signs are adequately controlled. Plan: 1. CAD: *Continue indefinite DAPT with ASA and clopidogr el due to significant CAD. *Note plans for endoscopy kumar rveillance of Patricio's, he is not able to come off DAPT for procedure. *He again declines participation in cardiac reha b. *Continue Imdur with increase to 90 mg daily, ca rvedilol 3.125 mg bid. If anginal symptoms persists and he becomes wi lling to make change to his medication regimen, will implement prior recomme ndations by Dr. Monge to discontinue Coreg, begin metoprolol tartrate 25 mg bid, add ranolazine 500 mg bid, could titrate to 1000 m g bid if symptoms persist, followed by ECG 1-2 weeks after initiation of ranolazine. Secondary prevention measures: *30 minutes of aerobic activity such as walking or comparable exercise daily. *Weight loss/management. *Incorporation of 5 servings of fruits and veget jermaine daily and minimization of saturated fat 2. Mitral regurgitation: Mild per echo 05/2021. *Repeat echo in 2-3 years recommended, will defe r to PCP. 3. Hypertension: Average home SBP average 100s, pulse 51-62. *Continue carvedilol 3.125 mg bid, lisinopril 5 mg daily, Imdur. *Goal blood pressure < 130/80. 4. Hyperlipidemia: Hx statin intolerance due to memory issues, although he did not notice a significant change off statin. He t olerated ezetimibe without difficulty and is doing well on PCSK9 inhibitor initiated by Metabolic/Endocrine. Lipids 12/18/2020: TC 172, T G 98, HDL 65, LDL 87. *LDL reduction to goal of 70 or < 50% of baselin e, whichever is lower. *Zetia and Praluent per endocrine. He is out of refills of Praluent and will call to refill. 5. Follow up: Interventional Clinic follow up in 2-3 months to reassess anginal symptoms. Today's testing results, significance, and plan were discussed in lay-terms. Thank you for asking us to see your patient. Ple ase do not hesitate to contact me should you need additional informatio n. 50% of 38 minutes spent counseling the patient a nd coordinating care /es/ NEHEMIAH STEIN NP NURSE PRACTITIONER Signed: 10/10/2021 14:48
--- OUTSIDE RECORDS SUMMARY | 2022-06-23 00:35 | XMS_ITS | Encounter Summary ---
:1945 Author Organization [facility] Address [address] [place] [id number] Support Name Relationship Address Phone BELA HIDALGO Unavailable [id number] [facility] [place] [address] BELA HIDALGO Unavailable [phone] [facility] [place] [address] Insurance Providers: All historical and current Section Date Range: From patient's date of to the date document was created.This section includes the names of all active insurance providers for the patient. Insurance Type of Plan Start of End of Group Member Insurance Policy P atluis antonio's Provider Coverage Name Policy Policy Number ID Provider's Wahl's Relationship Coverage Coverage Telephone Name to Policy Number [facility] MCR Nov 06, [id number] Colten MCNAMARA PATIENT (WNR) ADVANTAGE (WNR) 2019 1 42 [phone] CAITLYN HUMANA MCR MEDICARE MCR Nov 06, [id number] [phone] Colten MCNAMARA PATIENT (WNR) ADVANTAGE (WNR) 2019 1 42 8 ICHARD MEDICARE MEDICARE PART Dec 07, PART B [id number] Colten HIDALGO P ATIENT (WNR) (M) B 2004 [id number] [phone] [place] MEDICARE MEDICARE PART Dec 07, PART A [id number] P ATIENT (WNR) (M) A 2004 [id number] [phone] JENNIFER Kennedy U-CARE OF MEDICARE MCR Nov 06, [id number] [phone] Colten ALEJANDRO PATIENT [facility] ADVANTAGE (WNR) [id number] ICHPAUL (WNR) Selected Encounter This section includes the information on record at [place] for the Encounter. Date/Time Encounter Type Encounter Description Reason Provider Source Oct 13, 2021 10:54 Outpatient Encounter GI ENDOSCOPY AM [facility] Encounter Template Text not used by [facility] Plan of Treatment: Future Appointments (+ 6 months) and Future Tests (+/- 45 days) The Plan of Treatment section includes future care activities for the patient from all [place] [facility] This section includes future appointments and future orders which are active, pending orscheduled.Future Appointments This section includes appointments that were scheduled to occur 6 months from the date of the Encounter, up to a maximum of 20 appointments. The data comes from all [place] treatment facilities. Appointment Date/Time Appointment Type Appointment Facili ty Name Oct 14, 2021 08:00 AM AMBULATORY - MEDICINE [facility] Oct 18, 2021 03:30 PM AMBULATORY - MEDICINE [facility] Oct 19, 2021 09:45 AM AMBULATORY - NONE [facility] Oct 19, 2021 10:00 AM AMBULATORY NONE [facility] Oct 19, 2021 10:45 AM AMBULATORY - MEDICINE [facility] Nov 16, 2021 11:30 AM AMBULATORY - MEDICINE [facility] Nov 18, 2021 05:30 PM AMBULATORY - MEDICINE [facility] Dec 14, 2021 09:00 AM AMBULATORY - PSYCHIATRY [facility] Dec 21, 2021 07:30 AM AMBULATORY - NONE [facility] Dec 23, 2021 11:45 AM AMBULATORY - MEDICINE [facility] Dec 23, 2021 12:00 PM AMBULATORY - MEDICINE [facility] Dec 31, 2021 09:00 AM AMBULATORY - PSYCHIATRY [facility] Lab Results: +/- 30 days of the encounter This section includes the Chemistry and Hematology Lab Results on record with [place] for the patient. Radiology Reports and Pathology Reports are provided separately, in subsequent sections.Lab Results This section contains the Chemistry/Hematology Results that were resulted 30 days before or 30 daysafter the date of the Encounter. Date/Time Source Result Type Result - Unit Interpretation Reference Range Comment Nov 02, 2021 05:25 [facility] OCCULT BLOOD FIT X1 Speci men Type: FECES PM SCREEN No comment enter ed. Ordering Provid er: KOSTA WALKER Report Released Date/Time: Oct 23, 2021 07:11 AM Reporting Lab: [facility] [address] [place] [facility] [address] Performing Lab: [facility] [address] [facility] [address] OCCULT BLOOD (FIT) #1 OF 1 Negative Neg ative Oct 19, 2021 09:36 [facility] LIPID PANEL,FASTING Speci men Type: PLASMA AM No comment enter ed. Ordering Provid er: SANAM QUEVEDO Report Released Date/Time: May 13, 2021 08:38 AM Reporting Lab: [facility] [address] [facility] [address] Performing Lab: [facility] [address] [facility] [address] CHOLESTEROL 101 <199 TRIGLYCERIDE 102 <149 .HDL 46 >40 LDL CALCULATION 35 <99 VLDL CALCULATION 20 <29 NON HDL CHOLESTEROL 55 <129 Oct 19, 2021 [facility] CREATININE(INCLUDES EGFR) Sp ecimen Type: PLASMA 09:36 AM No comment enter ed. Ordering Provid er: KOSTA WALKER Report Released Date/Time: Oct 18, 2021 03:48 PM Reporting Lab: [facility] [address] [facility] [address] Performing Lab: [facility] [address] CREATININE 0.9 0.7-1.2 ESTIMATED GFR(eGFR) 82 >60 Oct 19, 2021 09:36 AM [facility] CBC Specim en Type: BLOOD No comment enter ed. Ordering Provid er: KOSTA WALKER Report Released Date/Time: Oct 18, 2021 03:48 PM Reporting Lab: [facility] [address] [facility] [address] Performing Lab: [facility] [address] [facility] [address] WBC 6.43 4.0-11.0 RBC 5.32 4.6-6.2 HGB 16.9 13.5-17.9 HCT 48.9 41-54 MCV 91.9 80-100 MCH 31.8 27-33 MCHC 34.6 32.0-37.5 PLT 208 150-400 MPV 10.8 H 7.4-10.4 RDW 13.2 11.5-14.5 Oct 19, 2021 09:36 AM [facility] GLUCOSE Specim en Type: PLASMA No comment enter ed. Ordering Provid er: KOSTA WALKER Report Released Date/Time: Oct 18, 2021 03:48 PM Reporting Lab: [facility] [address] [facility] [address] Performing Lab: [facility] [address] [facility] [address] GLUCOSE 105 H 74-100 Oct 19, 2021 09:36 AM [facility] HEMOGLOBIN A1C Specim en Type: BLOOD No comment enter ed. Ordering Provid er: KOSTA WALKER Report Released Date/Time: Oct 18, 2021 03:48 PM Reporting Lab: [facility] [address] [facility] [address] Performing Lab: [facility] [address] [facility] [address] HEMOGLOBIN A1C 5.8 4.0-6.0 Oct 19, 2021 09:36 [facility] ELECTROLYTES/ANION GAP Sp ecimen Type: PLASMA AM No comment enter ed. Ordering Provid er: KOSTA WALKER Report Released Date/Time: Oct 18, 2021 03:48 PM Reporting Lab: [facility] [address] [facility] [address] Performing Lab: [facility] [address] [facility] [address] SODIUM 138 136-145 POTASSIUM 3.9 3.5-5.1 CHLORIDE 103 98-107 CO2 29 22-29 ANION GAP 6 5-15 Oct 19, 2021 09:36 AM [facility] AST/SGOT Specim en Type: PLASMA No comment enter ed. Ordering Provid er: KOSTA WALKER Report Released Date/Time: Oct 18, 2021 03:48 PM Reporting Lab: [facility] [address] [facility] [address] Performing Lab: [facility] [address] [facility] [address] AST/SGOT 17 <34 Oct 19, 2021 09:36 [facility] TSH W/REFLEX TO FREE Spec imen Type: PLASMA AM T4 No comment enter ed. Ordering Provid er: KOSTA WALKER Report Released Date/Time: Oct 18, 2021 03:48 PM Reporting Lab: [facility] [address] [facility] [address] Performing Lab: [facility] [address] [facility] [address] TSH 1.02 0.35-4.94 Oct 19, 2021 09:36 AM [facility] ALT/SGPT Specim en Type: PLASMA No comment enter ed. Ordering Provid er: KOSTA WALKER Report Released Date/Time: Oct 18, 2021 03:48 PM Reporting Lab: [facility] [address] [facility] [address] Performing Lab: [facility] [address] [facility] [address] ALT/SGPT 15 <55 Oct 19, 2021 [facility] LIPID PANEL,NON-FASTING Spec imen Type: PLASMA 09:36 AM No comment enter ed. Ordering Provid er: KOSTA WALKER Report Released Date/Time: Oct 18, 2021 03:48 PM Reporting Lab: [facility] [address] [place] [facility] [address] Performing Lab: [facility] [address] [facility] [address] CHOLESTEROL 102 <199 .HDL 48 >40 LDL CALCULATION 22 <99 VLDL CALCULATION 32 H <29 NON HDL CHOLESTEROL 54 <129 TRIG(NON FASTING) 160 H <149 Social History: Smoking Status (Most current) and Tobacco Use (All prior to encounter date) This section includes the most current, and the historical, smoking and tobacco-related health factors from the [place] facility where the Encounter took place.Current Smoking Status This section includes the most current smoking, or tobacco-related health factor, from the [place] facility where the Encounter took place. Date/Time Current Smoking Status Comment Facility 2019 01:06 PM VA-TOBACCO QUIT 5 TO < 15 YRS [facility] Tobacco Use History This section includes a history of the smoking, or tobacco- related health factors, that were collected on or before the date of the Encounter. The data comes from the [place] facility where the Encounter took place. Date/Time Smoking Status/Tobacco Use Comment [facility] 2019 01:06 PM VA-TOBACCO QUIT 5 TO < 15 YRS [facility] Aug 09, 2018 01:15 PM VA-TOBACCO FORMER USER [facility] Aug 09, 2018 01:15 PM VA-TOBACCO QUIT 5 TO < 15 YRS [facility] Jun 26, 2018 08:02 PM INPT NO TOBACCO USE IN LAST 30 DAYS [facility] Feb 08, 2017 08:22 AM FORMER TOBACCO USER 7Y OR GREATER [facility] Apr 08, 2016 07:59 AM FORMER TOBACCO USER 7Y OR GREATER [facility] Dec 02, 2014 10:48 AM FORMER TOBACCO USER 7Y OR GREATER [facility] Feb 17, 2014 10:22 AM FORMER TOBACCO USER 7Y OR GREATER [facility] Dec 19, 2012 07:42 AM FORMER TOBACCO USE >1Y <7Y [facility] Jan 02, 2012 09:35 AM FORMER TOBACCO USE >1Y <7Y [facility] Dec 13, 2010 08:57 AM FORMER TOBACCO USE >1Y <7Y [facility] Sep 03, 2009 01:16 PM FORMER TOBACCO USE >1Y <7Y [facility] Sep 25, 2008 11:20 AM CURRENT TOBACCO USER [facility] Advance Directives: All historical and current Section Date Range: From patient's date of to the date document was created. This section includes ALL of a patient's completed or amended [place] Advance and Rescinded Directives. The entries below indicate that a directive exists for the patient, but an actual copy is not included with this document. The data comes from all [place] facilities. Date Advance Directives Provider Source Oct 02, 2017 CLINICAL WARNING EDAnnieJAXON [facility] Pathology Reports: +/- 30 days [...] the Encounter. The data comes from all [facility] facilities. Date/Time Pathology Report Provider Source Oct 15, 2021 05:11 PM LR SURGICAL PATHOLOGY REPORT: TASHI MÁRQUEZ [facility] LOCAL TITLE: LR SURGICAL PATHOLOGY REPORT STANDARD TITLE: PATHOLOGY REPORT DATE OF NOTE: OCT 15, 2021@17:11:59 ENTRY DATE: OCT 15, 2021@17:11:59 AUTHOR: TASHI MÁRQUEZ EXP COSIGNER: URGENCY: STATUS: COMPLETED $APHDR Reporting Lab: [facility] [CLIA# [id number]] [place] [address] - - - - - - - [...] - PATHOLOGY REPORT Accession No. [id number] - - - - - - - [...] - PATHOLOGY REPORT Accession No. [id number] - - - - - - - [...] cm in grea test dimension. CE. (D[facility] MICROSCOPIC DESCRIPTION: Microscopic examination is performed. DIAGNOSIS [...] Pathology Report Performed By: [facility] [CLIA# [id number]] [place] [address] $FTR - - - - - - - - - - - - - - - - - - - - - - - - - - - - - - - - - - - - - - - - (End of report) TASHI MÁRQUEZ MD [facility] Date Oct 15, 2021 - - - - - - - - - - - - - - - - - - - - - - - - - - - - - - - - - - - - - - - - JENNIFER HIDALGO STANDARD FORM 515 ID:[id number] SEX:M :1945 AGE: 76 LOC: 1153 PCP: Kosta Walker MD /reuben/ TASHI MÁRQUEZ MD STAFF PATHOLOGIST, PATHOLOGY & LABORATORY MED SV C Signed: 10/15/2021 17:11 Encounter Notes: All associated encounter notes This section contains the clinical notes associated to the Encounter. Date/Time Encounter Note(s) Provider Source Dec 08, 2021 09:02 AM GASTROENTEROLOGY PROCEDURE NOTE: [facility] LOCAL TITLE: CP GASTROENTEROLOGY PROCEDURE STANDARD TITLE: GASTROENTEROLOGY PROCEDURE NOTE DATE OF NOTE: DEC 08, 2021@09:02:05 ENTRY DATE: DEC 08, 2021@09:02:05 AUTHOR: CLINICAL,DEVICE PRO EXP COSIGNER: URGENCY: STATUS: COMPLETED PROCEDURE SUMMARY CODE: Machine Resulted DATE/TIME PERFORMED: OCT 14, 2021@08:00 DOCUMENT IN VISTA IMAGING SEE FULL REPORT IN VISTA IMAGING SIGNATURE NOT REQUIRED SEE SIGNATURE IN VISTA IMAGING (Provation (Endoscopy)) AUTO-INSTRUMENT DIAGN OSIS Procedure: GI PROCEDURE Release Status: Released Off-Line Verified Date Verified: Dec 08, 2021@09:01:55 Procedure: Upper GI endoscopy Indications: For therapy of Patricio's esophagus Medicines: Monitored Anesthesia Care Complications: No immediate complications. Procedure: After obtaining informed consent, the endoscope was passed under direct vision. Throughout the procedure, the patient's blood pressure, pulse, and oxygen saturations were monitored continuously. The Endoscope was introduced through the mouth, and advanced to the second part of duodenum. The upper GI endoscopy was accomplished without difficulty. The patient tolerated the procedure well. Findings: The upper third of the esophagus and middle thi rd of the esophagus were normal. The Z-line was regular and was found 35 cm from the incisors. Mucosa was biopsied with a cold forceps for his tology in 4 quadrants at the gastroesophageal junction. One specimen bottle was sent to pathology. There were esophageal mucosal changes classifie d as Patricio's stage C0-M0 per [place] criteria present in the lower third of the esophagus. Focal radiofrequency ablation of Bar rett's esophagus was performed. With the endoscope in place, the position and extent of the Patricio's mucosa and the anatomic landmarks were noted. Endoscopic visualization identified an a blation site including the entire visible Patricio's segment. The radiofrequency channel ablation catheter was in troduced through the endoscope working channel. Patricio's tissue was targeted. The endoscope with the ablation catheter was advanc ed to the areas of Patricio's mucosa. The areas included islands of Patricio's mucosa. The endoscope with the channel ablation cathete r was positioned under direct visualization so that the catheter was placed in contact with the surface of the Patricio's mucos a. Energy was applied twice at 12 J/cm2. Ablation was repeate d in a likewise fashion to treat the entire area of suspected B arrett's mucosa. The channel ablation catheter was then removed through the endoscope working channel, and the ablation cat heter was cleaned. The endoscope was left in place. The ablation z one was cleaned of coagulative debris. The ablation catheter was r einserted into the endoscope working channel. A second round of ab lation was then performed. Energy was applied twice at 12 J/cm2 to retreat the areas of Patricio's epithelium that had been atul ated with the first series of ablation. The ablation catheter was removed through the endoscope working channel. The area s of the esophagus where Patricio's mucosa had been ablated were ex amined. Areas of visible Patricio's esophagus were completely abl ated. The endoscope was then removed. A hiatal hernia was present. The gastric body, gastric antrum, cardia (on re troflexion) and gastric fundus (on retroflexion) were normal. Localized mild mucosal changes characterized by discoloration and small erosion were found in the prepyloric suman on of the stomach. Biopsies were taken with a cold forceps for his tology. The duodenal bulb and second portion of the duo denum were normal. 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 The patient continued the clopidogrel which is reasonable givent the limited expected RFA and now that the patient is 1+ year out from PCI could if needed hold after procedure (this is not anticipated). Impression: - Normal upper third of esophagus an d middle third of esophagus. - Z-line regular, 35 cm from the incisors. Biopsied. 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 Treated with radiofrequency ablation. - Hiatal hernia. - Normal gastric body, antrum, cardia and gastric fundus. - Discoloration and small erosion mucosa in the prepyloric region of the stomach. Biopsied. - Normal duodenal bulb and second portion of the duodenum. Recommendation: - Discharge patient to home. - Continue aspirin and clopidogrel (Plavix) without interuption. - Continue PPI indefinitely. - Given limited ablation no need for special diet, lidocaine or sucralafate. - I will follow up pathology results and likely repeat EGD with MAC in 6 months. Electronically signed by MD Edilma Velez MD 10/14/2021 9:25:54 AM Number of Addenda: 0 Note Initiated On: 10/13/2021 11:18 AM [facility] [place] Cantu [address] --- [phone] Administrative Closure: 12/08/2021 by: CLINICAL,DEVICE PROXY SERVICE Oct 14, 2021 01:24 PM GASTROENTEROLOGY PROCEDURE NOTE: [facility] LOCAL TITLE: CP GASTROENTEROLOGY PROCEDURE STANDARD TITLE: GASTROENTEROLOGY PROCEDURE NOTE DATE OF NOTE: OCT 14, 2021@13:24:13 ENTRY DATE: OCT 14, 2021@13:24:13 AUTHOR: CLINICAL,DEVICE PRO EXP COSIGNER: URGENCY: STATUS: COMPLETED PROCEDURE SUMMARY CODE: Machine Resulted DATE/TIME PERFORMED: OCT 14, 2021@08:00 DOCUMENT IN VISTA IMAGING SEE FULL REPORT IN VISTA IMAGING SIGNATURE NOT REQUIRED SEE SIGNATURE IN VISTA IMAGING (Provation (Endoscopy)) AUTO-INSTRUMENT DIAGN OSIS Procedure: GI PROCEDURE Release Status: Released Off-Line Verified Date Verified: Oct 14, 2021@13:24:10 Procedure: Upper GI endoscopy Indications: For therapy of Patricio's esophagus Medicines: Monitored Anesthesia Care Complications: No immediate complications. Procedure: After obtaining informed consent, the endoscope was passed under direct vision. Throughout the procedure, the patient's blood pressure, pulse, and oxygen saturations were monitored continuously. The Endoscope was introduced through the mouth, and advanced to the second part of duodenum. The upper GI endoscopy was accomplished without difficulty. The patient tolerated the procedure well. Findings: The upper third of the esophagus and middle thi rd of the esophagus were normal. The Z-line was regular and was found 35 cm from the incisors. Mucosa was biopsied with a cold forceps for his tology in 4 quadrants at the gastroesophageal junction. One specimen bottle was sent to pathology. There were esophageal mucosal changes classifie d as Patricio's stage C0-M0 per [place] criteria present in the lower third of the esophagus. Focal radiofrequency ablation of Bar rett's esophagus was performed. With the endoscope in place, the position and extent of the Patricio's mucosa and the anatomic landmarks were noted. Endoscopic visualization identified an a blation site including the entire visible Patricio's segment. The radiofrequency channel ablation catheter was in troduced through the endoscope working channel. Patricio's tissue was targeted. The endoscope with the ablation catheter was advanc ed to the areas of Patricio's mucosa. The areas included islands of Patricio's mucosa. The endoscope with the channel ablation cathete r was positioned under direct visualization so that the catheter was placed in contact with the surface of the Patricio's mucos a. Energy was applied twice at 12 J/cm2. Ablation was repeate d in a likewise fashion to treat the entire area of suspected B arrett's mucosa. The channel ablation catheter was then removed through the endoscope working channel, and the ablation cat heter was cleaned. The endoscope was left in place. The ablation z one was cleaned of coagulative debris. The ablation catheter was r einserted into the endoscope working channel. A second round of ab lation was then performed. Energy was applied twice at 12 J/cm2 to retreat the areas of Patricio's epithelium that had been atul ated with the first series of ablation. The ablation catheter was removed through the endoscope working channel. The area s of the esophagus where Patricio's mucosa had been ablated were ex amined. Areas of visible Patricio's esophagus were completely abl ated. The endoscope was then removed. A hiatal hernia was present. The gastric body, gastric antrum, cardia (on re troflexion) and gastric fundus (on retroflexion) were normal. Localized mild mucosal changes characterized by discoloration and small erosion were found in the prepyloric suman on of the stomach. Biopsies were taken with a cold forceps for his tology. The duodenal bulb and second portion of the duo denum were normal. 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 The patient continued the clopidogrel which is reasonable givent the limited expected RFA and now that the patient is 1+ year out from PCI could if needed hold after procedure (this is not anticipated). Impression: - Normal upper third of esophagus an d middle third of esophagus. - Z-line regular, 35 cm from the incisors. Biopsied. 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 Treated with radiofrequency ablation. - Hiatal hernia. - Normal gastric body, antrum, cardia and gastric fundus. - Discoloration and small erosion mucosa in the prepyloric region of the stomach. Biopsied. - Normal duodenal bulb and second portion of the duodenum. Recommendation: - Discharge patient to home. - Continue aspirin and clopidogrel (Plavix) without interuption. - Continue PPI indefinitely. - Given limited ablation no need for special diet, lidocaine or sucralafate. - I will follow up pathology results and likely repeat EGD with MAC in 6 months. Electronically signed by MD Edilma Velez MD 10/14/2021 9:25:54 AM Number of Addenda: 0 Note Initiated On: 10/13/2021 11:18 AM [facility] [address] [employer] [place] [address] --- Administrative Closure: 10/14/2021 by: CLINICAL,DEVICE PROXY SERVICE Oct 14, 2021 01:20 PM GASTROENTEROLOGY PROCEDURE NOTE: [facility] LOCAL TITLE: CP GASTROENTEROLOGY PROCEDURE STANDARD TITLE: GASTROENTEROLOGY PROCEDURE NOTE DATE OF NOTE: OCT 14, 2021@13:20:30 ENTRY DATE: OCT 14, 2021@13:20:30 AUTHOR: CLINICAL,DEVICE PRO EXP COSIGNER: URGENCY: STATUS: COMPLETED PROCEDURE SUMMARY CODE: Machine Resulted DATE/TIME PERFORMED: OCT 14, 2021@08:00 DOCUMENT IN [facility] IMAGING SEE FULL REPORT IN VISTA IMAGING SIGNATURE NOT REQUIRED SEE SIGNATURE IN VISTA IMAGING (Provation (Endoscopy)) AUTO-INSTRUMENT DIAGN OSIS Procedure: GI PROCEDURE Release Status: Released Off-Line Verified Date Verified: Oct 14, 2021@13:20:27 Procedure: Upper GI endoscopy Indications: For therapy of Patricio's esophagus Medicines: Monitored Anesthesia Care Complications: No immediate complications. Procedure: After obtaining informed consent, the endoscope was passed under direct vision. Throughout the procedure, the patient's blood pressure, pulse, and oxygen saturations were monitored continuously. The Endoscope was introduced through the mouth, and advanced to the second part of duodenum. The upper GI endoscopy was accomplished without difficulty. The patient tolerated the procedure well. Findings: The upper third of the esophagus and middle thi rd of the esophagus were normal. The Z-line was regular and was found 35 cm from the incisors. Mucosa was biopsied with a cold forceps for his tology in 4 quadrants at the gastroesophageal junction. One specimen bottle was sent to pathology. There were esophageal mucosal changes classifie d as Patricio's stage C0-M0 per [place] criteria present in the lower third of the esophagus. Focal radiofrequency ablation of Bar rett's esophagus was performed. With the endoscope in place, the position and extent of the Patricio's mucosa and the anatomic landmarks were noted. Endoscopic visualization identified an a blation site including the entire visible Patricio's segment. The radiofrequency channel ablation catheter was in troduced through the endoscope working channel. Patricio's tissue was targeted. The endoscope with the ablation catheter was advanc ed to the areas of Patricio's mucosa. The areas included islands of Particio's mucosa. The endoscope with the channel ablation cathete r was positioned under direct visualization so that the catheter was placed in contact with the surface of the Patricio's mucos a. Energy was applied twice at 12 J/cm2. Ablation was repeate d in a likewise fashion to treat the entire area of suspected B arrett's mucosa. The channel ablation catheter was then removed through the endoscope working channel, and the ablation cat heter was cleaned. The endoscope was left in place. The ablation z one was cleaned of coagulative debris. The ablation catheter was r einserted into the endoscope working channel. A second round of ab lation was then performed. Energy was applied twice at 12 J/cm2 to retreat the areas of Patricio's epithelium that had been atul ated with the first series of ablation. The ablation catheter was removed through the endoscope working channel. The area s of the esophagus where Patricio's mucosa had been ablated were ex amined. Areas of visible Patricio's esophagus were completely abl ated. The endoscope was then removed. A hiatal hernia was present. The gastric body, gastric antrum, cardia (on re troflexion) and gastric fundus (on retroflexion) were normal. Localized mild mucosal changes characterized by discoloration and small erosion were found in the prepyloric suman on of the stomach. Biopsies were taken with a cold forceps for his tology. The duodenal bulb and second portion of the duo denum were normal. 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 The patient continued the clopidogrel which is reasonable givent the limited expected RFA and now that the patient is 1+ year out from PCI could if needed hold after procedure (this is not anticipated). Impression: - Normal upper third of esophagus an d middle third of esophagus. - Z-line regular, 35 cm from the incisors. Biopsied. 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 Treated with radiofrequency ablation. - Hiatal hernia. - Normal gastric body, antrum, cardia and gastric fundus. - Discoloration and small erosion mucosa in the prepyloric region of the stomach. Biopsied. - Normal duodenal bulb and second portion of the duodenum. Recommendation: - Discharge patient to home. - Continue aspirin and clopidogrel (Plavix) without interuption. - Continue PPI indefinitely. - Given limited ablation no need for special diet, lidocaine or sucralafate. - I will follow up pathology results and likely repeat EGD with MAC in 6 months. Electronically signed by MD Edilma Velez MD 10/14/2021 9:25:54 AM Number of Addenda: 0 Note Initiated On: 10/13/2021 11:18 AM [facility] [address] [place] [address] --- Administrative Closure: 10/14/2021 by: CLINICAL,DEVICE PROXY SERVICE Oct 14, 2021 10:06 AM GASTROENTEROLOGY PROCEDURE NOTE: [facility] LOCAL TITLE: CP GASTROENTEROLOGY PROCEDURE STANDARD TITLE: GASTROENTEROLOGY PROCEDURE NOTE DATE OF NOTE: OCT 14, 2021@10:06:28 ENTRY DATE: OCT 14, 2021@10:06:28 AUTHOR: CLINICAL,DEVICE PRO EXP COSIGNER: URGENCY: STATUS: COMPLETED PROCEDURE SUMMARY CODE: Machine Resulted DATE/TIME PERFORMED: OCT 14, 2021@08:00 DOCUMENT IN VISTA IMAGING SEE FULL REPORT IN VISTA IMAGING SIGNATURE NOT REQUIRED SEE SIGNATURE IN VISTA IMAGING (Provation (Endoscopy)) AUTO-INSTRUMENT DIAGN OSIS Procedure: NOTETYPE Nurse Note Release Status: Released Off-Line Verified Date Verified: Oct 14, 2021@10:06:26 CHECK-IN User:suma Procedure(s) patient scheduled for:EGD Indication for procedure:Patricio's Surveillance Scope pulmonary function technician present during procedure:JOSLYN Torrez Patient identification:Name, ID band on:yes Allergy band on:yes Care Plan-monitor for procedural or sedation rel ated events and to promote patient comfort and safety:yes Language Barrier?:no Any questions or patient concerns?:No Last solid food:> 6 hours ago Note:yesterday 1730 Last liquid:< 6 hours ago Note:sips water/meds 0600 Prep taken?:no Patient Labs:no Barrier to learning:No Preferred Learning Style:Verbal, Hands-on, Writt en Pre- and post-procedure teaching given to:Carlos heard Pre and post-procedure teaching completed:yes Method:Verbal, Pamphlets, Visual Response to teaching - Demonstrates by stating/acknowledging understandi and post-procedure/discharge instruc outpatient-Transportation from procedure:yes Location:Waiting Room Sap Solutions Architect:[employer] Architect- Tevin, brother [employer] Architect Phone: Inpatient Transportation:N/A Pre-Procedure / Active Medications Anticoagulant use Aspirin use - Patient Denies Use NSAID use - Patient Denies Use Steroid use - Patient Denies Use Plavix Last Taken 10/13/2021 Per brian Aguilar ne ed to hold Plavix for this procedure Confirmed 10/14/2021 RN reviewed medications with patient. MD dover revi ew medications Confirmed 10/14/2021 ALLERGIES Iodine/Contrast Medium Allergy - Patient Denies Allergy - Latex Allergy - Patient Denies Allergy - Atorvastatin - Confirmed 10/14/2021 Pravastatin - Confirmed 10/14/2021 Rosuvastatin - Confirmed 10/14/2021 Simvastatin - Confirmed 10/14/2021 MEDICAL HISTORY User:suma Cardiovascular:yes Cardiovascular - diagnoses:Myocardial Infarction , Hypertension, CABG, ASCVD, Stents, CAD PVD Mitral valve d/o Pulmonary:yes Pulmonary - diagnoses:Sleep Apnea GI:yes GI - diagnoses:Barretts w/multiple RFA's GERD, Patricio's Esophagus Diabetes:no Miscellaneous:neoplasm vertebral column migraine elevated PSA monoclonal gammopathy Status:n/a Comments: SURGICAL HISTORY User:suma Surgical Hx:Yes Surgical History Details:HH surgery, terry low er right leg, Chest - wires, CABG, ANGIOGRAM Metal / Shrapnel?:Yes Metal / Shrapnel Details:metal in chest and Rt a nkle, left leg Has patient had difficulty with anesthesia?:no Risk factors for post-sedation delirium:Yes Following risk factors:Age >70 Other: SOCIAL HISTORY User:suma Alcohol History:yes Alcohol Amount:3-4 beers/week Smoking History:no Substance Abuse:no PATIENT ASSESSMENT - PREPROCEDURE User:suma Time:0804 Level of conciousness:2 Fully awake Emotional Status:Calm, Cooperative Pain now?:no Skin:Warm, Dry, [place] Venous access device?:No Pre-existing IV?:no IV started?:yes IV Site:Right arm IV Type:Angiocath Size:20 gauge IV Solution:Saline Lock IV Rate: Inserted by:Nadege Esposito RN PATIENT ASSESSMENT - INTRAPROCEDURE User:suma Pt condition unchanged from pre-sedation assessm ent:yes Level of conciousness:2 Fully awake Time Out conducted and verified by nurse and lic ensed independent practitioner (LIP) in the presence of the patien t:Yes Pain now?:no Dentures, glasses or hearing aid removed and sto red?:yes Type:Dentures, Glasses, Hearing Aid(s) Loose Teeth?:no Loose teeth location:n/a Cardiac Rhythm Monitored?:Yes Cardiac Rhythm:Regular, Bradycardia Comments:Alejandro mid to upper 50's PRE SEDATION ASSESSMENT Time: Airway: Heart and lungs exam: Previous conscious sedation: ASA: Plan: DISCHARGE QUESTIONS User:dora Pain now?:no Cardiac Rhythm Monitored? :Yes Cardiac Rhythm :Sinus Rhythm, Bradycardia Comments: IV Discontinued?:yes Time IV Discontinued:947 Total Amount Infused:see anesthesia record IV Site Condition:Intact Discharge Criteria met:yes Post-procedure education completed:yes Patient and/or Family given opportunity to ask q uestions and questions answered?:yes Patient and/or Family stated understanding of po st-procedure instructions:Yes Patient/family/caregiver include signs and sympto activity/diet/medication Discharge instructions/pamphlets given:Yes Topic(s):Endoscopy, Date to restart Blood thinne rs, Provider spoke with patient/family regarding results of exam Follow up (months/years):per path/6 months Released to:Self with adult when applicable Inpatient report called to abbott:n/a Comments:[employer] Architect- Tevin, brother Instructed patient to take Plavix/ASA when he ge ts home. Decrease omeprazole to 20mg Qday. Patient declined wheelc hair, ambulated with normal gait at time of discharge. Events Reporting Report ADR Hotline #[id number] Should any of the following occur during the pro cedure, forward a copy of this form to C.I. (OOD). Adverse event(s)?:No Medications Time Medication Dose Entered By Notes 08:47:47 Lidocaine 4% oral spray (4mg/spray) 80 mg Total: 80 mg larsonc No Notes Taken Zak Score Time Activity Resp Circulation LOC O2 Sat Entere d By Total Score Notes 09:44:51 2 2 1 2 2 krysj 9 09:38:41 2 2 1 2 2 grovesj 9 09:35:00 2 2 1 2 2 kohrsj 9 09:28:39 2 2 2 2 2 larsonc 10 No Notes Taken Vitals Time BP HR RESP O2 Sat CO2 Entered By 09:44:32 131/84 52 24 95 - falgunisj 09:37:38 119/78 53 12 95 - falgunisj 09:34:48 129/79 54 10 95 - kohrsj 09:28:06 131/79 78 15 96 - larsonc 09:13:11 139/83 57 14 94 - larsonc 08:54:10 156/90 54 14 96 - larsonc 08:48:10 172/90 58 14 97 - larsonc 08:11:54 195/100 59 16 99 - wolterc No Notes Taken PROCEDURE LOG Time Data Entered By 09:47:39 Patient Activities : Getting dressed gr ovesj 09:44:40 Pain now? : no equalitys 09:44:40 Level of conciousness : 2 Fully awake o r returned to presedation LOC [facility] 09:44:37 Level of comfort : Comfortable [facility] 09:44:27 Notes: Dr. Ortiz present to speak with patient in recovery area. [facility] 09:37:44 Pain now? : no [facility] 09:37:44 Level of conciousness : 2 Fully awake o r returned to presedation LOC equalitys 09:37:42 Level of comfort : Comfortable [facility] 09:37:06 Patient Activities : Sitting at side of bed [facility] 09:35:43 Notes: Received report from Nadege Herrera RN. dora 09:35:09 Notes: report to EDILBERTO Cortés 09:34:54 Pain now? : no ricky 09:34:52 Level of conciousness : 2 Fully awake o r returned to presedation LOC kohrsj 09:34:51 Level of comfort : Comfortable kohrsj 09:32:02 Notes: report from EDILBERTO Ulloa 09:28:35 Level of comfort : Comfortable larsonc 09:28:33 Level of conciousness : 2 Fully awake o r returned to presedation LOC larsonc 09:28:32 Pain now? : no larsonc 09:13:22 Level of comfort : Comfortable larsonc 09:13:21 Level of conciousness : 0 Not respondin g, absence of protective reflexes larsonc 09:13:20 Pain now? : no larsonc 08:48:59 Level of comfort : Comfortable larsonc 08:48:58 Level of conciousness : 2 Fully awake o r returned to presedation LOC larsonc 08:48:56 Pain now? : no larsonc 08:48:49 Notes: patient consented in pre-procedu re bay larsonc 08:12:04 Pain now? : no wolterc 08:12:03 Level of conciousness : 2 Fully awake o r returned to presedation LOC wolterc 08:12:00 Level of comfort : Comfortable wolterc 08:08:43 Notes: T-97.3 negative covid screen formerly [facility] Specimens Collected Jar Sample Type Procedure Lab Type Location Theresa cation Entered By 1 Biopsy Upper GI endoscopy Histology - Pyloric channel R/O Helicobacter pylori larsonc 2 Biopsy Upper GI endoscopy Histology Esophagus - G-E Junction R/O Patricio's larson Time Tracking Time Event Entered By 10:03:34 Discharge dora 09:17:58 [facility] 09[facility]57 Scope out larsonc 09:03:41 Scope in larsonc 08:51:07 Time out larsonc 08:50:45 MD consenting patient larsonc 08:50:45 [facility] 08:47:34 Patient in procedure room larsonc 07:55:50 Admit time [facility] Provider Signatures Purnima Alexander (suma) ESIED - 10/14/2021 08: 13:33 Shannan Herrera (kohjaspalj) ESIED 10/14/2021 09 :35:13 Felicitas Robison (krysj) ESIGNED - 10/14/2021 1 0:03:37 Laila Charles, (carlosonc) ESIGNED - 10/14/2021 10: 06:03 Administrative Closure: 10/14/2021 by: CLINICAL,DEVICE PROXY SERVICE Oct 14, 2021 09:26 AM GASTROENTEROLOGY PROCEDURE NOTE: [facility] LOCAL TITLE: CP GASTROENTEROLOGY PROCEDURE STANDARD TITLE: GASTROENTEROLOGY PROCEDURE NOTE DATE OF NOTE: OCT 14, 2021@09:26:35 ENTRY DATE: OCT 14, 2021@09:26:35 AUTHOR: CLINICAL,DEVICE PRO EXP COSIGNER: URGENCY: STATUS: COMPLETED PROCEDURE SUMMARY CODE: Machine Resulted DATE/TIME PERFORMED: OCT 14, 2021@08:00 DOCUMENT IN VISTA IMAGING SEE FULL REPORT IN VISTA IMAGING SIGNATURE NOT REQUIRED SEE SIGNATURE IN VISTA IMAGING (Provation (Endoscopy)) AUTO-INSTRUMENT DIAGN OSIS Procedure: GI PROCEDURE Release Status: Released Off-Line Verified Date Verified: Oct 14, 2021@09:26:25 Procedure: Upper GI endoscopy Indications: For therapy of Patricio's esophagus Medicines: Monitored Anesthesia Care Complications: No immediate complications. Procedure: After obtaining informed consent, the endoscope was passed under direct vision. Throughout the procedure, the patient's blood pressure, pulse, and oxygen saturations were monitored continuously. The Endoscope was introduced through the mouth, and advanced to the second part of duodenum. The upper GI endoscopy was accomplished without difficulty. The patient tolerated the procedure well. Findings: The upper third of the esophagus and middle thi rd of the esophagus were normal. The Z-line was regular and was found 35 cm from the incisors. Mucosa was biopsied with a cold forceps for his tology in 4 quadrants at the gastroesophageal junction. One specimen bottle was sent to pathology. There were esophageal mucosal changes classifie d as Patricio's stage C0-M0 per [place] criteria present in the lower third of the esophagus. Focal radiofrequency ablation of Bar rett's esophagus was performed. With the endoscope in place, the position and extent of the Patricio's mucosa and the anatomic landmarks were noted. Endoscopic visualization identified an a blation site including the entire visible Patricio's segment. The radiofrequency channel ablation catheter was in troduced through the endoscope working channel. Patricio's tissue was targeted. The endoscope with the ablation catheter was advanc ed to the areas of Patricio's mucosa. The areas included islands of Patricio's mucosa. The endoscope with the channel ablation cathete r was positioned under direct visualization so that the catheter was placed in contact with the surface of the Patricio's mucos a. Energy was applied twice at 12 J/cm2. Ablation was repeate d in a likewise fashion to treat the entire area of suspected B arrett's mucosa. The channel ablation catheter was then removed through the endoscope working channel, and the ablation cat heter was cleaned. The endoscope was left in place. The ablation z one was cleaned of coagulative debris. The ablation catheter was r einserted into the endoscope working channel. A second round of ab lation was then performed. Energy was applied twice at 12 J/cm2 to retreat the areas of Patricio's epithelium that had been atul ated with the first series of ablation. The ablation catheter was removed through the endoscope working channel. The area s of the esophagus where Patricio's mucosa had been ablated were ex amined. Areas of visible Patricio's esophagus were completely abl ated. The endoscope was then removed. A hiatal hernia was present. The gastric body, gastric antrum, cardia (on re troflexion) and gastric fundus (on retroflexion) were normal. Localized mild mucosal changes characterized by discoloration and small erosion were found in the prepyloric suman on of the stomach. Biopsies were taken with a cold forceps for his tology. The duodenal bulb and second portion of the duo denum were normal. 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 The patient continued the clopidogrel which is reasonable givent the limited expected RFA and now that the patient is 1+ year out from PCI could if needed hold after procedure (this is not anticipated). Impression: - Normal upper third of esophagus an d middle third of esophagus. - Z-line regular, 35 cm from the incisors. Biopsied. 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 Treated with radiofrequency ablation. - Hiatal hernia. - Normal gastric body, antrum, cardia and gastric fundus. - Discoloration and small erosion mucosa in the prepyloric region of the stomach. Biopsied. - Normal duodenal bulb and second portion of the duodenum. Recommendation: - Discharge patient to home. - Continue aspirin and clopidogrel (Plavix) without interuption. - Continue PPI indefinitely. - Given limited ablation no need for special diet, lidocaine or sucralafate. - I will follow up pathology results and likely repeat EGD with MAC in 6 months. Electronically signed by MD Edilma Velez MD 10/14/2021 9:25:54 AM Number of Addenda: 0 Note Initiated On: 10/13/2021 11:18 AM [facility] 1 [place] [address] --- Administrative Closure: 10/14/2021 by: CLINICAL,DEVICE PROXY SERVICE
--- OUTSIDE RECORDS SUMMARY | 2022-06-23 00:35 | XMS_ITS | Encounter Summary ---
:1945 Author Organization [facility] Address [address] [place] [address] Support Name Relationship Address Phone BELA HIDALGO Unavailable [address] [facility] [place] [address] BELA HIDALGO Unavailable [address] [facility] [phone] [place] [address] Insurance Providers: All historical and current Section Date Range: From patient's date of to the date document was created.This section includes the names of all active insurance providers for the patient. Insurance Type of Plan Start of End of Group Member Insurance Policy P atient's Provider Coverage Name Policy Policy Number ID Provider's Wahl's Relationship Coverage Coverage Telephone Name to Policy Number [facility] MCR Nov 06, [id number] [phone] Colten MCNAMARA PATIENT (WNR) ADVANTAGE (WNR) 2019 1 42 8 [place] HUMANA MCR MEDICARE MCR Nov 06, [id number] Colten MCNAMARA PATIENT (WNR) ADVANTAGE (WNR) 2019 1 42 0 [place] MEDICARE MEDICARE PART Dec 07, PART A [id number] P ATIENT (WNR) (M) A 2004 [id number] [phone] JENNIFER Kennedy MEDICARE MEDICARE PART Dec 07, PART B [id number] Colten HIDALGO P ATIENT (WNR) (M) B 2004 [id number] [phone] [place] -CARE OF MEDICARE MCR Nov 06, [facility] [id number] [phone] JERI MORENOR PATIENT [facility] ADVANTAGE (WNR) [id number] [place] (WNR) Selected Encounter This section includes the information on record at [place] for the Encounter. Date/Time Encounter Type Encounter Reason Provider Source Description Oct 11, 2021 PRO PHONE TELEPHONE/ANCILLA ICD-10-CM Z71.89 [place] 12:27 PM CALL 21-30 MIN RY Other specified HELE counseling with Provider Comments: Other specified Counseling IHE Encounter Template Text not used by [place] Assessments - Encounter Diagnoses This section includes the primary and secondary diagnoses documented for the Encounter. Date/Time Primary/Secondary Diagnosis Name Provider Source Diagnosis Oct 11, 2021 PRIMARY Other specified [place] 12:27 PM [facility] Plan of Treatment: Future Appointments (+ 6 months) and Future Tests (+/- 45 days) The Plan of Treatment section includes future care activities for the patient from all [place] treatmentfacilities. This section includes future appointments and [...] 2021 08:00 AM AMBULATORY - MEDICINE [facility] Oct 18, 2021 03:30 PM AMBULATORY - MEDICINE [facility] Oct 19, 2021 09:45 AM AMBULATORY - NONE [facility] Oct 19, 2021 10:00 AM AMBULATORY NONE [facility] Oct 19, 2021 10:[address] [facility] Nov 16, 2021 11:[address] [facility] Nov 18, 2021 05:[address] [facility] Dec 14, 2021 09:00 AM AMBULATORY - PSYCHIATRY [facility] Dec 21, 2021 07:30 AM AMBULATORY - NONE [facility] Dec 23, 2021 11:45 AM AMBULATORY - MEDICINE [facility] Dec 23, 2021 12:00 PM AMBULATORY - MEDICINE [facility] Dec 31, 2021 09:00 AM AMBULATORY - PSYCHIATRY [facility] Lab Results: +/- 30 days of [...] Reference Range Comment Nov 02, 2021 05:25 [facility] OCCULT BLOOD FIT X1 Speci men Type: FECES PM SCREEN No comment enter ed. Ordering Provid er: KOSTA WALKER Report Released Date/Time: Oct 23, 2021 07:11 AM Reporting Lab: [facility] [address] [facility] [address] Performing Lab: [facility] [address] [facility] [address] OCCULT BLOOD (FIT) #1 OF 1 Negative Neg ative Oct 19, 2021 09:36 [facility] LIPID PANEL,FASTING Speci men Type: PLASMA AM No comment enter ed. Ordering Provid er: SANAM QUEVEDO Report Released Date/Time: May 13, 2021 08:38 AM Reporting Lab: [facility] [address] [facility] [address] Performing Lab: [facility] [address] [facility] [address] CHOLESTEROL 101 <199 TRIGLYCERIDE 102 <149 .HDL 46 >40 LDL CALCULATION 35 <99 VLDL CALCULATION 20 <29 NON HDL CHOLESTEROL 55 <129 Oct 19, 2021 [facility] CREATININE(INCLUDES EGFR) Sp ecimen Type: PLASMA 09:36 AM No comment enter ed. Ordering Provid er: KOSTA WALKER Report Released Date/Time: Oct 18, 2021 03:48 PM Reporting Lab: [facility] [address] [facility] [address] Performing Lab: [facility] [address] [facility] [address] CREATININE 0.9 0.7-1.2 ESTIMATED GFR(eGFR) 82 >60 Oct 19, 2021 09:36 AM [facility] CBC Specim en Type: BLOOD No comment enter ed. Ordering Provid er: KOSTA WALKER Report Released Date/Time: Oct 18, 2021 03:48 PM Reporting Lab: [facility] [address] [facility] [address] Performing Lab: [facility] [address] [facility] [address] WBC 6.43 4.0-11.0 RBC 5.32 4.6-6.2 HGB 16.9 13.5-17.9 HCT 48.9 41-54 MCV 91.9 80-100 MCH 31.8 27-33 MCHC 34.6 32.0-37.5 PLT 208 150-400 MPV 10.8 H 7.4-10.4 RDW 13.2 11.5-14.5 Oct 19, 2021 09:36 AM [facility] GLUCOSE Specim en Type: PLASMA No comment enter ed. Ordering Provid er: KOSTA WALKER Report Released Date/Time: Oct 18, 2021 03:48 PM Reporting Lab: [facility] [address] [facility] [address] Performing Lab: [facility] [address] [facility] [address] GLUCOSE 105 H 74-100 Oct 19, 2021 09:36 [facility] ELECTROLYTES/ANION GAP Sp ecimen Type: PLASMA AM No comment enter ed. Ordering Provid er: KOSTA WALKER Report Released Date/Time: Oct 18, 2021 03:48 PM Reporting Lab: [facility] [address] [facility] [address] Performing Lab: [facility] [address] [facility] [address] SODIUM 138 136-145 POTASSIUM 3.9 3.5-5.1 CHLORIDE 103 98-107 CO2 29 22-29 ANION GAP 6 5-15 Oct 19, 2021 09:36 AM [facility] AST/SGOT Specim en Type: PLASMA No comment enter ed. Ordering Provid er: KOSTA WALKER Report Released Date/Time: Oct 18, 2021 03:48 PM Reporting Lab: [facility] [address] [facility] [address] Performing Lab: [facility] [address] [facility] [address] AST/SGOT 17 <34 Oct 19, 2021 09:36 AM [facility] ALT/SGPT Specim en Type: PLASMA No comment enter ed. Ordering Provid er: KOSTA WALKER Report Released Date/Time: Oct 18, 2021 03:48 PM Reporting Lab: [facility] [address] [facility] [address] Performing Lab: [facility] [address] [facility] [address] ALT/SGPT 15 <55 Oct 19, 2021 09:36 AM [facility] HEMOGLOBIN A1C Specim en Type: BLOOD No comment enter ed. Ordering Provid er: KOSTA WALKER Report Released Date/Time: Oct 18, 2021 03:48 PM Reporting Lab: [facility] [address] [facility] [address] Performing Lab: [facility] [address] [facility] [address] HEMOGLOBIN A1C 5.8 4.0-6.0 Oct 19, 2021 09:36 [facility] TSH W/REFLEX TO FREE Spec imen Type: PLASMA AM T4 No comment enter ed. Ordering Provid er: KOSTA WALKER Report Released Date/Time: Oct 18, 2021 03:48 PM Reporting Lab: [facility] [address] [place] [address] Performing Lab: [facility] [address] TSH 1.02 0.35-4.94 Oct 19, 2021 [facility] LIPID PANEL,NON-FASTING Spec imen Type: PLASMA 09:36 AM No comment enter ed. Ordering Provid er: KOSTA WALKER Report Released Date/Time: Oct 18, 2021 03:48 PM Reporting Lab: [facility] [address] [facility] [address] Performing Lab: [facility] [address] [facility] [address] CHOLESTEROL 102 <199 .HDL 48 >40 LDL [...] Smoking Status Comment Facility 2019 01:06 PM HI-TOBACCO QUIT 5 TO < 15 YRS [facility] Tobacco Use History This section includes a history of the smoking, or tobacco- related health factors, that were collected on or before the date of the Encounter. The data comes from the [place] facility where the Encounter took place. Date/Time Smoking Status/Tobacco Use Comment [facility] 2019 01:06 PM VA-TOBACCO QUIT 5 TO < 15 YRS [facility] Aug 09, 2018 01:15 PM VA-TOBACCO FORMER USER [facility] Aug 09, 2018 01:15 PM VA-TOBACCO QUIT 5 TO < 15 YRS [facility] Jun 26, 2018 08:02 PM INPT NO TOBACCO USE IN LAST 30 DAYS [facility] Feb 08, 2017 08:22 AM FORMER TOBACCO USER 7Y OR GREATER [facility] Apr 08, 2016 07:59 AM FORMER TOBACCO USER 7Y OR GREATER [facility] Dec 02, 2014 10:48 AM FORMER TOBACCO USER 7Y OR GREATER [facility] Feb 17, 2014 10:22 AM FORMER TOBACCO USER 7Y OR GREATER [facility] Dec 19, 2012 07:42 AM FORMER TOBACCO USE >1Y <7Y [facility] Jan 02, 2012 09:35 AM FORMER TOBACCO USE >1Y <7Y [facility] Dec 13, 2010 08:57 AM FORMER TOBACCO USE >1Y <7Y [facility] Sep 03, 2009 01:16 PM FORMER TOBACCO USE >1Y <7Y [facility] Sep 25, 2008 11:20 AM CURRENT TOBACCO USER [facility] Advance Directives: All historical and current Section Date Range: From patient's date of to the date document was created. This section includes ALL of a patient's completed or amended [place] Advance and Rescinded Directives. The entries below indicate that a directive exists for the patient, but an actual copy is not included with this document. The data comes from all [place] facilities. Date Advance Directives Provider Source Oct 02, 2017 CLINICAL WARNING [place] [facility] Pathology Reports: +/- 30 days of [...] the Encounter. The data comes from all [place] treatment facilities. Date/Time Pathology Report Provider Source Oct 15, 2021 05:11 PM LR SURGICAL PATHOLOGY REPORT: TASHI MÁRQUEZ [facility] LOCAL TITLE: LR SURGICAL PATHOLOGY REPORT STANDARD TITLE: PATHOLOGY REPORT DATE OF NOTE: OCT 15, 2021@17:11:59 ENTRY DATE: OCT 15, 2021@17:11:59 AUTHOR: TASHI MÁRQUEZ EXP COSIGNER: URGENCY: STATUS: COMPLETED $APHDR Reporting Lab: [facility] [CLIA# [id number]] [place] [address] - - - - - - - [...] - PATHOLOGY REPORT Accession No. [id number] - - - - - - - [...] - PATHOLOGY REPORT Accession No. [id number] - - - - - - - [...] cm in grea test dimension. CE. (D) [facility]/ MICROSCOPIC DESCRIPTION: Microscopic examination [...] Performing Laboratory: Surgical Pathology Report Performed By: [facility] [CLIA# [id number]] [place] [address] $FTR - - - - - - - - - - - - - - - - - - - - - - - - - - - - - - - - - - - - - - - - (End of report) TASHI MÁRQUEZ MD [facility] Date Oct 15, 2021 - - - - - - - - - - - - - - - - - - - - - - - - - - - - - - - - - - - - - - - - JENNIFER HIDALGO STANDARD FORM 515 ID:[id number] SEX:M :1945 AGE: 76 LOC: 1153 PCP: Kosta Walker MD /reuben/ TASHI MÁRQUEZ MD STAFF PATHOLOGIST, PATHOLOGY & LABORATORY MED SV C Signed: 10/15/2021 17:11 Encounter Notes: All associated encounter notes This section contains the clinical notes associated to the Encounter. Date/Time Encounter Note(s) Provider Source Oct 11, 2021 12:28 PM REPORT OF CONTACT: JOSE TURNER CONORLarry [facility] LOCAL TITLE: PATIENT CONTACT NOTE STANDARD TITLE: REPORT OF CONTACT DATE OF NOTE: OCT 11, 2021@12:28 ENTRY DATE: OCT 11, 2021@12:28:06 AUTHOR: JOSE TURNER COSIGNER: URGENCY: STATUS: COMPLETED PATIENT CONTACT NOTE Has ADDENDA Patient contact Name of [place]: JENNIFER HIDALGO Name/Relationship of Contact if other than Veter an: Date & Time of Contact: Oct@12:28 Type of Contact: Telephone Reason for Contact: Pt was scheduled for EGD for Patricio's surveilla nce this week. Exam was ordered w/Moderate sedation but pt told phone ca cristhian Guillermo DeGree noted in 's procedure note that he needs anesthe estela. We are scheduling out to December for anesthesia cases with Dr.Ha rehman. Broaching Machine Set Up Operator checked with to make sure it was okay to schedule pt in December . Will alert Rossy to: 1)Schedule EGD/mAC on , December 16 at 0800 Pt is on Plavix, per 's order, he may r emain on this for the exam. Education/Instruction: Patient indicates readiness to learn, and has been instructed on the following: Review ed instructions. Instruction letter sent. An H&P within 30 days is needed, pt states he h as a physical scheduled with his provider on Oct 18; will al ert his provider that a phone appt order has been placed, just to update the 10/18 H&P so it is within 30 days of 12/16. 30 min spent in phone call and coordination of c are. /reuben/ JOSE TURNER RN REGISTERED NURSE Signed: 10/11/2021 12:47 Receipt Acknowledged By: 10/11/2021 13:29 /reuben/ ROSSY ESCALERA [facility] 10/11/2021 ADDENDUM STATUS: COMPLETED Correction, anesthesia was r ecommended by on the 12/05/20 note, pt did NOT tell Mima that he needed MAC. /reuben/ JOSE TURNER RN REGISTERED NURSE Signed: 10/11/2021 12:55 10/11/2021 ADDENDUM STATUS: COMPLETED We had a cancellation on Oct 14, called and off ered this slot to because he expressed interest in coming earlier if there was a cancellation. Will alert Douglas to: 1)Cancel Dec 16 appt 2)Schedule egd/mac on , October 14 at 0800 Reviewed instructions. Instruction letter sent. There will not be any time t o arrange an H&P, will alert that pt will need this upon arrival. /reuben/ JOSE TURNER RN REGISTERED NURSE Signed: 10/11/2021 15:52 Receipt Acknowledged By: * AWAITING SIGNATURE * EDILMA ORTIZ * AWAITING SIGNATURE * DOUGLAS AREVALO
--- OUTSIDE RECORDS SUMMARY | 2022-06-23 00:39 | XMS_ITS | Encounter Summary ---
:1945 Author Organization [facility] Address [address] [place] [address] Support Name Relationship Address Phone BELA HIDALGO Unavailable [address] [facility] [phone] [place] [address] BELA HIDALGO Unavailable [phone] [facility] [phone] [place] [address] Insurance Providers: All historical and current Section [...] Wahl RACHEL MCR MEDICARE MCR Nov 06, [id number] Colten MCNAMARA PATIENT (WNR) ADVANTAGE (WNR) 2019 1 42 0 [facility] M[facility] MEDIC[facility] MCR Nov 06, [id number] [phone] LUCRETIA CASTR PATIENT (WNR) ADVANTAGE (WNR) 2019 1 42 8 [place] MEDICARE MEDICARE PART Dec 07, PART A [id number] Mge ATIENT (WNR) (M) A 2004 [id number] [phone] JENNIFER Kennedy MEDICARE MEDICARE PART Dec 07, PART B [id number] Colten HIDALGO P ATIENT (WNR) (M) B 2004 [id number] [phone] [place] -CARE OF MEDICARE MCR Nov 06, RICT [id number] [phone] JERI MORENOR PATIENT [facility] ADVANTAGE (WNR) 2016 [id number] [place] (WNR) Selected Encounter This section includes the information on record at [place] for the Encounter. Date/Time Encounter Type Encounter Description Reason Provider Source Dec 10, 2021 11:53 Outpatient Encounter COMMUNITY CARE AM CONSULT IHE Encounter Template Text not used by [place] Plan of Treatment: Future Appointments (+ 6 months) and Future Tests (+/- 45 days) The Plan of Treatment section includes future care activities for the patient from all [facility] This section includes future appointments and future orders which are active, pending orscheduled.Future Appointments This section includes appointments that were scheduled to occur 6 months from the date of the Encounter, up to a maximum of 20 appointments. The data comes from all [place] treatment facilities. Appointment Date/Time Appointment Type Appointment Facili ty Name Dec 14, 2021 09:00 AM AMBULATORY - PSYCHIATRY [facility] Dec 21, 2021 07:30 AM AMBULATORY - NONE [facility] Dec 23, 2021 11:45 AM AMBULATORY - MEDICINE [facility] Dec 23, 2021 12:00 PM AMBULATORY - MEDICINE [facility] Dec 31, 2021 09:00 AM AMBULATORY - PSYCHIATRY [facility] May 26, 2022 08:00 AM AMBULATORY - NONE [facility] Jun 06, 2022 01:00 PM AMBULATORY - MEDICINE [facility] Social History: Smoking Status (Most current) and Tobacco Use (All prior to encounter date) This section includes the most current, and the historical, smoking and tobacco-related health factors from the [place] facility where the Encounter took place.Current Smoking Status This section includes the most current smoking, or tobacco-related health factor, from the [place] facility where the Encounter took place. Date/Time Current Smoking Status Comment Facility Oct 18, 2021 03:30 PM VA-TOBACCO FORMER USER [facility] Tobacco Use History This section includes a history of the smoking, or tobacco- related health factors, that were collected on or before the date of the Encounter. The data comes from the [place] facility where the Encounter took place. Date/Time Smoking Status/Tobacco Use Comment [facility] Oct 18, 2021 03:30 PM VA-TOBACCO QUIT 15 YRS OR MORE [facility] 2019 01:06 PM VA-TOBACCO FORMER USER [facility] 2019 01:06 PM VA-TOBACCO QUIT 5 TO < 15 YRS [facility] Aug 09, 2018 01:15 PM VA-TOBACCO FORMER USER [facility] Aug 09, 2018 01:15 PM VA-TOBACCO QUIT 5 TO < 15 YRS [facility] Jun 26, 2018 08:02 PM INPT NO TOBACCO USE IN LAST 30 DAYS [facility] Feb 08, 2017 08:22 AM FORMER TOBACCO USER 7Y OR GREATER [facility] Apr 08, 2016 07:59 AM FORMER TOBACCO USER 7Y OR GREATER [facility] Dec 02, 2014 10:48 AM FORMER TOBACCO USER 7Y OR GREATER [facility] Feb 17, 2014 10:22 AM FORMER TOBACCO USER 7Y OR GREATER [facility] Dec 19, 2012 07:42 AM FORMER TOBACCO USE >1Y <7Y [facility] Jan 02, 2012 09:35 AM FORMER TOBACCO USE >1Y <7Y [facility] Dec 13, 2010 08:57 AM FORMER TOBACCO USE >1Y <7Y [facility] Sep 03, 2009 01:16 PM FORMER TOBACCO USE >1Y <7Y [facility] Sep 25, 2008 11:20 AM CURRENT TOBACCO USER [facility] Advance Directives: All historical and current Section Date Range: From patient's date of to the date document was created. This section includes ALL of a patient's completed or amended [place] Advance and Rescinded Directives. The entries below indicate that a directive exists for the patient, but an actual copy is not included with this document. The data comes from all [place] facilities. Date Advance Directives Provider Source Oct 02, 2017 CLINICAL WARNING [facility] LONG [facility] Encounter Notes: All associated encounter notes This section contains the clinical notes associated to the Encounter. Date/Time Encounter Note(s) Provider Source Dec 10, 2021 11:53 AM NONVA NOTE: RADHA RICE [facility] LOCAL TITLE: COMMUNITY CARE COORDINATION PLAN I E J STANDARD TITLE: NONVA NOTE DATE OF NOTE: DEC 10, 2021@11:53 ENTRY DATE: DEC 10, 2021@11:53:52 AUTHOR: LANDY RICE EXP COSIGNER: URGENCY: STATUS: COMPLETED Primary Consult: [id number] Scheduled /reuben/ JUAN RICE Advanced Roofer Signed: 12/10/2021 11:55 Receipt Acknowledged By: * AWAITING SIGNATURE * BRIAN WOOD
--- OUTSIDE RECORDS SUMMARY | 2022-06-23 00:40 | XMS_ITS | Encounter Summary ---
:1945 Author Organization [facility] Address [address] [place] [address] Support Name Relationship Address Phone BELA HIDALGO Unavailable [address] [place] [address] BELA HIDALGO Unavailable [address] [place] [address] Insurance Providers: All historical and current Section Date Range: From patient's date of to the date document was created.This section includes the names of all active insurance providers for the patient. Insurance Type of Plan Start of End of Group Member Insurance Policy P atient's Provider Coverage Name Policy Policy Number ID Provider's Wahl's Relationship Coverage Coverage Telephone Name to Policy Number [facility] MCR Nov 06, [id number] [phone] Colten MCNAMARA PATIENT (WNR) ADVANTAGE (WNR) 2019 1 42 8 [place] HUMANA MCR MEDICARE MCR Nov 06, [id number] Colten MCNAMARA PATIENT (WNR) ADVANTAGE (WNR) 2019 1 42 0 [place] MEDICARE MEDICARE PART Dec 07, PART A [id number] P ATIENT (WNR) (M) A 2004 [id number] [phone] JENNIFER Kennedy MEDICARE MEDICARE PART Dec 07, PART B [id number] Colten HIDALGO P ATIENT (WNR) (M) B 2004 [id number] [phone] [place] -CARE OF MEDICARE MCR Nov 06, RICT [id number] [phone] JERI MORENOR PATIENT [facility] ADVANTAGE (WNR) 2016 [id number] [place] (WNR) Selected Encounter This section includes the information on record at [place] for the Encounter. Date/Time Encounter Type Encounter Reason Provider Source Description Dec 10, 2021 02:56 Outpatient COMMUNITY CARE KOSTA WALKER PM Encounter CONSULT IHE Encounter Template Text not used by [place] Plan of Treatment: Future Appointments (+ 6 months) and Future Tests (+/- 45 days) The Plan of Treatment section includes future care activities for the patient from all [place] [facility]. This section includes future appointments [...] 23, 2021 11:45 AM AMBULATORY - MEDICINE [facility] Dec 23, 2021 12:00 PM AMBULATORY - MEDICINE [facility] Dec 31, 2021 09:00 AM AMBULATORY - PSYCHIATRY [facility] May 26, 2022 08:00 AM AMBULATORY - NONE [facility] Jun 06, 2022 01:00 PM AMBULATORY - MEDICINE [facility] Social History: Smoking Status (Most current) and [...] 2021 03:30 PM VA-TOBACCO [facility] Tobacco Use History This section includes a history of the smoking, or tobacco- related health factors, that were collected on or before the date of the Encounter. The data comes from the [place] facility where the Encounter took place. Date/Time Smoking Status/Tobacco Use Comment [facility] Oct 18, 2021 03:30 PM VA-TOBACCO QUIT 15 YRS OR MORE [facility] 2019 01:06 PM VA-[facility]BACCO [facility] 2019 01:06 PM VA-TOBACCO QUIT 5 TO < 15 YRS [facility] Aug 09, 2018 01:15 PM VA-TOBACCO FORMER USER [facility] Aug 09, 2018 01:15 [...] Encounter Note(s) Provider Source Dec 10, 2021 02:56 PM NONVA NOTE: BRIAN WOOD [facility] LOCAL TITLE: COMMUNITY CARE-CARE COORDINATION P AMELIA NOTE STANDARD TITLE: NONVA NOTE DATE OF NOTE: DEC 10, 2021@14:56 ENTRY DATE: DEC 10, 2021@14:56:10 AUTHOR: BRIAN WOOD EXP COSIGNER: URGENCY: STATUS: COMPLETED Care Coordination Follow Up Level of Care Coordination Basic Care Coordination was determined from: Contact to/from /Family/Caregiver Services: Navigation Scheduling Post-Appointment Follow-Up E-Communications to referring provider Plan: Phone call from [place]. He states he is calling to inquire about his appointments coming up fouzia daniels at the [place] or in [place]. stated he was writing all of these down. Encouraged him to call this com writer for further q uestions or concerns. received his copy of the Primary Care letter farideh disla this com writer. /reuben/ BRIAN WOOD ORACLE ANALYST PHN STUDY ABROAD ADVISOR INTERACTIVE ART DIRECTOR Signed: 12/10/2021 14:59
--- OUTSIDE RECORDS SUMMARY | 2022-06-23 00:40 | XMS_ITS | Encounter Summary ---
:1945 Author Organization [facility] Address [address] [place] [address] Support Name Relationship Address Phone BELA HIDALGO Unavailable [id number] [facility] [place] [address] BELA HIDALGO Unavailable [phone] [facility] [phone] [place] [address] Insurance Providers: All historical and current Section Date Range: From patient's date of to the date document was created.This section includes the names of all active insurance providers for the patient. Insurance Type of Plan Start of End of Group Member Insurance Policy P atient's Provider Coverage Name Policy Policy Number ID Provider's Wahl's Relationship Coverage Coverage Telephone Name to Policy Number [facility] M[facility] Nov 06, [id number] [phone] LUCRETIA LEREliud,R PATIENT (WNR) ADVANTAGE (WNR) 2019 1 42 [phone] [place] [employer] MCR MEDICARE MCR Nov 06, [id number] [phone] LUCRETIA LERS,R PATIENT (WNR) ADVANTAGE (WNR) 2019 1 42 0 [place] MEDICARE MEDICARE PART Dec 07, PART A [id number] Meg ATIENT (WNR) (M) A 2004 [id number] [phone] JENNIFER Kennedy MEDICARE MEDICARE PART Dec 07, PART B [id number] [place] HIDALGO P ATIENT (WNR) (M) B 2004 [id number] [phone] [place] -CARE OF MEDICARE MCR Nov 06, RICT [id number] [phone] JERI RS,[place] PATIENT [facility] ADVANTAGE (WNR) [id number] ICHPAUL (WNR) Selected Encounter This section includes the information [facility] at [facility] for the Encounter. Date/Time Encounter Type Encounter Description Reason Provider Source IHE Encounter Template Text not used by [facility] Advance Directives: All historical and current Section Date Range: From patient's date of to the date document was created. This section includes ALL of a patient's completed or amended [place] Advance and Rescinded Directives. The entries below indicate that a directive exists for the patient, but an actual copy is not included with this document. The data comes from all [place] facilities. Date Advance Directives Provider Source Oct 02, 2017 CLINICAL WARNING [facility]
--- OUTSIDE RECORDS SUMMARY | 2022-06-23 00:40 | XMS_ITS | Encounter Summary ---
:1945 Author Organization [facility] Address [address] [place] [address] Support Name Relationship Address Phone BELA WREN Unavailable [phone] [facility] [phone] [place] [address] BELA WREN Unavailable [phone] [facility] [phone] [place] [address] Insurance Providers: All historical and current Section [...] Telephone Name to Policy Number [facility] MCR Nov 06, [id number] [phone] Colten MCNAMARA PATIENT (WNR) ADVANTAGE (WNR) 2019 1 42 8 [place] [facility] M[facility] MEDIC[facility] MCR Nov 06, [id number] [phone] Colten MCNAMARA PATIENT (WNR) ADVANTAGE (WNR) 2019 1 42 0 CA[place]N MEDICARE MEDICARE PART Dec 07, PART A [id number] P ATIENT (WNR) (M) A 2004 [id number] [phone] RAY Kennedy MEDICARE MEDICARE PART Dec 07, PART B [id number] Colten WREN P ATIENT (WNR) (M) B 2004 [id number] [phone] CA[place]LYN -CARE OF MEDICARE MCR Nov 06, RICT [id number] [phone] Colten ALEJANDRO PATIENT [facility] ADVANTAGE (WNR) [id number] ICHARD (WNR) Selected Encounter This section includes the information on record at [place] for the Encounter. Date/Time Encounter Type Encounter Reason Provider Source Description Dec 14, 2021 NRPSYC TST EVAL PSYCHOLOGICAL ICD-10-CM KEREN CATALAN 09:00 AM PHYS/QHP EA TESTING G31.84 Mild YN R cognitive impairment, so stated with Provider Comments: Mild Cognitive Impairment, so stated IHE Encounter Template Text not used by [facility] Assessments - Encounter Diagnoses This section includes the primary and secondary diagnoses documented for the Encounter. Date/Time Primary/Secondary Diagnosis Name Provider Source Diagnosis Dec 15, 2021 PRIMARY Mild cognitive KEREN CATALAN [facility] 09:26 AM impairment, so YN R [facility] stated Plan of Treatment: Future Appointments (+ 6 months) and Future Tests (+/- 45 days) The Plan of Treatment section includes future care activities for the patient [facility] [place] [facility]. This section includes future appointments and future orders which are active, pending orscheduled.Future Appointments This section includes appointments that were scheduled to occur 6 months from the date of the Encounter, up to a maximum of 20 appointments. The data comes from all [place] treatment facilities. Appointment Date/Time Appointment Type Appointment Facili ty Name Dec 21, 2021 07:30 AM AMBULATORY - NONE [facility] Dec 23, 2021 11:45 AM AMBULATORY - MEDICINE [facility] Dec 23, 2021 12:00 PM AMBULATORY - MEDICINE [facility] Dec 31, 2021 09:00 AM AMBULATORY - PSYCHIATRY [facility] May 26, 2022 08:00 AM AMBULATORY - NONE [facility] Jun 06, 2022 01:00 PM AMBULATORY - MEDICINE [facility] Social History: Smoking Status (Most current) and Tobacco Use (All prior to encounter date) This section includes the most current, and the historical, smoking and tobacco-related health factors from the [place] facility where the Encounter took place.Current Smoking Status This section includes the most current smoking, or tobacco-related health factor, from the [place] facility where the Encounter took place. Date/Time Current Smoking Status Comment Facility Oct 18, 2021 03:30 PM VA-TOBACCO FORMER USER [facility] Tobacco Use History This section includes a history of the smoking, or tobacco- related health factors, that were collected on or before the date of the Encounter. The data comes from the [place] facility where the Encounter took place. Date/Time Smoking Status/Tobacco Use Comment [facility] Oct 18, 2021 03:30 PM VA-TOBACCO QUIT 15 YRS OR MORE [facility] 2019 01:06 PM VA-TOBACCO FORMER USER [facility] 2019 01:06 PM VA-TOBACCO QUIT 5 TO < 15 YRS [facility] Aug 09, 2018 01:15 PM [facility]AC[facility] Aug 09, 2018 01:15 PM VA-TOBACCO QUIT 5 TO < 15 YRS [facility] Jun 26, 2018 08:02 PM INPT NO TOBACCO USE IN LAST 30 DAYS [facility] Feb 08, 2017 08:22 AM FORMER TOBACCO USER 7Y OR GREATER [facility] Apr 08, 2016 07:59 AM FORMER TOBACCO USER 7Y OR GREATER [facility] Dec 02, 2014 10:48 AM FORMER TOBACCO USER 7Y OR GREATER [facility] Feb 17, 2014 10:22 AM FORMER TOBACCO USER 7Y OR GREATER [facility] Dec 19, 2012 07:42 AM FORMER TOBACCO USE >1Y <7Y [facility] Jan 02, 2012 09:35 AM FORMER TOBACCO USE >1Y <7Y [facility] Dec 13, 2010 08:57 AM FORMER TOBACCO USE >1Y <7Y [facility] Sep 03, 2009 01:16 PM FORMER TOBACCO USE >1Y <7Y [facility] Sep 25, 2008 11:20 AM CURRENT TOBACCO USER [facility] Advance Directives: All historical and current Section Date Range: From patient's date of to the date document was created. This section includes ALL of a patient's completed or amended [place] Advance and Rescinded Directives. The entries below indicate that a directive exists for the patient, but an actual copy is not included with this document. The data comes from all [place] facilities. Date Advance Directives Provider Source Oct 02, 2017 CLINICAL WARNING [place] [facility] Encounter Notes: All associated encounter notes This section contains the clinical notes associated to the Encounter. Date/Time Encounter Note(s) Provider Source Dec 14, 2021 MENTAL HEALTH CONSULT: JATINDER CATALAN MERGED WITH [facility] 09:00 AM LOCAL TITLE: MH NEUROPSYCHOLOGY CONSULT [facility] STANDARD TITLE: MENTAL HEALTH CONSULT DATE OF NOTE: DEC 14, 2021@09:00 ENTRY DATE: DEC 15, 2021@09:19:57 AUTHOR: GEMMA CATALAN COSIGNER: URGENCY: STATUS: COMPLETED MH NEUROPSYCHOLOGY CONSULT Has ADDENDA Mr. Wren arrived to the [facility] on-time and accompanied by his , who joined the clinical interview. The asses sment was completed both virtually and [id number] with PPE (mask worn by patient, mas k and face shield worn by provider). At the outset, the purpose of the danielle luation and the limits to confidentiality were explained to him by this pr ovider. Mr. Wren expressed his understanding of the carpenter its to confidentiality and agreed to participate in the evaluation. This undersigned provider then c onducted a clinical interview (40 minutes) and administered a comprehensive ba ttery of cognitive tests (110 minutes). He denied current or recent SI/HI. Yaya chappell report to follow. RISK ASSESSMENT: [place] denied current SI/HI, intent, plan or at tempt. Risk factors: age, gender, ethnicity, hi story of SI related to complex medical status Protective factors: denied current SI/HI , no history of suicide attempts, good support from , forward thinking Risk assessment: Based on cu rrent risk and protective factors, acute and chronic risk for self or other harm is deemed LOW. /reuben/ Gemma Catalan, Ph.D., [facility] Staff Neuropsychologist Signed: 12/15/2021 09:26 12/22/2021 ADDENDUM STATUS: COMPLETED NEUROPSYCHOLOGICAL REEVALUATION Patient Name: Ray Wren ([id number]) Date of : 1945 Age: 76 Education: 10 + GED Date of Evaluation: 12/14/21 Reason for referral/relevant background: Mr. Imelda toscano is a 76-year-old, right- handed, partnered, White male. He is referred fo r neuropsychological re- evaluation by [facility] psychologist, devika Yu to concerns for cognitive decline within the context of complex cardiovasc ular history. Neuropsychological evaluation in 2017 was largel y intact but notable for weaknesses in word reading and list learning tho ught to be associated with neurodevelopmental history. Summary/Impressions: Relative to previously estimated average premorb id intellectual abilities, the neurocognitive profile is notable for impair ed performances across all aspects of verbal and visual memory (encoding, r etrieval, cued recognition), with evidence of rapid forgetting and source mem ory difficulties. Performances on semantic fluency and complex vis uoconstruction were also in the impaired range. Performances across most tas ks of attention, psychomotor functioning, phonemic fluency, simple visuoconst ruction, and executive functioning remain broadly WNL. Relative to prev ious evaluation in 2017, notable declines were noted across tasks of lear karina/memory, semantic fluency, complex visuoconstruction, and select t asks of working memory and processing speed. Results were otherwise broadly stable. Functional status has also declined with greater dependency on his for completion of complex IADLs. Self-report on psychological scre ening measures were consistent with self- and collateral-report duri ng the clinical interview and do not indicate neuropsychiatric symptoms at thi s time. Results are consistent with a diagnosis of Major Neurocognitive Disorder (Dementia). The amnestic memory profile with con siderable decline observed in learning/memory and semantic fluency across exam s draws primary concern for the early stages of a cortical neurodegenerative process such as Alzheimer's disease. Complex medical history with several ce rebrovascular risk factors may be contributing to this progression. Given o bserved motor symptoms, referral to Neurology is recommended to investig ate other possible contributions. Slowly progressive decline in cog nitive and adaptive status is to be expected and should inform care planning. Current evaluation is consistent with the follow ing diagnostic profile: Diagnoses: DSM-5 Criteria (ICD-10 code): Major Neurocognitive Disorder due to Alzheimer's disease, possible Given results from current evaluation, the marco forte recommendations are proffered: 1. Referral to Neurology and updated neuroimagin g are recommended for clinical correlation and as part of a comprehens frederick dementia work-up. 2. Resources from the Alzheimer's Association wi ll be discussed during feedback and mailed to the patient if preferred. 3. Current results should inform future care stan nning. and Mrs. Wren did not indicate current need for in-sissy e support, but I will review PCSW resources during feedback. 4. Use of external aids (e.g., phone alarms, tao ne calendar, lists) and cues in his home environment is recommended. Lilibeth ious strategies to improve daily memory functioning will be discussed durin g feedback. 5. Optimal management of cerebrovascular risk fa ctors, including physician-approved diet and exercise to reduce r isk of future stroke and/or further cognitive decline. 6. Ongoing adherence to nightly CPAP is recommen ded as untreated sleep apnea can lead to hypoxemia and cognitive declin e. 7. Prognostically, current difficulties will lik maria persist and gradually progress. A follow-up neuropsychologic al evaluation is recommended within 12-18 months to monitor cognitive status and update diagnoses/recommendations as appropriate. Feedback of present results will be provided to the patient on 12/31/21 at 9am. Thank you for the opportunity to consult wi this patient. If further information is needed, please contact the office at . --EXTENDED REPORT-- [Total professional time, including testing/scor ing (150 min), chart review (60 min), clinical interview (40 min), test inte rpretation (30 min), and report writing (120 min) = 400 min]. Mr. Wren provided verbal consent for neuropsy chological evaluation and treatment following the provision of information about confidentiality and its limitations; the patient was given the oppor tunity to ask questions. Due to COVID-19, a hybrid model of testing (e.g., [facility] [id number]-sd-owjn with PPE, virtual platform [id number]) was utilized by t his provider for interpretation and integration into a final repo rt; notably, this style of assessment is not consistent with standardized p rocedures and therefore cautious interpretation of results is recommende d. The following report and evaluation was completed by the undersigned ps hologist. Information was obtained from clinical interview with the patien orquidea and his and review of the CPRS and outside medical records. Medical/Psychiatric History: Active problems - Computerized Problem List is t he source for the followin. Coronary artery disease - S/P CABG x 3 n 2001. - S/P stents to OM1 and D1 in 2006. 2. Peripheral vascular disease ([place] [address] 7006) 3. Hyperlipidemia (SNOMED CT 59874899) 4. Tobacco Use 5. Patricio's esophagus (SNOMED CT 702203853) 6. Dual Care - Dr. Zhao, PCP [facility] Cardiology 7. Hypertension 8. Lower urinary tract symptoms 9. Migraine 10. Elevated PSA 11. 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 Sleep apnea - severe per sleep study done 2018 14. Mitral Valve Disorder ([facility] [id number]) - -Mild mitral regurgitation per 05/2021 echo. R ecommend repeat in 2-3 years, sooner if symptomatic. Aside from aforementioned, medical history is la rgely unremarkable. He denied history of stroke, seizure, brain infection, or head trauma. Medical records indicate hospitalizations in 2017 for suspected stroke vs. seizure vs. migraine (Neurology concluded no stroke, EEG was WNL, determined more likely migraine), and in 2018 and 2019 for angina/compl ications associated with CAD. He is adherent to nightly CPAP. Most recent rele vant labs were within normal reference range. For comprehensive review of psy chiatric and family history, see previous neuropsychological evaluation compl eted in 2017. Psychiatric history is largely unremarkable. He drinks a cou ple of beers nightly and denied use of tobacco or illicit substances. He drinks two cups of coffee daily. Interim family medical/psychiatric histor y is unremarkable. Medications: Active Outpatient Medications (incl uding Supplies): Active Outpatient Medications Status 1) ALIROCUMAB 75MG/ML INJ 1ML PEN INJECT 75MG (1 ML) ACTIVE UNDER THE SKIN EVERY 2 WEEKS FOR HYPERLIPIDEMIA AND CORONARY ARTERY DISEASE (CAD) 2) CARVEDILOL 6.25MG TAB TAKE ONE-HALF TABLET BY MOUTH ACTIVE TWICE A DAY 3) CLOBETASOL PROPIONATE 0.05% OINT APPLY A THIN LAYER ACTIVE TWICE A DAY FOR RASH -USE FOR 4 WEEKS, THEN JANA E 1 WEEK OFF -AVOID FACE, GROIN AND ARMPITS -USE LO NGER THAN 6 WEEKS MAY CAUSE THINNING OF SKIN 4) CLOPIDOGREL BISULFATE 75MG TAB TAKE ONE TABLE T BY ACTIVE MOUTH EVERY DAY TO PREVENT BLOOD CLOTS (APPROVE D FOR LONG-TERM USE) 5) ISOSORBIDE MONONITRATE 30MG SA TAB TAKE ONE T ABLET BY ACTIVE MOUTH EVERY MORNING TAKE 30 MG WITH 60 MG TABLE T FOR TOTAL OF 90 MG PER DAY 6) ISOSORBIDE MONONITRATE 60MG SA TAB TAKE ONE T ABLET BY ACTIVE MOUTH EVERY DAY FOR THE HEART 7) NITROGLYCERIN 0.4MG SL TAB DISSOLVE ONE TABLE T UNDER ACTIVE THE TONGUE NEEDED FOR CHEST PAIN*MAY REPEAT EVERY 5 MINUTES-NO MORE THAN 3 TOTAL 8) OMEPRAZOLE 20MG EC CAP TAKE TWO CAPSULES BY M OUTH ACTIVE TWICE A DAY TO DECREASE STOMACH ACID -TAKE ON A N EMPTY STOMACH, AT LEAST 30 MINUTES BEFORE EATIN G 9) VANICREAM TOP CREAM APPLY THIN LAYER TOPICALL Y TWICE ACTIVE A DAY FOR DRY SKIN Active Non-VA Medications Status 1) Non-VA ASPIRIN 81MG EC TAB 81MG MOUTH EVERY M ORNING ACTIVE 10 Total Medications Neurodiagnostics: Brain MRI completed on 10/03/17: Findings: Brain parenchyma: Within normal limits in signa l characteristics and morphology. No evidence of acute ischemia d iffusion-weighted imaging. Punctate scattered white matter lesion s throughout cerebral hemispheres are nonspecific but consis tent with chronic small vessel ischemic disease. Remaining brain parenchyma is within normal limits in signal characteristics and morphology. No evidence of abnormal enhancement. No evidence o f intracranial hemorrhage. No evidence of intracranial mass. Craniocervical junction: Limited imaging the up per cervical spine unremarkable for dark signal on T1-weighted gino ging, sclerosis of the visualized C3 and C4 vertebral bodies. Cran iocervical junction otherwise unremarkable. Skull appears within normal limits per Impression: 1. No evidence of acute intracranial abnormalit y. No evidence of cause for patient's symptoms. 2. Abnormal, sclerotic appearing C3 and C4 vert ebral bodies. The cause for this is unclear. However can be seen in marrow replacing processes such as metastases includin g prostate cancer. Clinical correlation and possibly further imagi ng may be necessary. 3. Mild chronic appearing small vessel ischemic disease. Head CT on 10/02/17: Impression: 1. Bifrontal cerebral cortical atrophy. 2. Otherwise normal. No focal intra-axial lesio n or mass. Cerebral riojas-white distinction is maintained. No acute hemorrhage. EEG on 10/03/17: IMPRESSION: This prolonged, greater than one hour EEG record is within normal limits for the awake and drowsy state. Of note, bradyca rdia was noted during much of the recording period. Previous Neuropsychological Assessments: 10/11/17: In summary, the patient demonstrated l argely intact performances across most cognitive domains with the exception of select weakness on word reading and list learning tasks. At face value, these difficulties appear most consistent, at this time, with the patient' s report of reading/academic difficulties during school. Patient can be reass ured that no significant pattern of impairments was noted on exam. Consequently, no diagnosis from a cognitive perspective is proffered at this time. Results from the MMPI-2 -RF also indicated no clinical elevations to suggest a neuropsychiatri c diagnosis. Developmental/Occupational/Social History: For comprehensive review of psychosocial history , see previous evaluation dated 10/11/17. Interim history is notable for de libby to downsize their living environment. His reported that they have a 4 BR house and live on a [place]- [place] property. Their daughter is planning to buy their home and they are considering building a smaller house on the prop [employer] if it is permitted. Mr. Wren reported close relationships with his wi fe, children, and grandchildren. He noted that they do not sociali ze frequently but prefer to this to social activity. Interview Information: The patient reported pretty stable cognition s brenda previous exam, though acknowledged that his memory is a little slower and he gets confused occasionally. His described more significan t problems, stating he frequently gets confused/lost, and repeats himse lf. She manages his schedule due to memory problems. Physically, he noted dec line in hearing and stated that he stopped wearing his hearing aid. He endo rsed left knee pain, occasional imbalance, and previous tremor in his hands that has since improved. He stated he does not notice the head tremor; his noted that this has been ongoing for a year. He denied david rointestinal concerns or history of urinary/bowel incontinence. He sleeps well, going to bed between 5 and 7pm and waking between 3 and 5am. He occasio rakesh wakes with messy covers but stated this tends to be when he was more alfred ctive the day before and therefore restless while sleeping. Mood was desc ribed as pretty good and his agreed. He denied problems with depress ion, anxiety, or anger/irritability. Appetite and weight are broa dly stable. He denied any history of hallucinations or delusions. He noted previous SI with plan post- cardiac surgery but denied attempt. RISK ASSESSMENT: denied current SI/HI, intent, plan or at tempt. Risk factors: age, gender, ethnicity, history of SI related to complex medical status Protective factors: denied current SI/HI, no his tory of suicide attempts, good support from , forward thinking Risk assessment: Based on current risk and prote ctive factors, acute and chronic risk for self or other harm is deemed LOW. Activities of Daily Living: Mr. Wren reported intact basic ADLs. Regardin g IADLs, he denied driving concerns, including any recent accidents or viol ations; he got lost on one recent occasion. He is managing medications with a pillbox but noted he has to concentrate more on it than in the past and h e sometimes forgets if he has taken medications. 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 Behavioral Observations: Mr. Wren arrived to his appointment on-time a nd accompanied by his . He was casually dressed and adequately groomed. Gait was mildly slowed, with mildly reduced arm swing bilaterally. Head tremo r was observed throughout the evaluation; tremor was also observed on psychomo tor tasks. Vision (corrected with reading glasses) and hearing were adequate for assessment purposes. Receptive language was intact, with consistent a bility to follow more complex task instructions. Speech was notable for mild w ord finding difficulties but otherwise WNL. Thought processes were linear and goal-oriented. Recent memory appeared mildly impaired whereas remote memory w as broadly intact. Affect was notable for full range and mood-congruent. He wa s pleasant and fully cooperative throughout the assessment, though he became quickly frustrated and confused on more complex tasks. Tests Administered: Empirically validated embedded measure of perfor robi validity; Generalized Anxiety Inventory (GAI), Geriatric Depression Sc julio césar-15 item (GDS-15) Tests Administered Fvoa-gb-Dzny: Brief Visuospatial Memory Test-Revised (BVMT-R, Form 2), CLOX 1&2, Fred Osterrieth Complex Figure Test (Copy trial), Str oop Color & Word Test, Symbol Digit Modalities Test, Trailmaking Test Parts A & B; Noah Adult Intelligence Scale-4th edition (WAIS-IV Coding a nd Symbol Search subtests) Tests Administered Virtually: Animal Naming Test, [place] Naming Test (BNT), Co ntrolled Oral Word Association Test (COWAT), Ho Verbal Learnin g Test-Revised (HVLT-R; Form 1), Noah Adult Intelligence Scale-4th editio n (WAIS-IV, Digit Span subtest), Noah Memory Scales-4th edition (WM S-IV; Logical Memory subtests) EXAMINATION FINDINGS Descriptive Correa: RS= Raw Score SS= Standardized Score %ile= Percentile Rank Effort: Performance on two of two embedded measu res of effort was within normal limits. Combined with behavioral observat ions, current test results likely reflect a reasonable estimate of Mr. Evelin fox's day-to-day cognitive presentation. Motor Functioning RS SS %ile FingerTapping Dominant 45.40 50 50 FingerTapping NonDominant 41.60 48 42 Attention/Cognitive Efficiency RS SS %ile WAISIV PSI 92 30 WAISIV DigitSpan 20 8 25 WAISIV DigitSpan Forward 8 8 25 WAISIV DigitSpan Backward 7 9 37 WAISIV DigitSpan Sequencing 5 8 25 WAISIV LongestDigit Forward 5 WAISIV LongestDigit Backward 4 WAISIV LongestDigit Sequencing 4 WAISIV SymbolSearch 17 8 25 WAISIV Coding 38 9 37 Trails A 32 59 82 Trails A Errors 0 Stroop Word 72 36 8 Stroop Color 59 43 25 Language RS SS %ile COWAT 23 40 16 Animals 10 33 5 BNT 57 64 92 BNT withPhonemicCues 57 Visuospatial Abilities RS SS %ile ROCFT Copy 23 <1 ROCFT time to copy 180 >16 Clox2 13 -1.20 12 BVMT Copy 1212 Learning and Memory RS SS %ile HVLT R Trial1 4 HVLT R Trial2 5 HVLT R Trial3 7 HVLT R TotalRecall 16 36 8 HVLT R DelayedRecall 0 20 <1 HVLT R PercentRetention 0 20 <1 HVLT R RecognitionDiscriminationIndex 6 26 1 HVLT R Hits 9 HVLT R FalsePositives 3 WMSIV LogicalMemory OA ImmediateRecallT1 1 5 WMSIV LogicalMemory OA ImmediateRecallT1 2 9 WMSIV LogicalMemory OA ImmediateRecallT2 0 WMSIV LogicalMemory OA ImmediateRecallTotal 14 5 5 WMSIV LogicalMemory OA DelayedRecall 0 1 <1 WMSIV LogicalMemory OA Recognition 12 3-9 BVMT R Trial1 1 31 3 BVMT R Trial2 4 34 5 BVMT R Trial3 5 34 5 BVMT R Total 10 31 3 BVMT R DelayedRecall 2 25 1 BVMT R PercentRetention 40 <1 BVMT R Hits 4 6-10 BVMT R FalsePositives 1 11-16 BVMT R RecognitionDiscriminationIndex 3 3-5 Executive Functioning RS SS %ile Trails B 121 52 58 Trails B Errors 0 Stroop ColorWord 27 48 42 Stroop ColorWord Errors 1 Clox1 15 1.13 87 Emotional/Personality Functioning RS Descriptor GDS-15 2 WNL GAI 0 WNL /reuben/ Gemma Catalan, Ph.D., [facility] Staff Neuropsychologist Signed: 12/22/2021 16:31
--- OUTSIDE RECORDS SUMMARY | 2022-06-23 00:40 | XMS_ITS | Encounter Summary ---
:1945 Author Organization [facility] Address [address] [place] [id number] Support Name Relationship Address Phone BELA WREN Unavailable [phone] [facility] [place] [address] BELA WREN Unavailable [phone] [facility] [phone] [place] [address] Insurance Providers: All historical and current Section [...] Telephone Name to Policy Number Wahl [facility] MEDIC[facility] MCR Nov 06, [id number] [phone] LUCRETIA CASTR PATIENT (WNR) ADVANTAGE (WNR) 2019 1 42 8 CAITLYN [facility] M[facility] MEDICARE MCR Nov 06, [id number] [phone] LUCRETIA CASTR PATIENT (WNR) ADVANTAGE (WNR) 2019 1 42 0 CAITLYN MEDICARE MEDICARE PART Dec 07, PART A [id number] P ATIENT (WNR) (M) A [id number] [phone] RAY Kennedy MEDICARE MEDICARE PART Dec 07, PART B [id number] Colten WREN P ATIENT (WNR) (M) B [id number] [phone] CAITLYN -CARE OF MEDICARE MCR Nov 06, RICT [id number] [phone] JERI MORENOR PATIENT [facility] ADVANTAGE (WNR) [id number] ICHARD (WNR) Selected Encounter This section includes the information on record at [place] for the Encounter. Date/Time Encounter Type Encounter Reason Provider Source Description Dec 23, 2021 OFFICE O/P EST CARDIOLOGY ICD-10-CM NEHEMIAH STEIN 12:00 PM MOD 30-39 MIN I25.10 Athscl A heart disease of [place] coronary artery w/o ang pctrs with Provider Comments: Coronary artery disease ([facility] [id number]) IHE Encounter Template Text not used by [place] Assessments - Encounter Diagnoses This section includes the primary and secondary diagnoses documented for the Encounter. Date/Time Primary/Secondary Diagnosis Name Provider Source Diagnosis Dec 23, 2021 PRIMARY Athscl [facility]16 PM disease of [place] E [facility] coronary artery w/o ang pctrs Dec 23, 2021 SECONDARY [facility] PM esophagus without E A [facility] dysplasia Dec 23, 2021 SECONDARY [facility]ential [facility] 01:16 PM (primary) E A [facility] hypertension Dec 23, 2021 SECONDARY Hyperlipidemia, [facility] 01:16 PM unspecified E A [facility] Dec 23, 2021 SECONDARY Rheumatic mitral MARISABEL STEINI [facility] [place] 01:16 PM valve disease, E A [facility] unspecified Dec 23, 2021 SECONDARY Sleep apnea, [facility] 01:16 PM unspecified E A [facility] Plan of Treatment: Future Appointments (+ 6 months) and Future Tests (+/- 45 days) The Plan of Treatment section includes future care activities for the patient from all [facility]. This section includes future appointments and future orders which are active, pending orscheduled.Future Appointments This section includes appointments that were scheduled to occur 6 months from the date of the Encounter, up to a maximum of 20 appointments. The data comes from all [place] treatment facilities. Appointment Date/Time Appointment Type Appointment Facili ty Name Dec 31, 2021 09:00 AM AMBULATORY - PSYCHIATRY [facility] May 26, 2022 08:00 AM AMBULATORY - NONE [facility] Jun 06, 2022 01:00 PM AMBULATORY - MEDICINE [facility] CS Vital Signs: All taken on the encounter date This section contains inpatient and outpatient Vital Signs collected on the date of the Encounter. Date/Time Temperature Pulse Blood Respiratory SP02 Pain Height Weight Harshal dy Source Pressure Rate Mass Index Dec 23, 154/88 [place] 2021 11:46 mm[Hg] OLIS SD AM [facility] Dec 23, 97.1 F 61 160/89 16 /min 98 % 0 170.8 26 [place] 2021 11:42 /min mm[Hg] lb OLIS [facility] Social History: Smoking Status (Most current) [...] 2021 03:30 PM VA-TOBACCO FORMER USER [facility] Tobacco Use History This section includes a history of the smoking, or tobacco- related health factors, that were collected on or before the date of the Encounter. The data comes from the [place] facility where the Encounter took place. Date/Time Smoking Status/Tobacco Use Comment Facil it Oct 18, 2021 03:30 PM VA-TOBACCO QUIT 15 YRS OR MORE [facility] 2019 01:06 PM VA-TOBACCO FORMER USER [facility] 2019 01:06 PM VA-TOBACCO QUIT 5 TO < 15 YRS [facility] Aug 09, 2018 01:15 PM VA-TOBACCO FORMER USER [facility] Aug 09, 2018 01:15 PM VA-TOBACCO QUIT 5 TO < 15 YRS [facility] Jun 26, 2018 08:02 PM INPT NO TOBACCO USE IN LAST 30 DAYS [facility] Feb 08, 2017 08:22 AM FORMER TOBACCO USER 7Y OR GREATER [facility] Apr 08, 2016 07:59 AM FORMER TOBACCO USER 7Y OR GREATER [facility] Dec 02, 2014 10:48 AM FORMER TOBACCO USER 7Y OR GREATER [facility] Feb 17, 2014 10:22 AM FORMER TOBACCO USER 7Y OR GREATER [facility] Dec 19, 2012 07:42 AM FORMER TOBACCO USE >1Y <7Y [facility] Jan 02, 2012 09:35 AM FORMER TOBACCO USE >1Y <7Y [facility] Dec 13, 2010 08:57 AM FORMER TOBACCO USE >1Y <7Y [facility] Sep 03, 2009 01:16 PM FORMER TOBACCO USE >1Y <7Y [facility] Sep 25, 2008 11:20 AM CURRENT TOBACCO USER [facility] Advance Directives: All historical [...] Oct 02, 2017 CLINICAL WARNING JAXON LONG [facility] Encounter Notes: All associated encounter notes This section contains the clinical notes associated to the Encounter. Date/Time Encounter Note(s) Provider Source Dec 23, 2021 11:42 AM INTERNAL MEDICINE OUTPATIENT NOTE: PEDRO ANAYA [facility] LOCAL TITLE: MEDICINE CLINIC NURSING NOTE STANDARD TITLE: INTERNAL MEDICINE OUTPATIENT NOT E DATE OF NOTE: DEC 23, 2021@11:42 ENTRY DATE: DEC 23, 2021@11:43:02 AUTHOR: PEDRO ANAYA EXP COSIGNER: URGENCY: STATUS: COMPLETED TYPE OF VISIT: Appointment Check In Type of appointment: In-person appointment REASON FOR VISIT: scheduled visit ALLERGIES: ROSUVASTATIN (Jul 15, 2012) PRAVASTATIN (Feb 07, 2013) LIPITOR (March 07, 2013) SIMVASTATIN (Jun 16, 2013) VITAL SIGNS: Blood Pressure: 160/89 (12/23/2021 11:42) Recheck: 154/88 no c/o symptoms. states it they are always nervo us coming into the doctors office. Monitors it at home and can be around 1 something. Pulse: 61 (12/23/2021 11:42) Respiration: 16 (12/23/2021 11:42) Temperature: 97.1 F [36.2 C] (12/23/2021 11:42) Weight: 170.8 lb [77.6 kg] (12/23/2021 11:42) Height: 68 in [172.7 cm] (10/19/2021 10:26) BMI: 26.0 O2 Sat: 98% (12/23/2021 11:42) Pain: 0 (12/23/2021 11:42) PAIN SCREEN: Patient is not having significant pain that the y wish to discuss with their provider today. MEDICATION Over the Counter/Herbal Medications: The patient denies taking any outside medicatio ns or herbals. /reuben/ PEDRO ANAYA LPN LPN Signed: 12/23/2021 11:46 Dec 23, 2021 08:42 AM CARDIOLOGY OUTPATIENT NOTE: NEHEMIAH STEIN [facility] LOCAL TITLE: CARDIAC INTERVENTIONAL CLINIC NOTE STANDARD TITLE: CARDIOLOGY OUTPATIENT NOTE DATE OF NOTE: DEC 23, 2021@08:42 ENTRY DATE: DEC 23, 2021@08:42:22 AUTHOR: NEHEMIAH STEIN EXP COSIGNER: URGENCY: STATUS: COMPLETED History of Presenting Illness (HPI): Ray Wren is a 76 year-old gentleman with a history of hypertension, hyperlipidemia with statin intolerance currently on PCSK9 inhibitor, tobacco use, Issa's esophagus, sleep apnea, MGUS, mild to moderate mitral regurgitation per 2018 echo, and coronary artery disease. He underwent CABG [...] his PCP, who referred him to the [place] ED. EC G reportedly showed T wave inversion in the lateral leads with troponin 0.78. Due to known c oronary anatomy and his preference for [facility] follow up, he was discharged home with increa se in ASA and instructed to avoid strenuous activity. He was seen in [place] card iology consultation 09/11/2020 and underwent coronary [...] eluting stent. As he had previously tolerated salvage determiner dual antiplatelet therapy, ongoing shimon g term [...] He matoma had entirely resolved. He was seen in Interventional Cardiology follow up via phone visit 04/09/2021 and reported increa sed fatigue since PCI, RASHEED and anginal symptoms had resolved. Since his PCI, he had experienced incr eased fatigue. As he became more active, 3-4 times per week he would experience sudden onset of midsternal chest discomfort when walking across parking lot into [employer], where he works part-time. He was able to continue walking and c hest discomfort would resolve within 15-20 minutes, but when he would take sub lingual nitro, discomfort resolved within a few minute s. Chest discomfort was associated with SOB, denied radiation. He would rarely experience a second e pisode in a day. Home blood pressures were 97-116/60-68 with SBP average 100 s, pulse 51-62. Echo was obtained 05/11/2021, LV function was normal, EF 55 -60^. Mild concentric left ventricular hypertrophy, Grade I diastolic dysfu nction, and mild pulmonary hypertension were noted with estimated PASP 47 m mHg. Compared with prior echo 06/27/2018, mild interval increase in PAS P noted. Mild mitral regurgitation was present. Symptoms were reviewed with Dr. Kp wen. SVG extensively stented, RPL2 segment off of RCA significantly diseased a nd not amenable to PCI, which could be source of angina. Dr. Monge recommen ded discontinuation of carvedilol, initiation of metoprolol tartrate 25 mg bid, and addition of ranolazine 500 mg bid. When contacted with recom mendations, he reported improvement in his symptoms, and ongoing quick resolution with sublingual nitro, therefore preferred to continue current medicati ons. He was seen again in Interventional Cardiology fo [facility] up 10/07/2021 and reported use of SL nitro a few times per week for exertiona l midsternal chest tightness, which was occasionally associated with SOB 1-2 time s per month. Angina was relatively stable, although increased since MO. He was still able to cut and split wood with occasional SOB, but at a slower pace to prevent symptoms, as well as for decreased stamina. Imdur was increased to 90 mg daily. He presents today for Interventional Cardiology follow up. Over the winter months, his activity level decli vinny, but he does continue to haul wood into his home for their woodstove. He has not experienced anginal symptoms with this activity. He denies SOB, palp itations, PND, orthopnea, lightheadedness, or edema. He has not checked hi s blood pressure for several months, but reports home blood pressure is usual ly well controlled, but runs higher for office appointments. He just establis hed with a community care primary care provider Dr. David bruce in [place], but plans to [facility] most [facility]. Review of Systems (ROS) as per HPI and otherwise negative with the following exceptions: LUMMI, has hearing aids. Uses CPAP regularly. GERD managed with chronic PPI due to history of Patricio's. Left knee discomfort. M utica issues, awaiting recommendations from recent neuropsych testing. Allergies: ROSUVASTATIN (Jul 15, 2012) PRAVASTATIN (Feb [...] 6. Dual Care - Dr. Zhao, PCP [facility] Cardiology 7. Hypertension 8. Lower urinary tract symptoms 9. Migraine 10. Elevated PSA 11. 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 Sleep apnea - severe per sleep study done 2018 14. Mitral Valve Disorder - Mild mitral regurgitation per 05/2021 echo. Re commend repeat in 2-3 years, sooner if symptomatic. Relevant Active Medications: Active and Recently Outpatient Medicatio ns (including Supplies): Active Outpatient Medications Status 1) ALIROCUMAB 75MG/ML INJ 1ML PEN INJECT 75MG (1 ML) ACTIVE UNDER THE SKIN EVERY 2 WEEKS FOR HYPERLIPIDEMIA AND CORONARY ARTERY DISEASE 2) CARVEDILOL 6.25MG TAB TAKE ONE-HALF TABLET [...] CLOTS (APPROVE D FOR LONG-TERM USE) 5) EZETIMIBE 10MG TAB TAKE ONE TABLET BY MOUTH E VERY DAY ACTIVE 6) ISOSORBIDE MONONITRATE 30MG SA TAB TAKE ONE T ABLET BY ACTIVE MOUTH EVERY MORNING --TAKE WITH A 60MG TABLET F OR A TOTAL DAILY DOSE OF 90MG PER DAY 7) ISOSORBIDE MONONITRATE 60MG SA TAB TAKE ONE T ABLET BY ACTIVE MOUTH ONCE EVERY DAY IN THE MORNING 8) LISINOPRIL 10MG TAB TAKE ONE-HALF TABLET BY M OUTH ACTIVE EVERY DAY FOR HIGH BLOOD PRESSURE 9) NITROGLYCERIN 0.4MG SL TAB DISSOLVE ONE TABLE T UNDER ACTIVE THE TONGUE EVERY 5 MINUTES FOR UP TO 3 DOSES IF NEEDED FOR CHEST PAIN 10) OMEPRAZOLE 20MG EC CAP TAKE TWO CAPSULES BY MOUTH ACTIVE TWICE A DAY ON AN EMPTY STOMACH, AT LEAST 30 MINUTES PRIOR TO A MEAL 11) VANICREAM TOP CREAM APPLY THIN LAYER [...] ONE TABLET BY MOUTH E VERY DAY -APPROVED- 5) ISOSORBIDE MONONITRATE 30MG SA TAB TAKE ONE T ABLET BY DISCONTINUED MOUTH EVERY MORNING TAKE 30 MG WITH 60 MG TABLE T FOR TOTAL OF 90 MG PER DAY 6) ISOSORBIDE MONONITRATE 60MG SA TAB TAKE ONE T ABLET BY DISCONTINUED MOUTH EVERY DAY FOR THE HEART 7) LISINOPRIL 10MG TAB TAKE ONE-HALF TABLET BY M OUTH EVERY DAY FOR HIGH BLOOD PRESSURE 8) MAGNESIUM OXIDE 420MG TAB TAKE ONE TABLET BY MOUTH EVERY DAY FOR HEADACHE PREVENTION 9) NITROGLYCERIN 0.4MG SL TAB DISSOLVE ONE TABLE T UNDER DISCONTINUED THE TONGUE NEEDED FOR CHEST PAIN*MAY REPEAT EVERY 5 MINUTES-NO MORE THAN 3 TOTAL 10) OMEPRAZOLE 20MG EC CAP TAKE TWO CAPSULES BY MOUTH DISCONTINUED TWICE A DAY TO DECREASE STOMACH ACID -TAKE ON A N EMPTY STOMACH, AT LEAST 30 MINUTES BEFORE EATIN G Active Non-VA Medications Status 1) Non-VA ASPIRIN 81MG EC TAB 81MG MOUTH EVERY M ORNING ACTIVE 22 Total Medications Risk Factors: Gender, age, hypertension, hyperlipidemia, tobac co use Family History: Father age 58 of complications related to E MOY abuse Mother age 86, no cardiac issues One brother has pacemaker Social History: Marital status: Children: 2, alive and well Occupation: [employer] Tobacco use: Quit smoking 14 years ago ETOH use: 1-2 beers per day Illicit drug use: Denies VITAL SIGNS: Blood Pressure: 160/89 (12/23/2021 11:42) Rechec k: 154/88 no c/o symptoms. states it they are always nervo us coming into the doctors office. Monitors it at home and can be around 1 something. Pulse: 61 (12/23/2021 11:42) Respiration: 16 (12/23/2021 11:42) Temperature: 97.1 F [36.2 C] (12/23/2021 11:42) Weight: 170.8 lb [77.6 kg] (12/23/2021 11:42) Height: 68 in [172.7 cm] (10/19/2021 10:26) BMI: 26.0 O2 Sat: 98% (12/23/2021 11:42) Pain: 0 (12/23/2021 11:42) Physical Exam: General: Pleasant, no acute distress HEENT: Facial features symmetrical. Sclera ashish cteric Cardiac: RRR. S1, S2. No murmur/rub. Lungs: Clear to auscultation. Respirations nonl abored. Abdomen: Soft, nontender. Bowel sounds active. Extremities: No edema. Neuro: Nonfocal. Psychiatric: Mood and affect are appropriate Most Recent Lab Results: LAB RESULTS TODAY - NONE FOUND BMP/Electrolytes: CREATININE 0.9 (10/19/21) UREA NITROGEN 13 (05/11/21) SODIUM 138 (10/19/21) CHLORIDE 103 (10/19/21) POTASSIUM 3.9 (10/19/21) CO2 29 (10/19/21) GLUCOSE 105 H (10/19/21) CREATININE 0.9 PLASMA (10/19/21 09:36) 0.9 PLASMA (05/11/21 08:47) Collection DT Spec WBC HGB HCT PLT MCV NEUT LYMP HS 10/19/2021 09:36 BLOOD 6.43 16.9 48.9 208 91.9 05/11/2021 08:47 BLOOD 5.99 15.4 46.2 157 94.5 7 4.1 14.9 Lipid Profile: CHOLESTEROL 101 (10/19/21) HDL 46 (10/19/21) LDL CALCULATION 35 (10/19/21) TRIGLYCERIDE 102 (10/19/21) Lipid Profile: CHOLESTEROL 172 (12/18/20) HDL 65 (12/18/20) LDL CALCULATION 87 (12/18/20) MEASURED LDL____ TRIGLYCERIDE 98 (12/18/20) LFTs: ALK PHOSPHATASE 53 (05/11/21) SGPT 15 (10/19/21) SGOT 17 (10/19/21) TSH 1.02 (10/19/21) HEMOGLOBIN A1C 5.8 (10/19/21) INR - NONE FOUND TROPONIN - NONE FOUND DIAGNOSTICS ECG today: Sinus bradycardia, rate 54. Nonspecif ic ST T abnormality. No significant change compared with prior ECG 2020. ECG 10/14/2021: Sinus bradycardia, rate 54. ST T abnormality I, aVL, V2. Compared with prior ECG, ST T abnormality V2 new . ECG 09/12/2020: Sinus bradycardia, rate 50. Nonsp ecific ST abnormality. Echocardiogram 05/11/2021: Interpretation Summary A complete two-dimensional transthoracic echocar diogram (20410) was performed without contrast. The left ventricular [...] focal wall motion abnormality. CORONARY ANGIOGRAPHY 06/27/2018: [place] Vessels Dominance: Right dominant Stenoses Details Segment [...] eristics 1. SVG 2nd Obtuse Marginal Body Y [...] CATHETERS Right coronary artery: Other, 6 fr, AR-iOpener Left coronary artery: JL 4, 6 fr Bypass graft angiography: Other (Graft), 6 fr, AR-iOpener Aorta: 188/ 93, mean 139 [place] Vessels Summary: Other - see comments Dominance: [...] 10 terrence 3. PCI Stent - TRINA [place] [employer], 3.5mm x 28mm peak inflation: 22 [...] eluting stent. As he had previously tolerated shelter dual antip latelet therapy, ongoing salvage determiner DAPT recommended. He is currently doing well f rom a cardiovascular perspective and denies anginal symptoms. Blood pressure is mildly elevated toda y, although per his report, well controlled at home. Plan: 1. CAD: *Continue indefinite DAPT with ASA and clopidogr el due to significant CAD. *Continue Imdur 90 mg daily, carvedilol 3.125 mg bid. If anginal symptoms return and he becomes will ing to make change to his medication regimen, [...] on PCSK9 inhibitor initiated by Metabolic/Endocrine. Lipids 10/19/2021: TC 101, HDL 46, LDL 35, TG 102. *LDL reduction to goal of 70 or < 50% of baselin e, whichever is lower. Currently at goal. *Zetia and Praluent per endocrine. 5. Follow up: As he is currently doing well with out angina, and > 1 year out from PCI, will not plan further scheduled Interv entional Cardiology follow up but would be happy to see Mr. Wren in the fut ure if the need arises. Today's testing results, significance, and plan were discussed in lay-terms. Thank you for asking us to see your patient. Ple ase do not hesitate to contact me should you need additional informatio n. 50% of 38 minutes spent counseling the patient a imer coordinating care /reuben/ NEHEMIAH STEIN NP NURSE PRACTITIONER Signed: 12/23/2021 13:16
--- OUTSIDE RECORDS SUMMARY | 2022-06-23 00:41 | XMS_ITS | Encounter Summary ---
:1945 Author Organization [facility] Address [address] [place] [id number] Support Name Relationship Address Phone BELA HIDALGO Unavailable [address] [facility] [phone] [place] [address] BELA HIDALGO Unavailable [address] [facility] [place] [address] Insurance Providers: All historical and current Section [...] Wahl HUMANA MCR MEDICARE MCR Nov 06, [id number] [phone] Colten MCNAMARA PATIENT (WNR) ADVANTAGE (WNR) 2019 1 42 8 CAITLYN HUMANA MCR MEDICARE MCR Nov 06, [id number] Colten MCNAMARA PATIENT (WNR) ADVANTAGE (WNR) 2019 1 42 0 ICHARD MEDICARE MEDICARE PART Dec 07, PART B [id number] [place] HIDALGO P ATIENT (WNR) (M) B [id number] [phone] [facility] PART Dec 07, PART A [id number] P ATIENT (WNR) (M) A [id number] [phone] JENNIFER Kennedy U-CARE OF MEDICARE MCR Nov 06, RICT [id number] [phone] [place] [address] [facility] ADVANTAGE (WNR) [id number] ICHPAUL (WNR) Selected Encounter This section includes the information on record at [place] for the Encounter. Date/Time Encounter Type Encounter Description Reason Provider Source Dec 21, 2021 12:00 Outpatient Encounter COMMUNITY CARE AM CONSULT IHE Encounter Template Text not used by [place] Plan of Treatment: Future Appointments (+ 6 months) and Future Tests (+/- 45 days) The Plan of Treatment section includes future care activities for the patient [facility] [place] [facility] This section includes future appointments and future orders which are active, pending orscheduled.Future Appointments This section includes appointments that were scheduled to occur 6 months from the date of the Encounter, up to a maximum of 20 appointments. The data comes from all [place] treatment facilities. Appointment Date/Time Appointment Type Appointment Facili ty Name Dec 23, 2021 11:45 AM AMBULATORY - MEDICINE [facility] Dec 23, 2021 12:00 PM AMBULATORY - MEDICINE [facility] Dec 31, 2021 09:00 AM AMBULATORY - PSYCHIATRY [facility] May 26, 2022 08:00 AM AMBULATORY - NONE [facility] Jun 06, 2022 01:00 PM AMBULATORY - MEDICINE [facility] Social History: Smoking Status (Most current) and Tobacco Use (All prior to encounter date) This section includes the most current, and the historical, smoking and tobacco-related health factors from the [place] facility where the Encounter took place.Current Smoking Status This section includes the most current smoking, or tobacco-related health factor, from the [place] facility where the Encounter took place. Date/Time Current Smoking Status Comment Facility Oct 18, 2021 03:30 PM VA-TOBACCO FORMER USER [facility] Tobacco Use History This section includes a history of the smoking, or tobacco- related health factors, that were collected on or before the date of the Encounter. The data comes from the [place] facility where the Encounter took place. Date/Time Smoking Status/Tobacco Use Comment [facility] Oct 18, 2021 03:30 PM VA-TOBACCO QUIT 15 YRS OR MORE [facility] 2019 01:06 PM VA-TOBACCO FORMER USER [facility] 2019 01:06 PM VA-TOBACCO QUIT 5 TO < 15 YRS [facility] Aug 09, 2018 01:15 PM VA-TOBACCO FORMER USER [facility] Aug 09, 2018 01:15 PM [place]-TOBACCO QUIT 5 TO < 15 YRS [facility] Jun 26, 2018 08:02 PM INPT NO TOBACCO USE IN LAST 30 DAYS [facility] Feb 08, 2017 08:22 AM FORMER TOBACCO USER 7Y OR GREATER [facility] Apr 08, 2016 07:59 AM FORMER TOBACCO USER 7Y OR GREATER [facility] Dec 02, 2014 10:48 AM FORMER TOBACCO USER 7Y OR GREATER [facility] Feb 17, 2014 10:22 AM FORMER TOBACCO USER 7Y OR GREATER [facility] Dec 19, 2012 07:42 AM FORMER TOBACCO USE >1Y <7Y [facility] Jan 02, 2012 09:35 AM FORMER TOBACCO USE >1Y <7Y [facility] Dec 13, 2010 08:57 AM FORMER TOBACCO USE >1Y <7Y [facility] Sep 03, 2009 01:16 PM FORMER TOBACCO USE >1Y <7Y [facility] Sep 25, 2008 11:20 AM CURRENT TOBACCO USER [facility] Advance Directives: All historical and current Section Date Range: From patient's date of to the date document was created. This section includes ALL of a patient's completed or amended [place] Advance and Rescinded Directives. The entries below indicate that a directive exists for the patient, but an actual copy is not included with this document. The data comes from all [place] facilities. Date Advance Directives Provider Source Oct 02, 2017 CLINICAL WARNING [place] LONG [facility] Encounter Notes: All associated encounter notes This section contains the clinical notes associated to the Encounter. Date/Time Encounter Note(s) Provider Source Dec 21, 2021 12:00 AM NONVA CONSULT: KHUSHI RACHEL [facility] LOCAL TITLE: COMMUNITY CARE CONSULT RESULT [facility] STANDARD TITLE: NONVA CONSULT DATE OF NOTE: DEC 21, 2021 ENTRY DATE: DEC 28 022@14:59:51 AUTHOR: KHUSHI RACHEL EXP COSIGNER: URGENCY: STATUS: COMPLETED COMMUNITY CARE CONSULT RESULT PRIMARY CARE Has ADDENDA [employer] - Scanned Document COMMUNITY CARE-PRIMARY CARE [facility] APPOINTMENT INFORMATION Documentation received from non-[place] provider and scanned into [employer]. /reuben/ KHUSHI PROCESS Signed: 12/28/2021 14:59 12/29/2021 ADDENDUM STATUS: COMPLETED Records reviewed. /reuben/ KOSTA WALKER MD STAFF PHYSICIAN Signed: 12/29/2021 10:35
--- OUTSIDE RECORDS SUMMARY | 2022-06-23 00:41 | XMS_ITS | Encounter Summary ---
:1945 Author Organization [facility] Address [address] [place] [address] Support Name Relationship Address Phone BELA HIDALGO Unavailable [phone] [facility] [phone] [place] [address] BELA HIDALGO Unavailable [phone] [facility] [place] [address] Insurance Providers: All historical and current Section Date Range: From patient's date of to the date document was created.This section includes the names of all active insurance providers for the patient. Insurance Type of Plan Start of End of Group Member Insurance Policy P atient's Provider Coverage Name Policy Policy Number ID Provider's Wahl's Relationship Coverage Coverage Telephone Name to Policy Number Wahl [facility] M[facility] MEDICARE MCR Nov 06, [id number] [phone] Colten MCNAMARA PATIENT (WNR) ADVANTAGE (WNR) 2019 1 42 8 [place] HUMANA MCR MEDICARE MCR Nov 06, [id number] [phone] LUCRETIA CASTR PATIENT (WNR) ADVANTAGE (WNR) 2019 1 42 0 [place] MEDICARE MEDICARE PART Dec 07, PART A [id number] P ATIENT (WNR) (M) A 2004 [id number] [phone] JENNIFER Kennedy MEDICARE MEDICARE PART Dec 07, PART B [id number] Colten HIDALGO P ATIENT (WNR) (M) B 2004 [id number] [phone] [place] -CARE OF MEDICARE MCR Nov 06, [facility] [id number] [phone] Colten ALEJANDRO PATIENT [facility] ADVANTAGE (WNR) [id number] STANISLAWPAUL (WNR) Selected Encounter This section includes the information on record at [place] for the Encounter. Date/Time Encounter Type Encounter Reason Provider Source Description Dec 23, 2021 ELECTROCARDIOGRAM EKG ICD-10-CM Z13.6 BRIA 11:45 AM COMPLETE Encounter for Jody GAMA screening for cardiovascular disorders with Provider Comments: Encounter for Screening for Cardiovascular Disorders IHE Encounter Template Text not used by VA Assessments - Encounter Diagnoses This section includes the primary and secondary diagnoses documented for the Encounter. Date/Time Primary/Secondary Diagnosis Name Provider Source Diagnosis Dec 23, 2021 PRIMARY Encounter for [facility] 01:20 PM screening for [facility] cardiovascular disorders Plan of Treatment: Future Appointments (+ 6 months) and Future Tests (+/- 45 days) The Plan of Treatment section includes future care activities for the patient from all [place] [facility]. This section includes future appointments [...] 31, 2021 09:00 AM AMBULATORY - PSYCHIATRY [facility] May 26, 2022 08:00 AM AMBULATORY - NONE [facility] Jun 06, 2022 01:00 PM AMBULATORY - MEDICINE [facility] Vital Signs: All taken on the encounter date This section contains inpatient and outpatient Vital Signs collected on the date of the Encounter. Date/Time Temperature Pulse Blood Respiratory SP02 Pain Height Weight Harshal dy Source Pressure Rate Mass Index Dec 23, 154/88 [facility] 2021 11:46 mm[Hg] [facility] Dec 23, 97.1 F 61 160/89 16 /min 98 % 0 170.8 26 [facility] 2021 11:42 /min mm[Hg] lb [facility] Social History: Smoking Status (Most current) and [...] 2021 03:30 PM VA-TOBACCO FORMER USER [facility] Tobacco Use History This section includes a history of the smoking, or tobacco- related health factors, that were collected on or before the date of the Encounter. The data comes from the [place] facility where the Encounter took place. Date/Time Smoking Status/Tobacco Use Comment Facil ity Oct 18, 2021 03:30 PM VA-TOBACCO QUIT 15 YRS OR MORE [facility] 2019 01:06 PM VA-TOBACCO FORMER USER [facility] 2019 01:06 PM VA-TOBACCO QUIT 5 TO < 15 YRS [facility] Aug 09, 2018 01:15 PM VA-TOBACCO FORMER USER [facility] Aug 09, 2018 01:15 PM VA-TOBACCO QUIT 5 TO < 15 YRS [facility] Jun 26, 2018 08:02 PM INPT NO TOBACCO USE IN LAST 30 DAYS [facility] Feb 08, 2017 08:22 AM FORMER TOBACCO USER 7Y OR GREATER [facility] Apr 08, 2016 07:59 AM FORMER TOBACCO USER 7Y OR GREATER [facility] Dec 02, 2014 10:48 AM FORMER TOBACCO USER 7Y OR GREATER [facility] Feb 17, 2014 10:22 AM FORMER TOBACCO USER 7Y OR GREATER [facility] Dec 19, 2012 07:42 AM FORMER TOBACCO USE >1Y <7Y [facility] Jan 02, 2012 09:35 AM FORMER TOBACCO USE >1Y <7Y [facility] Dec 13, 2010 08:57 AM FORMER TOBACCO USE >1Y <7Y [facility] Sep 03, 2009 01:16 PM FORMER TOBACCO USE >1Y <7Y [facility] Sep 25, 2008 11:20 AM CURRENT TOBACCO USER [facility] Advance Directives: All historical and [...] Oct 02, 2017 CLINICAL WARNING [facility]ON LONG [facility]
--- OUTSIDE RECORDS SUMMARY | 2022-06-23 00:41 | XMS_ITS | Encounter Summary ---
:1945 Author Organization [facility] Address [address] [place] [address] Support Name Relationship Address Phone BELA WREN Unavailable [phone] [facility] [place] [address] BELA WREN Unavailable [phone] [facility] [phone] [place] [address] Insurance Providers: All historical and current Section Date Range: From patient's date of to the date document was created.This section includes the names of all active insurance providers for the patient. Insurance Type of Plan Start of End of Group Member Insurance Policy P atient's Provider Coverage Name Policy Policy Number ID Provider's Wahl's Relationship Coverage Coverage Telephone Name to Policy Number [facility] MCR Nov 06, [id number] [phone] Colten MCNAMARA PATIENT (WNR) ADVANTAGE (WNR) 2019 1 42 8 [place] HUMANA MCR MEDICARE MCR Nov 06, [id number] Colten MCNAMARA PATIENT (WNR) ADVANTAGE (WNR) 2019 1 42 0 [place] MEDICARE MEDICARE PART Dec 07, PART A [id number] P ATIENT (WNR) (M) A 2004 [id number] [phone] JENNIFER Kennedy MEDICARE MEDICARE PART Dec 07, PART B [id number] Colten WREN P ATIENT (WNR) (M) B 2004 [id number] [phone] [place] -CARE OF MEDICARE MCR Nov 06, [facility] [id number] [phone] JERI MORENOR PATIENT [facility] ADVANTAGE (WNR) 2016 [id number] ICHPAUL (WNR) Selected Encounter This section includes the information on record at [place] for the Encounter. Date/Time Encounter Type Encounter Reason Provider Source Description Dec 31, 2021 PSYTX W PT 45 TELEPHONE ICD-10-CM F03.90 AMANDA CHRISTIAN 09:00 AM MINUTES Unspecified YN R dementia without behavioral disturbance with Provider Comments: Dementia (SNOMED CT [id number]) IHE Encounter Template Text not used by VA Assessments - Encounter Diagnoses This section includes the primary and secondary diagnoses documented for the Encounter. Date/Time Primary/Secondary Diagnosis Name Provider Source Diagnosis Dec 31, 2021 PRIMARY Unspecified KEREN CHRISTIAN V A 09:00 AM dementia without YN R HCS behavioral disturbance Plan of Treatment: Future Appointments (+ 6 months) and Future Tests (+/- 45 days) The Plan of Treatment section includes future care activities for the patient from all [place] [facility]. This section includes future appointments and future orders which are active, pending orscheduled.Future Appointments This section includes appointments that were scheduled to occur 6 months from the date of the Encounter, up to a maximum of 20 appointments. The data comes from all [place] treatment facilities. Appointment Date/Time Appointment Type Appointment Facili ty Name May 26, 2022 08:00 AM AMBULATORY - NONE [facility] Jun 06, 2022 01:00 PM AMBULATORY - MEDICINE [facility] Social History: Smoking Status (Most current) and Tobacco Use (All prior to encounter date) This section includes the most current, and the historical, smoking and tobacco-related health factors from the [place] facility where the Encounter took place.Current Smoking Status This section includes the most current smoking, or tobacco-related health factor, from the [place] facility where the Encounter took place. Date/Time Current Smoking Status Comment Facility Oct 18, 2021 03:30 PM VA-TOBACCO FORMER USER [facility] Tobacco Use History This section includes a history of the smoking, or tobacco- related health factors, that were collected on or before the date of the Encounter. The data comes from the [place] facility where the Encounter took place. Date/Time Smoking Status/Tobacco Use Comment [facility] Oct 18, 2021 03:30 PM VA-TOBACCO QUIT 15 YRS OR MORE [facility] 2019 01:06 PM VA-TOBACCO FORMER USER [facility] 2019 01:06 PM VA-TOBACCO QUIT 5 [...] 25, 2008 11:20 AM CURRENT TOBACCO USER [facility] Advance Directives: All historical and current Section Date Range: From patient's date of to the date document was created. This section includes ALL of a patient's completed or amended [place] Advance and Rescinded Directives. The entries below indicate that a directive exists for the patient, but an actual copy is not included with this document. The data comes from all [place] facilities. Date Advance Directives Provider Source Oct 02, 2017 CLINICAL WARNING [facility] Encounter Notes: All associated encounter notes This section contains the clinical notes associated to the Encounter. Date/Time Encounter Note(s) Provider Source Dec 31, 2021 09:00 NEUROPSYCHOLOGY NOTE: GEMMA CHRISTIAN [facility] LOCAL TITLE: NEUROPSYCHOLOGY PROGRESS NOTE STANDARD TITLE: NEUROPSYCHOLOGY NOTE DATE OF NOTE: DEC 31, 2021@09:00 ENTRY DATE: DEC 31, 2021@16:29:27 AUTHOR: GEMMA CHRISTIAN EXP COSIGNER: URGENCY: STATUS: COMPLETED Purpose of this appointment: Provide feedback re garding recent neuropsychological evaluation over the phone due to COVID-19 (45 minutes). The patient and his and daughter were prese nt during this conversation (last 4 and location at home verified). The cont ent of the feedback was consistent with diagnoses and recommendations as documented below. Patient and his and daughter expressed unde rstanding of and appreciation for the results provided. They asked many releva nt questions about Alzheimer's disease and dementia. They denied fu rther questions at this time but were encouraged to contact this provider wit h any concerns regarding this evaluation. There was no change in risk for harm to self or others. The patient indicated readiness to learn for the education provided during this session as noted above. The patient also in dicated understanding by asking questions and making appropriate comments . RISK ASSESSMENT: [place] denied current SI/HI, intent, plan or at tempt. Risk factors: age, gender, ethnicity, history of SI related to complex medical status Protective factors: denied current SI/HI, no his tory of suicide attempts, good support from , forward thinking Risk assessment: Based on current risk and prote ctive factors, acute and chronic risk for self or other harm is deemed LO W. Diagnoses: DSM-5 Criteria (ICD-10 code): Major Neurocognitive [...] improve daily memory functioning will be discussed sanju hawley feedback. 5. Optimal management of cerebrovascular risk [...] cognitive status and update diagnoses/recommendations as appropriate. /reuben/ Gemma Christian, Ph.D., ABPP Staff Neuropsychologist Signed: 12/31/2021 16:34
--- OUTSIDE RECORDS SUMMARY | 2022-06-23 00:42 | XMS_ITS | Encounter Summary ---
:1945 Author Organization [facility] Address [address] [place] [address] Support Name Relationship Address Phone BELA HIDALGO Unavailable [phone] [facility] [place] [address] BELA HIDALGO Unavailable [phone] [facility] [phone] [place] [address] Insurance Providers: All historical and current Section [...] Wahl RACHEL MCR MEDICARE MCR Nov 06, [id number] [phone] Colten MCNAMARA PATIENT (WNR) ADVANTAGE (WNR) 2019 1 42 8 [place] HUMANA MCR MEDICARE MCR Nov 06, [id number] Colten MCNAMARA PATIENT (WNR) ADVANTAGE (WNR) 2019 1 42 0 [place] MEDICARE MEDICARE PART Dec 07, PART A [id number] P ATIENT (WNR) (M) A 2004 [id number] [phone] JENNIFER Kennedy MEDICARE MEDICARE PART Dec 07, PART B [id number] Colten HIDALGO P ATIENT (WNR) (M) B 2004 [id number] [phone] [place] -CARE OF MEDICARE MCR Nov 06, [facility] [id number] [phone] JERI MORENOR PATIENT [facility] ADVANTAGE (WNR) 2016 [id number] [place] (WNR) Selected Encounter This section includes the information on record at [place] for the Encounter. Date/Time Encounter Type Encounter Description Reason Provider Source March 25, 2022 10:10 Outpatient Encounter GI ENDOSCOPY AM IHE Encounter Template Text not used by VA Plan of Treatment: Future Appointments (+ 6 months) and Future Tests (+/- 45 days) The Plan of Treatment section includes future care activities for the patient from all [place] [facility]. This section includes future appointments and future orders which are active, pending orscheduled.Future Appointments This section includes appointments that were scheduled to occur 6 months from the date of the Encounter, up to a maximum of 20 appointments. The data comes from all [place] treatment facilities. Appointment Date/Time Appointment Type Appointment Facili ty Name May 26, 2022 08:00 AM AMBULATORY - NONE [facility] Jun 06, 2022 01:00 PM AMBULATORY - MEDICINE [facility] Jul 28, 2022 07:00 AM AMBULATORY - NONE [facility] Jul 28, 2022 08:00 AM [facility] [...] 2021 03:30 PM VA-TOBACCO FORMER USER [facility] Tobacco Use History This section includes a history of the smoking, or tobacco- related health factors, that were collected on or before the date of the Encounter. The data comes from the [place] facility where the Encounter took place. Date/Time Smoking Status/Tobacco Use Comment [facility] Oct 18, 2021 03:30 PM VA-TOBACCO QUIT 15 YRS OR MORE [facility] 2019 01:06 PM VA-TOBACCO FORMER USER [facility] 2019 01:06 PM VA-TOBACCO QUIT 5 TO < 15 YRS [facility] Aug 09, 2018 01:15 PM VA-TOBACCO FORMER USER [facility] Aug 09, 2018 01:15 PM [place]-TO[place] QUIT 5 TO < 15 YRS [facility] [...] WARNING [facility] Encounter Notes: All associated encounter notes This section contains the clinical notes associated to the Encounter. Date/Time Encounter Note(s) Provider Source March 25, 2022 10:10 AM REPORT OF CONTACT: [facility] LOCAL TITLE: PATIENT CONTACT NOTE STANDARD TITLE: REPORT OF CONTACT DATE OF NOTE: MARCH 25, 2022@10:10 ENTRY DATE: MARCH 25, 2022@10:10:29 AUTHOR: LAURIE LOMAS EXP COSIGNER: URGENCY: STATUS: COMPLETED PATIENT CONTACT NOTE Has ADDENDA Pt is scheduled for Endoscopy 04/21/22 @8 30. Alerting PCP regarding Clopidogrel to contact pt whether to hold medication. /ambar INFANTE Signed: 03/25/2022 10:16 03/25/2022 ADDENDUM STATUS: COMPLETED Above note was entered in error /ambar INFANTE Signed: 03/25/2022 10:26
--- OUTSIDE RECORDS SUMMARY | 2022-06-23 00:42 | XMS_ITS | Encounter Summary ---
:1945 Author Organization [facility] Address [address] [place] [address] Support Name Relationship Address Phone BELA HIDALGO Unavailable [address] [facility] [phone] [place] [address] BELA HIDALGO Unavailable [address] [facility] [phone] [place] [address] Insurance Providers: All historical and current Section [...] Wahl RACHEL MCR MEDICARE MCR Nov 06, [id number] [phone] Colten MCNAMARA PATIENT (WNR) ADVANTAGE (WNR) 2019 1 42 8 [facility] Nov 06, [id number] Colten MCNAMARA PATIENT (WNR) ADVANTAGE (WNR) 2019 1 42 0 [place] MEDICARE MEDICARE PART Dec 07, PART A [id number] P ATIENT (WNR) (M) A 2004 [id number] [phone] JENNIFER Kennedy MEDICARE MEDICARE PART Dec 07, PART B [id number] Colten HIDALGO P ATIENT (WNR) (M) B 2004 [id number] [phone] CA[place]N -CARE OF MEDICARE MCR Nov 06, [facility] [id number] [phone] Colten ALEJANDRO PATIENT [facility] ADVANTAGE (WNR) [id number] CAITLYN (WNR) Selected Encounter This section includes the information on record at [place] for the Encounter. Date/Time Encounter Type Encounter Description Reason Provider Source Apr 11, 2022 05:45 Outpatient Encounter GI ENDOSCOPY PM IHE Encounter Template Text not used by [facility] Plan of Treatment: Future Appointments (+ 6 months) and Future Tests (+/- 45 days) The Plan of Treatment section includes future care activities for the patient from all [place] [facility]. This section includes future appointments and future orders which are active, pending orscheduled.Future Appointments This section includes appointments that were scheduled to occur 6 months from the date of the Encounter, up to a maximum of 20 appointments. The data comes from all [place] treatment facilities. Appointment Date/Time Appointment Type Appointment Facili ty Name May 26, 2022 08:00 AM AMBULATORY - NONE [facility] Jun 06, 2022 01:00 PM AMBULATORY - MEDICINE [facility] Jul 28, 2022 07:00 AM AMBULATORY - NONE [facility] Jul 28, 2022 08:00 AM AMBULATORY - MEDICINE [facility] Social History: Smoking Status (Most current) and Tobacco Use (All prior to encounter date) This section includes the most current, and the historical, smoking and tobacco-related health factors from the [place] facility where the Encounter took place.Current Smoking Status This section includes the most current smoking, or tobacco-related health factor, from the [place] facility where the Encounter took place. Date/Time Current Smoking Status Comment Facility Oct 18, 2021 03:30 PM VA-TOBACCO FORMER USER [facility] Tobacco Use History This section includes a history of the smoking, or tobacco- related health factors, that were collected on or before the date of the Encounter. The data comes from the [place] facility where the Encounter took place. Date/Time Smoking Status/Tobacco Use Comment [facility] Oct 18, 2021 03:30 PM VA-TOBACCO QUIT 15 YRS OR MORE [facility] 2019 01:06 PM VA-TOBACCO FORMER USER [facility] 2019 01:06 PM VA-TOBACCO QUIT 5 TO < 15 YRS [facility] Aug 09, 2018 01:15 PM VA-TOBACCO FORMER USER [facility] Aug 09, 2018 01:15 PM [place]-TOBACCO QUIT 5 TO < 15 YRS [facility] Jun 26, 2018 08:02 PM INPT NO TOBACCO USE IN LAST 30 DAYS [facility] Feb 08, 2017 08:22 AM FORMER TOBACCO USER 7Y OR GREATER [facility] Apr 08, 2016 07:59 AM FORMER TOBACCO USER 7Y OR GREATER [facility] Dec 02, 2014 10:48 AM FORMER TOBACCO USER 7Y OR GREATER [facility] Feb 17, 2014 10:22 AM FORMER TOBACCO USER 7Y OR GREATER [facility] Dec 19, 2012 07:42 AM FORMER TOBACCO USE >1Y <7Y [facility] Jan 02, 2012 09:35 AM FORMER TOBACCO USE >1Y <7Y [facility] Dec 13, 2010 08:57 AM FORMER TOBACCO USE >1Y <7Y [facility] Sep 03, 2009 01:16 PM FORMER TOBACCO USE >1Y <7Y [facility] Sep 25, 2008 11:20 AM CURRENT TOBACCO USER [facility] Advance Directives: All historical and current Section Date Range: From patient's date of to the date document was created. This section includes ALL of a patient's completed or amended [place] Advance and Rescinded Directives. The entries below indicate that a directive exists for the patient, but an actual copy is not included with this document. The data comes from all [place] facilities. Date Advance Directives Provider Source Oct 02, 2017 CLINICAL WARNING EDAnnieJAXON [facility] Encounter Notes: All associated encounter notes This section contains the clinical notes associated to the Encounter. Date/Time Encounter Note(s) Provider Source Apr 11, 2022 05:45 PM REPORT OF CONTACT: DOUGLAS AREVALO [facility] LOCAL TITLE: APPOINTMENT SCHEDULING NOTE STANDARD TITLE: REPORT OF CONTACT DATE OF NOTE: APR 11, 2022@17:45 ENTRY DATE: APR 11, 2022@17:45:55 AUTHOR: DOUGLAS AREVALO EXP COSIGNER: URGENCY: STATUS: COMPLETED APPOINTMENT SCHEDULING NOTE Has ADDENDA Cancellation: [facility] not seen for scheduled appointment due to: [facility] cancelled. Sent letter by regular [place] mail [place] address [place] [address] [address] [address], [place] [address] Contact: Called at: Apr 11, 2022 Patient does not wish to schedule/reschedule. Additional info: Pt stated that he no longer wishes to have EGD' s given his age. Pt does not have a PCP at the [place] to alert. If [facility] calls back, schedule appointment for: Activity: 10/19/2021 08:40 New Order entered by JACQUES DAVIS (GASTROENTEROLOG) Order Text: GI PROCEDURE TO SCHEDULE : Procedure to Schedule: EGD PID: Apr The patient indicated date (PID) is determined by the date when the provider decides an appointment is clinically appropriate, or the date that is requested by a patient. Indication: Barretts esophagus screening/surveillance/treatment Special Instructions: Will this procedure require anesthesia care? No The patient is on an anticoagulation medication and it will be held for this procedure. No Anticoagulation Medications No data available The patient is on antiplatelet aside from aspri n and the medication will be held forthis procedure. No Antiplatelet Meds Orderable item(s) selected: CLOPIDOGREL TAB; PRASUGREL TAB; TICAGRELOR TAB,ORAL; TICLOPIDINE TAB; CILOSTAZO L TAB; DIPYRIDAMOLE TAB Last Rx # Stat Qty Issued Filled Rem CLOPIDOGREL BISULFATE 75MG TAB [id number] ACTIVE 90 09/29/2021 10/01/2021 (3) SIG: TAKE ONE TABLET BY MOUTH EVERY DAY TO PREV ENT BLOOD CLOTS (APPROVED FOR LONG-TERM USE) Provider: SHRUTHI DAVIS Cost/Fill: $ 3.45 Time Sensitive Appt: MUST occur NO later than e nd of return interval above:No Nature of Order: ELECTRONICALLY ENTERED Elec Signature: EDILMA DAVIS (GASTROENTEROLOG ) on 10/19/2021 08:42 /reuben/ DOUGLAS AREVALO ADVANCED MSA Signed: 04/11/2022 17:49 Receipt Acknowledged By: 04/12/2022 08:42 /reuben/ Edilma Davis MD Interim 04/12/2022 ADDENDUM STATUS: COMPLETED I will CC Alicia Hsu, RN and Advanced Proced ure Coordinator to attempt scheduling. /reuben/ Edilma Davis MD Interim Signed: 04/12/2022 08:44 Receipt Acknowledged By: 04/12/2022 13:33 /reuben/ ALICIA HSU, RN REGISTERED NURSE 04/12/2022 ADDENDUM STATUS: COMPLETED Liquor Inspector contacted in an attempt to schedu le f/u EGD for Patricio's surveillance. 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 Vete ran kindly but adamantly declined stating the cure i s worse than having it, I was miserable for over two weeks after the last treatment and I am getting up there in years. Liquor Inspector explained that having Patricio's esophagus can pu t him at increased risk of developing esophageal cancer and that if we can do anything to help lessen his chances of developing esophageal cancer, we woul d love to do so but again declined. Liquor Inspector infor med to contact GI clinic to schedule, should he change his mind. Liquor Inspector and spouse both thank ed securities underwriter for her call. /reuben/ ALICIA HSU, RN REGISTERED NURSE Signed: 04/12/2022 13:36 Receipt Acknowledged By: 04/21/2022 11:33 /reuben/ Edilma Davis MD Interim 04/21/2022 ADDENDUM STATUS: COMPLETED It is reasonable that this time to expect no RFA would be needed however intermittent surveillance wo uld generally be recommended. The decision is up to the patient. I suspect if he does not want further RFA then surveillance is less helpful so I can understand and support his pers pective. /reuben/ Edilma Davis MD Interim Signed: 04/21/2022 11:36 Receipt Acknowledged By: * AWAITING SIGNATURE * FERMÍN STAPLES
--- OUTSIDE RECORDS SUMMARY | 2022-06-23 00:43 | XMS_ITS | Encounter Summary ---
:1945 Author Organization Department [facility] Address [address] [place] [address] Support Name Relationship Address Phone SARAI HIDALGO Unavailable [address] [facility] [phone] [place] [address] SARAI HIDALGO Unavailable [phone] [facility] [phone] [place] [address] Insurance Providers: All historical and current Section Date Range: From patient's date of to the date document was created.This section includes the names of all active insurance providers for the patient. Insurance Type of Plan Start of End of Group Member Insurance Policy P atient's Provider Coverage Name Policy Policy Number ID Provider's Wahl's Relationship Coverage Coverage Telephone Name to Policy Number [facility] Nov 06, [id number] LUCRETIA CAST,R PATIENT (WNR) ADVANTAGE (WNR) 2019 1 42 0 [facility] MEDIC[facility] MCR Nov 06, [id number] [phone] LUCRETIA CASTR PATIENT (WNR) ADVANTAGE (WNR) 2019 1 42 8 [place] MEDICARE MEDICARE PART Dec 07, PART A [id number] P ATIENT (WNR) (M) A 2004 [id number] [phone] JENNIFER Kennedy MEDICARE MEDICARE PART Dec 07, PART B [id number] Colten HIDALGO P ATIENT (WNR) (M) B 2004 [id number] [phone] [place] -CARE OF MEDICARE MCR Nov 06, [facility] [id number] [phone] JERI RS,R PATIENT [facility] ADVANTAGE (WNR) [id number] ICHARD (WNR) Selected Encounter This section includes the information on record at [place] for the Encounter. Date/Time Encounter Type Encounter Reason Provider Source Description Jun 06, 2022 Outpatient TELEPHONE/MEDICIN ICD-10-CM D47.2 Josephine SANTIAGO ARG 01:00 PM Encounter E Monoclonal ARET S gammopathy with Provider Comments: Monoclonal gammopathy (SCT [id number]) IHE Encounter Template Text not used by [facility] Assessments - Encounter Diagnoses This section includes the primary and secondary diagnoses documented for the Encounter. Date/Time Primary/Secondary Diagnosis Name Provider Source Diagnosis Jun 06, 2022 PRIMARY Monoclonal JOSE SANTIAGO [facility] A 01:00 PM gammopathy ARET S [facility] Plan of Treatment: Future Appointments (+ 6 months) and Future Tests (+/- 45 days) The Plan of Treatment section includes future care activities for the patient from all [place] [facility]. This section includes future appointments and future orders which are active, pending orscheduled.Future Appointments This section includes appointments that were scheduled to occur 6 months from the date of the Encounter, up to a maximum of 20 appointments. The data comes from all [place] treatment facilities. Appointment Date/Time Appointment Type Appointment Facili ty Name Jul 28, 2022 07:00 AM AMBULATORY - NONE [facility] Jul 28, 2022 08:00 AM AMBULATORY - MEDICINE [facility] CS Active, Pending, and Scheduled Orders This section includes a listing of several types of active, pending, and scheduled orders, including clinic medications orders, diagnostic test orders, procedure orders and consult orders; where the start date of the order is 45 days before the date of the Encounter or 45 days after the date of the Encounter. The data comes from all [place] treatment facilities. Test Date/Time Test Type Test Details Facility Name Jul 20, 2022 12:00 AM Laboratory - Chemistry ALT/SGPT PLASMA [facility] Order ONCE Jul 20, 2022 12:00 AM Laboratory - Chemistry AST/SGOT PLASMA [facility] Order Jul 20, 2022 12:00 AM Laboratory - Chemistry LIPID [facility] Order PANEL,NON-FASTING PLASMA SP Lab Results: +/- 30 days of the encounter This section includes the Chemistry and Hematology Lab Results on record with [place] for the patient. Radiology Reports and Pathology Reports are provided separately, in subsequent sections.Lab Results This section contains the Chemistry/Hematology Results that were resulted 30 days before or 30 daysafter the date of the Encounter. Date/Time Source Result Type Result - Unit Interpretation Reference Range Comment May 26, 2022 [facility] TOTAL IMMUNOGLOB Specimen Ty pe: PLASMA 08:10 AM (IGA,IGG,IGM) No comment enter ed. Ordering Provid er: FERMÍN STAPLES Report Released Date/Time: May 14, 2021 01:26 PM Reporting Lab: [facility] [id number] Performing Lab: [facility] [id number] IGM 147.7 22.0-293.0 IGG 877.2 540.0-1822.0 IGA 228.7 63.0-645.0 May 26, 2022 08:10 [facility] ELP/IMMFIX,SERUM PANEL Sp ecimen Type: SERUM AM No comment enter ed. Ordering Provid er: FERMÍN STAPLES Report Released Date/Time: May 14, 2021 01:26 PM Reporting Lab: [facility] [id number] Performing Lab: [facility] [address] PROTEIN,TOTAL 6.7 6.0-8.3 M-SPIKE 1 0.34 .IDENTIFICATION 1 IgG kappa .ALBUMIN FRACTION 3.93 3.66-4.78 .ALPHA 1 FRACTION 0.37 0.14-0.38 .ALPHA 2 FRACTION 0.77 0.50-0.90 .BETA 1 FRACTION 0.41 0.33-0.55 .BETA 2 FRACTION 0.35 0.20-0.52 .GAMMA FRACTION 0.88 0.58-1.72 .TOTAL PROTEIN 6.7 6.0-8.3 .INTERPRETATION MONOCLONAL May 26, 2022 [facility] COMPREHENSIVE METABOLIC Spec imen Type: PLASMA 08:10 AM PANEL+MG No comment enter ed. Ordering Provid er: FERMÍN STAPLES Report Released Date/Time: May 14, 2021 01:26 PM Reporting Lab: [facility] [address] Performing Lab: [facility] [address] CREATININE 0.9 0.7-1.2 UREA NITROGEN 12 8-26 GLUCOSE 100 74-100 SODIUM 141 136-145 POTASSIUM 4.1 3.5-5.1 CHLORIDE 106 98-107 CO2 27 22-29 CALCIUM 9.5 8.4-10.2 PROTEIN,TOTAL 6.9 6.0-8.3 ALBUMIN 4.2 3.5-5.2 BILIRUBIN, TOTAL 1.7 H 0.2-1.2 MAGNESIUM 2.0 1.6-2.6 ANION GAP 8 5-15 ALKALINE PHOSPHATASE 62 40-150 ALT/SGPT 16 <55 AST/SGOT 16 <34 CREAT EGFR(CKD-EPI) 89 >60 DIR. BILIRUBIN 0.6 H <0.5 May 26, 2022 08:[address] [facility] CBC & DIFF Specim en Type: BLOOD Comment: Automa jody Differential Performed Ordering Provid er: FERMÍN STAPLES Report Released Date/Time: May 14, 2021 01:26 PM Reporting Lab: [facility] [address] Performing Lab: [facility] [id number] WBC 6.28 4.0-11.0 RBC 5.28 4.6-6.2 HGB 16.6 13.5-17.9 HCT 49.0 41-54 MCV 92.8 80-100 MCH 31.4 27-33 MCHC 33.9 32.0-37.5 PLT 169 150-400 MPV 10.5 H 7.4-10.4 NEUT 62.5 LYMPHS 23.6 MONO 11.5 EOSINO 1.6 BASO 0.5 RDW 14.1 11.5-14.5 ABS LYMPH 1.48 1.0-4.0 ABS MONO 0.72 0.1-1.0 ABS NEUT 3.93 2.0-7.7 ABS EOS 0.10 0-0.5 ABS BASO 0.03 0-0.2 IG(META,MYELO,PRO) 0.3 ABS IMMATURE GRAN 0.02 0-0.1 Social History: Smoking Status (Most current) and Tobacco Use (All prior to encounter date) This section includes the most current, and the historical, smoking and tobacco-related health factors from the [facility] where the Encounter took place.Current Smoking Status This section includes the most current smoking, or tobacco-related health factor, from the [facility] where the Encounter took place. Date/Time Current Smoking Status Comment Facility Oct 18, 2021 03:30 PM [place]-TOBACCO FORMER USER [facility] Tobacco Use History This section includes a history of the smoking, or tobacco- related health factors, that were collected on or before the date of the Encounter. The data comes from the [facility] where the Encounter took place. Date/Time Smoking Status/Tobacco Use Comment Facil ity Oct 18, 2021 03:30 PM VA-TOBACCO QUIT [address] [facility] 2019 01:06 PM VA-TOBACCO FORMER USER [facility] 2019 01:06 PM VA-TOBACCO QUIT 5 TO < [address] [facility] Aug 09, 2018 01:15 PM VA-TOBACCO FORMER USER [facility] Aug 09, 2018 01:15 PM VA-TOBACCO QUIT 5 TO < [address] [facility] Jun 26, 2018 08:02 PM INPT NO TOBACCO USE IN LAST [address] [facility] Feb 08, 2017 08:22 AM FORMER TOBACCO USER 7Y OR GREATER [facility] Apr 08, 2016 07:59 AM FORMER TOBACCO USER 7Y OR GREATER [facility] Dec 02, 2014 10:48 AM FORMER TOBACCO USER 7Y OR GREATER [facility] Feb 17, 2014 10:22 AM FORMER TOBACCO USER 7Y OR GREATER [facility] Dec 19, 2012 07:42 AM FORMER TOBACCO USE >1Y <7Y [facility] Jan 02, 2012 09:35 AM FORMER TOBACCO USE >1Y <7Y [facility] Dec 13, 2010 08:57 AM FORMER TOBACCO USE >1Y <7Y [facility] Sep 03, 2009 01:16 PM FORMER TOBACCO USE >1Y <7Y [facility] Sep 25, 2008 11:20 AM CURRENT TOBACCO USER [facility] Advance Directives: All historical and current Section Date Range: From patient's date of to the date document was created. This section includes ALL of a patient's completed or amended [place] Advance and Rescinded Directives. The entries below indicate that a directive exists for the patient, but an actual copy is not included with this document. The data comes from all [facility]. Date Advance Directives Provider Source Oct 02, [address] [facility] Encounter Notes: All associated encounter notes This section contains the clinical notes associated to the Encounter. Date/Time Encounter Note(s) Provider Source Jun 06, 2022 01:13 PM HEMATOLOGY AND ONCOLOGY ATTENDING NOTE : LAI SANTIAGO [facility] LOCAL TITLE: HEME/ONC CLINIC NOTE STANDARD TITLE: HEMATOLOGY AND ONCOLOGY ATTENDIN G NOTE DATE OF NOTE: JUN 06, 2022@13:13 ENTRY DATE: JUN 06, 2022@13:13:22 AUTHOR: LAI SANTIAGO EXP COSIGNER: URGENCY: STATUS: COMPLETED Date of service: 06/06/22 Last visit: 05/14/21 Reason for visit: IgG kappa MGUS Treatment: surveillance HPI: 76 yo gentleman with a small IgG kappa monoclonal gammopathy, diagnosed 09/2017 during workup for headache. Bone survey 11/2017 w as negative. Has remained on surveillance. Phone call today for follow-up. Interval Hx: Agreeable to ph one visit today. Rich is one the phone with his Sarai. He reports he has been doing well in the past year. No major issues noted. He uses nitro pills occasionally when he feels symptoms of indigestion and that typically improves the feeling. He does have some fatigue. He feels this is coming on gradually. 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 Still lives on [place]age in [place]. He d enies fevers, infections, wt loss, night sweats, bone pain, swelling in neck/ armpits/groin. Focused 4 point ROS completed with pertinent pos itive and negatives as noted above. LABORATORY/IMAGING STUDIES: The results of the l aboratory and imaging studies obtained by Hem/Onc for this visit were reviewed and discussed with the patient. HGB 16.6 (05/26/22) HCT 49.0 (05/26/22) MCV 92.8 (05/26/22) WBC 6.28 (05/26/22) ABS NEUT 3.93 (05/26/22) ABS LYMPH 1.48 (05/26/22) PLT 169 (05/26/22) CREATININE 0.9 (05/26/22) UREA NITROGEN 12 (05/26/22) GLUCOSE 100 (05/26/22) CALCIUM 9.5 (05/26/22) POTASSIUM 4.1 (05/26/22) SODIUM 141 (05/26/22) CHLORIDE 106 (05/26/22) MAGNESIUM 2.0 (05/26/22) PO4____ PROTEIN,TOTAL 6.7 (05/26/22) ALBUMIN 4.2 (05/26/22) ALK PHOSPHATASE 62 (05/26/22) SGOT 16 (05/26/22) SGPT 16 (05/26/22) BILIRUBIN, TOTAL 1.7 H (05/26/22) Test name Result units Ref. range Site Code .INTERPRETATION MONOCLONAL [618] .IDENTIFICATION 1 IgG kappa [618] M-SPIKE 1 0.34 g/dL [618] .ALBUMIN FRACTION 3.93 g/dL 3.66 - 4.78 [618] .ALPHA 1 FRACTION 0.37 g/dL 0.14 - 0.38 [618] .ALPHA 2 FRACTION 0.77 g/dL 0.50 - 0.90 [618] .BETA 1 FRACTION 0.41 g/dL 0.33 - 0.55 [618] .BETA 2 FRACTION 0.35 g/dL 0.20 - 0.52 [618] .GAMMA FRACTION 0.88 g/dL 0.58 - 1.72 [618] .TOTAL PROTEIN 6.7 g/dL 6.0 - 8.3 [618] Test name Result units Ref. range Site Code IGM 147.7 mg/dL 22.0 - 293.0 [618] IGG 877.2 mg/dL 540.0 - 1822.0 [618] IGA 228.7 mg/dL 63.0 - 645.0 [618] ASSESSMENT/PLAN: 76 yr M with IgG kappa MGUS, diagnosed 09/2017. Bone survey 11/2017 negative. On surveillance. Doing well, no concerning symptoms. Lab work is stable, M-spike has remained very low, most recently at 0.34. - Continue to monitor - RTC phone 1 year with repeat labs. Patient Education of Treatment Plan: Patient and family member indicates readiness to learn, verbalizes understanding, ag reement and satisfaction with the treatment plan. All questions answered to eir apparent satisfaction. 20 min spent in total includ ing time spent with patient virtually, reviewing lab results, reviewing treatment plan, coordination of care, and EHR review and documentation. /reuben/ LADY GARCIA PHYSICIAN CORPORATE SECURITIES RESEARCH ANALYST Signed: 06/06/2022 13:23
--- OUTSIDE RECORDS SUMMARY | 2022-06-23 00:43 | XMS_ITS | Encounter Summary ---
:1945 Author Organization [facility] Address [address] [place] [address] Support Name Relationship Address Phone BELA HIDALGO Unavailable [id number] [facility] [facility], [place] [address] BELA HIDALGO Unavailable [id number] [facility], [place] [address] Insurance Providers: All historical and current Section [...] Wahl RACHEL MCR MEDICARE MCR Nov 06, [id number] LUCRETIA CASTR PATIENT (WNR) ADVANTAGE (WNR) 2019 1 [id number] 0 CAITLYN RAMOS MCR MEDICARE MCR Nov 06, [id number] [phone] LUCRETIA CASTR PATIENT (WNR) ADVANTAGE (WNR) 2019 1 42 8 CAITLYN MEDICARE MEDICARE PART Dec 07, PART A [id number] P ATIENT (WNR) (M) A 2004 [id number] [phone] JENNIFER Kennedy MEDICARE MEDICARE PART Dec 07, PART B [id number] [place]ten HIDALGO P ATIENT (WNR) (M) B 2004 [id number] [phone] CAITLYN -CARE OF MEDICARE MCR Nov 06, [facility] [id number] [phone] JERI RS,R PATIENT [facility] ADVANTAGE (WNR) [id number] CAITLYN (WNR) Selected Encounter This section includes the information on record at OR for the Encounter. Date/Time Encounter Type Encounter Description Reason Provider Source May 18, 2022 11:43 Outpatient Encounter TELEPHONE TRIAGE EDGAR ARCINIEGA AM Encounter Template Text not used by OR Plan of Treatment: Future Appointments (+ 6 months) and Future Tests (+/- 45 days) The Plan of Treatment section includes future care activities for the patient from all OR treatmentfacilities. This section includes future appointments and future orders which are active, pending orscheduled.Future Appointments This section includes appointments that were scheduled to occur 6 months from the date of the Encounter, up to a maximum of 20 appointments. The data comes from all OR treatment facilities. Appointment Date/Time Appointment Type Appointment Facili ty Name May 26, 2022 08:00 AM AMBULATORY - NONE [facility] Jun 06, 2022 01:00 PM AMBULATORY - MEDICINE [facility] Jul 28, 2022 07:00 AM AMBULATORY - NONE [facility] Jul 28, 2022 08:00 AM AMBULATORY - MEDICINE [facility] Lab Results: +/- 30 days of the encounter This section includes the Chemistry and Hematology Lab Results on record with OR for the patient. Radiology Reports and Pathology Reports are provided separately, in subsequent sections.Lab Results This section contains the Chemistry/Hematology Results that were resulted 30 days before or 30 daysafter the date of the Encounter. Date/Time Source Result Type Result - Unit Interpretation Reference Range Comment May 26, 2022 [facility] TOTAL IMMUNOGLOB Specimen Ty pe: PLASMA 08:10 AM (IGA,IGG,IGM) No comment enter ed. Ordering Provid er: FERMÍN STAPLES Report Released Date/Time: May 14, 2021 01:26 PM Reporting Lab: [facility] [address] [facility] [address] Performing Lab: [facility] [address] [facility] [address] IGM 147.7 22.0-293.0 IGG 877.2 540.0-1822.0 IGA 228.7 63.0-645.0 May 26, 2022 08:10 [facility] ELP/IMMFIX,SERUM PANEL Sp ecimen Type: SERUM AM No comment enter ed. Ordering Provid er: FERMÍN STAPLES Report Released Date/Time: May 14, 2021 01:26 PM Reporting Lab: [facility] [address] [facility] [address] Performing Lab: [facility] [address] [facility] [address] PROTEIN,TOTAL 6.7 6.0-8.3 M-SPIKE 1 0.34 .IDENTIFICATION 1 IgG kappa .ALBUMIN FRACTION 3.93 3.66-4.78 .ALPHA 1 FRACTION 0.37 0.14-0.38 .ALPHA 2 FRACTION 0.77 0.50-0.90 .BETA 1 FRACTION 0.41 0.33-0.55 .BETA 2 FRACTION 0.35 0.20-0.52 .GAMMA FRACTION 0.88 0.58-1.72 .TOTAL PROTEIN 6.7 6.0-8.3 .INTERPRETATION MONOCLONAL May 26, 2022 [facility] COMPREHENSIVE METABOLIC Spec imen Type: PLASMA 08:10 AM PANEL+MG No comment enter ed. Ordering Provid er: FERMÍN STAPLES Report Released Date/Time: May 14, 2021 01:26 PM Reporting Lab: [facility] [id number] Performing Lab: [facility] [address] CREATININE 0.9 0.7-1.2 UREA NITROGEN 12 8-26 [...] H <0.5 May 26, 2022 08:10 AM [facility] CBC & DIFF Specim en Type: BLOOD Comment: Automa jody Differential Performed Ordering Provid er: FERMÍN STAPLES Report Released Date/Time: May 14, 2021 01:26 PM Reporting Lab: [facility] [address] Performing Lab: [facility] [address] WBC 6.28 4.0-11.0 RBC 5.28 4.6-6.2 HGB [...] smoking and tobacco-related health factors from the OR facility where the Encounter took place.Current Smoking Status This section includes the most current smoking, or tobacco-related health factor, from the OR facility where the Encounter took place. Date/Time Current Smoking Status Comment Facility Oct 18, 2021 03:30 PM VA-TOBACCO FORMER USER [facility] Tobacco Use History This section includes a history of the smoking, or tobacco- related health factors, that were collected on or before the date of the Encounter. The data comes from the OR facility where the Encounter took place. Date/Time Smoking Status/Tobacco Use Comment [facility] Oct 18, 2021 03:30 PM VA-TOBACCO QUIT 15 YRS OR MORE [facility] 2019 01:06 PM VA-TOBACCO FORMER USER [facility] 2019 01:06 PM VA-TOBACCO QUIT 5 TO < 15 YRS [facility] Aug 09, 2018 01:15 PM VA-TOBACCO FORMER USER [facility] Aug 09, 2018 01:15 PM VA-TOBACCO QUIT 5 TO < 15 YRS [facility] Jun 26, 2018 08:02 PM INPT NO TOBACCO USE IN LAST 30 DAYS [facility] Feb 08, 2017 08:22 AM FORMER TOBACCO USER 7Y OR GREATER [facility] Apr 08, 2016 07:59 AM FORMER TOBACCO USER 7Y OR GREATER [facility] Dec 02, 2014 10:48 AM FORMER TOBACCO USER 7Y OR GREATER [facility] Feb 17, 2014 10:22 AM FORMER TOBACCO USER 7Y OR GREATER [facility] Dec 19, 2012 07:42 AM FORMER TOBACCO USE >1Y <7Y [facility] Jan 02, 2012 09:35 AM FORMER TOBACCO USE >1Y <7Y [facility] Dec 13, 2010 08:57 AM FORMER TOBACCO USE >1Y <7Y [facility] Sep 03, 2009 01:16 PM FORMER TOBACCO USE >1Y <7Y [facility] Sep 25, 2008 11:20 AM CURRENT TOBACCO USER LYNETTE ELLIS [facility] Advance Directives: All historical and current Section Date Range: From patient's date of to the date document was created. This section includes ALL of a patient's completed or amended OR Advance and Rescinded Directives. The entries below indicate that a directive exists for the patient, but an actual copy is not included with this document. The data comes from all OR facilities. Date Advance Directives Provider Source Oct 02, 2017 CLINICAL WARNING [place] LONG [facility] Encounter Notes: All associated encounter notes This section contains the clinical notes associated to the Encounter. Date/Time Encounter Note(s) Provider Source May 18, 2022 11:44 AM REPORT OF CONTACT: EMI FLOREZ [facility] LOCAL TITLE: SCREENING COVID CONTACT CENTER NOT E STANDARD TITLE: REPORT OF CONTACT DATE OF NOTE: MAY 18, 2022@11:44 ENTRY DATE: MAY 18, 2022@11:44:06 AUTHOR: EMI FLOREZ EXP COSIGNER: URGENCY: STATUS: COMPLETED Coronavirus Disease 2019 (COVID-19) Screen The patient was asked if in the last 14 days the y have had new onset of any COVID-19 symptoms. They report the following: No symptoms Within the past 14 days, the patient reports no exposure to someone with a febrile/respiratory illness or someone with a kn own or suspected case of COVID-19 (within 6 feet for > 15 minutes). Result: Screen is negative. /reuben/ EMI FLOREZ [id number] CCC AMSA Signed: 05/18/2022 11:44
--- OUTSIDE RECORDS SUMMARY | 2022-06-23 00:43 | XMS_ITS ---
:1945 Author Care Team Providers Name Role Phone Divya Mary Primary Care Provider Unavailable Allergies Code Code System Name Reaction Severity Status Onset NKDA ? Medications None recorded. Problems None recorded. Procedures None recorded. Results Lab Results Date Name Specimen Result Interpretation Description Value Range Status Address ? 11/30/2020 SARS CoV 2 RNA, Nose (nasal ? Result negative ? ? [facility] QL, LAST+probe, passage) [facility] [place]: [address] , [place] Past Encounters None recorded. Social History None recorded. Vaccine List None recorded. Plan of Care Reminders Provider Appointments None recorded. ? ? Lab None recorded. ? ? Referral None recorded. ? ? Procedures None recorded. ? ? Surgeries None recorded. ? ? Imaging None recorded. ? ? Vitals None recorded.
[2022-06-23 00:55] LABS: SARS PCR* Negative SARS-CoV-2 (Negative)
[2022-06-23 01:26] LABS: Troponin, Point-of-Care* 0.02 ng/ml (0.01-0.04)
--- NOTE | 2022-06-23 01:59 | ED.NURSE ---
Written and verbal D/C per Md and RN with daughter at BS.
[2022-06-23 02:00] VITALS: BP 118/64; PULSE 84; RESP 18
--- NOTE | 2022-06-25 09:26 | PC.NURSE ---
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
== END 2022-06-23 02:12 | disposition home or self-care (01) ==
PROVIDERS: Emergency Provider Family Medicine
DX: R06.00 Dyspnea, unspecified (principal); E87.1 Hypo-osmolality and hyponatremia
CPT/HCPCS: 36415; 71046; 80048; 80076; 81003; 82803; 83605; 83880; 84484; 85025; 85379; 86140; 87040; 87186; 87635; 93005; 99284; 99285; A9270

== ENCOUNTER 2022-06-23 15:48 | Emergency (ER) | payer OTHER, MEDICARE, SELFPAY ==
[2022-06-23 15:54] VITALS: BP 112/64; PULSE 63; RESP 20; TEMP 36.1; O2SAT 96
[2022-06-23 15:58] VITALS: BP 112/64; PULSE 63; RESP 20; TEMP 36.1; O2SAT 96; BMI 26.6
--- NOTE | 2022-06-23 16:12 | CRLHL7_ITS ---
For Patients: As a result of the Century Cures Act, medical imaging exams and procedure reports are released immediately into your electronic medical record. You may view this report before your referring provider. If you have questions, please contact your health care provider. Indication: Shortness of breath, elevated D-dimer Technique: Volumetric multidetector CT images of the chest were obtained after the administration of IV contrast. 95 cc Isovue 370 low osmolar intravenous contrast Comparison: None available. Findings: The thoracic inlet and thyroid gland are unremarkable. The thoracic aorta is nonaneurysmal. There is no central filling defect to suggest pulmonary embolism. There is no mediastinal, hilar or axillary adenopathy. There is mild to moderate central bronchial thickening and minimal mucoid impaction of the lower lobe bronchi. There is minimal dependent bibasilar atelectasis and/or parenchymal scar. There is mild to moderate centrilobular emphysematous change of the upper lobes. There is mild interstitial prominence within the lung bases which may represent a component of pulmonary vascular congestion. There is no evidence of pulmonary mass or suspicious pulmonary nodule. The partially visualized upper abdomen demonstrates somewhat ill-defined hypodensity within the medial right liver. Postoperative changes at the gastroesophageal junction is noted. The thoracic vertebral body heights are grossly maintained with mild straightening of the normal thoracic kyphosis without evidence of significant spondylolisthesis. Impression: Emphysematous changes with central bronchial thickening and minimal mucoid impaction of the lower lobe bronchi. Mild interstitial prominence within the lung bases which may represent mild pulmonary vascular congestion. No evidence of pulmonary embolus. Please note that all CT scans at this facility use dose modulation, iterative reconstruction, and/or weight-based dosing when appropriate to reduce radiation dose to as low as reasonably achievable. Dictated by Marco Antonio Caraballo MD @ 06/23/2022 5:32:03 PM (Electronically Signed)
--- NOTE | 2022-06-23 16:12 | ED.GENADULT ---
HPI - General Adult General Chief complaint: Unspecified Complaint, Adult Stated complaint: Concerns about lab results Time Seen by Provider: 06/23/22 15:52 History of Present Illness HPI narrative: This 77-year-old male was in yesterday because of a episode of shortness of breath and rigors that awoke him from sleep. He had labs drawn yesterday in this returned with an elevated D-dimer and now I am informed that preliminary blood culture results show evidence of g negative rods. The patient was discharged home. I called him at home and the patient states that he is feeling rather normal. I advised him to come in for further evaluation of the elevated D-dimer and the blood culture results. He arrives for these purposes. He does have normal vital signs upon arrival. Related Data Home Medications Medication Instructions Recorded Confirmed alirocumab subcut 06/22/22 aspirin 81 mg tablet,delayed 81 mg PO DAILY 06/22/22 06/22/22 release (Adult Aspirin Regimen) carvedilol 6.25 mg tablet 6.25 mg PO BID 06/22/22 06/22/22 clobetasol 0.05 % topical ointment 1 applic topical DAILY 06/22/22 06/22/22 clopidogrel 75 mg tablet 75 mg PO DAILY 06/22/22 06/22/22 ezetimibe 10 mg tablet 10 mg PO DAILY 06/22/22 06/22/22 isosorbide mononitrate .ROUTE 06/22/22 lisinopril 10 mg tablet 5 mg PO DAILY 06/22/22 06/22/22 omeprazole 20 mg capsule,delayed 20 mg PO BID 06/22/22 06/22/22 release Previous Rx's Medication Instructions Recorded amoxicillin 875 mg-potassium 1 tab PO BID #20 tabs 06/23/22 clavulanate 125 mg tablet Allergies Allergy/AdvReac Type Severity Reaction Status Date / Time No Known Drug Allergies Allergy Verified 06/23/22 16:42 Review of Systems Status of ROS: Reports: 10 or more systems reviewed and unremarkable except as noted in History and below Narrative: Constitutional: No fevers, no weight gain or loss. Eyes: No discharge. No vision changes. HENT: No congestion, no sore throat, no ear pain. Cardiovascular: No chest pain, no palpitations. Respiratory: No shortness of breath, no wheezes, no cough. Gastrointestinal: No abdominal pain, no vomiting, no diarrhea. Genitourinary: No dysuria, no hematuria. Musculoskeletal: Normal range of motion. Skin: No rashes, no pruritis. Neurological: No dizziness, weakness, sensory change, speech change. Endo/Heme/Allergies: No bruising or bleeding. No polydipsia. Pysch: no suicidality, no anxiety, no insomnia. All other systems reviewed and are negative. [facility] Medical History Patricio esophagus Bradycardia Coronary atherosclerosis Dementia Hyperlipidemia Hypertension Mitral regurgitation Monoclonal gammopathy PVD (peripheral vascular disease) Social History Smoking Status: Former smoker Do you use any of these nicotine containing products: None How often do you have a drink containing alcohol: 4 or more times a week How many standard drinks containing alcohol do you have on a typical day: 1 or 2 How often do you have six or more drinks on one occasion: Never AUDIT-C Alcohol total score: 4 Non-prescribed substance use: denies use service: Yes Exam Narrative: Exam Narrative: Constitutional: Well-developed, well-nourished, no acute distress. HEENT: Normocephalic, atraumatic. Neck: Normal range of motion. Nontender. Supple. Heart: Regular. No murmurs. Normal rate. Intact distal pulses. Lungs: Clear to auscultation. No chest discomfort. No wheezes, rhonchi, or rales. Abdomen: Normal bowel sounds. Nontender. No rebound tenderness. Genitalia: Deferred. Back: No midline tenderness. Normal range of motion. Extremities: Normal range of motion. No injury. Skin: Intact. No rash. Warm. No erythema or pallor. Neurologic: No altered sensation. No weakness. Alert and oriented. Psychiatric: No suicidality. No anxiety or depression. No insomnia. Nursing notes and vitals signs are reviewed. Const: Vital Signs, click to edit/add: Vital Signs - 24 hr 06/23/22 15:58 Temperature 97 F L Pulse Rate [Pulse Oximeter] 63 Respiratory Rate 20 Blood Pressure [Le ft Upper Arm] 112/64 Pulse Oximetry 96 Oxygen Delivery Me thod Room Air Course Vital Signs Vital signs: Initial Vital Signs Temperature 97 F L 06/23/22 15:58 Temperature Source Temporal Artery Scan 06/23/22 15:58 Pulse Rate 63 06/23/22 15:58 Pulse Rhythm 06/23/22 15:58 Respiratory Rate 20 06/23/22 15:58 Blood Pressure 112/64 06/23/22 15:58 Blood Pressure Mean 80 06/23/22 15:58 Pulse Oximetry 96 06/23/22 15:58 Oxygen Delivery Method 06/23/22 15:58 Vital Signs Temperature 97 F L 06/23/22 15:58 Pulse Rate 63 06/23/22 15:58 Respiratory Rate 20 06/23/22 15:58 Blood Pressure 112/64 06/23/22 15:58 Pulse Oximetry 96 06/23/22 15:58 Oxygen Delivery Method 06/23/22 15:58 Temperature 97 F L 06/23/22 15:58 Pulse Rate 63 06/23/22 15:58 Respiratory Rate 20 06/23/22 15:58 Blood Pressure 112/64 06/23/22 15:58 Pulse Oximetry 96 06/23/22 15:58 Oxygen Delivery Method 06/23/22 15:58 Medical Decision Making MDM Narrative Medical decision making narrative: This patient was asked to return because of preliminary results of E coli in the blood cultures. Additionally he had an elevated D-dimer last evening. The patient states that he is feeling normal and has no complaints. He does arrive with normal vital signs. An IV was established and labs were drawn which returned with reassuring results. In particular his white count is in normal range. A CT scan of the chest with contrast does rule out infection and pulmonary embolism. The official results of the blood culture are not posted in the chart yet but there was apparently a phone call to someone in the emergency department here stating of positive culture for E coli. The patient's symptoms, vital signs, and lab results today are not showing signs of sepsis. It seems reasonable to wait for official results of the blood culture before treating. I did prescribe a course of Augmentin that he can start if they turned positive. He is instructed to return if feeling worse and he will receive a phone call if culture results confirm presence of bacteria in the blood. Lab Data Labs: Lab Results 06/23/22 06/23/22 Range/Units 16:20 16:20 WBC 10.32 (4.50-11.00) K/uL RBC 4.94 (4.30-5.90) m/uL Hgb 15.4 (13.5-17.5) gm/dL Hct 45.3 (37.0-53.0) % MCV 92 (80-100) fL MCH 31 (26-34) pg MCHC 34 (32-36) gm/dL RDW Coeff of Lilibeth 13.3 (11.5-15.5) % Plt Count 126 L (140-440) K/uL Neut % (Auto) 82.9 H (42.0-72.0) % Lymph % (Auto) 6.3 L (20-44) % Doddridge % (Auto) 10.2 (0.0-11.0) % Eos % (Auto) 0.3 (0.0-7.0) % Baso % (Auto) 0.2 (0.0-3.0) % Neut # (Auto) 8.60 H (1.7-7.0) K/uL Lymph # (Auto) 0.70 L (0.90-2.90) K/uL Dod[place]idge # (Auto) 1.10 H (0.00-0.90) K/UL Eos # (Auto) 0.03 (0.00-0.50) K/uL Baso # (Auto) 0.02 (0.00-0.30) K/uL Abs Immat Gran (auto) 0.01 (0.00-0.30) K/uL Sodium 132 L (135-149) mmol/L Potassium 4.1 (3.6-5.1) mmol/L Chloride 99 (96-114) mmol/L Carbon Dioxide 23 (20-32) mmol/L BUN 19 (7-30) mg/dL Creatinine 1.2 (0.5-1.5) mg/dL Estimated Creat Clear 49.88 Estimated GFR 62 ml/min Glucose 175 H (60-115) mg/dL Calcium 8.7 (8.4-10.6) mg/dL Imaging Data CT scan - chest: Radiologist's impression: Emphysematous changes with central bronchial thickening and minimal mucoid impaction of the lower lobe bronchi. Mild interstitial prominence within the lung bases which may represent mild pulmonary vascular congestion. No evidence of pulmonary embolus. Discharge Plan Discharge Clinical Impression: Abnormal laboratory test result Patient Disposition: Home, Self-Care Condition: Stable Additional Instructions: Continue current plans. Return if worsening symptoms happen. Take medication if cultures confirm a positive result. Prescriptions: New amoxicillin-pot clavulanate 875-125 mg tablet 1 tab PO BID Qty: 20 0RF No Action alirocumab subcut carvedilol 6.25 mg tablet 6.25 mg PO BID Rx Instructions: 1/2 tab po daily. must administer with a meal/food clobetasol 0.05 % ointment 1 applic topical DAILY clopidogrel 75 mg tablet 75 mg PO DAILY ezetimibe 10 mg tablet 10 mg PO DAILY isosorbide mononitrate .ROUTE lisinopril 10 mg tablet 5 mg PO DAILY omeprazole 20 mg capsule,delayed release(DR/EC) 20 mg PO BID aspirin [Adult Aspirin Regimen] 81 mg tablet,delayed release (DR/EC) 81 mg PO DAILY Follow Up/Referrals: Provider,Not a Local [Primary Care Provider] - Stand Alone Forms: [employer] Info Instructions
[2022-06-23 16:30] VITALS: BP 94/62; PULSE 56; RESP 20; TEMP 36.1; O2SAT 96
[2022-06-23 16:33] LABS: Basophils Absolute Auto 0.02 K/uL (0.00-0.30); Basophils Percent Auto 0.2 % (0.0-3.0); Eosinophils Absolute Auto 0.03 K/uL (0.00-0.50); Eosinophils Percent Auto 0.3 % (0.0-7.0); Hematocrit 45.3 % (37.0-53.0); Hemoglobin* 15.4 gm/dL (13.5-17.5); Immature Granulocytes Abs Auto 0.01 K/uL (0.00-0.30); Lymphocytes Percent Auto 6.3 % (20-44); Mean Corpuscular HGB Conc 34 gm/dL (32-36); Mean Corpuscular Hemoglobin 31 pg (26-34); Mean Corpuscular Volume 92 fL (80-100); Monocytes Percent Auto 10.2 % (0.0-11.0); Neutrophils Percent Auto 82.9 % (42.0-72.0); Platelet Count* 126 K/uL (140-440); RDW Coefficient of Variation % 13.3 % (11.5-15.5); Red Blood Count 4.94 m/uL (4.30-5.90); White Blood Count* 10.32 K/uL (4.50-11.00)
[2022-06-23 16:36] LABS: Slide Review Reflex No
[2022-06-23 16:46] LABS: Chloride* 99 mmol/L (96-114)
[2022-06-23 16:47] LABS: Potassium* 4.1 mmol/L (3.6-5.1); Sodium* 132 mmol/L (135-149)
[2022-06-23 16:49] LABS: Creatinine* 1.2 mg/dL (0.5-1.5); Est. Creatinine Clearance* 49.88; Estimated Glomerular Filt Rate 62 ml/min
[2022-06-23 16:50] LABS: Blood Urea Nitrogen* 19 mg/dL (7-30); Calcium* 8.7 mg/dL (8.4-10.6); Carbon Dioxide* 23 mmol/L (20-32); Glucose* 175 mg/dL (60-115)
--- OUTSIDE RECORDS SUMMARY | 2022-06-23 16:57 | XMS_ITS | Continuity of Care Document ---
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 It does not include entries that were removed or entered in error. 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 Dec 15, 2014 Entered By: SHRUTHI ORTIZ Comment: S/P stents to OM1 and D1 in 2006. Dementia Active Condition [place] [facility] Dual Care Active Condition Sep 25, 2008 [place] [facility] Comment: Dr. Zhao, PCP [facility] [place] Sep 25, 2008 Entered By: SERGIO BENITES Comment: [facility]iology Elevated PSA [facility] Hyperlipidemia Active Condition [place] (SNOMED CT [facility] [id number]) Hypertension Active Condition [place] [facility] Lower urinary Active Condition [place] tract symptoms [facility] Migraine Active Condition [place] [facility] Mitral Valve Active Condition Oct 10, 2021 [place] Disorder (SCT Entered By: [facility] [id number]) NEHEMIAH STEIN Comment: -Mild mitral regurgitation per 05/2021 echo. Recommend repeat in 2-3 years, sooner if symptomatic. 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 column Peripheral Active Condition [place] vascular disease [facility] (SNOMED CT [id number]) Sleep apnea Active Condition Oct 09, 2019 [place] Entered By: [facility] KOSTA WALKER Comment: severe per sleep study done 2019 Tobacco Use Active Condition [place] [facility] Diagnosis: active Diagnosis [place] ICD-10-CM D47.2 [facility] Monoclonal gammopathywith Provider Comments: Monoclonal gammopathy ([facility] [id number]) Diagnosis: active Diagnosis [place] ICD-10-CM F03.90 [facility] Unspecified dementia without behavioral disturbancewith Provider Comments: Dementia (SNOMED CT [id number]) Diagnosis: active Diagnosis [place] ICD-10-CM I25.10 [facility] Athscl heart disease of [place] coronary artery w/o ang pctrswith Provider Comments: Coronary artery disease ([facility] [id number]) Diagnosis: active Diagnosis [place] ICD-10-CM Z13.6 [facility] Encounter for screening for cardiovascular disorderswith Provider Comments: Encounter for Screening for Cardiovascular Disorders Diagnosis: active Diagnosis [place] ICD-10-CM G31.84 [facility] Mild cognitive impairment, so statedwith Provider Comments: Mild Cognitive Impairment, so stated Diagnosis: active Diagnosis [place] ICD-10-CM R21 Rash V A HCS and other nonspecific skin eruptionwith Provider Comments: Rash and other Nonspecific Skin Eruption Diagnosis: active Diagnosis [place] ICD-10-CM L30.0 [facility] Nummular dermatitiswith Provider Comments: Nummular dermatitis Diagnosis: active Diagnosis [place] ICD-10-CM E78.5 [facility] Hyperlipidemia, unspecifiedwith Provider Comments: Hyperlipidemia, unspecified Diagnosis: active Diagnosis [place] ICD-10-CM K22.70 [facility] 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 Provider Comments: Patricio's esophagus ([facility] [id number]) Diagnosis: active Diagnosis [place] ICD-10-CM E78.5 [facility] Hyperlipidemia, unspecifiedwith Provider Comments: Hyperlipidemia ([facility] [id number]) Diagnosis: active Diagnosis [place] ICD-10-CM K22.719 [facility] Patricio's esophagus with dysplasia, unspecifiedwith Provider Comments: Patricio's Esophagus with Dysplasia, unspecified Diagnosis: active Diagnosis [place] ICD-10-CM Z71.89 [facility] Other specified counselingwith Provider Comments: Other specified Counseling Diagnosis: active Diagnosis [place] ICD-10-CM H25.13 [facility] Age-related nuclear cataract, bilateralwith Provider Comments: Age-related nuclear cataract, bilateral Diagnosis: active Diagnosis [place] ICD-10-CM R06.02 [facility] Shortness of breathwith Provider Comments: Shortness of Breath Medications Combined list of outpatient medications from Department of Defense and [facility] Affairs facilities. Medications provided include 1) outpatient medications from the last 15 months, and 2) patient-reported medications. Medication Details Route Status Patient Prescription Prescription Last Ordering Order Source Instructions Expires Number Dispense Provider Date Date ALIROCUMAB INJECT SUBCUT ACTIVE 12/22/2022 [id number] FB-VOT EL, 12/21/ [place] 75MG/ML 75MG ANEOUS 2 2021 [place] INJ,PEN,1ML (1ML) HCS UNDER THE SKIN EVERY 2 WEEKS FOR HYPERLIP IDEMIA AND CORONARY ARTERY DISEASE ALIROCUMAB INJECT SUBCUT DISCONT 12/03/2022 [id number] LE E,MARION L 12/20/ [place] 75MG/ML 75MG ANEOUS INUE 2 2021 [place] [facility] INJ,PEN,1ML (1ML) HCS UNDER THE SKIN EVERY 2 WEEKS FOR HYPERLIP IDEMIA AND CORONARY ARTERY DISEASE (CAD) ALIROCUMAB INJECT SUBCUT DISCONT 05/14/2022 [id number] LE E,MARION L 05/30/ [place] 75MG/ML 75MG ANEOUS INUE 1 2020 [place] [facility] INJ,PEN,1ML (1ML) HCS UNDER THE SKIN EVERY 2 WEEKS FOR HYPERLIP IDEMIA AND CORONARY ARTERY DISEASE (CAD) ASPIRIN TAKE ONE ORALLY ACTIVE TEAM,CARD [place] 81MG TAB,EC TABLET II 2019 [place] BY MOUTH HCS EVERY MORNING CARVEDILOL TAKE ORALLY ACTIVE 12/22/2022 [id number] FB-VOTE L, 12/21/ [place] 6.25MG TAB ONE-HALF 2 2021 [place] [facility] TABLET HCS BY MOUTH TWICE A DAY CARVEDILOL TAKE ORALLY DISCONT 06/23/2022 [id number] ERICS ON,L 07/01/ [place] 6.25MG TAB ONE-HALF INUE 1 2020 [place] [facility] TABLET HCS BY MOUTH TWICE A DAY CARVEDILOL TAKE ORALLY DISCONT 07/16/2021 [id number] ERICS ON,L 07/16/ [place] 6.25MG TAB ONE-HALF INUE 1 2019 [place] [facility] TABLET HCS BY MOUTH TWICE A DAY CLOBETASOL APPLY A [place] ACTIVE 11/23/2022 [id number] RODDY CSON,L 11/24/ [place] PROPIONATE THIN LLY 2 TONY E 2021 [place] 0.05% LAYER HCS OINT,TOP TWICE A DAY FOR RASH -USE FOR 4 WEEKS, THEN TAKE 1 WEEK OFF -AVOID FACE, GROIN AND ARMPITS -USE LONGER THAN 6 WEEKS MAY CAUSE THINNING OF SKIN CLOPIDOGREL TAKE ONE ORALLY ACTIVE 12/24/2022 [id number] F B-VOTEL, 12/24/ [place] BISULFATE TABLET 2 BIPIN R 2021 [place] 75MG TAB BY MOUTH HCS EVERY MORNING CLOPIDOGREL TAKE ONE ORALLY DISCONT 09/30/2022 [id number] DAVIS,SABA 10/01/ [place] BISULFATE TABLET INUE 1 АЛЕКСАНДР P 2020 [place] 75MG TAB BY MOUTH HCS EVERY DAY TO PREVENT BLOOD CLOTS (APPROVE D FOR LONG-TER M USE) CLOPIDOGREL TAKE ONE ORALLY DISCONT 09/12/2021 [id number] RYAN,SABA 10/03/ [place] BISULFATE TABLET INUE 1 АЛЕКСАНДР P 2019 [place] [facility] 75MG TAB BY MOUTH HCS EVERY DAY TO PREVENT BLOOD CLOTS (APPROVE D FOR LONG-TER M USE) EZETIMIBE TAKE ONE ORALLY ACTIVE 12/22/2022 [id number] FB- VOTEL, 12/21/ [place] 10MG TAB TABLET 2 BIPIN R 2021 [place] A BY MOUTH HCS EVERY DAY EZETIMIBE TAKE ONE ORALLY 12/18/2021 [id number] A LAMEDDIN 01/01/ [place] 10MG TAB TABLET 1 E,HIND 2020 [place] [facility] BY MOUTH HCS EVERY DAY -APPROVE D- ISOSORBIDE TAKE ONE ORALLY ACTIVE 12/22/2022 [id number] FB -VOTEL, 12/21/ [place] MONONITRATE TABLET 2 BIPIN R 2021 TIM S VA 30MG TAB,SA BY MOUTH HCS EVERY MORNING --TAKE WITH A 60MG TABLET FOR A TOTAL DAILY DOSE OF 90MG PER DAY ISOSORBIDE TAKE ONE ORALLY DISCONT 10/08/2022 [id number] S JORGITOL 10/07/ [place] MONONITRATE TABLET INUE 1 AURIE A 2020 [place] 30MG TAB,SA BY MOUTH HCS EVERY MORNING TAKE 30 MG WITH 60 MG TABLET FOR TOTAL OF 90 MG PER DAY ISOSORBIDE TAKE ONE ORALLY ACTIVE 12/22/2022 [id number] FB -VOTEL, 12/21/ [place] MONONITRATE TABLET 2 2021 TIM S VA 60MG TAB,SA BY MOUTH HCS ONCE EVERY DAY IN THE MORNING ISOSORBIDE TAKE ONE ORALLY DISCONT 06/23/2022 [id number] DENISE,L 07/01/ [place] MONONITRATE TABLET INUE 1 TONY2020 [place] A 60MG TAB,SA BY MOUTH HCS EVERY DAY FOR THE HEART ISOSORBIDE TAKE ONE ORALLY DISCONT 07/16/2021 [id number] DENISE,L 07/16/ [place] MONONITRATE TABLET INUE 1 TONY2019 [place] A 60MG TAB,SA BY MOUTH HCS EVERY DAY FOR THE HEART LISINOPRIL TAKE ORALLY ACTIVE 12/22/2022 [id number] FB-VOTE L, 12/21/ [place] 10MG TAB ONE-HALF 2 2021 [place] TABLET HCS BY MOUTH EVERY DAY FOR HIGH BLOOD PRESSURE LISINOPRIL TAKE ORALLY 12/10/2021 [id number] ERICS ON,L 12/30/ [place] 10MG TAB ONE-HALF 1 2020 [place] TABLET HCS BY MOUTH EVERY DAY FOR HIGH BLOOD PRESSURE MAGNESIUM TAKE ONE ORALLY ACTIVE 03/08/2023 [id number] ER ICSON,L 03/08/ [place] OXIDE 420MG TABLET 2 2021 [place] A TAB BY MOUTH HCS EVERY DAY FOR HEADACHE PREVENTI ON MAGNESIUM TAKE ONE ORALLY DISCONT 12/10/2021 [id number] E RICSON,L 12/13/ [place] OXIDE 420MG TABLET INUED 1 2020 [place] A TAB BY MOUTH HCS EVERY DAY FOR HEADACHE PREVENTI ON NITROGLYCER DISSOLVE SUBLIN ACTIVE 12/22/2022 [id number] F B-VOTEL, 12/21/ [place] IN 0.4MG ONE GUAL 2 2021 [place] TAB,SUBLING TABLET HCS UAL UNDER THE TONGUE EVERY 5 MINUTES FOR UP TO 3 DOSES IF NEEDED FOR CHEST PAIN NITROGLYCER DISSOLVE SUBLIN DISCONT 09/30/2022 [id number] DENISE,L 10/01/ [place] IN 0.4MG ONE GUAL INUE 1 TONY E 2020 [place] TAB,SUBLING TABLET HCS UAL UNDER THE TONGUE NEEDED FOR CHEST PAIN*MAY REPEAT EVERY 5 MINUTES- NO MORE THAN 3 TOTAL OMEPRAZOLE TAKE TWO ORALLY ACTIVE 12/22/2022 [id number] FB -VOTEL, 12/21/ [place] 20MG CAP,EC CAPSULES 2 BIPIN R 2021 [place] BY MOUTH HCS TWICE A DAY ON AN EMPTY STOMACH, AT LEAST 30 MINUTES PRIOR TO A MEAL OMEPRAZOLE TAKE TWO ORALLY DISCONT 09/30/2022 [id number] MARLON,ZHUO 10/01/ [place] 20MG CAP,EC CAPSULES INUE 1 Z 2020 [place] BY MOUTH HCS TWICE A DAY TO DECREASE STOMACH ACID -TAKE ON AN EMPTY STOMACH, AT LEAST 30 MINUTES BEFORE EATING OMEPRAZOLE TAKE TWO ORALLY DISCONT 03/23/2022 [id number] MARLON,ZHUO 03/22/ [place] 20MG CAP,EC CAPSULES INUE 1 Z 2020 [place] BY MOUTH HCS TWICE A DAY TO DECREASE STOMACH ACID -TAKE ON AN EMPTY STOMACH, AT LEAST 30 MINUTES BEFORE EATING VANICREAM APPLY TOPICA 05/12/2022 [id number] SORENSO N, 05/12/ [place] THIN LLY 1 [...] atus Comments Source Given By Number Code Rn Liaison INFLUENZA, complet [place] INJECTABLE, 2020 ed [place] QUADRIVALENT, HCS PRESERVATIVE FREE COVID-19 2 complet [place] ([employer]), 2020 ed [place] MRNA, LNP-S, H CS PF, 30 MCG/0.3 ML DOSE COVID-19 1 complet [place] ([employer]), 2020 ed [place] MRNA, LNP-S, H [...] 2012 ed [place], [place] FORMULATION [id number], 1 HCS [id number] TDAP complet [employer] M [place] 2012 ed [employer]kline,74 [place] AP3,08/14 HCS /15 [employer] LIVE complet [place] 2011 ed INC, [place] 0364[place], HCS [id number] INFLUENZA, 10/29/ 88 complet [place] UNSPECIFIED 2008 [...] /2021 Comment: Aut omated Differential Performed IS [facility] IN BLOOD Ordering Provi roberto: FERMÍN STAPLES BY Report Released Date/Time: May 14, 2021 01:26 PM AUTOMATED Reporting Lab : [facility] COUNT [place] [address] Performing Lab: [facility] [address] [place] [address] CBC & ERYTHROCYT 5.28 4.6 - 6.2 05/26 Specimen Ty pe: BLOOD [place] DIFF ES /2021 Comment: Automa jody Differential Performed IS [facility] [#/VOLUME] Ordering Pro vider: FERMÍN STAPLES IN BLOOD Report Release d Date/Time: May 14, 2021 01:26 PM BY Reporting Lab: [facility] [place] [address] COUNT Performing Lab: [facility] [place] [address] CBC & HEMOGLOBIN 16.6 13.5 - 05/26 Specimen Type : BLOOD [place] DIFF [MASS/VOLU 17.9 /2021 Comment: Aut omated Differential Performed IS [facility] ME] IN Ordering Provid er: FERMÍN STAPLES BLOOD Report Released Date/Time: May 14, 2021 01:26 PM Reporting Lab: [facility] [address] [place] [address] Performing Lab: [facility] [address] [place] [address] CBC & HEMATOCRIT 49.0 41 - 54 05/26 Specimen Type : BLOOD [place] DIFF [VOLUME /2021 Comment: Automa jody Differential Performed IS [facility] FRACTION] Ordering Prov ider: FERMÍN STAPLES OF BLOOD Report Release d Date/Time: May 14, 2021 01:26 PM BY Reporting Lab: [place] [facility] AUTOMATED [address] [facility] [place] [address] COUNT Performing Lab: [facility] [address] [place] [address] CBC & MCV 92.8 80 - 100 05/26 Specimen Type: BLOOD [place] DIFF [ENTITIC /2021 Comment: Autom ated Differential Performed IS [facility] VOLUME] BY Ordering Pro vider: FERMÍN STAPLES AUTOMATED Report Releas ed Date/Time: May 14, 2021 01:26 PM COUNT Reporting Lab: [facility] [address] [place] [facility] [place] [address] Performing Lab: [facility] [address] [place] [facility] [place] [address] CBC & MCH 31.4 27 - 33 05/26 Specimen Type: B LOOD [place] DIFF [ENTITIC /2021 Comment: Autom ated Differential Performed IS [facility] MASS] BY Ordering Provi roberto: FERMÍN STAPLES AUTOMATED Report Releas ed Date/Time: May 14, 2021 01:26 PM COUNT Reporting Lab: [facility] [address] [facility] [place] [address] Performing Lab: [facility] [place] [address] CBC & MCHC 33.9 32.0 - 05/26 Specimen Type: B LOOD [place] DIFF [MASS/VOLU 37.5 /2021 Comment: Aut omated Differential Performed IS [facility] ME] BY Ordering Provid er: FERMÍN STAPLES AUTOMATED Report Releas ed Date/Time: May 14, 2021 01:26 PM COUNT Reporting Lab: [facility] HCS [place] [address] Performing Lab: [facility] [address] [place] [facility] [place] [address] CBC & PLATELETS 169 150 - 400 05/26 Specimen Typ e: BLOOD [place] DIFF [#/VOLUME] /2021 Comment: Aut omated Differential Performed IS [facility] IN BLOOD Ordering Provi roberto: FERMÍN STAPLES BY Report Released Date/Time: May 14, 2021 01:26 PM AUTOMATED Reporting Lab : [facility] COUNT [address] [place] [facility] [place] [address] Performing Lab: [facility] [address] [place] [facility] [place] [address] CBC & PLATELET 10.5 7.4 - 10.4 05/26 H Specimen Typ e: BLOOD [place] DIFF MEAN /2021 Comment: Automa jody Differential Performed IS [facility] VOLUME Ordering Provid er: FERMÍN STAPLES H [ENTITIC Report Release d Date/Time: May 14, 2021 01:26 PM VOLUME] IN Reporting La b: [facility] [place] [address] AUTOMATED Performing La b: [facility] COUNT [address] [place] [address] CBC & NEUTROPHIL 62.5 05/26 Specimen Type : BLOOD [place] DIFF S/100 Comment: Automa jody Differential Performed IS [facility] LEUKOCYTES Ordering Pro vider: SHEEN,FERMÍN H IN BLOOD Report Release d Date/Time: May 14, 2021 01:26 PM BY MANUAL Reporting Lab : [facility] COUNT [place] [address] Performing Lab: [facility] [address] [place] [address] CBC & LYMPHOCYTE 23.6 05/26 Specimen Type : BLOOD [place] DIFF S/100 Comment: Automa jody Differential Performed IS [facility] LEUKOCYTES Ordering Pro vider: REBECCA STAPLESILIA H IN BLOOD Report Release d Date/Time: May 14, 2021 01:26 PM BY MANUAL Reporting Lab : [facility] COUNT [place] [address] Performing Lab: [facility] [place] [address] CBC & MONOCYTES/ 11.5 05/26 Specimen Type : BLOOD [place] DIFF Comment: Automa jody Differential Performed IS [facility] LEUKOCYTES Ordering Pro vider: SHEENFERMÍN H IN BLOOD Report Release d Date/Time: May 14, 2021 01:26 PM BY Reporting Lab: [facility] AUTOMATED ONE [facility] [address] COUNT Performing Lab: [facility] [place] [address] CBC & EOSINOPHIL 1.6 05/26 Specimen Type : BLOOD [place] DIFF S/100 Comment: Automa jody Differential Performed IS [facility] LEUKOCYTES Ordering Pro vider: MELISSAENFERMÍN H IN BLOOD Report Release d Date/Time: May 14, 2021 01:26 PM BY Reporting Lab: [facility] AUTOMATED ONE [facility] [address] COUNT Performing Lab: [facility] [place] [address] CBC & BASOPHILS/ 0.5 05/26 Specimen Type : BLOOD [place] DIFF 100 /2021 Comment: Automa jody Differential Performed IS [facility] LEUKOCYTES Ordering Pro vider: FERMÍN STAPLES H IN BLOOD Report Release d Date/Time: May 14, 2021 01:26 PM BY MANUAL Reporting Lab : [facility] COUNT [place] [address] Performing Lab: [facility] [address] [facility] [place] [address] CBC & ERYTHROCYT 14.1 11.5 - 05/26 Specimen Type : BLOOD [place] DIFF E 14.5 /2021 Comment: Automa jody Differential Performed IS [facility] DISTRIBUTI Ordering Pro vider: REBECCA STAPLESILIA H ON WIDTH Report Release d Date/Time: May 14, 2021 01:26 PM [RATIO] BY Reporting La b: [facility] AUTOMATED [address] [facility] [place] [address] COUNT Performing Lab: [facility] [address] [facility] [place] [address] CBC & LYMPHOCYTE 1.48 1.0 - 4.0 05/26 Specimen Ty pe: BLOOD [place] DIFF S /2021 Comment: Automa jody Differential Performed IS [facility] [#/VOLUME] Ordering Pro vider: REBECCA STAPLESILIA H IN BLOOD Report Release d Date/Time: May 14, 2021 01:26 PM BY Reporting Lab: [facility] AUTOMATED [address] [facility] [place] [address] COUNT Performing Lab: [facility] [address] [facility] [place] [address] CBC & MONOCYTES 0.72 0.1 - 1.0 05/26 Specimen Typ e: BLOOD [place] DIFF [#/VOLUME] /2021 Comment: Aut omated Differential Performed IS [facility] IN BLOOD Ordering Provi roberto: REBECCA STAPLESILIA H BY Report Released Date/Time: May 14, 2021 01:26 PM AUTOMATED Reporting Lab : [facility] COUNT [address] [facility] [place] [address] Performing Lab: [facility] [address] [facility] [place] [address] CBC & NEUTROPHIL 3.93 2.0 - 7.7 05/26 Specimen Ty pe: BLOOD [place] DIFF S /2021 Comment: Automa jody Differential Performed IS [facility] [#/VOLUME] Ordering Pro vider: FERMÍN STAPLES H IN BLOOD Report Release d Date/Time: May 14, 2021 01:26 PM BY Reporting Lab: [facility] AUTOMATED [address] [facility] [place] [address] COUNT Performing Lab: [facility] [address] [place] [address] CBC & EOSINOPHIL 0.10 0 - 0.5 05/26 Specimen Type : BLOOD [place] DIFF S /2021 Comment: Automa jody Differential Performed IS [facility] [#/VOLUME] Ordering Pro vider: FERMÍN STAPLES IN BLOOD Report Release d Date/Time: May 14, 2021 01:26 PM BY Reporting Lab: [facility] AUTOMATED ONE [facility] [place] [address] COUNT Performing Lab: [facility] [address] [place] [facility] [place] [address] CBC & BASOPHILS 0.03 0 - 0.2 05/26 Specimen Type: BLOOD [place] DIFF [#/VOLUME] /2021 Comment: Aut omated Differential Performed IS [facility] IN BLOOD Ordering Provi roberto: FERMÍN STAPLES BY Report Released Date/Time: May 14, 2021 01:26 PM AUTOMATED Reporting Lab : [facility] COUNT [place] [address] Performing Lab: [facility] [place] [address] CBC & IG(META,MY 0.3 05/26 Specimen Type : BLOOD [place] DIFF JENNIFFER,PRO) /2021 Comment: Autom ated Differential Performed IS [facility] Ordering Provid er: FERMÍN STAPLES Report Released Date/Time: May 14, 2021 01:26 PM Reporting Lab: [facility] [place] [address] Performing Lab: [facility] [place] [address] CBC & IMMATURE 0.02 0 - 0.1 05/26 Specimen Type: BLOOD [place] DIFF GRANULOCYT /2021 Comment: Aut omated Differential Performed IS [facility] ES Ordering Provid er: FERMÍN STAPLES [PRESENCE] Report Relea sed Date/Time: May 14, 2021 01:26 PM IN BLOOD Reporting Lab: [facility] BY [place] [address] AUTOMATED Performing La b: [facility] COUNT [place] [address] COMPREHE CREATININE 0.9 0.7 - 1.2 05/26 Specimen T ype: PLASMA [place] NSIVE [MASS/VOLU /2021 No comment en tered. IS [facility] METABOLI ME] IN Ordering Provi roberto: FERMÍN STAPLES C SERUM OR Report Release d Date/Time: May 14, 2021 01:26 PM PANEL+MG PLASMA Reporting Lab: [facility] [address] [facility] [place] [address] Performing Lab: [facility] [address] [place] [facility] [place] [address] COMPREHE UREA 12 8 - 26 05/26 Specimen Type: PLASMA [place] NSIVE No comment ente red. IS [facility] METABOLI [MASS/VOLU Ordering Pr ovider: FERMÍN STAPLES ME] IN Report Released Date/Time: May 14, 2021 01:26 PM PANEL+MG SERUM OR Reporting Lab : [facility] PLASMA [address] [facility] [place] [address] Performing Lab: [facility] [address] [facility] [place] [address] COMPREHE GLUCOSE 100 74 - 100 05/26 Specimen Type: PLASMA [place] NSIVE [MASS/VOLU /2021 No comment en tered. IS [facility] METABOLI ME] IN Ordering Provi roberto: FERMÍN STAPLES H C SERUM OR Report Release d Date/Time: May 14, 2021 01:26 PM PANEL+MG PLASMA Reporting Lab: [facility] [address] [facility] [place] [address] Performing Lab: [facility] [address] [place] [facility] [place] [address] COMPREHE SODIUM 141 136 - 145 05/26 Specimen Type : PLASMA [place] NSIVE [MOLES/VOL No comment en tered. IS [facility] METABOLI UME] IN Ordering Provi roberto: FERMÍN STAPLES C SERUM OR Report Release d Date/Time: May 14, 2021 01:26 PM PANEL+MG PLASMA Reporting Lab: [facility] [address] [facility] [place] [address] Performing Lab: [facility] [address] [place] [facility] [place] [address] COMPREHE POTASSIUM 4.1 3.5 - 5.1 05/26 Specimen Ty pe: PLASMA [place] NSIVE [MOLES/VOL /2021 No comment en tered. IS [facility] [place]I UME] IN Ordering Provi roberto: REBECCA STAPLESILIA H C SERUM OR Report Release d Date/Time: May 14, 2021 01:26 PM PANEL+MG PLASMA Reporting Lab: [facility] [address] [facility] [place] [address] Performing Lab: [facility] [address] [facility] [place] [address] COMPREHE CHLORIDE 106 98 - 107 05/26 Specimen Type : PLASMA [place] NSIVE [MOLES/VOL /2021 No comment en tered. IS [facility] METABOLI UME] IN Ordering Provi roberto: REBECCA STAPLESILIA H C SERUM OR Report Release d Date/Time: May 14, 2021 01:26 PM PANEL+MG PLASMA Reporting Lab: [facility] [address] [facility] [place] [address] Performing Lab: [facility] [address] [facility] [place] [address] COMPREHE CARBON 27 22 - 29 05/26 Specimen Type: PLASMA [place] NSIVE , No comment ente red. IS [facility] METABOLI TOTAL Ordering Provi roberto: FERMÍN STAPLES H C [MOLES/VOL Report Relea sed Date/Time: May 14, 2021 01:26 PM PANEL+MG UME] IN Reporting Lab: [facility] SERUM OR [address] [facility] [place] [address] PLASMA Performing Lab: [facility] [address] [facility] [place] [address] COMPREHE CALCIUM 9.5 8.4 - 10.2 05/26 Specimen Typ e: PLASMA [place] NSIVE [MASS/VOLU /2021 No comment en tered. IS [facility] METABOLI ME] IN Ordering Provi roberto: SHEENREBECCAFERMÍN H C SERUM OR Report Release d Date/Time: May 14, 2021 01:26 PM PANEL+MG PLASMA Reporting Lab: [facility] [address] [facility] [place] [address] Performing Lab: [facility] [address] [facility] [place] [address] COMPREHE PROTEIN 6.9 6.0 - 8.3 05/26 Specimen Type : PLASMA [place] NSIVE [MASS/VOLU /2021 No comment en tered. IS [facility] METABOLI ME] IN Ordering Provi roberto: REBECCA STAPLESILIA H C SERUM OR Report Release d Date/Time: May 14, 2021 01:26 PM PANEL+MG PLASMA Reporting Lab: [facility] [address] [facility] [place] [address] Performing Lab: [facility] [address] [facility] [facility] [place] [address] COMPREHE ALBUMIN 4.2 3.5 - 5.2 05/26 Specimen Type : [place]AS[place] NSIVE [MASS/VOLU /2021 No comment en tered. IS [facility] METABOLI ME] IN Ordering Provi roberto: FERMÍN STAPLES SERUM OR Report Release d Date/Time: May 14, 2021 01:26 PM PANEL+MG PLASMA Reporting Lab: [facility] [address] [facility] [facility] [place] [address] Performing Lab: [facility] [address] [facility] [facility] [place] [address] COMPREHE BILIRUBIN. 1.7 0.2 - 1.2 05/26 H Specimen T ype: PLASMA [place] NSIVE TOTAL /2021 No comment enter ed. IS [facility] METABOLI [MASS/VOLU Ordering Pr ovider: FERMÍN STAPLES ME] IN Report Released Date/Time: May 14, 2021 01:26 PM PANEL+MG SERUM OR Reporting Lab : [facility] PLASMA [address] [facility] [facility] [place] [address] Performing Lab: [facility] [address] [facility] [facility] [place] [address] COMPREHE MAGNESIUM 2.0 1.6 - 2.6 05/26 Specimen Ty pe: PLASMA [place] NSIVE [MASS/VOLU /2021 No comment en tered. IS [facility] METABOLI ME] IN Ordering Provi roberto: FERMÍN STAPLES SERUM OR Report Release d Date/Time: May 14, 2021 01:26 PM PANEL+MG PLASMA Reporting Lab: [facility] [address] [facility] [facility] [place] [address] Performing Lab: [facility] [address] [facility] [facility] [place] [address] COMPREHE ANION GAP 8 5 - 15 05/26 Specimen Type : PLASMA [place] NSIVE IN SERUM /2021 No comment ente red. IS [facility] METABOLI OR PLASMA Ordering Pro vider: FERMÍN STAPLES Report Released Date/Time: May 14, 2021 01:26 PM PANEL+MG Reporting Lab: [facility] [address] [facility] [place] [address] Performing Lab: [facility] [address] [facility] [facility] [place] [address] COMPREHE ALKALINE 62 40 - 150 05/26 Specimen Type : PLASMA [place] NSIVE PHOSPHATAS /2021 No comment en tered. [facility] MET[facility]OLI E Ordering Provi roberto: FERMÍN STAPLES [ENZYMATIC Report Relea sed Date/Time: May 14, 2021 01:26 PM PANEL+MG ACTIVITY/V Reporting L ab: [facility] HCS OLUME] IN [address] [facility] [place] [address] SERUM OR Performing Lab : [facility] PLASMA [address] [facility] [place] [address] COMPREHE ALANINE 16 <55 - 55 05/26 Specimen Type: PLASMA [place] NSIVE AMINOTRANS /2021 No comment en tered. IS [facility] FERASE Ordering Provi roberto: FERMÍN STAPLES [ENZYMATIC Report Relea sed Date/Time: May 14, 2021 01:26 PM PANEL+MG ACTIVITY/V Reporting L ab: [facility] HCS OLUME] IN [address] [facility] [place] [address] SERUM OR Performing Lab : [facility] PLASMA [address] [facility] [place] [address] COMPREHE ASPARTATE 16 <34 - 34 05/26 Specimen Typ e: PLASMA [place] NSIVE AMINOTRANS /2021 No comment en tered. IS [facility] FERASE Ordering Provi roberto: FERMÍN STAPLES [ENZYMATIC Report Relea sed Date/Time: May 14, 2021 01:26 PM PANEL+MG ACTIVITY/V Reporting L ab: [facility] HCS OLUME] IN [address] [facility] [address] [facility] [place] [address] SERUM OR Performing Lab : [facility] PLASMA [address] [facility] [place] [address] COMPREHE GLOMERULAR 89 60 05/26 Specimen Typ e: PLASMA [place] NSIVE FILTRATION No comment en tered. IS [facility] RATE/1.73 Ordering Pro vider: FERMÍN STAPLES SQ Report Released Date/Time: May 14, 2021 01:26 PM PANEL+MG M.PREDICTE Reporting L ab: [facility] HCS D [VOLUME [facility] [address] RATE/AREA] Performing L ab: [facility] HCS IN SERUM, [facility] [address] PLASMA OR BLOOD BY CREATININE -BASED FORMULA (CKD-EPI) COMPREHE BILIRUBIN. 0.6 <0.5 - 0.5 05/26 H Specimen Type: PLASMA [place] NSIVE DIRECT /2021 No comment enter ed. [facility] [MASS/VOLU Ordering Pr ovider: FERMÍN STAPLES C ME] IN Report Released Date/Time: May 14, 2021 01:26 PM PANEL+MG SERUM OR Reporting Lab : [facility] PLASMA [place] [address] Performing Lab: [facility] [address] [place] [address] ELP/IMMF PROTEIN 6.7 6.0 - 8.3 05/26 Specimen Type : SERUM [place] IX,SERUM [MASS/VOLU /2021 No comment e ntered. IS [facility] PANEL ME] IN Ordering Provi roberto: FERMÍN STAPLES SERUM OR Report Release d Date/Time: May 14, 2021 01:26 PM PLASMA Reporting Lab: [facility] [address] [facility] [place] [address] Performing Lab: [facility] [address] ELP/IMMF PROTEIN.MO 0.34 05/26 Specimen Typ e: SERUM [place] IX,SERUM NOCLONAL /2021 No comment ent ered. IS [facility] PANEL [MASS/VOLU Ordering Pro vider: FERMÍN STAPLES ME] IN Report Released Date/Time: May 14, 2021 01:26 PM SERUM OR Reporting Lab: [facility] PLASMA BY [facility] [address] ELECTROPHO Performing L ab: [facility] RESIS [facility] [address] [facility] [place] [address] ELP/IMMF IMMUNOFIXA IgG 05/26 Specimen Typ e: SERUM [place] IX,SERUM TION FOR kappa /2021 No comment ent ered. IS [facility] PANEL SERUM OR Ordering Provi roberto: FERMÍN STAPLES PLASMA Report Released Date/Time: May 14, 2021 01:26 PM Reporting Lab: [facility] [address] [facility] [facility] [place] [address] Performing Lab: [facility] [address] [facility] [place] [address] ELP/IMMF ALBUMIN 3.93 3.66 - 05/26 Specimen Type: SERUM [place] IX,SERUM [MASS/VOLU 4.78 /2021 No comment e ntered. IS [facility] PANEL ME] IN Ordering Provid er: FERMÍN STAPLES SERUM OR Report Release d Date/Time: May 14, 2021 01:26 PM PLASMA BY Reporting Lab : [facility] HCS ELECTROPHO [facility] [address] RESIS Performing Lab: [facility] [address] [facility] [place] [address] ELP/IMMF ALPHA 1 0.37 0.14 - 05/26 Specimen Type: SERUM [place] IX,SERUM GLOBULIN 0.38 No comment ent ered. IS [facility] PANEL [MASS/VOLU Ordering Pro vider: FERMÍN STAPLES] IN Report Released Date/Time: May 14, 2021 01:26 PM SERUM OR Reporting Lab: [facility] HCS PLASMA BY [facility] [address] ELECTROPHO Performing L ab: [facility] RESIS [facility] [address] [place] [facility] [place] [address] ELP/IMMF ALPHA 2 0.77 0.50 - 05/26 Specimen Type: SERUM [place] IX,SERUM GLOBULIN 0.90 No comment ent ered. IS [facility] PANEL [MASS/VOLU Ordering Pro vider: FERMÍN STAPLES] IN Report Released Date/Time: May 14, 2021 01:26 PM SERUM OR Reporting Lab: [facility] PLASMA BY [facility] [address] ELECTROPHO Performing L ab: [facility] RESIS [facility] [address] [facility] [facility] [place] [address] ELP/IMMF BETA 1 0.41 0.33 - 05/26 Specimen Type: SERUM [place] IX,SERUM GLOBULIN 0.55 No comment ent ered. IS [facility] PANEL [MASS/VOLU Ordering Pro vider: FERMÍN STAPLES] IN Report Released Date/Time: May 14, 2021 01:26 PM SERUM OR Reporting Lab: [facility] HCS PLASMA BY [facility] [address] ELECTROPHO Performing L ab: [facility] RESIS [facility] [address] [place] [facility] [place] [address] ELP/IMMF BETA 2 0.35 0.20 - 05/26 Specimen Type: SERUM [place] IX,SERUM GLOBULIN 0.52 No comment ent ered. IS [facility] PANEL [MASS/VOLU Ordering Pro vider: FERMÍN STAPLES] IN Report Released Date/Time: May 14, 2021 01:26 PM SERUM OR Reporting Lab: [facility] HCS PLASMA BY [facility] [address] ELECTROPHO Performing L ab: [facility] RESIS [address] [place] [address] ELP/IMMF GAMMA 0.88 0.58 - 05/26 Specimen Type: SERUM [place] IX,SERUM GLOBULIN 1.72 /2021 No comment ent ered. IS [facility] PANEL [MASS/VOLU Ordering Pro vider: FERMÍN STAPLES ME] IN Report Released Date/Time: May 14, 2021 01:26 PM SERUM OR Reporting Lab: [facility] PLASMA BY [address] [facility] [place] [address] ELECTROPHO Performing L ab: [facility] RESIS [facility] [address] [place] [address] ELP/IMMF PROTEIN 6.7 6.0 - 8.3 05/26 Specimen Type : SERUM [place] IX,SERUM [MASS/VOLU /2021 No comment e ntered. IS [facility] PANEL ME] IN Ordering Provid er: FERMÍN STAPLES SERUM OR Report Release d Date/Time: May 14, 2021 01:26 PM PLASMA Reporting Lab: [facility] [address] Performing Lab: [facility] [address] [place] [address] ELP/IMMF IMMUNOELEC MONOCLON 05/26 Specimen Ty pe: SERUM [place] IX,SERUM TROPHORESI AL No comment e ntered. IS [facility] PANEL S FOR Ordering Provid er: FERMÍN STAPLES SERUM OR Report Release d Date/Time: May 14, 2021 01:26 PM PLASMA Reporting Lab: [facility] [address] Performing Lab: [facility] [address] [place] [address] TOTAL IGM 147.7 22.0 - 05/26 Specimen Type: P LASMA [place] IMMUNOGL [MASS/VOLU 293.0 No comment e ntered. IS [facility] OB ME] IN Ordering Provid er: FERMÍN STAPLES (IGA,IGG SERUM OR Report Releas ed Date/Time: May 14, 2021 01:26 PM ,IGM) PLASMA Reporting Lab: [facility] [address] [place] [address] Performing Lab: [facility] [place] [address] TOTAL IGG 877.2 540.0 - 05/26 Specimen Type: P LASLOLLY [place] IMMUNOGL [MASS/VOLU 1822.0 No comment e ntered. IS [facility] OB ME] IN Ordering Provid er: MELISSAREBECCA PICHARDOFERMÍN H (IGA,IGG SERUM OR Report Releas ed Date/Time: May 14, 2021 01:26 PM ,IGM) PLASMA Reporting Lab: [facility] [place] [address] Performing Lab: [facility] [address] [facility] [place] [address] TOTAL IGA 228.7 63.0 - 05/26 Specimen Type: P DORAMA [place] IMMUNOGL [MASS/VOLU 645.0 No comment e ntered. IS [facility] OB ME] IN Ordering Provid er: FERMÍN STAPLES (IGA,IGG SERUM OR Report Releas ed Date/Time: May 14, 2021 01:26 PM ,IGM) PLASMA Reporting Lab: [facility] [place] [address] Performing Lab: [facility] [place] [address] OCCULT HEMOGLOBIN Negative 11/02 Specimen Typ e: FECES [place] BLOOD .GASTRO No comment en tered. IS [facility] FIT X1 ESTINAL.LO Ordering Pro vider: KOSTA WALKER WER Report Released Date/Time: Oct 23, 2021 07:11 AM [PRESENCE] Reporting La b: [facility] IN STOOL [address] [facility] [place] [address] BY Performing Lab: [facility] IMMUNOASSA [address] [facility] [place] [address] Y --1ST SPECIMEN LIPID CHOLESTERO 101 <199 - 199 10/19 Specimen T ype: PLASMA [place] PANEL,FA No comment ente red. IS [facility] STING [MASS/VOLU Ordering Pro vider: SANAM QUEVEDO] IN Report Released Date/Time: May 13, 2021 08:38 AM SERUM OR Reporting Lab: [facility] [place] [address] Performing Lab: [facility] [address] [facility] [place] [address] LIPID TRIGLYCERI 102 <149 - 149 10/19 Specimen T ype: PLASMA [place] PANEL,FA No comment ente red. IS [facility] STING [MASS/VOLU Ordering Pro vider: SANAM QUEVEDO] IN Report Released Date/Time: May 13, 2021 08:38 AM SERUM OR Reporting Lab: [facility] PLASMA [place] [address] Performing Lab: [facility] [place] [address] LIPID CHOLESTERO 46 40 10/19 Specimen Type : PLASMA [place] PANEL,FA L IN HDL /2020 No comment ent ered. IS [facility] STING [MASS/VOLU Ordering Pro vider: SANAM QUEVEDO] IN Report Released Date/Time: May 13, 2021 08:38 AM SERUM OR Reporting Lab: [facility] PLASMA [address] [facility] [place] [address] Performing Lab: [facility] [address] [facility] [place] [address] LIPID CHOLESTERO 35 <99 - 99 10/19 Specimen Typ e: PLASMA [place] PANEL,FA L IN LDL /2020 No comment ent ered. IS [facility] STING [MASS/VOLU Ordering Pro vider: SANAM QUEVEDO] IN Report Released Date/Time: May 13, 2021 08:38 AM SERUM OR Reporting Lab: [facility] PLASMA BY [address] [facility] [address] CALCULATIO Performing L ab: [facility] N [address] [facility] [place] [address] LIPID CHOLESTERO 20 <29 - 29 10/19 Specimen Typ e: PLASMA [place] PANEL,FA L IN VLDL /2020 No comment en tered. IS [facility] STING [MASS/VOLU Ordering Pro vider: SANAM QUEVEDO] IN Report Released Date/Time: May 13, 2021 08:38 AM SERUM OR Reporting Lab: [facility] PLASMA BY [address] [facility] [place] [address] CALCULATIO Performing L ab: [facility] N [address] [facility] [place] [address] LIPID CHOLESTERO 55 <129 - 129 10/19 Specimen T ype: PLASMA [place] PANEL,FA L NON HDL /2020 No comment en tered. IS [facility] STING [MASS/VOLU Ordering Pro vider: SANAM QUEVEDO] IN Report Released Date/Time: May 13, 2021 08:38 AM SERUM OR Reporting Lab: [facility] PLASMA [address] [facility] [place] [address] Performing Lab: [facility] [place] [address] CBC LEUKOCYTES 6.43 4.0 - 11.0 10/19 Specimen T ype: BLOOD [place] [#/VOLUME] /2020 No comment en tered. IS [facility] IN BLOOD Ordering Provi roberto: KOSTA WALKER BY Report Released Date/Time: Oct 18, 2021 03:48 PM AUTOMATED Reporting Lab : [facility] HCS COUNT [place] [address] Performing Lab: [facility] HCS [address] [facility] [place] [address] CBC ERYTHROCYT 5.32 4.6 - 6.2 10/19 Specimen Ty pe: BLOOD [place] ES /2020 No comment enter ed. IS [facility] [#/VOLUME] Ordering Pro vider: KOSTA WALKER IN BLOOD Report Release d Date/Time: Oct 18, 2021 03:48 PM BY Reporting Lab: [facility] AUTOMATED [facility] [address] COUNT Performing Lab: [facility] HCS [address] [facility] [place] [address] CBC HEMOGLOBIN 16.9 13.5 - 10/19 Specimen Type : BLOOD [place] [MASS/VOLU 17.9 /2020 No comment en tered. IS [facility] ME] IN Ordering Provid er: KOSTA WALKER BLOOD Report Released Date/Time: Oct 18, 2021 03:48 PM Reporting Lab: [facility] HCS [address] [facility] [place] [address] Performing Lab: [facility] HCS [address] [facility] [place] [address] CBC HEMATOCRIT 48.9 41 - 54 10/19 Specimen Type : BLOOD [place] [VOLUME /2020 No comment enter ed. IS [facility] FRACTION] Ordering Prov ider: KOSTA WALKER OF BLOOD Report Release d Date/Time: Oct 18, 2021 03:48 PM BY Reporting Lab: [facility] AUTOMATED [address] [facility] [address] [facility] [place] [address] COUNT Performing Lab: [facility] [address] [facility] [place] [address] CBC MCV 91.9 80 - 100 10/19 Specimen Type: BLOOD [place] [ENTITIC /2020 No comment ente red. IS [facility] VOLUME] BY Ordering Pro vider: KOSTA WALKER AUTOMATED Report Releas ed Date/Time: Oct 18, 2021 03:48 PM COUNT Reporting Lab: [facility] HCS [address] [place] [address] Performing Lab: [facility] HCS [address] [place] [address] CBC MCH 31.8 27 - 33 10/19 Specimen Type: B LOOD [place] [ENTITIC /2020 No comment ente red. IS [facility] MASS] BY Ordering Provi roberto: KOSTA WALKER AUTOMATED Report Releas ed Date/Time: Oct 18, 2021 03:48 PM COUNT Reporting Lab: [facility] HCS [address] [place] [address] Performing Lab: [facility] HCS [place] [address] CBC MCHC 34.6 32.0 - 10/19 Specimen Type: B LOOD [place] [MASS/VOLU 37.5 /2020 No comment en tered. IS [facility] ME] BY Ordering Provid er: KOSTA WALKER AUTOMATED Report Releas ed Date/Time: Oct 18, 2021 03:48 PM COUNT Reporting Lab: [facility] HCS [place] [address] Performing Lab: [facility] H[facility] [place] [address] CBC PLATELETS 208 150 - 400 10/19 Specimen Typ e: BLOOD [place] [#/VOLUME] /2020 No comment en tered. IS [facility] IN BLOOD Ordering Provi roberto: KOSTA WALKER BY Report Released Date/Time: Oct 18, 2021 03:48 PM AUTOMATED Reporting Lab : [facility] COUNT [place] [address] Performing Lab: [facility] H[facility] [place] [address] CBC PLATELET 10.8 7.4 - 10.4 12/ H Specimen Typ e: BLOOD [place] MEAN /2020 No comment enter ed. IS [facility] VOLUME Ordering Provid er: KOSTA WALKER [ENTITIC Report Release d Date/Time: Oct 18, 2021 03:48 PM VOLUME] IN Reporting La b: [facility] BLOOD BY [address] [facility] [place] [address] AUTOMATED Performing La b: [facility] COUNT [place] [address] CBC ERYTHROCYT 13.2 11.5 - 10/19 Specimen Type : BLOOD [place] E 14.5 /2021 No comment enter ed. IS [facility] DISTRIBUTI Ordering Pro vider: KOSTA WALKER ON WIDTH Report Release d Date/Time: Oct 18, 2021 03:48 PM [RATIO] BY Reporting La b: [facility] AUTOMATED [address] [facility] [place] [address] COUNT Performing Lab: [facility] [address] [place] [address] CREATINI CREATININE 0.9 0.7 - 1.2 10/19 Specimen T ype: PLASMA [place] NE(INCLU [MASS/VOLU /2020 No comment e ntered. IS [facility] TRINA ME] IN Ordering Provid er: KOSTA WALKER EGFR) SERUM OR Report Release d Date/Time: Oct 18, 2021 03:48 PM PLASMA Reporting Lab: [facility] [place] [address] Performing Lab: [facility] [place] [address] CREATINI GLOMERULAR 82 60 10/19 Specimen Typ e: PLASMA [place] NE(INCLU FILTRATION /2020 No comment e ntered. IS [facility] TRINA RATE/1.73 Ordering Prov ider: KOSTA WALKER EGFR) SQ Report Released Date/Time: Oct 18, 2021 03:48 PM MBANGE Reporting La b: [facility] D [VOLUME [address] [facility] [address] RATE/AREA] Performing L ab: [facility] IN SERUM, [facility] [address] PLASMA OR BLOOD BY CREATININE -BASED FORMULA (CKD-EPI) ELECTROL SODIUM 138 136 - 145 10/19 Specimen Type : [place]MA [place] YTES/ANI [MOLES/VOL No comment e ntered. IS [facility] ON GAP UME] IN Ordering Provid er: KOSTA WALKER SERUM OR Report Release d Date/Time: Oct 18, 2021 03:48 PM PLASMA Reporting Lab: [facility] [place] [address] Performing Lab: [facility] [place] [address] ELECTROL POTASSIUM 3.9 3.5 - 5.1 10/19 Specimen Ty pe: [place]MA [place] YTES/ANI [MOLES/VOL No comment e ntered. IS [facility] ON GAP UME] IN Ordering Provid er: KOSTA WALKER SERUM OR Report Release d Date/Time: Oct 18, 2021 03:48 PM PLASMA Reporting Lab: [facility] [place] [address] Performing Lab: [facility] [address] [place] [address] ELECTROL CHLORIDE 103 98 - 107 10/19 Specimen Type : [place]MA [place] YTES/ANI [MOLES/VOL /2020 No comment e ntered. IS [facility] ON GAP UME] IN Ordering Provid er: KOSTA WALKER SERUM OR Report Release d Date/Time: Oct 18, 2021 03:48 PM PLASMA Reporting Lab: [facility] [place] [address] Performing Lab: [facility] [address] ELECTROL CARBON 29 22 - 29 10/19 Specimen Type: PLASMA [place] YTES/ANI DIOXIDE, /2020 No comment ent ered. IS [facility] ON GAP TOTAL Ordering Provid er: KOSTA WALKER [MOLES/VOL Report Relea sed Date/Time: Oct 18, 2021 03:48 PM UME] IN Reporting Lab: [facility] SERUM OR ONE [facility] Patricia [facility] [place] [address] PLASMA Performing Lab: [facility] [address] [facility] [place] [address] ELECTROL ANION GAP 6 5 - 15 10/19 Specimen Type : PLASMA [place] YTES/ANI IN SERUM /2020 No comment ent ered. IS [facility] ON GAP OR PLASMA Ordering Prov ider: KOSTA WALKER Report Released Date/Time: Oct 18, 2021 03:48 PM Reporting Lab: [facility] [address] [place] [facility] [place] [address] Performing Lab: [facility] [address] [place] [facility] [place] [address] GLUCOSE GLUCOSE 105 74 - 100 12/ H Specimen Type: PLASMA [place] [MASS/VOLU /2020 No comment en tered. IS [facility] ME] IN Ordering Provid er: KOSTA WALKER SERUM OR Report Release d Date/Time: Oct 18, 2021 03:48 PM PLASMA Reporting Lab: [facility] [address] [place] [facility] [place] [address] Performing Lab: [facility] [address] [place] [facility] [place] [address] Vital Signs Combined list of inpatient and outpatient Vital Signs from Department of Defense and Veterans Affairs, ranging from 12 months to all on record, depending upon the facility. Vital Sign Value Date Comments Source SYSTOLIC BLOOD PRESSURE 160 12/23/2021 11:42:22 [place] [facility] DIASTOLIC BLOOD PRESSURE 89 12/23/2021 11:42:22 [facility] PULSE OXIMETRY 98% 12/23/2021 11:42:22 [facility] WEIGHT 170.8 12/23/2021 11:42:22 [facility] BMI 26kg/m2 12/23/2021 11:42:22 [facility] PAIN 0 12/23/2021 11:42:22 [place] [facility] HCS TEMPERATURE 97.1 12/23/2021 11:42:22 [facility] PULSE 61 12/23/2021 11:42:22 [facility] RESPIRATION 16 12/23/2021 11:42:22 [facility] SYSTOLIC BLOOD PRESSURE 128 10/19/2021 10:26:08 [facility] DIASTOLIC BLOOD PRESSURE 77 10/19/2021 10:26:08 [facility] PULSE OXIMETRY 97% 10/19/2021 10:26:08 [place] [facility] [...] HCS DIASTOLIC BLOOD PRESSURE 85 10/18/2021 15:18:14 [facility] PULSE OXIMETRY 96% 10/18/2021 15:18:14 [...] Type Number For Provider [place] [address]-8.61 Diagnos BRYANNA, 12/23 [place] D[place] [id number] is: MARVIN Esposito [facility] ICD-10- HCS 5-10 CM E78.5 Hyperli pidemia , unspeci fied
with Provide r Comment s: Hyperli pidemia (SCT [id number] 4) Outpatient 73250-9.61 12/26 [place] En[facility] [id number] [facility] 15771-6.61 12/31 [place] En[place] [id number] /2020 [facility] Outpatient 10224-7.61 RU[place]G,AIL 01/02 [place] En[place] [id number] EE E [facility] Outpatient 31382-4.61 01/15 [place] En[place] [id number] /2020 [facility] Outpatient 26662-4.61 01/16 [place] En[place] [id number] /2020 [facility] Outpatient 69526-4.61 02/15 [place] En[place] [id number] /2020 [facility] Outpatient 01649-4.61 03/03 [place] En[place] [id number] /2020 [facility] Outpatient 58970-2.61 Diagnos EMILLA 04/09 [place] Encounter [id number] is: URIE A [facility] HCS CM I25.10 Athscl heart disease of [place] coronar y artery w/o ang pctrs<b r/>with Provide r Comment s: Coronar y artery disease (SCT [id number] 8) Outpatient 32126-1.61 05/11 [place] Encounter [id number] /2020 [facility] TTE 59719-9.61 Diagnos CHANDRASHE 05/11 [place]/DOPPLER [id number] is: NALDO,Y S /2020 [facility] COMPLETE ICD-10- HCS CM R06.02 Shortne ss of breath< br/>wit h Provide r Comment s: Shortne ss of Breath Outpatient 79664-4.61 05/11 [place] En[place] [id number] /2020 [facility] Outpatient 50615-0.61 Diagnos SANAM QUEVEDO 05/13 [place] Encounter [id number] is: /[facility] ICD-10- HCS CM E78.5 Hyperli pidemia , unspeci fied
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
with Provide r Comment s: Patricio 's Esophag us with Dysplas ia, unspeci fied Outpatient 09636-4.61 10/14 [place] En[place] [id number] [facility] Outpatient 61642-6.61 LAKEISHA CASTILLO 10/14 [place] En[place] [id number] [facility] OFFICE O/P 89346-0.61 Diagnos LUIS A CASTILLOIA 10/14 [place] EST [place] [id number] is: N [facility] 40-54 MIN ICD-10- HCS CM E78.5 Hyperli pidemia , unspeci fied
with Provide r Comment s: Hyperli pidemia (SCT [id number] 4) Outpatient 75467-2.61 10/14 [place] En[place] [id number] [facility] Outpatient 96680-6.61 10/14 [place] En[place] [id number] [facility] ANES UPR 30500-3.61 Diagnos HOFFHERMELINDO 10/14 [place] [facility]SC PX [id number] is: /[facility] NOS ICD-10- [facility] CM K22.70 Patricio 's esophag us without dysplas ia
with Provide r Comment s: Patricio 's esophag us (SCT [id number] 06) Outpatient 33860-4.61 CIOC,TASHI 10/15 [place] Encounter [id number] [facility] OFFICE O/P 17357-8.61 Diagnos DENISE,LA 10/18 [place] EST MOD [id number] is: INE E /2020 [facility] 30-39 MIN ICD-10- HCS CM I25.10 Athscl heart disease of [place] coronar y artery w/o ang pctrs<b r/>with Provide r Comment s: Coronar y artery disease (SCT [id number] 8) OFFICE O/P 94079-5.61 Diagnos INKOLLU,SI 10/19 [place] EST LOW [id number] is: NDHURA [facility] 20-29 MIN ICD-10- HCS CM E78.5 Hyperli pidemia , unspeci fied
with Provide r Comment s: Hyperli pidemia , unspeci fied DERMATOLOG 30013-0.61 Diagnos YANET,MAR 11/16 [place] ICAL [id number] is: C A [facility] PROCEDURE ICD-10- HCS CM R21 Rash and other nonspec ific skin eruptio n
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
with Provide r Comment s: Encount er for Screeni ng for Cardiov ascular Disorde rs OFFICE O/P 76734-7.61 Diagnos SASHARICHILA 12/23 [place] EST MOD [id number] is: URIE A /2021 [facility] 30-39 MIN ICD-10- HCS CM I25.10 Athscl heart disease of [place] coronar y artery w/o ang pctrs<b r/>with Provide r Comment s: Coronar y artery disease (SCT [id number] 8) [place] [address]-0.61 Diagnos Jaya CHRISTIAN 12/31 [place] 45 MINUTES [id number] is: TRISH R /2021 [facility] ICD-10- HCS CM F03.90 Unspeci fied dementi a without behavio ral disturb ance
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 Social History Type Response Date Comment Source Tobacco smoking VA-[facility]CO FORMER USER 10/18/2021 [facility] [place] [facility] status [facility] History of tobacco VA-TOBACCO QUIT 15 YRS 10/18/2021 [facility] use OR MORE History of tobacco VA-TOBACCO QUIT 5 TO < 2019 [facility] use 15 YRS History of tobacco VA-TOBACCO FORMER USER 08/09/2018 [facility] use History of tobacco INPT NO TOBACCO USE IN 06/26/2018 [facility] use LAST 30 DAYS History of tobacco FORMER TOBACCO USER 7Y 02/08/2017 [facility] use OR GREATER History of tobacco FORMER TOBACCO USER 7Y 04/08/2016 [facility] use OR GREATER History of tobacco FORMER TOBACCO USER 7Y 12/02/2014 [facility] use OR GREATER History of tobacco FORMER TOBACCO USER 7Y 02/17/2014 [facility] use OR GREATER History of tobacco FORMER TOBACCO USE >1Y 12/19/2012 [facility] use <7Y History of tobacco FORMER TOBACCO USE >1Y 01/02/2012 [facility] use <7Y History of tobacco FORMER TOBACCO USE >1Y 12/13/2010 [facility] use <7Y History of tobacco FORMER TOBACCO USE >1Y 09/03/2009 [facility] HCS use <7Y History of tobacco CURRENT TOBACCO USER 09/25/2008 [facility] use Plan of Care List of future care activities from Department of Veterans Affairs facilities. Additional future care activities may be listed in the Assessment and Plan section. Date/Time Care Activity Care Activity Detail Facility 07/28/2022 AMBULATORY - NONE AMBULATORY - NONE [facility] Advance Directives List of completed, amended, or rescinded Advance Directives on record at Department of Veterans Affairs facilities. An actual copy of the Directive is not included. Date Advance Directive Provider Source 10/02/2017 CLINICAL WARNING SCHEMPJAXON Valencia [facility]
--- OUTSIDE RECORDS SUMMARY | 2022-06-23 16:57 | XMS_ITS | Continuity of Care Document ---
:1945 Author Organization [facility] Address [address] [address] [place] [address] Phone Care Team Providers Name Role Phone [...] Endo; W/ablat Les Not Snar Offic/outpt E&m [facility] [id number] Advance Directives Directive Yes / No Effective Date File Name No Information Encounters Encounter Practice Location Reason(s) Diagnoses Date Provider Provide rs Description For Visit Copied on Encounter [facility] [place] No Information Deanne GARCIA [facility], [address] [address], [address] [facility] [place], [place], [place], [address], [id number], [facility] is, [place], tel: [phone] , [place]. tel: [phone] [facility] No Information Deanne GARCIA [facility], [address] [address], [address] [facility] [place], [place], [place], [address], [id number], [facility] is, [place], tel: [phone] , [place]. tel: [phone] [facility] [place] Deanne GARCIA Referring Digestive [facility] EsophagusAkatal Dev. [facility] er: [facility], Endoscopy [facility] [address] [facility] [address] [place] EsophagusHiatal [place] [address] [address], [address], [address] [place] [facility] [place], [place], [place], [address], [address], [id number], [facility] [place], [place], , [place], tel: [phone] , [place]. tel: tel: [phone] Offic/outpt [facility] dorado[facility] [place] Deanne GARCIA Refe rring E&m [facility] (chief Esophagus Dev. Provider: [facility], complaint) 0 [address] [facility] Box hiatal [place] GARCIA [address], [address], [address] [place] [facility] (chief [place], [place], [place], complaint) [address], [address], [id number], [facility] [place], [place], , [place], tel:[phone] , [place]. tel:[phone] tel:[phone] Family History Family Member Type Diagnosis Age [...] Polyps Payers Payer name Insurance type Covered alliance party ID Authorization(s ) [employer] 16 [id number] Social History Type Description Quantity Date Captured [...]
--- OUTSIDE RECORDS SUMMARY | 2022-06-23 17:02 | XMS_ITS ---
[...] Compcare QL, LAST+probe, passage) Urgent [facility] [place] [place]: [address] [place] [address] , [place] Past Encounters None recorded. Social History None recorded. Vaccine List None recorded. Plan of Care Reminders Provider Appointments None recorded. ? ? Lab None recorded. ? ? Referral None recorded. ? ? Procedures None recorded. ? ? Surgeries None recorded. ? ? Imaging None recorded. ? ? Vitals None recorded.
[2022-06-23 17:30] VITALS: BP 93/59; PULSE 55; RESP 20; TEMP 36.1; O2SAT 96
[2022-06-23 18:30] VITALS: BP 108/50; PULSE 63; RESP 20; TEMP 36.1; O2SAT 96
== END 2022-06-23 18:33 | disposition home or self-care (01) ==
PROVIDERS: Emergency Provider Emergency Medicine Emergency Medical Services
DX: R79.89 Other specified abnormal findings of blood chemistry (principal); B95.2 Enterococcus as the cause of diseases classified elsewhere
CPT/HCPCS: 36415; 71046; 71260; 80048; 80076; 82803; 83605; 83880; 84484; 85025; 85379; 86140; 87040; 87635; 93005; 99285; A9270; Q9967

== ENCOUNTER 2023-08-27 12:01 | Observation (INO) | payer OTHER, MEDICARE, SELFPAY ==
[2023-08-27] VITALS (13 sets, daily range): BP systolic 134–176; BP diastolic 81–107; PULSE 54–66; RESP 16; TEMP 35.6–37.3; O2SAT 94–98; BMI 27.4; BMI 25.8
--- NOTE | 2023-08-27 14:06 | CRLHL7_ITS ---
For Patients: As a result of the 21st Century Cures Act, medical imaging exams and procedure reports are released immediately into your electronic medical record. You may view this report before your referring provider. If you have questions, please contact your health care provider. INDICATION: Abdominal fullness, lethargy, nausea. TECHNIQUE: CT of the abdomen and pelvis with 89 cc Isovue 370 IV contrast. Coronal and sagittal reconstructions. COMPARISON: Abdominal ultrasound 08/11/2010. FINDINGS: Diffuse hepatic steatosis, with fatty sparing about the gallbladder fossa. Small left hepatic cyst. Cholelithiasis without evidence of gallbladder inflammation. Mild dilation of the common bile duct measuring up to 9 mm in diameter. There is a 4 mm calcific density in the distal common bile duct which likely represents choledocholithiasis (series 2 image 51 and series 4 image 78). The spleen, pancreas, and adrenal glands are negative. Portal veins appear patent. Symmetric enhancement of the kidneys. Bilateral renal cysts. Additional subcentimeter bilateral renal hypodensities are too small to characterize. No hydronephrosis or ureteral dilation. There is a 5 mm stone either within or adjacent to the right ureterovesicular junction (series 2, image 129). The bladder is normal in appearance. Enlarged prostate gland. Postoperative changes at the gastroesophageal junction. No small bowel dilation. Moderate amount of stool throughout the colon. Extensive colonic diverticulosis without evidence of diverticulitis. Negative appendix. No intraperitoneal free air or fluid. No lymphadenopathy. Small bilateral fat containing inguinal hernias. Aortoiliac vascular calcifications. 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 Prominent focus of noncalcified atheromatous plaque in the distal descending thoracic aorta with intact wall calcifications (series 2, image 23). The lung bases are clear. Coronary artery and mitral annulus calcifications. Sternotomy. Mild degenerative changes of the spine. IMPRESSION: 1. Mild dilation of the common bile duct with a 4 mm filling defect suspicious for choledocholithiasis. Cholelithiasis without evidence of gallbladder inflammation. 2. 5 mm stone either within or adjacent to the right UVJ. No current signs of obstruction. 3. 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 4. Extensive colonic diverticulosis. 5. Enlarged prostate gland. Please note that all CT scans at this facility use dose modulation, iterative reconstruction, and/or weight-based dosing when appropriate to reduce radiation dose to as low as reasonably achievable. Dictated by Mabel Magallanes MD @ 08/27/2023 5:18:11 PM (Electronically Signed)
--- NOTE | 2023-08-27 14:07 | CRLHL7_ITS ---
For Patients: As a result of the Cures Act, medical imaging exams and procedure reports are released immediately into your electronic medical record. You may view this report before your referring provider. If you have questions, please contact your health care provider. INDICATION: Abdominal fullness, lethargy, nausea TECHNIQUE: Chest 1 view. COMPARISON: None FINDINGS: The heart size and central vascular pattern are within the normal range. The lungs are clear of acute appearing infiltrates. No pleural effusion, pneumothorax or pneumomediastinum is identified. Changes of previous midline sternotomy and coronary artery bypass grafting are present. IMPRESSION: No acute cardiopulmonary disease is evident with other findings as discussed above. Dictated by Nick Bird MD @ 08/27/2023 5:02:13 PM (Electronically Signed)
--- NOTE | 2023-08-27 14:19 | ED.GENADULT ---
HPI - General Adult General Chief complaint: Nausea/Vomiting Stated complaint: lethargic, nausea, not eating/drinking Time Seen by Provider: 08/27/23 13:54 History of Present Illness HPI narrative: Patient is a pleasant 70 year white male who lives independently with his was here with him. He reports he has had some lethargy over the last week , he has had difficulty feeling like there is anything to do when he gets out of bed. He does not really describe weakness, but he does report he has use nitro more often than before. He has had a history of arteriosclerotic cardiovascular disease. 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 He lives with his independently. He has lot of social support and family in the area. His daughter is a nurse at [employer]. He denies any dysuria, sore throat, cough, fever, rigors. Patient denies any diarrhea constipation. His reports he has not eaten or drank very much the last few days as well. He states he drinks very little water. Related Data Home Medications Medication Instructions Recorded Confirmed alirocumab subcut 06/22/22 aspirin 81 mg tablet,delayed 81 mg PO DAILY 06/22/22 06/22/22 release (Adult Aspirin Regimen) carvedilol 6.25 mg tablet 6.25 mg PO BID 06/22/22 06/22/22 clobetasol 0.05 % topical ointment 1 applic topical DAILY 06/22/22 06/22/22 clopidogrel 75 mg tablet 75 mg PO DAILY 06/22/22 06/22/22 ezetimibe 10 mg tablet 10 mg PO DAILY 06/22/22 06/22/22 isosorbide mononitrate .ROUTE 06/22/22 lisinopril 10 mg tablet 5 mg PO DAILY 06/22/22 06/22/22 omeprazole 20 mg capsule,delayed 20 mg PO BID 06/22/22 06/22/22 release Previous Rx's Medication Instructions Recorded amoxicillin 875 mg-potassium 1 tab PO BID #20 tabs 06/23/22 clavulanate 125 mg tablet Allergies Allergy/AdvReac Type Severity Reaction Status Date / Time No Known Drug Allergies Allergy Verified 06/23/22 16:42 Review of Systems Status of ROS: Reports: 6 or more systems reviewed and unremarkable except as noted in History and below [facility] Medical History Coronary atherosclerosis ?I25.10 - Atherosclerotic heart disease of [place] coronary artery without angina pectoris (ICD-10) Mitral regurgitation ?I34.0 - Nonrheumatic mitral (valve) insufficiency (ICD-10) Monoclonal gammopathy ?D47.2 - Monoclonal gammopathy (ICD-10) Bradycardia ?R00.1 - Bradycardia, unspecified (ICD-10) 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 (ICD-10) Hypertension ?I10 - Essential (primary) hypertension (ICD-10) Hyperlipidemia ?E78.5 - Hyperlipidemia, unspecified (ICD-10) PVD (peripheral vascular disease) ?I73.9 - Peripheral vascular disease, unspecified (ICD-10) Dementia ?F03.90 - Unspecified dementia without behavioral disturbance (ICD-10) Social History Smoking Status: Former smoker Do you use any of these nicotine containing products: None How often do you have a drink containing alcohol: 4 or more times a week How many standard drinks containing alcohol do you have on a typical day: 1 or 2 How often do you have six or more drinks on one occasion: Never AUDIT-C Alcohol total score: 4 Non-prescribed substance use: denies use service: Yes Exam Narrative: Exam Narrative: Objective: Patient's vital signs look largely unremarkable and within normal limits, he is afebrile He is alert orient x3, very pleasant No facial asymmetry, mouth appears well hydrated Neck is supple Chest is clear no rales or wheezing Heart rhythm regular with occasional ectopic beat 2/6 systolic ejection murmur Abdomen benign soft Extremities are no edema neurologic nonfocal. Const: Vital Signs, click to edit/add: Vital Signs - 24 hr 08/27/23 12:17 08/27/23 14:56 08/27/23 15:00 Temperature 96.1 F L Pulse Rate 56 L 58 L Pulse Rate [Pulse Oximeter] 66 Respiratory Rate 16 Blood Pressure [Ri ght Upper Arm] 154/96 H Pulse Oximetry 97 96 96 Oxygen Delivery Me thod Room Air 08/27/23 15:15 Temperature Pulse Rate 59 L Pulse Rate [Pulse Oximeter] Respiratory Rate Blood Pressure [Ri ght Upper Arm] Pulse Oximetry 95 Oxygen Delivery Me thod Course Vital Signs Vital signs: Initial Vital Signs Temperature 96.1 F L 08/27/23 12:17 Temperature Source Tympanic 08/27/23 12:17 Pulse Rate 66 08/27/23 12:17 Pulse Rhythm Regular 08/27/23 12:17 Respiratory Rate 16 08/27/23 12:17 Blood Pressure 154/96 H 08/27/23 12:17 Blood Pressure Mean 115 H 08/27/23 12:17 Pulse Oximetry 97 08/27/23 12:17 Oxygen Delivery Method Room Air 08/27/23 12:17 Vital Signs Temperature 96.1 F L 08/27/23 12:17 Pulse Rate 66 08/27/23 12:17 Respiratory Rate 16 08/27/23 12:17 Blood Pressure 154/96 H 08/27/23 12:17 Pulse Oximetry 97 08/27/23 12:17 Oxygen Delivery Method Room Air 08/27/23 12:17 Temperature 96.1 F L 08/27/23 12:17 Pulse Rate 59 L 08/27/23 15:15 Respiratory Rate 16 08/27/23 12:17 Blood Pressure 154/96 H 08/27/23 12:17 Pulse Oximetry 95 08/27/23 15:15 Oxygen Delivery Method Room Air 08/27/23 12:17 Medical Decision Making MDM Narrative Medical decision making narrative: [age] year white male with a history of coronary artery disease with an EKG that now shows some changes in 1 and aVL, with a normal troponin. Normal that is a new her older change. It does appear to be different from 2021 in reviewing his chart. I think given his complaints of fatigue and weakness, it would be reasonable to do a battery of labs as well as CT scan of his abdomen. It sounds like he has had a [place]ita fundoplication for Patricio's esophagus and he has difficulty with vomiting or nausea. I think would be prince to recheck an abdominal CT and then laboratory studies as mention, IV fluids and hydration. Also he has had a sensation of early satiety and I think a CT would be helpful for that as well. He may need EGD at some point. I think also do a cardiac rule out would be appropriate and consider an echocardiogram given that his proBNP is elevated. He and his were comfortable plan, and Dr. Mark kindly accepts the patient in admission. For admission planning the patient has coronary artery disease, EKG changes, elevated proBNP consistent with mild congestive heart failure, fatigue and weakness. He also has blood cultures done as well as a urine and urine culture to be obtained. Addendum: 3:38 p.m. the patient also is positive for COVID. Lab Data Labs: Lab Results 08/27/23 Range/Units 14:30 WBC 10.95 (4.50-11.00) K/uL RBC 5.73 (4.30-5.90) m/uL Hgb 17.8 H (13.5-17.5) gm/dL Hct 52.1 (37.0-53.0) % MCV 91 (80-100) fL MCH 31 (26-34) pg MCHC 34 (32-36) gm/dL RDW Coeff of Lilibeth 13.0 (11.5-15.5) % Plt Count 245 (140-440) K/uL Neut % (Auto) 81.4 H (42.0-72.0) % Lymph % (Auto) 8.8 L (20-44) % [place] % (Auto) 8.8 (0.0-11.0) % Eos % (Auto) 0.0 (0.0-7.0) % Baso % (Auto) 0.1 (0.0-3.0) % Neut # (Auto) 8.90 H (1.7-7.0) K/uL Lymph # (Auto) 1.00 (0.90-2.90) K/uL [place] # (Auto) 1.00 H (0.00-0.90) K/UL Eos # (Auto) 0.00 (0.00-0.50) K/uL Baso # (Auto) 0.01 (0.00-0.30) K/uL Abs Immat Gran (auto) 0.10 (0.00-0.30) K/uL Imm/Tot Granulo (auto) 0.9 % INR 0.94 (0.91-1.10) Sodium 132 L (135-149) mmol/L Potassium 3.5 L (3.6-5.1) mmol/L Chloride 98 (96-114) mmol/L Carbon Dioxide 25 (20-32) mmol/L Anion Gap 9 (7-15) mEq/L BUN 15 (7-30) mg/dL Creatinine 0.7 (0.5-1.5) mg/dL Estimated Creat Clear 58.90 Estimated GFR 94 ml/min Glucose 119 H (60-115) mg/dL Lactate 1.7 (0.5-1.9) mmol/L Calcium 9.4 (8.4-10.6) mg/dL Total Bilirubin 2.0 H (0.1-1.5) mg/dL Direct Bilirubin 0.1 (0.0-0.5) mg/dL AST 41 H (12-35) U/L ALT 30 (4-50) U/L Alkaline Phosphatase 56 (40-150) U/L Troponin I 0.01 (0.01-0.04) ng/mL C-Reactive Protein < 0.5 L (0.5-1.0) mg/dL NT-Pro-B Natriuret Pep 4280 pg/mL Total Protein 7.3 (6.0-8.3) g/dL Albumin 4.2 (3.3-5.0) g/dL Amylase 42 (18-89) U/L SARS-CoV-2 (PCR) POSITIVE SARS-CoV-2 A (Negative) Influenza Type A (PCR) Negative PCR FLU A (Negative) Influenza Type B (PCR) Negative PCR FLU B (Negative) RSV (PCR) Negative PCR RSV (Negative) Discharge Plan Discharge Clinical Impression: Fatigue, Coronary artery disease Patient Disposition: Admitted As Observation
[2023-08-27 14:38] LABS: Lactate* 1.7 mmol/L (0.5-1.9)
[2023-08-27 14:41] LABS: Basophils Absolute Auto 0.01 K/uL (0.00-0.30); Basophils Percent Auto 0.1 % (0.0-3.0); Hematocrit 52.1 % (37.0-53.0); Hemoglobin* 17.8 gm/dL (13.5-17.5); Immature Granulocytes Pct Auto 0.9 %; Lymphocytes Percent Auto 8.8 % (20-44); Mean Corpuscular HGB Conc 34 gm/dL (32-36); Mean Corpuscular Hemoglobin 31 pg (26-34); Mean Corpuscular Volume 91 fL (80-100); Monocytes Percent Auto 8.8 % (0.0-11.0); Neutrophils Percent Auto 81.4 % (42.0-72.0); Platelet Count* 245 K/uL (140-440); Red Blood Count 5.73 m/uL (4.30-5.90); White Blood Count* 10.95 K/uL (4.50-11.00)
[2023-08-27 14:43] LABS: Slide Review Reflex No
[2023-08-27 15:06] LABS: Albumin* 4.2 g/dL (3.3-5.0); Chloride* 98 mmol/L (96-114)
[2023-08-27 15:07] LABS: Potassium* 3.5 mmol/L (3.6-5.1); Sodium* 132 mmol/L (135-149)
[2023-08-27 15:09] LABS: Amylase* 42 U/L (18-89)
[2023-08-27 15:10] LABS: Alanine Aminotransferase* 30 U/L (4-50); Alkaline Phosphatase* 56 U/L (40-150); Anion Gap 9 mEq/L (7-15); Aspartate Amino Transferase* 41 U/L (12-35); Bilirubin Direct* 0.1 mg/dL (0.0-0.5); Blood Urea Nitrogen* 15 mg/dL (7-30); Calcium* 9.4 mg/dL (8.4-10.6); Carbon Dioxide* 25 mmol/L (20-32); Glucose* 119 mg/dL (60-115); Total Protein* 7.3 g/dL (6.0-8.3)
[2023-08-27] MEDS: 0.9 % SODIUM CHLORIDE 500 ML 500 ML IV (15:13)
[2023-08-27 15:15] LABS: C Reactive Protein* < 0.5 mg/dL (0.5-1.0)
[2023-08-27 15:18] LABS: PCR FLU A Negative PCR FLU A (Negative); PCR FLU B Negative PCR FLU B (Negative); PCR RSV Negative PCR RSV (Negative)
[2023-08-27 15:20] LABS: NT Pro B Type NatriureticPept* 4280 pg/mL; Troponin I* 0.01 ng/mL (0.01-0.04)
[2023-08-27 15:23] LABS: Creatinine* 0.7 mg/dL (0.5-1.5); Estimated Glomerular Filt Rate 94 ml/min
[2023-08-27 15:27] LABS: INR 0.94 (0.91-1.10); Prothrombin Time 13.2 Seconds
[2023-08-27 15:29] LABS: SARS PCR* POSITIVE SARS-CoV-2 (Negative)
--- NOTE | 2023-08-27 16:07 | ED.NURSE ---
report given to MS, pt room 276
--- NOTE | 2023-08-27 17:57 | P.IMHP_ITS ---
Hospitalist- H&P: HPI History of Present Illness Date Seen: 08/27/23 Chief complaint: lethargic, nausea, not eating/drinking Narrative: Ray Wren is a 78 year old male presented to the ER with for fatigue. He has felt poorly for the last 3-4 days, and rarely getting out of bed. He has had intermittent chest discomfort with a long history of exertional angina. He typically uses nitro quite regularly and has been throughout the course of this illness, but is unable to describe current chest discomfort any further for me. He specifically denies lower extremity edema, PND, othopnea. He has had anorexia, but denies any specific abdominal pain. He has a history of coronary artery disease, s/p three-vessel CABG. ER Course and Findings: - mild ST depression lateral leads on EKG - negative troponin - elevated BNP without evidence of LE edema or fluid overload - bilirubin of 2.0 (unclear baseline, has elevated >3 in the past per chart review), sodium 132, potassium 3.5 - no acute findings on chest x-ray; CT abdomen pelvis does reveal a possibility of choledocholithiasis Histories updated below, obtained from chart review and discussion with daughter Sherin. Sherin also notes that her father has a history of alcohol overuse; was in recovery for approximately 30 years, but over the past few months has been drinking 4-6 beers per night. He has not had anything to drink during this illness (approximately 2-3 days), no history of severe withdrawal. 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 (ICD-10) Hypertension ?I10 - Essential (primary) hypertension (ICD-10) Hyperlipidemia ?E78.5 - Hyperlipidemia, unspecified (ICD-10) PVD (peripheral vascular disease) ?I73.9 - Peripheral vascular disease, unspecified (ICD-10) Dementia ?F03.90 - Unspecified dementia without behavioral disturbance (ICD-10) Surgical History (Updated 08/27/23 @ 16:57 by Juanita Jones MD) S/P insertion of iliac artery stent ?Z95.828 - Presence of other vascular implants and grafts (ICD-10) Hx of CABG ?Z95.1 - Presence of aortocoronary bypass graft (ICD-10) Social History (Updated 08/27/23 @ 18:43 by Juanita Jones MD) Narrative: Lives with Sarai [place]. 2 adult children, daughter Sherin is nurse at [employer]. Former smoker, h/o ETOH overuse, drinking approximately 4-6 beers/night at home (08/27/23). No history of withdrawal. What is your current living situation?: I presently have a place to live Problems where you live: no known problems Problems where you live details: no known problems In the past 12 months, utilities in danger of being shut off: no In past 12 months, lack of transportation kept you from medical appts, meetings, work, or getting things needed for daily living: no In the past 12 mos, have been you worried that your food would run out before you had money to buy more?: never true In the past 12 mos, the food you bought just didn't last and you didn't have money to buy more?: never true Highest level of school completed/degree received: high school graduate Smoking Status: Former smoker Do you use any of these nicotine containing products: None How often do you have a drink containing alcohol: 4 or more times a week How many standard drinks containing alcohol do you have on a typical day: 1 or 2 How often do you have six or more drinks on one occasion: Never AUDIT-C Alcohol total score: 4 Non-prescribed substance use: denies use Caffeine: Yes How often does anyone, including family, friends and others, physically hurt you : never How often does anyone, including family, friends and others, insult or talk down to you: never How often does anyone, including family, friends and others, threaten you with harm: never How often does anyone, including family, friends and others, scream or curse at you: never service: Yes Meds Home Medications and Allergies Home Medications Medication Instructions Recorded Confirmed Type alirocumab subcut 06/22/22 History aspirin 81 mg tablet,delayed 81 mg PO DAILY 06/22/22 08/27/23 History release (Adult Aspirin Regimen) carvedilol 6.25 mg tablet 6.25 mg PO BID 06/22/22 08/27/23 History clobetasol 0.05 % topical ointment 1 applic topical DAILY 06/22/22 08/27/23 History clopidogrel 75 mg tablet 75 mg PO DAILY 06/22/22 08/27/23 History ezetimibe 10 mg tablet 10 mg PO DAILY 06/22/22 08/27/23 History isosorbide mononitrate 90 mg PO DAILY 06/22/22 08/27/23 History lisinopril 10 mg tablet 5 mg PO DAILY 06/22/22 08/27/23 History omeprazole 20 mg capsule,delayed 20 mg PO BID 06/22/22 08/27/23 History release Allergies Allergy/AdvReac Type Severity Reaction Status Date / Time No Known Drug Allergies Allergy Verified 06/23/22 16:42 Exam Narrative: Exam Narrative: GEN: Alert and pleasant, nontoxic and laying comfortably in bed HEENT: EOMIs bilaterally, no scleral icterus CV: RRR, No concerning murmurs, rubs, or gallops R: LCTA bilaterally without concerning wheezing, air movement adequate Ab: soft and nontender, tolerates exam Ext: wwp, no concerning edema Skin: No concerning skin lesions or rashes on exposed skin, no jaundice Neuro: Nonfocal Psych: Mild cognitive impairment is evident, no agitation Const: Vital Signs, click to edit/add: Vital Signs - 24 hr 08/27/23 12:17 08/27/23 14:56 08/27/23 15:00 Temperature 96.1 F L Pulse Rate 56 L 58 L Pulse Rate [Pulse Oximeter] 66 Respiratory Rate 16 Blood Pressure Blood Pressure [Ri ght Upper Arm] 154/96 H Pulse Oximetry 97 96 96 Oxygen Delivery Me thod Room Air 08/27/23 15:15 08/27/23 15:30 08/27/23 15:32 Temperature Pulse Rate 59 L 58 L Pulse Rate [Pulse Oximeter] Respiratory Rate Blood Pressure 140/81 H Blood Pressure [Ri ght Upper Arm] Pulse Oximetry 95 96 Oxygen Delivery Me od 08/27/23 15:46 08/27/23 16:00 08/27/23 16:02 Temperature Pulse Rate 61 57 L 57 L Pulse Rate [Pulse Oximeter] Respiratory Rate Blood Pressure 175/97 H Blood Pressure [Ri ght Upper Arm] Pulse Oximetry 97 98 97 [facility] 16:15 Temperature Pulse Rate 65 Pulse Rate [Pulse Oximeter] Respiratory Rate Blood Pressure Blood Pressure [Ri ght Upper Arm] Pulse Oximetry 95 [facility] - H&P: Result Labs Labs: Short CBC 08/27/23 Range/Units 14:30 WBC 10.95 (4.50-11.00) K/uL Hgb 17.8 H (13.5-17.5) gm/dL Hct 52.1 (37.0-53.0) % Plt Count 245 (140-440) K/uL BMP 08/27/23 14:30 Sodium 132 L Potassium 3.5 L Chloride 98 Carbon Dioxide 25 BUN 15 Creatinine 0.7 Glucose 119 H Calcium 9.4 Cardiac Enzymes 08/27/23 Range/Units 14:30 Troponin I 0.01 (0.01-0.04) ng/mL Liver Function 08/27/23 Range/Units 14:30 Total Bilirubin 2.0 H (0.1-1.5) mg/dL Direct Bilirubin 0.1 (0.0-0.5) mg/dL AST 41 H (12-35) U/L ALT 30 (4-50) U/L Alkaline Phosphatase 56 (40-150) U/L Albumin 4.2 (3.3-5.0) g/dL Assessment and Plan Assessment and plan (1) COVID-19: Problem comment: - likely cause of fatigue and anorexia - stable on room air at this time; consider initiation of COVID specific therapies if oxygen needs were to arise - therapies ordered Status: Acute (2) Coronary artery disease: Problem comment: - h/o CABG Status: Acute (3) Choledocholithiasis: Problem comment: - possible, noted on CT scan 08/27 - elevated bilirubin, no abdominal pain - will further evaluate with MRCP, plan pending results Status: Acute (4) Fatigue: Status: Acute Plan - per above - SCDs, ASA, Lovenox for ppx - daughter Sherin confirmed DNR/DNI status
--- NOTE | 2023-08-27 19:27 | PC.NURSE ---
Patient up to the floor at 1620, patient was alert and oriented x3, pleasant and cooperative, able to stand on the scale for a weight. Patient denied N/V/SOB. Patient denied pain. Patient has a hx of dementia, patient stated that he can't taste or smell and does not have an appetite as a result. Patient was able to articulate his needs throughout the shift and answered bid writer's questions accordingly. Patient wears upper and lower dentures, can ambulate independently in room to BR, Patient will be NPO at midnight.
[2023-08-27] MEDS: OMEPRAZOLE 20 MG CAPSULE DR PO (20:17)
[2023-08-27] MEDS: carvediloL 6.25 MG TABLET PO (20:17)
[2023-08-27] MEDS: THIAMINE 100 MG TABLET PO (20:18)
[2023-08-27] MEDS: ACETAMINOPHEN 325 MG TABLET 975 MG PO (20:18)
[2023-08-27] MEDS: SODIUM CHLORIDE 0.9 % (FLUSH) 10 ML SYRINGE 5 ML IVF (20:19)
[2023-08-27 21:07] LABS: Troponin I* 0.01 ng/mL (0.01-0.04)
[2023-08-27] MEDS: LORazepam 0.5 MG TABLET PO (22:41)
[2023-08-28] VITALS (14 sets, daily range): BP systolic 123–143; BP diastolic 71–83; PULSE 46–59; RESP 16–20; TEMP 36.6–37.1; O2SAT 92–96
[2023-08-28 05:21] LABS: Appearance Urine Clear (Clear); Bilirubin Urine Negative (Negative); Blood Urine Negative (Negative); Color Urine Yellow (Yellow); Glucose Urine Negative (Negative); Ketones Urine Negative (Negative); Leukocyte Esterase Urine Negative (Negative); Nitrite Urine Negative (Negative); Protein Urine Negative (Negative); Urobilinogen Urine 0.2 (0.2-1.0)
--- NOTE | 2023-08-28 05:21 | PC.NURSE ---
SHIFT NOTE : Pt pleasant and cooperative, A&O. Up independent in room, denies lightheadedness. Declined SCD's, encouraged ankle pumps. Denies pain with exception of GARCIA, better after Tylenol. Denies SOB, CP, and N/V. VSS on RA. Tele reads sinus hina. CIWA scores 1-3 r/t GARCIA. NPO @ midnight for MRCP this AM. Urine sample sent to lab. Pt reports feeling much better this morning and was asking if he would be able to discharge home today.
[2023-08-28 05:38] LABS: Bacteria Urine Few; RBC Urine 0-2 (0-2); Squamous Epithelial Cell Urine Few (None-Few); WBC Urine 0-2 (0-5)
[2023-08-28 06:32] LABS: Basophils Absolute Auto 0.01 K/uL (0.00-0.30); Basophils Percent Auto 0.1 % (0.0-3.0); Eosinophils Absolute Auto 0.03 K/uL (0.00-0.50); Eosinophils Percent Auto 0.4 % (0.0-7.0); Hematocrit 49.5 % (37.0-53.0); Hemoglobin* 16.7 gm/dL (13.5-17.5); Immature Granulocytes Abs Auto 0.03 K/uL (0.00-0.30); Immature Granulocytes Pct Auto 0.4 %; Lymphocytes Percent Auto 17.9 % (20-44); Mean Corpuscular HGB Conc 34 gm/dL (32-36); Mean Corpuscular Hemoglobin 31 pg (26-34); Mean Corpuscular Volume 92 fL (80-100); Monocytes Percent Auto 11.8 % (0.0-11.0); Neutrophils Absolute Auto 5.45 K/uL (1.7-7.0); Neutrophils Percent Auto 69.4 % (42.0-72.0); Platelet Count* 203 K/uL (140-440); RDW Coefficient of Variation % 13.2 % (11.5-15.5); White Blood Count* 7.86 K/uL (4.50-11.00)
[2023-08-28 06:35] LABS: Slide Review Reflex No
[2023-08-28 06:58] LABS: Albumin* 3.6 g/dL (3.3-5.0); Chloride* 101 mmol/L (96-114); Potassium* 3.1 mmol/L (3.6-5.1); Sodium* 134 mmol/L (135-149)
[2023-08-28 07:00] LABS: Creatinine* 0.8 mg/dL (0.5-1.5); Estimated Glomerular Filt Rate 91 ml/min
--- NOTE | 2023-08-28 07:00 | CRLHL7_ITS ---
For Patients: As a result of the Cures Act, medical imaging exams and procedure reports are released immediately into your electronic medical record. You may view this report before your referring provider. If you have questions, please contact your health care provider. INDICATION: Elevated bilirubin and possible choledocholithiasis on CT. TECHNIQUE: MRI and MRCP of the abdomen acquired without IV contrast. COMPARISON: CT of the abdomen and pelvis 08/27/2023. FINDINGS: Non cirrhotic configuration of the liver. Mild diffuse hepatic steatosis. Small T2 hyperintense lesion in the left hepatic lobe is likely a cyst. Additional tiny T2 hyperintense lesion in the posterior right hepatic lobe. The unenhanced spleen, pancreas, and adrenal glands are normal in appearance. No dilation of the main pancreatic duct. Bilateral renal cysts. No hydronephrosis. There are multiple small stones in the gallbladder. No evidence of gallbladder inflammation. The common bile duct is mildly dilated measuring up to 9 mm in diameter. There is a 4 mm filling defect in the distal common bile duct compatible with choledocholithiasis (series 7 image 24, series 12 image 21, series 14 image 58). No significant intrahepatic bile duct dilation. Postoperative changes at the gastroesophageal junction. No bowel dilation. Colonic diverticulosis. No free fluid or lymphadenopathy in the upper abdomen. Infrarenal abdominal aortic aneurysm which is better characterized on CT. Susceptibility artifact related to sternotomy. IMPRESSION: 1. Cholelithiasis without evidence of gallbladder inflammation. 2. Mild dilation of the common bile duct with a 4 mm filling defect distally compatible with choledocholithiasis. 3. Mild diffuse hepatic steatosis. Dictated by Mabel Magallanes MD @ 08/28/2023 12:21:23 PM (Electronically Signed)
[2023-08-28 07:01] LABS: Alanine Aminotransferase* 32 U/L (4-50); Alkaline Phosphatase* 49 U/L (40-150); Anion Gap 6 mEq/L (7-15); Aspartate Amino Transferase* 41 U/L (12-35); Bilirubin Direct* 0.1 mg/dL (0.0-0.5); Bilirubin Total* 2.3 mg/dL (0.1-1.5); Blood Urea Nitrogen* 16 mg/dL (7-30); Calcium* 8.8 mg/dL (8.4-10.6); Carbon Dioxide* 27 mmol/L (20-32); Glucose* 88 mg/dL (60-115); Total Protein* 6.4 g/dL (6.0-8.3)
[2023-08-28] MEDS: ASPIRIN 81 MG TABLET EC PO (08:55)
[2023-08-28] MEDS: OMEPRAZOLE 20 MG CAPSULE DR PO ×2 (08:55→20:31)
[2023-08-28] MEDS: carvediloL 6.25 MG TABLET PO ×2 (08:55→20:31)
[2023-08-28] MEDS: EZETIMIBE 10 MG TABLET PO (08:55)
[2023-08-28] MEDS: ISOSORBIDE MONONITRATE ER 30 MG TAB 90 MG PO (08:55)
[2023-08-28] MEDS: FOLIC ACID 1 MG TABLET PO (08:55)
[2023-08-28] MEDS: CLOPIDOGREL 75 MG TABLET PO (08:55)
[2023-08-28] MEDS: SODIUM CHLORIDE 0.9 % (FLUSH) 10 ML SYRINGE 5 ML IVF (08:55)
[2023-08-28] MEDS: lisinopriL 10 MG TABLET 5 MG PO (08:56)
--- NOTE | 2023-08-28 10:54 | P.IMPN_ITS ---
Progress Note: A&P Assessment and plan (1) COVID-19: Problem details: - likely cause of fatigue and anorexia, improved this morning - stable on room air at this time; consider initiation of COVID specific therapies if oxygen needs were to arise - therapies ordered - UC/BC pending Status: Acute (2) Choledocholithiasis: Problem details: - possible, noted on CT scan 08/27. Confirmed on MRCP - elevated bilirubin, continues with no complaint of abdominal pain or nausea - general surgery consulted for further recommendations Status: Acute (3) Coronary artery disease: Problem details: - h/o CABG Status: Acute (4) Hypokalemia: Problem details: - mild, potassium 3.1 - supplement with oral replacement, recheck in am Status: Acute (5) Hypertension: Problem details: - stable, continue home medications Status: Acute Plan CODE: DNR/DNI VTE PPX: Enoxaparin Disposition: Observation, possible discharge to home today pending further results Time Spent With Patient Total time spent: Total time spent caring for the patient today was 45 minutes. This includes time spent for the visit reviewing the chart, time spent during the visit, time spent after the visit and documentation and planning in coordination of care. Subjective Date Seen: 08/28/23 Interval history: Patient is seen with and daughter at bedside and reports feeling better this morning. Abdominal discomfort has resolved. No further nausea. Denies headache or dizziness. Denies chest pain or shortness of breath. Oxygenating on room air without dyspnea. No fevers. Patient lives at home with and was feeling quite weak yesterday. This morning, weakness is much improved and he and family believe he will be able to return home. Exam Narrative: Exam Narrative: PHYSICAL EXAM General: Sitting up in chair, very Pleasant, conversant, NAD HEENT: Normocephalic, atraumatic, sclera white, EOMI, oral mucosa moist Cardiovascular: RRR, S1S2. No pitting edema Pulmonary: CTA bilaterally without rhonchi, rales, expiratory wheezes. No dyspnea Abdominal: Soft, nondistended, NTTP Neurological: Alert, answering questions appropriately, cranial nerves intact, no focal findings Extremities: No gross joint deformity or swelling. AROMI. Neurovascularly intact Skin: Warm, dry. Const: Vital Signs, click to edit/add: Vital Signs - 24 hr 08/27/23 12:17 08/27/23 14:56 08/27/23 15:00 Temperature 96.1 F L Pulse Rate 56 L 58 L Pulse Rate [Pulse Oximeter] 66 Pulse Rate [Right Pulse Oximeter] Respiratory Rate 16 Blood Pressure Blood Pressure [Le ft Arm] Blood Pressure [Ri ght Upper Arm] 154/96 H Pulse Oximetry 97 96 96 Oxygen Delivery Me thod Room Air 08/27/23 15:15 08/27/23 15:30 08/27/23 15:32 Temperature Pulse Rate 59 L 58 L Pulse Rate [Pulse Oximeter] Pulse Rate [Right Pulse Oximeter] Respiratory Rate Blood Pressure 140/81 H Blood Pressure [Le ft Arm] Blood Pressure [Ri ght Upper Arm] Pulse Oximetry 95 96 Oxygen Delivery Me thod 08/27/23 15:46 08/27/23 16:00 08/27/23 16:02 Temperature Pulse Rate 61 57 L 57 L Pulse Rate [Pulse Oximeter] Pulse Rate [Right Pulse Oximeter] Respiratory Rate Blood Pressure 175/97 H Blood Pressure [Le ft Arm] Blood Pressure [Ri ght Upper Arm] Pulse Oximetry 97 98 97 Oxygen Delivery Me thod 08/27/23 16:15 08/27/23 16:30 08/27/23 16:30 Temperature 97.7 F Pulse Rate 65 Pulse Rate [Pulse Oximeter] Pulse Rate [Right Pulse Oximeter] Respiratory Rate 16 16 Blood Pressure Blood Pressure [Le ft Arm] 176/107 H Blood Pressure [Ri ght Upper Arm] Pulse Oximetry 95 98 95 Oxygen Delivery Me thod Room Air Room Air 08/27/23 19:00 08/27/23 23:00 08/27/23 23:00 Temperature 98.5 F 99.1 F Pulse Rate 55 L Pulse Rate [Pulse Oximeter] Pulse Rate [Right Pulse Oximeter] 58 L 54 L Respiratory Rate 16 16 Blood Pressure Blood Pressure [Le ft Arm] 158/85 H 134/81 Blood Pressure [Ri ght Upper Arm] Pulse Oximetry 94 94 Oxygen Delivery Me thod Room Air Room Air 08/27/23 23:00 08/27/23 23:00 08/28/23 03:00 Temperature 98.7 F Pulse Rate Pulse Rate [Pulse Oximeter] Pulse Rate [Right Pulse Oximeter] 58 L 59 L Respiratory Rate 16 16 16 Blood Pressure Blood Pressure [Le ft Arm] 143/80 H Blood Pressure [Ri ght Upper Arm] Pulse Oximetry 94 96 Oxygen Delivery Me thod Room Air Room Air 08/28/23 07:00 08/28/23 07:00 08/28/23 07:00 Temperature 98.7 F Pulse Rate Pulse Rate [Pulse Oximeter] Pulse Rate [Right Pulse Oximeter] 55 L 55 L Respiratory Rate 16 16 16 Blood Pressure Blood Pressure [Le ft Arm] 126/75 Blood Pressure [Ri ght Upper Arm] Pulse Oximetry 94 94 Oxygen Delivery Me thod Room Air Room Air 08/28/23 07:40 Temperature Pulse Rate 51 L Pulse Rate [Pulse Oximeter] Pulse Rate [Right Pulse Oximeter] Respiratory Rate Blood Pressure Blood Pressure [Le ft Arm] Blood Pressure [Ri ght Upper Arm] Pulse Oximetry Oxygen Delivery Me thod Labs Labs: Laboratory Results - last 24 hr 08/27/23 08/27/23 08/28/23 14:30 20:34 05:13 WBC 10.95 RBC 5.73 Hgb 17.8 H Hct 52.1 MCV 91 MCH 31 MCHC 34 RDW Coeff of Lilibeth 13.0 Plt Count 245 Neut % (Auto) 81.4 H Lymph % (Auto) 8.8 L [place] % (Auto) 8.8 Eos % (Auto) 0.0 Baso % (Auto) 0.1 Neut # (Auto) 8.90 H Lymph # (Auto) 1.00 [place] # (Auto) 1.00 H Eos # (Auto) 0.00 Baso # (Auto) 0.01 Abs Immat Gran (auto) 0.10 Imm/Tot Granulo (auto) 0.9 INR 0.94 Sodium 132 L Potassium 3.5 L Chloride 98 Carbon Dioxide 25 Anion Gap 9 BUN 15 Creatinine 0.7 Estimated Creat Clear 58.90 Estimated GFR 94 Glucose 119 H Lactate 1.7 Calcium 9.4 Total Bilirubin 2.0 H Direct Bilirubin 0.1 AST 41 H ALT 30 Alkaline Phosphatase 56 Troponin I 0.01 0.01 C-Reactive Protein < 0.5 L NT-Pro-B Natriuret Pep 4280 Total Protein 7.3 Albumin 4.2 Amylase 42 Urine Color Yellow Urine Appearance Clear Urine pH 6.0 Ur Specific [place] 1.010 Urine Protein Negative Urine Glucose (UA) Negative Urine Ketones Negative Urine Blood Negative Urine Nitrite Negative Urine Bilirubin Negative Urine Urobilinogen 0.2 Ur Leukocyte Esterase Negative Urine RBC 0-2 Urine WBC 0-2 Ur Squamous Epith Cells Few Urine Bacteria Few A SARS-CoV-2 (PCR) POSITIVE SARS-CoV-2 A Influenza Type A (PCR) Negative PCR FLU A Influenza Type B (PCR) Negative PCR FLU B RSV (PCR) Negative PCR RSV 08/28/23 06:06 WBC 7.86 RBC 5.40 Hgb 16.7 Hct 49.5 MCV 92 MCH 31 MCHC 34 RDW Coeff of Lilibeth 13.2 Plt Count 203 Neut % (Auto) 69.4 Lymph % (Auto) 17.9 L [place] % (Auto) 11.8 H Eos % (Auto) 0.4 Baso % (Auto) 0.1 Neut # (Auto) 5.45 Lymph # (Auto) 1.40 [place] # (Auto) 0.90 Eos # (Auto) 0.03 Baso # (Auto) 0.01 Abs Immat Gran (auto) 0.03 Imm/Tot Granulo (auto) 0.4 INR Sodium 134 L Potassium 3.1 L Chloride 101 Carbon Dioxide 27 Anion Gap 6 L BUN 16 Creatinine 0.8 Estimated Creat Clear 58.90 Estimated GFR 91 Glucose 88 Lactate Calcium 8.8 Total Bilirubin 2.3 H Direct Bilirubin 0.1 AST 41 H ALT 32 Alkaline Phosphatase 49 Troponin I C-Reactive Protein NT-Pro-B Natriuret Pep Total Protein 6.4 Albumin 3.6 Amylase Urine Color Urine Appearance Urine pH Ur Specific [place] Urine Protein Urine Glucose (UA) Urine Ketones Urine Blood Urine Nitrite Urine Bilirubin Urine Urobilinogen Ur Leukocyte Esterase Urine RBC Urine WBC Ur Squamous Epith Cells Urine Bacteria SARS-CoV-2 (PCR) Influenza Type A (PCR) Influenza Type B (PCR) RSV (PCR) Imaging MRCP: Radiologist's impression: MRCP shows 1. Cholelithiasis without evidence of gallbladder inflammation. 2. Mild dilation of the common bile duct with a 4 mm filling defect distally compatible with choledocholithiasis. 3. Mild diffuse hepatic steatosis.
[2023-08-28] MEDS: POTASSIUM CHLORIDE 10 MEQ CAPSULE ER 20 MEQ PO ×2 (12:15→18:28)
[2023-08-28] MEDS: LACTATED RINGERS 1000 ML 1,000 ML 75 ML IV (14:04)
[2023-08-28] MEDS: THIAMINE 100 MG TABLET PO (18:28)
--- NOTE | 2023-08-28 19:34 | PC.NURSE ---
End of shift-- Very pleasant and cooperative, alert and oriented, though occasionally forgetful patient. VSS and pt is afebrile. SPO2 maintained >94% on RA. He denied any pain today. He went for MRCP this morning and tolerated it well. LS CTA. Telemetry shows sinus bradycardia and MD is aware. He denied nausea and ate 75% of a regular dinner without difficulty. He was up to BR and chair independently or with SBA and tolerated it well. and daughter at bedside today and appear loving and supportive. Report to EDILBERTO Cooper.
[2023-08-28] MEDS: ENOXAPARIN 40 MG/0.4 ML INJ SUBCUT (20:32)
--- NOTE | 2023-08-28 22:49 | PC.NURSE ---
Pt pleasant and cooperative. Ambulate with SB assist of 1 and a walker. Voiding without difficulty. VSS. Pt on RA.
[2023-08-29] VITALS (8 sets, daily range): BP systolic 123–169; BP diastolic 72–96; PULSE 48–66; RESP 16; TEMP 36.7–36.8; O2SAT 92–96
[2023-08-29] MEDS: LORazepam 0.5 MG TABLET PO (01:55)
[2023-08-29] MEDS: LACTATED RINGERS 1000 ML 1,000 ML 75 ML IV (04:34)
--- NOTE | 2023-08-29 07:01 | PC.NURSE ---
23-07: pleasant and cooperative. Calls appropriately. Indep. Pt requested sleep aid, offered some sleep per pt. NPO since midnight. Tele ? Alejandro.
[2023-08-29] MEDS: EZETIMIBE 10 MG TABLET PO (08:58)
[2023-08-29] MEDS: ISOSORBIDE MONONITRATE ER 30 MG TAB 90 MG PO (08:58)
[2023-08-29] MEDS: FOLIC ACID 1 MG TABLET PO (08:58)
[2023-08-29] MEDS: OMEPRAZOLE 20 MG CAPSULE DR PO (08:58)
[2023-08-29] MEDS: carvediloL 6.25 MG TABLET PO (08:58)
[2023-08-29] MEDS: lisinopriL 10 MG TABLET 5 MG PO (08:59)
[2023-08-29] MEDS: CLOPIDOGREL 75 MG TABLET PO (08:59)
[2023-08-29] MEDS: ASPIRIN 81 MG TABLET EC PO (08:59)
[2023-08-29 09:36] LABS: Basophils Absolute Auto 0.01 K/uL (0.00-0.30); Basophils Percent Auto 0.2 % (0.0-3.0); Eosinophils Absolute Auto 0.05 K/uL (0.00-0.50); Eosinophils Percent Auto 0.8 % (0.0-7.0); Hematocrit 46.7 % (37.0-53.0); Hemoglobin* 15.8 gm/dL (13.5-17.5); Immature Granulocytes Abs Auto 0.01 K/uL (0.00-0.30); Immature Granulocytes Pct Auto 0.2 %; Lymphocytes Percent Auto 19.4 % (20-44); Mean Corpuscular HGB Conc 34 gm/dL (32-36); Mean Corpuscular Hemoglobin 31 pg (26-34); Mean Corpuscular Volume 93 fL (80-100); Monocytes Percent Auto 11.1 % (0.0-11.0); Neutrophils Absolute Auto 4.38 K/uL (1.7-7.0); Neutrophils Percent Auto 68.3 % (42.0-72.0); Platelet Count* 187 K/uL (140-440); RDW Coefficient of Variation % 13.2 % (11.5-15.5); Red Blood Count 5.05 m/uL (4.30-5.90)
[2023-08-29 09:56] LABS: Chloride* 104 mmol/L (96-114)
[2023-08-29 09:57] LABS: Potassium* 3.5 mmol/L (3.6-5.1); Sodium* 135 mmol/L (135-149)
[2023-08-29 09:59] LABS: Creatinine* 0.8 mg/dL (0.5-1.5); Estimated Glomerular Filt Rate 91 ml/min
[2023-08-29 10:00] LABS: Anion Gap 5 mEq/L (7-15); Blood Urea Nitrogen* 17 mg/dL (7-30); Calcium* 8.3 mg/dL (8.4-10.6); Carbon Dioxide* 26 mmol/L (20-32); Glucose* 81 mg/dL (60-115)
[2023-08-29 10:05] LABS: Slide Review Reflex No
[2023-08-29 10:16] LABS: Albumin* 3.3 g/dL (3.3-5.0)
[2023-08-29 10:19] LABS: Alanine Aminotransferase* 32 U/L (4-50); Alkaline Phosphatase* 45 U/L (40-150); Aspartate Amino Transferase* 38 U/L (12-35); Bilirubin Direct* 0.1 mg/dL (0.0-0.5); Total Protein* 5.8 g/dL (6.0-8.3)
--- NOTE | 2023-08-29 12:02 | P.DS_ITS ---
DS: Providers Provider Date Seen: 08/29/23 Date of admission: 08/27/23 16:15 Primary care physician: at the [facility] Admitting Clinician: Kings Orozco MD Consults: 08/27/23 19:19 Consult to Occupational Therapy [CONS] Routine Comment: Reason(s) for OT Consult:: Evaluate and Treat Any Restrictions?:: No Restrictions Consult to Physical Therapy [CONS] Routine Comment: Reason(s) for PT Consult:: Evaluate and Treat Any Restrictions?:: No Restrictions 08/28/23 13:06 Consult to Physician [CONS] Routine Comment: Cholelithiasis, choledocholithiasis - MRCP Consulting Provider: General Surgery, [facility] Has provider been notified: Yes Attending Physician on discharge: Allison Sandy [facility], [facility] Date of Discharge: 08/29/23 DS: Diagnosis Discharge Diagnosis (1) Choledocholithiasis: Status: Acute Problem details: - noted on CT scan 08/27. Confirmed on MRCP 08/28. No leukocytosis, remains afebrile, vitally stable - elevated bilirubin stable at 2.0, direct 0.1, AST stable 38 - continues with no complaint of abdominal pain or nausea, tolerated dinner las t night 08/28, NPO this morning again - general surgery, Dr. Hammer, consulted for further recommendations. Recommends transfer for ERCP. 08/28: discussed with [facility], recommends transfer for ERCP. Call to [facility], unable to do ERCP. Call to [facility], placed on waiting list due to no bed availability. 08/29: bed available, 4 hour wait list. Discussed care with Dr. Singh, accepting provider at [facility]. Transfer packet completed. (2) COVID-19: Status: Acute Problem details: - likely cause of fatigue and anorexia, improved this morning - stable on room air at this time; consider initiation of COVID specific therapies if oxygen needs were to arise - therapies ordered - UC/BC no growth (3) Hypertension: Status: Acute Problem details: - stable, mildly elevated. Home medication dosing resumed (4) Hypokalemia: Status: Acute Problem details: - mild, improving, potassium 3.5 - supplement with oral replacement, follow (5) Coronary artery disease: Status: Acute Problem details: - h/o CABG DS: Summary Hospital Course Hospital Course: [age] year old male past medical history significant for hypertension, CAD, status post CABG was admitted to the medical floor for weakness and anorexia in setting of COVID infection and choledocholithiasis. Course of care and details as noted above. Remainder of chronic medical comorbidities were monitored and managed with home medications. Patient is being transferred to [facility], accepting physician is Dr. Singh, for ERCP for acute finding of choledocholithiasis. Patient has remained afebrile, vital signs stable. Currently NPO with LR 75ml/hr. Status at Discharge Overall status at discharge: patient is back to baseline Time Spent with Patient Time attestation: Total time spent providing and/or coordinating discharge services: Time spent: Greater than 30 minutes Exam Narrative: Exam Narrative: PHYSICAL EXAM General: Very pleasant, conversant, NAD HEENT: Normocephalic, atraumatic, sclera white, EOMI, oral mucosa moist Cardiovascular: RRR, S1S2. No pitting edema Pulmonary: CTA bilaterally without rhonchi, rales, expiratory wheezes. No dyspnea Abdominal: Soft, nondistended, NTTP, no guarding Neurological: Alert, answering questions appropriately, cranial nerves intact, no focal findings Extremities: No gross joint deformity or swelling. AROMI. Neurovascularly intact Skin: Warm, dry. Const: Vital Signs, click to edit/add: Vital Signs - 24 hr 08/28/23 15:00 08/28/23 15:35 08/28/23 15:58 Temperature 98.1 F Pulse Rate 46 L Pulse Rate [Right Pulse Oximeter] 48 L 48 L Respiratory Rate 16 16 Blood Pressure [Le ft Arm] 130/83 Pulse Oximetry 94 Oxygen Delivery Me thod Room Air 08/28/23 16:01 08/28/23 16:04 08/28/23 19:00 Temperature 98.1 F 97.9 F Pulse Rate Pulse Rate [Right Pulse Oximeter] 48 L 59 L Respiratory Rate 16 16 16 Blood Pressure [Le ft Arm] 130/83 142/73 H Pulse Oximetry 94 94 95 Oxygen Delivery Me thod Room Air Room Air Room Air 08/28/23 20:23 08/28/23 22:00 08/28/23 22:57 Temperature 97.9 F Pulse Rate 55 L 53 L Pulse Rate [Right Pulse Oximeter] 59 L Respiratory Rate 16 Blood Pressure [Le ft Arm] 142/73 H Pulse Oximetry 95 Oxygen Delivery Me thod Room Air 08/28/23 23:00 08/28/23 23:00 08/28/23 23:00 Temperature 98.2 F Pulse Rate Pulse Rate [Right Pulse Oximeter] 55 L 55 L Respiratory Rate 16 16 16 Blood Pressure [Le ft Arm] 123/72 Pulse Oximetry 92 92 Oxygen Delivery Me thod Room Air Room Air 08/29/23 00:00 08/29/23 02:52 08/29/23 02:53 Temperature 98.2 F 98.2 F 98.2 F Pulse Rate Pulse Rate [Right Pulse Oximeter] 55 L 48 L 48 L Respiratory Rate 16 16 16 Blood Pressure [Le ft Arm] 123/72 157/89 H 157/89 H Pulse Oximetry 92 96 96 Oxygen Delivery Me thod Room Air Room Air Room Air 08/29/23 07:00 08/29/23 07:00 Temperature 98.0 F Pulse Rate Pulse Rate [Right Pulse Oximeter] 50 L Respiratory Rate 16 16 Blood Pressure [Le ft Arm] 169/85 H Pulse Oximetry 95 95 Oxygen Delivery Me thod Room Air Room Air DS: Data Data Completed and Pending Completed studies during hospitalization: Copies will be sent along with patient to [facility] Pending studies at discharge: UC/BC showing no growth Labs on day of discharge: Labs from last 24 hours 08/29/23 09:23 WBC 6.40 RBC 5.05 Hgb 15.8 Hct 46.7 MCV 93 MCH 31 MCHC 34 RDW Coeff of Lilibeth 13.2 Plt Count 187 Neut % (Auto) 68.3 Lymph % (Auto) 19.4 L [place] % (Auto) 11.1 H Eos % (Auto) 0.8 Baso % (Auto) 0.2 Neut # (Auto) 4.38 Lymph # (Auto) 1.20 [place] # (Auto) 0.70 Eos # (Auto) 0.05 Baso # (Auto) 0.01 Abs Immat Gran (auto) 0.01 Imm/Tot Granulo (auto) 0.2 Sodium 135 Potassium 3.5 L Chloride 104 Carbon Dioxide 26 Anion Gap 5 L BUN 17 Creatinine 0.8 Estimated Creat Clear 58.90 Estimated GFR 91 Glucose 81 Calcium 8.3 L Total Bilirubin 2.0 H Direct Bilirubin 0.1 AST 38 H ALT 32 Alkaline Phosphatase 45 Total Protein 5.8 L Albumin 3.3 Preliminary micro results at discharge 08/28/23 05:13 Urine Culture - Preliminary Urine,Clean Catch NO GROWTH AFTER 24 HOURS 08/27/23 14:58 Blood Culture - Preliminary Blood NO GROWTH AFTER 24 HOURS 08/27/23 14:30 Blood Culture - Preliminary Blood NO GROWTH AFTER [address] scan - abdomen: Radiologist's impression: INDICATION: Abdominal fullness, lethargy, nausea. TECHNIQUE: CT of the abdomen and pelvis with 89 cc Isovue 370 IV contrast. Coronal and sagittal reconstructions. COMPARISON: Abdominal ultrasound 08/11/2010. FINDINGS: Diffuse hepatic steatosis, with fatty sparing about the gallbladder fossa. Small left hepatic cyst. Cholelithiasis without evidence of gallbladder inflammation. Mild dilation of the common bile duct measuring up to 9 mm in diameter. There is a 4 mm calcific density in the distal common bile duct which likely represents choledocholithiasis (series 2 image 51 and series 4 image 78). The spleen, pancreas, and adrenal glands are negative. Portal veins appear patent. Symmetric enhancement of the kidneys. Bilateral renal cysts. Additional subcentimeter bilateral renal hypodensities are too small to characterize. No hydronephrosis or ureteral dilation. There is a 5 mm stone either within or adjacent to the right ureterovesicular junction (series 2, image 129). The bladder is normal in appearance. Enlarged prostate gland. Postoperative changes at the gastroesophageal junction. No small bowel dilation. Moderate amount of stool throughout the colon. Extensive colonic diverticulosis without evidence of diverticulitis. Negative appendix. No intraperitoneal free air or fluid. No lymphadenopathy. Small bilateral fat containing inguinal hernias. Aortoiliac vascular calcifications. 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 Prominent focus of noncalcified atheromatous plaque in the distal descending thoracic aorta with intact wall calcifications (series 2, image 23). The lung bases are clear. Coronary artery and mitral annulus calcifications. Sternotomy. Mild degenerative changes of the spine. IMPRESSION: 1. Mild dilation of the common bile duct with a 4 mm filling defect suspicious for choledocholithiasis. Cholelithiasis without evidence of gallbladder inflammation. 2. 5 mm stone either within or adjacent to the right UVJ. No current signs of obstruction. 3. 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 4. Extensive colonic diverticulosis. 5. Enlarged prostate gland. Chest x-ray: Radiologist's impression: INDICATION: Abdominal fullness, lethargy, nausea TECHNIQUE: Chest 1 view. COMPARISON: None FINDINGS: The heart size and central vascular pattern are within the normal range. The lungs are clear of acute appearing infiltrates. No pleural effusion, pneumothorax or pneumomediastinum is identified. Changes of previous midline sternotomy and coronary artery bypass grafting are present. IMPRESSION: No acute cardiopulmonary disease is evident with other findings as discussed above. MRI - abdomen: Radiologist's impression: INDICATION: Elevated bilirubin and possible choledocholithiasis on CT. TECHNIQUE: MRI and MRCP of the abdomen acquired without IV contrast. COMPARISON: CT of the abdomen and pelvis 08/27/2023. FINDINGS: Non cirrhotic configuration of the liver. Mild diffuse hepatic steatosis. Small T2 hyperintense lesion in the left hepatic lobe is likely a cyst. Additional tiny T2 hyperintense lesion in the posterior right hepatic lobe. The unenhanced spleen, pancreas, and adrenal glands are normal in appearance. No dilation of the main pancreatic duct. Bilateral renal cysts. No hydronephrosis. There are multiple small stones in the gallbladder. No evidence of gallbladder inflammation. The common bile duct is mildly dilated measuring up to 9 mm in diameter. There is a 4 mm filling defect in the distal common bile duct compatible with choledocholithiasis (series 7 image 24, series 12 image 21, series 14 image 58). No significant intrahepatic bile duct dilation. Postoperative changes at the gastroesophageal junction. No bowel dilation. Colonic diverticulosis. No free fluid or lymphadenopathy in the upper abdomen. Infrarenal abdominal aortic aneurysm which is better characterized on CT. Susceptibility artifact related to sternotomy. IMPRESSION: 1. Cholelithiasis without evidence of gallbladder inflammation. 2. Mild dilation of the common bile duct with a 4 mm filling defect distally compatible with choledocholithiasis. 3. Mild diffuse hepatic steatosis. Discharge Plan Discharge Disposition: On License Of [facility] Discharge Location: [facility] Date of Admission: 08/27/23 16:15 Attending Provider on Discharge: Allison Sandy Primary Care Provider: Provider,Not a Local Condition: Stable Discharge Orders: Transfer of Care to Other Hospital (ORDER); Ordered 08/29/23 Ordered By: Allison Sandy Oxygen: No Urinary Catheter: No Drips/Lines: LR 75ml/hr Services not available here: ERCP, GI
[2023-08-29] MEDS: POTASSIUM CHLORIDE 10 MEQ CAPSULE ER 20 MEQ PO (12:36)
--- NOTE | 2023-08-29 17:47 | PC.NURSE ---
End of shift-- Very pleasant and cooperative, alert and oriented, though forgetful, patient transferred to [facility] for ERCP via EMS. VSS and pt is afebrile, though bradycardic as per baseline. SPO2 maintained >94% on RA. He denied any pain. LS CTA. He denied nausea and has been NPO since midnight aside from sips of water for medications. Nurse to nurse report was given to Raudel at [facility] and all questions were answered.
== END 2023-08-29 17:02 | disposition short-term general hospital (02) ==
LOC: ED 15:37 → MEDSURG 16:16
PROVIDERS: Family Medicine; Physician Assistant; Admitting Provider Internal Medicine; Emergency Provider Family Medicine; Visit Provider Internal Medicine
DX: U07.1 COVID-19 (principal); K80.50 Calculus of bile duct without cholangitis or cholecystitis without obstruction; I25.810 Atherosclerosis of coronary artery bypass graft(s) without angina pectoris; I11.9 Hypertensive heart disease without heart failure; Z95.1 Presence of aortocoronary bypass graft; Z87.891 Personal history of nicotine dependence; E87.6 Hypokalemia
CPT/HCPCS: 36415; 71045; 74177; 74181; 80048; 80076; 81001; 82150; 83605; 83880; 84484; 85025; 85610; 86140; 87040; 87086; 87631; 93005; 94761; 96360; 96361; 96372; 97161; 97165; 99285; G0378; A9270; J1650; J7120; Q9967

== ENCOUNTER 2023-08-29 17:05 | Outpatient (CLI) | payer OTHER, MEDICARE, SELFPAY | END 2023-08-29 17:06 | disposition home or self-care (01) | LOC: AMB 09-20 11:38 | PROVIDERS: Visit Provider Emergency Medicine Emergency Medical Services | DX: R10.9 Unspecified abdominal pain (principal) | CPT/HCPCS: A0425; A0428 ==